=== PATIENT | female | born 1950 | race Caucasian/White ===

== ENCOUNTER 2021-06-29 13:27 | Inpatient (IN) ==
[~2021-06-29 13:27] MED LIST: KETAMINE 50 MG/ML ML IV PRN; MIDAZOLAM 2 MG/2 ML VIAL IV SCH; PROPOFOL 200 MG/20 ML VIAL IV SCH
[2021-06-29] MEDS ORDERED: EPINEPHrine 1 MG/10 ML (1:10,000) SYRINGE IV ONE (13:28)
[2021-06-29] MEDS ORDERED: DEXTROSE 5% IN WATER 50 ML BAG IV ONE (13:28)
[2021-06-29] MEDS ORDERED: NALOXONE HCL 0.4 MG/ML VIAL IV ONE (13:28)
[2021-06-29] MEDS ORDERED: metroNIDAZOLE 500 MG in PREMIX 1 BAG IV SCH (15:00)
[2021-06-29] MEDS ORDERED: ONDANSETRON 4 MG/2 ML VIAL IV ONE ×2 (15:03→15:49)
[2021-06-29] MEDS ORDERED: HYDROmorphone 2 MG TABLET PO PRN (15:04)
[2021-06-29] MEDS: LACTATED RINGERS 1,000 ML IV SCH ×2 (15:07→21:35)
[2021-06-29] MEDS ORDERED: HYDROmorphone 1 MG/ML SYRINGE IV PRN (15:14)
[2021-06-29] MEDS ORDERED: MEROPENEM 2 GM in 0.9 % SODIUM CHLORIDE 100 ML IV ONE (15:45)
[2021-06-29] MEDS ORDERED: 0.9 % SODIUM CHLORIDE 250 ML IV SCH ×2 (15:45→19:00)
[2021-06-29] MEDS ORDERED: MEROPENEM 1 GM in 0.9 % SODIUM CHLORIDE 100 ML IV ONE (15:45)
[2021-06-29] MEDS ORDERED: MEROPENEM 2 GM in 0.9 % SODIUM CHLORIDE 50 ML IV ONE (15:46)
[2021-06-29] MEDS ORDERED: ONDANSETRON 4 MG/2 ML VIAL ONE ×2 (15:56→16:33)
[2021-06-29] MEDS ORDERED: EPINEPHrine 4 MG in 0.9 % SODIUM CHLORIDE 246 ML IV SCH (16:00)
--- NOTE | 2021-06-29 16:26 | Colonoscopy Procedure Note ---
Colonoscopy Procedure Notes Procedure Information Patient information: Note initiated : 06/29/21 at 4:21 pm Service Date: 06.29.21 Patient: Jewell Campoverde 70 y/o F admitted on for Esophogogastroduodenoscopy and Colonoscopy. Pre-op diagnosis general: Constipation. LLQ abdominal pain. Abnormal CT. Post-op diagnosis general: Ischemic colitis. Descending colon stricture. Perforation. Procedure: Colonoscopy Procedure narrative: The procedure, alternatives and risks were discussed with the patient and the patient's questions were answered. With endoscopist-administered intravenous sedation, the Olympus colonoscope was introduced into the rectum and advanced to the mid descending colon, where a tight ulcerated stricture was encountered. The scope was withdrawn and intubation with a pediatric colonoscope was attempted. I attempted to gently advance the pediatric colonoscope and was able to advance it 3-4cm before the bowel perforated suddenly. This complication was recognized immediately and surgeon, Dr. Bill, was called. She was given hydromorphone in the post procedure observation unit and developed respiratory depression, which resolved with Code Blue team intervention. She is taken to surgery emergently. Assessment: Ischemic colitis. Descending colon stricture. Perforation.
--- NOTE | 2021-06-29 16:30 | Event Note ---
Event Note Event Note: CODE BLUE event Responded to overhead CODE BLUE Patient was found unresponsive, pulseless and blue. CPR initiated, IV access secured, 1 amp of epi, 2 bags crystalloids pressure bag push, epi drip, magnesium, meropenem 2 g IV Reviewed chart, history of hypertension/GERD/ischemic colitis/COPD, no known CAD/CVA or CKD Discussed with GI Dr. Tiffanie Poole. Clinically peritonitis following bowel perforation during procedure. Stat surgical consult. No anesthesia service available for the next couple of hours and hence emergent transfer coordination postcode to tertiary center for exploratory laparotomy in the setting of bowel perforation. Case discussed with [facility] transfer center/colorectal surgeon/document processor Dr. Yang. Patient accepted for further management. Post CODE BLUE patient's hemodynamics stable with systolics around 140, tachycardia at 130, tender abdomen, patient awake and respond to commands. 3 IV access secured, on 7 L oxygen OxiMax. Reviewed EKGs tachycardia with A. fib flutter. Code labs pending, white count 9.7, hemoglobin 16 sodium 133, creatinine 0.6, potassium 4.5, Troponin pending Shortly prior to transfer was informed that emergent surgery is possible at [facility] and hence patient will be transferred to directly to the OR for expiratory laparotomy. Case discussed with Dr. Bill surgery, Dr. 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 However discussed with [facility] to keep ICU bed available case patient continues to be hemodynamically unstable post surgery requiring the need for transfer for expert management Assessment * Acute peritonitis secondary to bowel perforation * Sepsis secondary to above * CODE BLUE cardiorespiratory arrest with ROSC following epinephrine/2 minutes CPR secondary to above Plan * Will review postop * Consider transfer to tertiary center. * Monitor intensive care unit postoperatively until patient can be safely transferred to tertiary center Time spent on CODE BLUE/discussion with physician, transfer coordination in excess of 105 minutes
[2021-06-29] MEDS ORDERED: DEXAMETHASONE 10 MG/ML VIAL ONE (16:33)
[2021-06-29] MEDS ORDERED: HYDROmorphone 1 MG/ML SYRINGE ONE (16:33)
[2021-06-29] MEDS ORDERED: fentaNYL 100 MCG/2 ML VIAL IV ONE (16:33)
[2021-06-29] MEDS ORDERED: PHENYLephrine 1 MG/10 ML SYRINGE (ANEST) ONE (16:33)
[2021-06-29] MEDS ORDERED: MIDAZOLAM 2 MG/2 ML VIAL ONE (16:33)
[2021-06-29] MEDS ORDERED: SUGAMMADEX SODIUM 200 MG/2 ML VIAL IV ONE (16:33)
[2021-06-29] MEDS ORDERED: MAGNESIUM SULFATE 2 GM/50 ML BAG IV ONE (16:33)
[2021-06-29] MEDS ORDERED: KETAMINE 50 MG/ML Syringe (ANEST) IV ONE (16:33)
[2021-06-29] MEDS ORDERED: PROPOFOL 200 MG/20 ML VIAL IV ONE (16:33)
[2021-06-29] MEDS ORDERED: GLYCOPYRROLATE 0.2 MG/ML VIAL IV ONE (16:33)
[2021-06-29] MEDS ORDERED: LIDOCAINE HCL/PF 100 MG/5 ML SYRINGE IV ONE (16:33)
[2021-06-29] MEDS ORDERED: ROCURONIUM 10 MG/ML ML IV ONE (16:33)
[2021-06-29] MEDS ORDERED: SUCCINYLCHOLINE 20 MG/ML ML IV ONE (16:33)
--- NOTE | 2021-06-29 16:38 | General Surgery Consult Note ---
HPI Data of Consult Patient: new to practice Consult date: 06/29/21 Primary Care Provider: DONATO Singh Consult Narrative Chief complaint: Colonic Perforation Secondary to Colonoscopy Reason for consult: Same History of present illness: Asked to see patient following Iatrogenic Perforation secondary to Colonoscopy with Dr Matute for High Grade Obstructing Colonic Stricture secondary to Ischemic Colitis 2 months ago. Initially saw patient in conjunction with a code at roughly 1520 that seemed to present as an episode of Respiratory Failure resulting in need for Chest Compressions and full CPR along with administration of Epinephrine. Patient was initially non conversant but became gradually conversant after recovery and was able to convey significant abdominal pain and discomfort. Has had prior Appendectomy and Cholecystectomy. Denies any other abdominal surgery. cc:: CC: Guzman Matute [facility] All Active Problems (Updated 06/29/21 @ 16:33 by Han Bill MD) Perforation of colon as colonoscopy complication (Acute) Effusion of left knee (Chronic) Peripheral Vascular Disease (Chronic) Chronic obstructive pulmonary disease (Chronic) Hx of appendectomy (Chronic) H/O carpal tunnel repair (Chronic 01/13/14) H/O cervical discectomy (Chronic 03/19/14) Hx of cholecystectomy (Chronic) History of knee replacement procedure of left knee (Chronic) History of knee replacement procedure of right knee (Chronic) H/O tubal ligation (Chronic) S/P transposition of nerve (Chronic) Abdominal pain (Chronic) Anxiety disorder (Chronic) Back pain (Chronic) Paresthesias (Chronic 01/16/13) Carpal tunnel syndrome (Chronic) Chronic pain (Chronic) Degeneration, intervertebral disc, cervical (Chronic) Degenerative joint disease (Chronic) Depressive disorder (Chronic) Fatigue (Chronic) Fungal infection (Chronic) Gastroesophageal reflux (Chronic) Herpes simplex (Chronic 02/15/14) Hyperlipidemia (Chronic) Insomnia (Chronic) Neck pain (Chronic 01/14/13) Onychomycosis (Chronic 12/24/12) Osteoarthrosis (Chronic) Osteoporosis (Chronic 07/17/13) Polycythemia (Chronic 02/15/14) Ulnar tunnel syndrome (Chronic) Vaginitis and vulvovaginitis (Chronic) Pain due to total left knee replacement (Chronic) COPD exacerbation (Chronic ~01/16/13) History of abnormal cervical Pap smear (Chronic) Ganglion cyst of right foot (Chronic) UTI (urinary tract infection) (Chronic) Indigestion (Chronic) Arthritis (Chronic) Hypertension (Chronic) History of ankle surgery (Chronic) S/P wrist surgery (Chronic) Risk for falls (Chronic) Situational depression (Chronic) Encounter for medication monitoring (Chronic) Tobacco smoker within last 12 months (Chronic) OAB (overactive bladder) (Acute) Urinary retention with incomplete bladder emptying (Acute) Stroke-like symptom (Acute) Light-headedness (Acute) Dehydration (Acute) Ankle sprain (Acute) Sciatica associated with disorder of lumbar spine (Acute) Colitis (Acute) Left hip pain (Acute) Urinary tract infection (Acute) Medical History Abdominal pain Anxiety disorder Arthritis Back pain Carpal tunnel syndrome Chronic obstructive pulmonary disease Chronic pain Left knee COPD exacerbation (~01/16/13) Degeneration, intervertebral disc, cervical 12/28/13-Dr. Jacobs-ACDF Degenerative joint disease Depressive disorder Effusion of left knee Encounter for medication monitoring Fatigue Fungal infection Gastroesophageal reflux Herpes simplex (02/15/14) Lip Hyperlipidemia Hypertension Indigestion Insomnia Neck pain (01/14/13) Onychomycosis (12/24/12) Osteoarthrosis Lower leg Osteoporosis (07/17/13) Pain due to total left knee replacement Painful subluxed left total knee replacement. Needs revision Paresthesias (01/16/13) Bilateral pattern paresthesias-ulnar Peripheral Vascular Disease Polycythemia (02/15/14) Secondary Risk for falls Situational depression Tobacco smoker within last 12 months 2017: She did not like Chantix. She thought it gave her hives. She did not tolerate Wellbutrin very well. She did not like the way it made her feel. 2020: Willing to try patches again, she may do well using Mastisol or Skin- Prep to help the patches adhere better to her skin 10/27/2020 cannot afford patches - given [place] quitline info Ulnar tunnel syndrome UTI (urinary tract infection) Vaginitis and vulvovaginitis Surgical History H/O carpal tunnel repair (01/13/14) Dr. Jacobs H/O cervical discectomy (03/19/14) Dr. Jacobs ACD&F of C5-6 H/O tubal ligation 1977 History of ankle surgery Ganglion cyst on ankle- Dr. Martin History of knee replacement procedure of left knee and 2 revisions- 3 years ago History of knee replacement procedure of right knee 10/2007 partial Hx of appendectomy 1970 Hx of cholecystectomy S/P transposition of nerve Ulnar nerve transposition, left S/P wrist surgery 04/2017 Family History Unknown Alcohol abuse Osteoarthritis Osteoporosis Mother Arthritis Hypertension Sister , 2 one 56 and one 55 Hypertension Cancer 2 Sisters of 4 from cancer at ages 56 & 55 Father , at age 59 Aneurysm Social History caregiver/support person: Yes household members: family lives independently: No marital status: occupational status: disabled sexually active: Yes other: Lives with son and daughter in law physical activity: none smoking status: Current every day smoker tobacco type: cigarettes per day: 5 quit status: considering quitting counseling given: provider counseling and other details: Patches - can't afford alcohol intake frequency: 2+ drinks per day substance use type: former substance user seatbelt use: always additional history: Has 2 sisters (living), 2 brothers, 4 children and 9 grandchildren MEDS/ALLERGIES Home Medications and Allergies Home Medications Medication Instructions Recorded Confirmed Type triamcinolone acetonide 0.1 % 1 applic TOPICAL BID 02/02/19 06/29/21 History topical cream Allkare Protect Barrier Wipes #50 ea NS 10/04/20 06/29/21 Rx (ostomy supplies) tamsulosin 0.4 mg capsule 0.4 mg PO QHS #90 cap 01/11/21 06/29/21 Rx fluticasone propionate 50 1 spray INTRANASAL QDAY #54.6 ml 02/22/21 06/29/21 Rx mcg/actuation nasal spray,suspension mesalamine 800 mg tablet,delayed 1,600 mg PO TID tab 04/18/21 06/29/21 History release lisinopril 20 mg tablet 20 mg PO QDAY #90 tab 05/09/21 06/29/21 Rx omeprazole 20 mg capsule,delayed 20 mg PO QAM #90 cap 05/09/21 06/29/21 Rx release tizanidine 4 mg tablet 4 mg PO BID PRN #60 tab 05/09/21 06/29/21 Rx Grab bar for bath tub #1 ea 05/17/21 06/29/21 Rx alprazolam 1 mg tablet See Rx Instructions .ROUTE 06/08/21 06/29/21 Rx .COMPLEX #60 unknown measurement unit code: tablet oxycodone 10 mg tablet See Rx Instructions PO Q6H PRN #60 06/15/21 06/29/21 Rx tab Allergies Allergy/AdvReac Type Severity Reaction Status Date / Time codeine Allergy Intermediate Itching Verified 05/10/21 09:23 hydrocodone Allergy Intermediate itching Verified 05/10/21 09:23 meperidine [From Demerol] Allergy Unknown Itching Verified 05/10/21 09:23 propoxyphene Allergy Unknown Itching Verified 05/10/21 09:23 [From Darvocet-N] Varenicline [From Chantix] Allergy Unknown Hives Verified 05/10/21 09:23 Physical Examination Vital Signs Vital signs: Temp Pulse Resp BP Pulse Ox 98.8 F 89 18 68/41 99 06/29/21 14:22 06/29/21 15:20 06/29/21 15:20 06/29/21 15:20 06/29/21 15:20 General physical appearance General physical exam: other (appears cogent and able to communicate. ) Eyes Eye exam: other (normal appearance ) Head Head exam IM: Present atraumatic, normal inspection and normocephalic Cardiovascular Cardiovascular exam IM: Present normal rate and rhythm (appears to be in sinus tachycardia in the 130s ) Respiratory Respiratory exam: other (able so speak in full sentences at this time ) Abdomen Abdomen: Present soft (firm, distended, tender to palpation with evidence of peritonitis ) Neurologic Neurologic: Present other (seems awake and conversant ) Results Labs Labs: All other labs normal. A/P Assessment and plan (1) Perforation of colon as colonoscopy complication: Assessment and plan: Colonic Perforation secondary to Colonoscopy Acute Abdomen with need for Operative Exploration Proceed to the OR SERGIO for Ex Lap, Colonic Resection, and probable Colostomy IV ABs, Fluids en route to OR and Medical Consultation ongoing Risks, benefits, potential complications and alternative treatment options were discussed as fully as possible with patient and family at her bedside and conveyed understanding of the need for Urgent Operative Intervention as well as the seriousness and life threatening nature of the situation. Status: Acute Time Spent With Patient Time: Total time spent is greater than 50% in coordination of care (as documented) at patient's floor/unit and/or counseling patient:
[2021-06-29] MEDS ORDERED: fentaNYL 100 MCG/2 ML VIAL IV PRN (18:55)
[2021-06-29] MEDS ORDERED: METOPROLOL TARTRATE 5 MG/5 ML VIAL IV PRN (18:55)
[2021-06-29] MEDS ORDERED: LABETALOL 5 MG/ML ML IV PRN (18:55)
[2021-06-29] MEDS ORDERED: BENZOCAINE/MENTHOL 1 LOZENGE PO PRN (18:55)
[2021-06-29] MEDS ORDERED: ONDANSETRON 4 MG/2 ML VIAL IV PRN ×2 (18:55→21:08)
[2021-06-29] MEDS ORDERED: FLUMAZENIL 0.1 MG/ML ML IV PRN (18:55)
[2021-06-29] MEDS ORDERED: ACETAMINOPHEN 1,000 MG/100 ML BAG IV ONE ×2 (18:55→19:59)
[2021-06-29] MEDS ORDERED: LACTATED RINGERS 250 ML IV PRN (18:55)
[2021-06-29] MEDS ORDERED: NALOXONE HCL 0.4 MG/ML VIAL IV PRN (18:55)
[2021-06-29] MEDS ORDERED: IPRATROPIUM/ALBUTEROL 3 ML AMPUL.NEB NEB PRN (18:55)
[2021-06-29] MEDS ORDERED: METHOCARBAMOL 1,000 MG/10 ML VIAL IV PRN (18:55)
[2021-06-29] MEDS ORDERED: LACTATED RINGERS 1,000 ML IV SCH (19:00)
--- NOTE | 2021-06-29 19:43 | Brief Operative Note ---
Brief Operative Note Date of procedure: 06/29/21 Pre-op diagnosis: Colonic Perforation Post-op diagnosis: same Procedure: Ex Lap, Washout with drain placement, Resection of Sigmoid Colonic Stricture and Perforation, End Colostomy Grafts/Implants: Yes (LLQ Drain ) Anesthesia: GETA Findings: There was a roughly 10 cm Left Colon/Proximal Sigmoid Stricture with large per foration located distally just below the stricture and pericolonic contamination, additionally there was massive proximal Colonic and SB distention. Complications: none Surgeon: Han Bill Estimated blood loss (cc): 50 Specimens Removed/Pathology: other (Sigmoid Colon with Stricture and Perforation ) Condition: other (Guarded ) Disposition: PACU
[2021-06-29] MEDS ORDERED: METHOCARBAMOL 1,000 MG/10 ML VIAL ONE (19:55)
[2021-06-29 20:36] LABS: Basophils # (Auto) 0.03 K/mcL (0.00-0.30); Basophils % (Auto) 0.6 % (0.0-2.0); Eosinophils # (Auto) 0.02 K/mcL (0.00-0.70); Eosinophils % (Auto) 0.4 % (0.0-7.0); Hematocrit 42.9 % (34.1-44.9); Hemoglobin 13.7 g/dL (11.2-15.7); Lymphocytes # (Auto) 1.31 K/mcL (1.50-4.80); Lymphocytes % (Auto) 25.4 % (15.5-49.0); Mean Cell Volume 99.5 fL (80.0-100.0); Mean Corpuscular HGB Conc 31.9 g/dL (31.0-36.0); Mean Platelet Volume 9.5 fL (7.4-10.4); Monocytes # (Auto) 0.25 K/mcL (0.10-0.90); Monocytes % (Auto) 4.9 % (1.0-12.0); Neutrophils % (Auto) 68.7 % (38.0-78.0); Platelet Count 286 K/mcL (140-440); RBC 4.31 M/mcL (3.59-5.38); Red Cell Distribution Width 13.4 % (11.5-14.5); WBC 5.2 K/mcL (4.5-11.0)
[2021-06-29 20:56] LABS: Blood Urea Nitrogen 5 mg/dL (8-23); Calcium 7.5 mg/dL (8.6-10.4); Carbon Dioxide 24 mmol/L (22-30); Chloride 98 mmol/L (96-108); Glomerular Filtration Rate 98; Glucose 239 mg/dL (70-105)
--- NOTE | 2021-06-29 20:56 | EKG ---
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
[2021-06-29] MEDS ORDERED: ONDANSETRON 4 MG ODT TABLET SL PRN (21:08)
[2021-06-29] MEDS ORDERED: POTASSIUM CHLORIDE 40 MEQ in DEXTROSE 5% IN WATER 500 ML IV PRN (21:08)
[2021-06-29] MEDS ORDERED: MAGNESIUM SULFATE 2 GM/50 ML BAG IV PRN (21:08)
[2021-06-29] MEDS ORDERED: BISACODYL 10 MG SUPP.RECT PR PRN (21:08)
--- NOTE | 2021-06-29 21:09 | Internal Medicine Consult Note ---
HPI Data of Consult Consult date: 06/29/21 Requesting physician: Guzman Matute Primary Care Provider: DONATO Singh Consult Narrative Chief complaint: Bowel Perforation Reason for consult: Post op antibiotics, Management of medical issues History of present illness: Ms. Campoverde is a 70-year-old who experienced cardiorespiratory arrest following iatrogenic colonic perforation. Patient underwent brief CPR/resuscitative efforts with ROSC. She was subsequently taken to the OR for ex lap/resection of sigmoid colonic stricture/perforation and end colostomy/washout and drain placement. Postoperatively patient was transferred to the ICU. Hospital service was consulted for management of medical issues/antibiotics while patient will continue postop care under care of surgical services Patient arrived to ICU postop in stable state. Systolics around 140. Bernard is draining clear urine. Abdominal drain present. Patient slightly drowsy under effect of sedation but able to answer most of the questions. Moving all 4 extremities. Endorses to pain around surgery incision. No family members present Reviewed chart/past medical records. Known history of COPD/ischemic colitis/hypertension/GERD/chronic pain. Postcode labs unremarkable except for sodium 127. Patient currently on crystalloids,/IV opioids/NG decompression. Review of systems 10 point review system performed and negative except as above cc:: CC: Guzman [facility] All Active Problems (Updated 06/29/21 @ 16:33 by Han Bill MD) Perforation of colon as colonoscopy complication (Acute) Effusion of left knee (Chronic) Peripheral Vascular Disease (Chronic) Chronic obstructive pulmonary disease (Chronic) Hx of appendectomy (Chronic) H/O carpal tunnel repair (Chronic 01/13/14) H/O cervical discectomy (Chronic 03/19/14) Hx of cholecystectomy (Chronic) History of knee replacement procedure of left knee (Chronic) History of knee replacement procedure of right knee (Chronic) H/O tubal ligation (Chronic) S/P transposition of nerve (Chronic) Abdominal pain (Chronic) Anxiety disorder (Chronic) Back pain (Chronic) Paresthesias (Chronic 01/16/13) Carpal tunnel syndrome (Chronic) Chronic pain (Chronic) Degeneration, intervertebral disc, cervical (Chronic) Degenerative joint disease (Chronic) Depressive disorder (Chronic) Fatigue (Chronic) Fungal infection (Chronic) Gastroesophageal reflux (Chronic) Herpes simplex (Chronic 02/15/14) Hyperlipidemia (Chronic) Insomnia (Chronic) Neck pain (Chronic 01/14/13) Onychomycosis (Chronic 12/24/12) Osteoarthrosis (Chronic) Osteoporosis (Chronic 07/17/13) Polycythemia (Chronic 02/15/14) Ulnar tunnel syndrome (Chronic) Vaginitis and vulvovaginitis (Chronic) Pain due to total left knee replacement (Chronic) COPD exacerbation (Chronic ~01/16/13) History of abnormal cervical Pap smear (Chronic) Ganglion cyst of right foot (Chronic) UTI (urinary tract infection) (Chronic) Indigestion (Chronic) Arthritis (Chronic) Hypertension (Chronic) History of ankle surgery (Chronic) S/P wrist surgery (Chronic) Risk for falls (Chronic) Situational depression (Chronic) Encounter for medication monitoring (Chronic) Tobacco smoker within last 12 months (Chronic) OAB (overactive bladder) (Acute) Urinary retention with incomplete bladder emptying (Acute) Stroke-like symptom (Acute) Light-headedness (Acute) Dehydration (Acute) Ankle sprain (Acute) Sciatica associated with disorder of lumbar spine (Acute) Colitis (Acute) Left hip pain (Acute) Urinary tract infection (Acute) Medical History Abdominal pain Anxiety disorder Arthritis Back pain Carpal tunnel syndrome Chronic obstructive pulmonary disease Chronic pain Left knee COPD exacerbation (~01/16/13) Degeneration, intervertebral disc, cervical 12/28/13-Dr. Jacobs-ACDF Degenerative joint disease Depressive disorder Effusion of left knee Encounter for medication monitoring Fatigue Fungal infection Gastroesophageal reflux Herpes simplex (02/15/14) Lip Hyperlipidemia Hypertension Indigestion Insomnia Neck pain (01/14/13) Onychomycosis (12/24/12) Osteoarthrosis Lower leg Osteoporosis (07/17/13) Pain due to total left knee replacement Painful subluxed left total knee replacement. Needs revision Paresthesias (01/16/13) Bilateral pattern paresthesias-ulnar Peripheral Vascular Disease Polycythemia (02/15/14) Secondary Risk for falls Situational depression Tobacco smoker within last 12 months 2017: She did not like Chantix. She thought it gave her hives. She did not tolerate Wellbutrin very well. She did not like the way it made her feel. 2020: Willing to try patches again, she may do well using Mastisol or Skin- Prep to help the patches adhere better to her skin 10/27/2020 cannot afford patches - given [place] quitline info Ulnar tunnel syndrome UTI (urinary tract infection) Vaginitis and vulvovaginitis Surgical History H/O carpal tunnel repair (01/13/14) Dr. Jacobs H/O cervical discectomy (03/19/14) Dr. Jacobs ACD&F of C5-6 H/O tubal ligation 1977 History of ankle surgery Ganglion cyst on ankle- Dr. Martin History of knee replacement procedure of left knee and 2 revisions- 3 years ago History of knee replacement procedure of right knee 10/2007 partial Hx of appendectomy 1970 Hx of cholecystectomy S/P transposition of nerve Ulnar nerve transposition, left S/P wrist surgery 04/2017 Family History Unknown Alcohol abuse Osteoarthritis Osteoporosis Mother Arthritis Hypertension Sister , 2 one 56 and one 55 Hypertension Cancer 2 Sisters of 4 from cancer at ages 56 & 55 Father , at age 59 Aneurysm Social History caregiver/support person: Yes household members: family lives independently: No marital status: occupational status: disabled sexually active: Yes other: Lives with son and daughter in law physical activity: none smoking status: Current every day smoker tobacco type: cigarettes per day: 5 quit status: considering quitting counseling given: provider counseling and other details: Patches - can't afford alcohol intake frequency: 2+ drinks per day substance use type: former substance user seatbelt use: always additional history: Has 2 sisters (living), 2 brothers, 4 children and 9 grandchildren MEDS/ALLERGIES Home Medications and Allergies Home Medications Medication Instructions Recorded Confirmed Type triamcinolone acetonide 0.1 % 1 applic TOPICAL BID 02/02/19 06/29/21 History topical cream Allkare Protect Barrier Wipes #50 ea NS 10/04/20 06/29/21 Rx (ostomy supplies) tamsulosin 0.4 mg capsule 0.4 mg PO QHS #90 cap 01/11/21 06/29/21 Rx fluticasone propionate 50 1 spray INTRANASAL QDAY #54.6 ml 02/22/21 06/29/21 Rx mcg/actuation nasal spray,suspension mesalamine 800 mg tablet,delayed 1,600 mg PO TID tab 04/18/21 06/29/21 History release lisinopril 20 mg tablet 20 mg PO QDAY #90 tab 05/09/21 06/29/21 Rx omeprazole 20 mg capsule,delayed 20 mg PO QAM #90 cap 05/09/21 06/29/21 Rx release tizanidine 4 mg tablet 4 mg PO BID PRN #60 tab 05/09/21 06/29/21 Rx Grab bar for bath tub #1 ea 05/17/21 06/29/21 Rx alprazolam 1 mg tablet See Rx Instructions .ROUTE 06/08/21 06/29/21 Rx .COMPLEX #60 unknown measurement unit code: tablet oxycodone 10 mg tablet See Rx Instructions PO Q6H PRN #60 06/15/21 06/29/21 Rx tab Allergies Allergy/AdvReac Type Severity Reaction Status Date / Time Varenicline [From Chantix] Allergy Intermediate Hives Verified 06/30/21 06:04 codeine AdvReac Mild Itching Verified 06/30/21 06:04 hydrocodone AdvReac Mild itching Verified 06/30/21 06:04 meperidine [From Demerol] AdvReac Mild Itching Verified 06/30/21 06:04 propoxyphene AdvReac Mild Itching Verified 06/30/21 06:04 [From Darvocet-N] EXAM Constitutional Vitals: Temp Pulse Resp BP Pulse Ox 98.8 F 88 19 137/87 93 06/29/21 14:22 06/29/21 20:24 06/29/21 20:24 06/29/21 20:24 06/29/21 20:24 Slightly drowsy but responding to commands Head normocephalic Oral cavity moist, NG tube No ear or nose discharge Eye no subconjunctival pallor, movement symmetrical S1-S2 occasionally irregular, postcode EKG a flutter, now in sinus Barrel chest, nonlabored breathing on 2 L oxygen postop abdominal drain Lower extremity no cyanosis clubbing or joint swelling Skin no suspicious lesion Psych anxious, drowsy Neuro normal higher function on limited neuro exam DATA Data Completed and Pending Labs: Labs from last 24 hours 06/29/21 06/29/21 19:45 19:45 WBC 5.2 RBC 4.31 Hgb 13.7 Hct 42.9 MCV 99.5 MCH 31.8 MCHC 31.9 RDW 13.4 Plt Count 286 MPV 9.5 Neut % (Auto) 68.7 Lymph % (Auto) 25.4 [place] % (Auto) 4.9 Eos % (Auto) 0.4 Baso % (Auto) 0.6 Lymph # (Auto) 1.31 L [place] # (Auto) 0.25 Eos # (Auto) 0.02 Baso # (Auto) 0.03 Absolute Neutrophils 3.54 Sodium 127 L Potassium 3.5 Chloride 98 Carbon Dioxide 24 Anion Gap 5.0 L BUN 5 L Creatinine 0.5 L GFR Calculation 98 Glucose 239 H Calcium 7.5 L A/P Narrative A/P Narrative: * Bowel perforation iatrogenic- status post ex lap/washout managed per surgery. Postop care per surgery Hospitalist consult for management of medical issue/antibiotic selection * Post cardiorespiratory arrest and 2 minutes CPR/1 amp of epinephrine. Continue close monitoring in postoperative period * Acute peritonitis secondary to bowel perforation status post ex lap. Continue polymicrobial coverage including enteric ramy/antifungal on meropenem/fluconazole * Postop pain management on as needed opioids/Tylenol IV * history of COPD continue bronchodilators/supplemental oxygen * History of hypertension hold antihypertensive until systolics stable on greater than 140. * DVT prophylaxis SCDs, pharmacological prophylaxis once approved by surgery Plan * Continue polymicrobial antibiotic coverage and de-escalate in 48 hours * Periodic drain cultures * Pre-existing medical condition management on home medication except for antihypertensives until sepsis resolves * Serial labs * Keep n.p.o. * Nutrition as per surgery recommendations Time Spent With Patient Time: Total time spent is greater than 50% in coordination of care (as documented) at patient's floor/unit and/or counseling patient: Total time spent with greater than 50% in coordination of care (as documented) at patient's floor/unit and/or counseling patient:: 50 - 70 minutes
[2021-06-29] MEDS: 0.9 % SODIUM CHLORIDE 1,000 ML IV SCH (21:10)
[2021-06-29] MEDS: 0.9 % SODIUM CHLORIDE 250 ML IV SCH (21:13)
[2021-06-29] MEDS: 0.9 % SODIUM CHLORIDE 10 ML SYRINGE IV SCH (21:43)
[2021-06-29 21:47] LABS: ALT/SGPT 9 U/L (<40); AST/SGOT 14 U/L (<32); Albumin 2.3 gm/dL (3.2-5.2); Albumin/Globulin Ratio 1.2 (1.0-2.3); Alkaline Phosphatase 62 U/L (39-117); Bilirubin,Direct < 0.2 mg/dL (0-0.3); Bilirubin,Total 0.3 mg/dL (0.1-1.0); Blood Urea Nitrogen 5 mg/dL (8-23); Calcium 7.5 mg/dL (8.6-10.4); Carbon Dioxide 22 mmol/L (22-30); Chloride 97 mmol/L (96-108); Globulin 1.9 gm/dL (2.2-3.7); Glomerular Filtration Rate 106; Glucose 234 mg/dL (70-105); Lactate Dehydrogenase 157 U/L (135-225); Phosphorous 3.3 mg/dL (2.5-4.5); Triglycerides 91 mg/dL (<150); Uric Acid 1.6 mg/dL (2.5-8.0)
[2021-06-29] MEDS: IPRATROPIUM/ALBUTEROL 3 ML AMPUL.NEB NEB SCH (21:53)
[2021-06-29] MEDS: BUDESONIDE 0.5 MG/2 ML AMPUL.NEB NEB SCH (21:53)
[2021-06-29] MEDS ORDERED: BUDESONIDE 0.5 MG/2 ML AMPUL.NEB ONE (21:54)
[2021-06-29] MEDS: MEROPENEM 1 GM in 0.9 % SODIUM CHLORIDE 50 ML IV SCH (22:04)
[2021-06-29 22:29] LABS: POC Calcium, Ionized 1.18 (1.16-1.32); POC Creatinine 0.5 (0.6-1.2); POC Potassium 3.5 (3.3-5.1)
[2021-06-29] MEDS ORDERED: MEROPENEM 2 GM in 0.9 % SODIUM CHLORIDE 100 ML IV SCH (23:00)
[2021-06-29] MEDS ORDERED: POTASSIUM CHLORIDE 20 MEQ/10 ML VIAL IV ONE (23:13)
[2021-06-30] MEDS ORDERED: MEROPENEM 0.5 GM in 0.9 % SODIUM CHLORIDE 50 ML IV SCH
[2021-06-30] MEDS: HYDROmorphone 0.5 MG/0.5 ML SYRINGE IV PRN ×4 (00:49→15:57)
[2021-06-30] MEDS: NOREPINEPHRINE BITARTRATE 8 MG in 0.9 % SODIUM CHLORIDE 242 ML IV SCH ×2 (00:50→11:12)
[2021-06-30] MEDS ORDERED: HYDROmorphone 0.5 MG/0.5 ML SYRINGE ONE (00:54)
[2021-06-30] MEDS: IPRATROPIUM/ALBUTEROL 3 ML AMPUL.NEB NEB SCH ×3 (03:33→12:43)
[2021-06-30] MEDS: ACETAMINOPHEN 650 MG/65 ML BAG IV PRN ×3 (03:53→19:53)
[2021-06-30] MEDS: 0.9 % SODIUM CHLORIDE 10 ML SYRINGE IV SCH ×3 (06:17→21:25)
[2021-06-30 06:50] LABS: Basophils # (Auto) 0.01 K/mcL (0.00-0.30); Basophils % (Auto) 0.2 % (0.0-2.0); Eosinophils # (Auto) 0 K/mcL (0.00-0.70); Eosinophils % (Auto) 0 % (0.0-7.0); Hematocrit 44.3 % (34.1-44.9); Hemoglobin 14.8 g/dL (11.2-15.7); Lymphocytes # (Auto) 0.65 K/mcL (1.50-4.80); Lymphocytes % (Auto) 11.5 % (15.5-49.0); Mean Cell Volume 97.6 fL (80.0-100.0); Mean Corpuscular HGB Conc 33.4 g/dL (31.0-36.0); Mean Platelet Volume 9.5 fL (7.4-10.4); Monocytes # (Auto) 0.35 K/mcL (0.10-0.90); Monocytes % (Auto) 6.2 % (1.0-12.0); Neutrophils % (Auto) 82.1 % (38.0-78.0); Platelet Count 242 K/mcL (140-440); RBC 4.54 M/mcL (3.59-5.38); Red Cell Distribution Width 13.3 % (11.5-14.5); WBC 5.7 K/mcL (4.5-11.0)
[2021-06-30] MEDS: MEROPENEM 1 GM in 0.9 % SODIUM CHLORIDE 50 ML IV SCH ×3 (06:54→21:25)
[2021-06-30 07:34] LABS: ALT/SGPT 10 U/L (<40); AST/SGOT 21 U/L (<32); Albumin 2.8 gm/dL (3.2-5.2); Albumin/Globulin Ratio 1.2 (1.0-2.3); Alkaline Phosphatase 57 U/L (39-117); Bilirubin,Direct < 0.2 mg/dL (0-0.3); Bilirubin,Total 0.5 mg/dL (0.1-1.0); Blood Urea Nitrogen 7 mg/dL (8-23); Calcium 8.1 mg/dL (8.6-10.4); Carbon Dioxide 23 mmol/L (22-30); Chloride 102 mmol/L (96-108); Globulin 2.4 gm/dL (2.2-3.7); Glomerular Filtration Rate 106; Glucose 152 mg/dL (70-105); Lactate Dehydrogenase 240 U/L (135-225); Phosphorous 3.8 mg/dL (2.5-4.5); Triglycerides 69 mg/dL (<150); Uric Acid 1.8 mg/dL (2.5-8.0)
[2021-06-30] MEDS ORDERED: 0.9 % SODIUM CHLORIDE 500 ML IV ONE (07:40)
[2021-06-30] MEDS: BUDESONIDE 0.5 MG/2 ML AMPUL.NEB NEB SCH (07:50)
--- NOTE | 2021-06-30 08:43 | Internal Med Progress Note ---
SUBJECTIVE Subjective Patient information: Note initiated : 06/30/21 at 8:38 am Service Date, if different from initiated Date: [] Patient: Jewell Campoverde 71 y/o F admitted on 06/29/21 for Esophogog astroduodenoscopy and Colonoscopy. Chief Complaint: [] Interval history: Ms. Campoverde is a 70-year-old who experienced cardiorespiratory arrest following iatrogenic colonic perforation during colonoscopy. Patient underwent brief CPR/resuscitative efforts with ROSC. She was subsequently taken to the OR for ex lap/resection of sigmoid colonic stricture/perforation and end colostomy/washout and drain placement. Postoperatively patient was transferred to the ICU. Hospital service was consulted for management of medical issues/antibiotics while patient will continue postop care under care of surgical services Patient arrived to ICU postop in stable state. Systolics around 140. Bernard is draining clear urine. Abdominal drain present. Patient slightly drowsy under effect of sedation but able to answer most of the questions. Moving all 4 extremities. Endorses to pain around surgery incision. No family members present Reviewed chart/past medical records. Known history of COPD/ischemic colitis/hypertension/GERD/chronic pain. Postcode labs unremarkable except for sodium 127. Patient currently on crystalloids,/IV opioids/NG decompression. 06/30-patient seen in room, postop day 1. NG draining, abdomen soft however minimally tender around the surgery incision site. Lactic acid elevated. Ongoing fluids. Endorgan perfusion adequate with good urine output and maintaining systolics. On polymicrobial coverage including meropen em/fluconazole. Patient alert and communicative and appreciative of care. No overnight telemetry events, fever chills or concerns per nursing staff. Pain well controlled. White count 5.7, lactic acid 3.2, potassium 5.5 Constitutional Vitals: Vital Signs Temp Pulse Resp BP Pulse Ox 97.1 F 85 19 121/89 100 06/30/21 08:01 06/30/21 08:01 06/30/21 08:01 06/30/21 08:01 06/30/21 08:01 Period Temp Pulse Resp BP Sys/Stiles Pulse Ox Last 24 Hr 96.0 F-98.8 F 32-95 8-37 65-160/26-110 61-100 Intake and Output 06/29/21 06/30/21 06/30/21 21:59 05:59 13:59 Intake Total 4157 635 0 Output Total 2019 Balance 2137 250 0 Weight 68.311 kg Alert oriented NG tube in place Abdomen distended, sluggish bowel sounds/drain in place No lymphedema Bernard draining clear urine No telemetry events Intake & Output: Intake & Output 06/29/21 06/30/21 06/30/21 21:59 05:59 13:59 Intake Total 4157 635 0 Output Total 2019 Balance 2137 250 0 Weight 68.311 kg Intake: IV 1157 635 Lactated Ringers 1,000 ml @ 200 1007 mls/hr IV .Q5H [facility] Rx#: [id number] Merrem 1 gm In Sodium Chloride 50 50 0.9% 50 ml @ 100 mls/hr IV Q8H [facility] Rx#:[id number] Potassium Chloride 40 Meq In 520 Dextrose 5% in Water 500 ml @ 130 mls/hr IV UD PRN Rx#: [id number] Oral 0 0 Tube Feeding 0 IV - Manual Only 3000 Output: Gastric Drainage 0 Left Nare NG/OG 0 Drainage 70 235 Left Lower CHRISTINE Drain 70 235 Drainage 100 Left Lower CHRISTINE Drain 100 Urine Catheter Amount 1750 150 Stool 0 Estimated Blood Loss 100 Other: Urine Appearance Clear Clear Uretheral (Bernard) Clear Clear Urine Color Pale Bright Yellow Uretheral (Bernard) Pale Bright Yellow Urine Odor Normal OBJ DATA Labs CBC & Chem 7: 06/30/21 05:08 06/30/21 05:08 Labs: Abnormal Lab Results 06/30/21 06/30/21 06/30/21 05:08 05:08 01:58 Neut % (Auto) 82.1 H Lymph % (Auto) 11.5 L Lymph # (Auto) 0.65 L VBG Lactic Acid 3.2 H POC Sodium Sodium Potassium 5.5 H Anion Gap BUN 7 L Creatinine 0.4 L POC Creatinine Glucose 152 H POC Glucose Uric Acid 1.8 L Calcium 8.1 L Magnesium 3.2 H Lactate Dehydrogenase 240 H Total Protein 5.1 L Albumin 2.8 L Globulin 06/29/21 06/29/21 06/29/21 21:08 19:45 19:45 Neut % (Auto) Lymph % (Auto) Lymph # (Auto) 1.31 L VBG Lactic Acid 3.1 H POC Sodium Sodium 128 L 127 L Potassium Anion Gap 5.0 L BUN 5 L 5 L Creatinine 0.4 L 0.5 L POC Creatinine Glucose 234 H 239 H POC Glucose Uric Acid 1.6 L Calcium 7.5 L 7.5 L Magnesium 3.4 H Lactate Dehydrogenase Total Protein 4.2 L Albumin 2.3 L Globulin 1.9 L 06/29/21 15:49 Neut % (Auto) Lymph % (Auto) Lymph # (Auto) VBG Lactic Acid POC Sodium 132 L Sodium Potassium Anion Gap BUN Creatinine POC Creatinine 0.5 L Glucose POC Glucose 204 H Uric Acid Calcium Magnesium Lactate Dehydrogenase Total Protein Albumin Globulin Meds: Medications Albuterol/Ipratropium (Ipratropium/Albuterol 3 Ml Ampul.Neb) 3 ml NEB Q4HRT [facility] Last Admin: 06/30/21 07:50 Dose: 3 ml Documented by: Bisacodyl (Bisacodyl 10 Mg Supp.Rect) 10 mg LA Q2-3DAYS PRN PRN Reason: Constipation Budesonide (Budesonide 0.5 Mg/2 Ml Ampul.Neb) 0.5 mg NEB Q12 [facility] Last Admin: 06/30/21 07:50 Dose: 0.5 mg Documented by: Hydromorphone HCl (Hydromorphone 0.5 Mg/0.5 Ml Syringe) 0.25 - 0.5 mg IV Q4HP PRN; Protocol PRN Reason: Per Pain Protocol Last Admin: 06/30/21 06:56 Dose: 0.5 mg Documented by: Potassium Chloride 40 meq/ (Dextrose) 520 mls @ 130 mls/hr IV UD PRN PRN Reason: K+ = or < 3.5 Last Infusion: 06/30/21 03:34 Dose: Infused Documented by: Acetaminophen (Ofirmev) 650 mg in 65 mls @ 130 mls/hr IV Q6HP PRN; Protocol PRN Reason: Per Pain Protocol/Fever > 101 Last Infusion: 06/30/21 04:32 Dose: Infused Documented by: Magnesium Sulfate (Magnesium Sulfate) 2 gm in 50 mls @ 50 mls/hr IV UD PRN PRN Reason: MG = or < 1.7 Sodium Chloride (Sodium Chloride 0.9%) 1,000 mls @ 50 mls/hr IV .Q20H [facility] Stop: 07/02/21 09:07 Last Admin: 06/29/21 21:10 Dose: 50 mls/hr Documented by: Meropenem 1 gm/ Sodium (Chloride) 50 mls @ 100 mls/hr IV Q8H [facility]; Protocol Last Admin: 06/30/21 06:54 Dose: 100 mls/hr Documented by: Norepinephrine Bitartrate 8 mg (/ Sodium Chloride) 250 mls @ 18.75 mls/hr IV Q 14H [facility]; Protocol Last Admin: 06/30/21 00:50 Dose: Not Given Documented by: Sodium Chloride (Sodium Chloride 0.9%) 250 mls @ 20 mls/hr IV .[id number] [facility] Last Admin: 06/29/21 21:13 Dose: Not Given Documented by: Fluconazole (Diflucan) 200 mg in 100 mls @ 100 mls/hr IV Q24H [facility] Ondansetron HCl (Ondansetron 4 Mg Odt Tablet) 4 mg SL Q4-6HP PRN; Protocol PRN Reason: Nausea And Vomiting Ondansetron HCl (Ondansetron 4 Mg/2 Ml Vial) 4 mg IV Q4-6HP PRN; Protocol PRN Reason: Nausea And Vomiting Sodium Chloride (0.9 % Sodium Chloride 10 Ml Syringe) 10 ml IV Q8 [facility] Last Admin: 06/30/21 06:17 Dose: 10 ml Documented by: A/P Narrative A/P Narrative: * Bowel perforation iatrogenic- status post ex lap/washout managed per surgery. Postop care per surgery Hospitalist consult for management of medical issue/antibiotic selection * Post cardiorespiratory arrest and 2 minutes CPR/1 amp of epinephrine. Doing well, stable hemodynamics * Acute peritonitis secondary to bowel perforation status post ex lap. Continue polymicrobial coverage including enteric ramy/antifungal on meropenem/fluconazole * Postop pain management on as needed opioids/Tylenol IV * history of COPD stable on bronchodilators/supplemental oxygen * History of hypertension hold antihypertensive until systolics stable on greater than 140. He was admitted hydralazine for systolic greater than 160 * DVT prophylaxis SCDs, pharmacological prophylaxis once approved by surgery Plan * Continue polymicrobial antibiotic coverage and de-escalate in 24 to 48 hours * Pre-existing medical condition management on home medication except for antihypertensives until sepsis resolves * Serial lactate * Nutrition as per surgery recommendations Time Spent With Patient Time: Total time spent is greater than 50% in coordination of care (as documented) at patient's floor/unit and/or counseling patient: QUALITY VTE Deep Vein Thrombosis/Pulmonary Embolism Present on Admission: No
[2021-06-30] MEDS: 0.9 % SODIUM CHLORIDE 250 ML IV SCH ×2 (08:49→22:46)
[2021-06-30] MEDS: FLUCONAZOLE 200 MG/100 ML BAG IV SCH (08:51)
--- NOTE | 2021-06-30 09:34 | Operative Note ---
DATE OF OPERATION: 06/29/2021 PREOPERATIVE DIAGNOSIS: Iatrogenic colonic perforation secondary to colonoscopy. POSTOPERATIVE DIAGNOSIS: Iatrogenic colonic perforation secondary to colonoscopy. OPERATIVE PROCEDURE: 1. Exploratory laparotomy with washout and drain placement. 2. Resection en bloc of sigmoid colon with sigmoid colonic stricture and perforation. 3. Diverting end colostomy. SURGEON: Han Bill M.D. ANESTHESIA: General. PREOPERATIVE MEDICATIONS: Meropenem and Flagyl. INDICATIONS FOR PROCEDURE: The patient is a 70-year-old female who developed a stricture in the distal left colon in the area of the sigmoid secondary to a bout of ischemic colitis several months ago. She was undergoing lower endoscopy on 06/29/2021 when a perforation occurred below the level of the stricture in the sigmoid colon. We were asked to see her in consultation for consideration and progression to the operating room. Shortly after the completion of the colonoscopy, she coded in the recovery area, was subsequently revived, and recovered to the point that she was able to be fully conversant along with family members regarding the situation. Her abdomen at that time had become increasingly distended. She was very tender and had an obvious acute abdomen. Given the acuity of the situation, we did not feel that there was any other option other than to proceed directly to the operating room, despite the fact that she just had gone into cardiopulmonary arrest. We discussed at length with her and family risks, benefits, potential complications, alternative treatment options, and potential expected outcomes and the gravity of the situation as well as our anticipated plans. That included, in all likelihood, stomal diversion given her fragility and the acuity of the situation. All of this was discussed at length. They wished to proceed. The hospitalist and the medical teams kindly saw her in consultation as well and assisted in preparing her for transport to the operating room. PROCEDURE IN DETAIL: The patient was taken to the operating room and placed supine on the OR table, placed under general anesthesia and intubated. Bilateral SCDs were applied. All pressure sensitive areas were carefully padded. The abdomen was widely prepped and draped in a sterile fashion. Arms were placed out on arm boards under the direction of the OR team. Once she was prepped and draped, it was evident that her abdomen was extremely distended. A vertical midline incision was made from just below the xiphoid process down to just past the level of the umbilicus. We then dissected down to the level of the abdominal wall midline fascia, which was opened down to the level of the peritoneum along the entire length of the incision, with great care taken to avoid any injury to the underlying bowel. The peritoneum was then opened sharply, which admitted a large gush of air. We were then able to extend this along the entire length of the incision as well and then brought our self-retaining retractor into the field. She had a massively distended small bowel and colon, particularly the right colon and transverse colon, which were just markedly distended. I had to mobilize all of this up out of the wound just to obtain visualization and gave us visualization to the area of the left lower abdomen. It became evident that there was a long stricture in the sigmoid colon with a perforation just distal to that, essentially at or just above the rectosigmoid junction. We then placed Allis clamps across the perforation immediately to interrupt contamination. We then extensively irrigated out and cleaned out all the succuss and contamination in the area. There was some bleeding as well from the site of perforation, but the Allis clamps seemed to temporarily control that as well. I then mobilized the sigmoid colon off the retroperitoneum along the white line of Toldt in standard fashion. Retroperitoneal structures were gently dissected down and away, and we mobilized the entire left colon up to the level of the splenic flexure and mobilized the entire sigmoid colon up into the field. At this point, I went ahead and elevated the Allis clamps and fired a single firing of the NAEL-75 stapler across this to close the perforation definitively and then oversewed it with some silk sutures. This was a temporary closure in lieu of resection. We then made preparations for resection of the sigmoid colon to include the roughly 10 cm in length sigmoid stricture that seemed to extend along the entire length of the sigmoid colon up into the proximal descending left colon and then also to include the perforation. We circumferentially dissected out the bowel at the rectosigmoid junction just below and then transected this with a single firing of the NAEL-75 stapler, and then utilizing the LigaSure Impact device, took down the mesocolon here, staying fairly close to the bowel until we were above the level of the stricture and at the level of the distended left colon. This was then also circumferentially dissected out and transected with an additional single firing of the NAEL-75 stapler, and this liberated the specimen in its entirety. It was sent to Pathology as sigmoid colon with stricture and perforation. I examined the transected proximal colonic limb carefully. It appeared to be well perfused and appeared to have adequate mobilization at this point to reach easily onto the anterior mid left abdominal wall for future ostomy development. We then irrigated out additionally and I brought a 10-Lao flat CHRISTINE drain in through a separate stab incision in the left lower abdomen and positioned it in the area of contamination and dissection on the left lower pericolic gutter. We irrigated out again, made sure that things appeared to be hemostatic, which they did, and then made preparations to bring our ostomy up. A section was chosen at roughly the level of the umbilicus, mid rectus sheath, roughly 3 to 4 cm off the midline incision. We removed a circular area of skin in standard fashion along with the underlying subcutaneous tissue down to the level of the anterior fascia, which was then divided in a cruciate manner to expose the underlying rectus musculature, which was then retracted to one side or the other, and then a small underlying incision was made in the posterior fascia as well, and the proximal colonic limb was delivered easily up onto the abdominal wall through this without difficulty. Great care was taken to make sure that it was not twisted or disoriented in any way, and it rested tension-free for a distance of roughly 5 to 6 cm on the anterior abdominal wall. We then brought an NG tube into the field and proceeded to decompress the stomach and the bowel to some extent. She had massively distended colon and small bowel, likely due to the colonoscopic insufflation as well as her ongoing stricture obstruction. We were able to milk this back to some degree and this decompressed things a little bit. We then brought a fish retractor as well as a large towel into the field to help reduce the bowel down and out of the way to prepare for abdominal wall closure. We irrigated out a final time and made sure that our sponge, needle and instrument counts were correct. These were checked several times, as well as a vigorous investigation of the field to make sure there was no evidence of any retained sponges or other foreign bodies, none were seen and our counts were assured to be correct. We then went ahead and closed the fascia with a running looped 0 PDS from above and below and tied in the midline in the upper aspect of the incision. We then irrigated out the subcutaneous tissues, and I elected to leave the skin open given the degree of contamination intraoperatively. A damp Kerlix gauze was placed in the incision and a dry towel was placed over this. We then made preparations to mature our colostomy. The staple line was taken off and a fair amount of succuss was aspirated out. We then matured the ostomy to the surrounding skin with interrupted 3-0 silk sutures at four quadrants and then utilized interrupted 3-0 Vicryl sutures circumferentially all the way around to mature our mucocutaneous junction. I then digitally intubated the stoma and was able to easily advance my finger past the level of the fascia. There appeared to be proper orientation of the ostomy, and there was already good flow of gas up out of the stoma. Stomal appliance was applied. The drain was secured in place with a 3-0 silk stitch. The patient was awakened, extubated, and transferred to PACU in satisfactory condition. COMPLICATIONS: None apparent. FINDINGS: As discussed above. ESTIMATED BLOOD LOSS: 50 to 100 mL. DRAINS: A single left lower quadrant flat Huseyin-Nguyen drain. No other issues to report. BW:ashlee Job ID: [id number] Doc ID: [id number] Han Bill M.D.
--- NOTE | 2021-06-30 11:52 | General Surgery Progress Note ---
SUBJECTIVE Subjective Patient information: Note initiated : 06/30/21 at 11:47 am Service Date, if different from initiated Date: [] Patient: Jewell Campoverde 71 y/o F admitted on 06/29/21 for Esophogogastroduodenoscopy and Colonoscopy. Chief Complaint: [POD#1] She feels reasonably well this am, pain control seems adequate, no major issues overnight Constitutional Vitals: Vital Signs Temp Pulse Resp BP Pulse Ox 97.1 F 91 H 16 157/81 96 06/30/21 08:01 06/30/21 11:21 06/30/21 11:21 06/30/21 11:21 06/30/21 11:21 Period Temp Pulse Resp BP Sys/Stiles Pulse Ox Last 24 Hr 96.0 F-98.8 F 32-95 8-37 65-160/26-110 61-100 Intake and Output 06/29/21 06/30/21 06/30/21 21:59 05:59 13:59 Intake Total 4157 635 650 Output Total 2019 385 170 Balance 2137 250 480 Weight 150 lb 9.6 oz Intake & Output: Intake & Output 06/29/21 06/30/21 06/30/21 21:59 05:59 13:59 Intake Total 4157 635 650 Output Total 2019 385 170 Balance 2137 250 480 Weight 150 lb 9.6 oz Intake: IV 1157 635 650 Sodium Chloride 0.9% 500 ml @ 500 Wide Open IV BOLUS ONE Rx#: [id number] Lactated Ringers 1,000 ml @ 200 1007 mls/hr IV .Q5H [facility] Rx#: [id number] Merrem 1 gm In Sodium Chloride 50 50 50 0.9% 50 ml @ 100 mls/hr IV Q8H [facility] Rx#:[id number] Potassium Chloride 40 Meq In 520 Dextrose 5% in Water 500 ml @ 130 mls/hr IV UD PRN Rx#: [id number] Oral 0 0 Tube Feeding 0 0 IV - Manual Only 3000 Output: Gastric Drainage 0 0 Left Nare NG/OG 0 0 Drainage 70 235 Left Lower CHRISTINE Drain 70 235 Drainage 100 Left Lower CHRISTINE Drain 100 Urine Catheter Amount 1750 150 170 Stool 0 Estimated Blood Loss 100 Other: Urine Appearance Clear Clear Clear Uretheral (Bernard) Clear Clear Urine Color Pale Bright Yellow Dark Yellow Uretheral (Bernard) Pale Bright Yellow Urine Odor Normal Exam: awake, conversant, non toxic, NAD Respiratory Additional comments: normal respiratory effort without apparent distress Cardiovascular Cardiovascular exam: Present normal rate and rhythm Additional comments: Tele NSR GI/Abdominal Additional comments: ostomy pink and viable, NGT in place, dressings dry drain serosang. A/P Narrative A/P Narrative: POD #1 Ex Lap, Washout and Drain Placement, Resection Sigmoid Colonic Stricture and Perforation, End Colostomy Place Wound VAC to midline wound Clears sips ok but leave NGT for now given degree of bowel distension yesterday until gas is seen in ostomy bag Continue IV ABs Time Spent With Patient Time: Total time spent is greater than 50% in coordination of care (as documented) at patient's floor/unit and/or counseling patient:
--- NOTE | 2021-06-30 12:15 | Internal Med Progress Note ---
SUBJECTIVE Subjective Patient information: Note initiated : 06/30/21 at 12:14 pm Service Date, if different from initiated Date: [] Patient: Jewell Campoverde 71 y/o F admitted on 06/29/21 for Esophogo gastroduodenoscopy and Colonoscopy. Chief Complaint: [] Interval history: Ms. Campoverde is a 70-year-old who experienced cardiorespiratory arrest following iatrogenic colonic perforation during colonoscopy. Patient underwent brief CPR/resuscitative efforts with ROSC. She was subsequently taken to the OR for ex lap/resection of sigmoid colonic stricture/perforation and end colostomy/washout and drain placement. Postoperatively patient was transferred to the ICU. Hospital service was consulted for management of medical issues/antibiotics while patient will continue postop care under care of surgical services Patient arrived to ICU postop in stable state. Systolics around 140. Bernard is draining clear urine. Abdominal drain present. Patient slightly drowsy under effect of sedation but able to answer most of the questions. Moving all 4 extremities. Endorses to pain around surgery incision. No family members present Reviewed chart/past medical records. Known history of COPD/ischemic colitis/hypertension/GERD/chronic pain. Postcode labs unremarkable except for sodium 127. Patient currently on crystalloids,/IV opioids/NG decompression. 06/30-patient seen in room, postop day 1. NG draining, abdomen soft however minimally tender around the surgery incision site. Lactic acid elevated. Ongoing fluids. Endorgan perfusion adequate with good urine output and maintaining systolics. On polymicrobial coverage including merope nem/fluconazole. Patient alert and communicative and appreciative of care. No overnight telemetry events, fever chills or concerns per nursing staff. Pain well controlled. White count 5.7, lactic acid 3.2, potassium 5.5 Constitutional Vitals: Vital Signs Temp Pulse Resp BP Pulse Ox 97.8 F 96 H 20 149/83 96 06/30/21 12:01 06/30/21 12:01 06/30/21 12:01 06/30/21 12:01 06/30/21 12:01 Period Temp Pulse Resp BP Sys/Stiles Pulse Ox Last 24 Hr 96.0 F-98.8 F 32-96 8-37 65-160/26-110 61-100 Intake and Output 04/28/22 04/29/22 04/29/22 21:59 05:59 13:59 Intake Total 4157 635 650 Output Total 2019 385 170 Balance 2137 250 480 Weight 68.311 kg Intake & Output: Intake & Output 06/29/21 06/30/21 06/30/21 21:59 05:59 13:59 Intake Total 4157 635 650 Output Total 2019 385 170 Balance 2137 250 480 Weight 68.311 kg Intake: IV 1157 635 650 Sodium Chloride 0.9% 500 ml @ 500 Wide Open IV [facility] Rx#: [id number] Lactated Ringers 1,000 ml @ 200 1007 mls/hr IV .Q5H [facility] Rx#: [id number] Merrem 1 gm In Sodium Chloride 50 50 50 0.9% 50 ml @ 100 mls/hr IV Q8H [facility] Rx#:[id number] Potassium Chloride 40 Meq In 520 Dextrose 5% in Water 500 ml @ 130 mls/hr IV UD PRN Rx#: [id number] Oral 0 0 Tube Feeding 0 0 IV - Manual Only 3000 Output: Gastric Drainage 0 0 Left Nare NG/OG 0 0 Drainage 70 235 Left Lower CHRISTINE Drain 70 235 Drainage 100 Left Lower CHRISTINE Drain 100 Urine Catheter Amount 1750 150 170 Stool 0 Estimated Blood Loss 100 Other: Urine Appearance Clear Clear Clear Uretheral (Bernard) Clear Clear Clear Urine Color Pale Bright Yellow Dark Yellow Uretheral (Bernard) Pale Bright Yellow Bright Yellow Urine Odor Normal Exam: General: Alert, Awake, No acute Distress Eyes/N/T: EOMI, Head/Neck: neck supple, CV: RRR, No murmurs, Pulm: Clear b/l, no wheezing/rhonchi/rales Abd: soft, distended, decreased BS, drain in place Ext: no clubbing/cyanosis/edema Neuro: Alert, no focal deficits, moves all extremities, Skin: warm/dry OBJ DATA Labs CBC & Chem 7: 06/30/21 05:08 06/30/21 05:08 Labs: Abnormal Lab Results 06/30/21 06/30/21 06/30/21 05:08 05:08 01:58 Neut % (Auto) 82.1 H Lymph % (Auto) 11.5 L Lymph # (Auto) 0.65 L VBG Lactic Acid 3.2 H POC Sodium Sodium Potassium 5.5 H Anion Gap BUN 7 L Creatinine 0.4 L POC Creatinine Glucose 152 H POC Glucose Uric Acid 1.8 L Calcium 8.1 L Magnesium 3.2 H Lactate Dehydrogenase 240 H Total Protein 5.1 L Albumin 2.8 L Globulin 06/29/21 06/29/21 06/29/21 21:08 19:45 19:45 Neut % (Auto) Lymph % (Auto) Lymph # (Auto) 1.31 L VBG Lactic Acid 3.1 H POC Sodium Sodium 128 L 127 L Potassium Anion Gap 5.0 L BUN 5 L 5 L Creatinine 0.4 L 0.5 L POC Creatinine Glucose 234 H 239 H POC Glucose Uric Acid 1.6 L Calcium 7.5 L 7.5 L Magnesium 3.4 H Lactate Dehydrogenase Total Protein 4.2 L Albumin 2.3 L Globulin 1.9 L 06/29/21 15:49 Neut % (Auto) Lymph % (Auto) Lymph # (Auto) VBG Lactic Acid POC Sodium 132 L Sodium Potassium Anion Gap BUN Creatinine POC Creatinine 0.5 L Glucose POC Glucose 204 H Uric Acid Calcium Magnesium Lactate Dehydrogenase Total Protein Albumin Globulin Meds: Medications Albuterol/Ipratropium (Ipratropium/Albuterol 3 Ml Ampul.Neb) 3 ml NEB Q4HRT [facility] Last Admin: 06/30/21 07:50 Dose: 3 ml Documented by: Bisacodyl (Bisacodyl 10 Mg Supp.Rect) 10 mg [place] Q2-3DAYS PRN PRN Reason: Constipation Budesonide (Budesonide 0.5 Mg/2 Ml Ampul.Neb) 0.5 mg NEB Q12 [facility] Last Admin: 06/30/21 07:50 Dose: 0.5 mg Documented by: Hydromorphone HCl (Hydromorphone 0.5 Mg/0.5 Ml Syringe) 0.25 - 0.5 mg IV Q4HP PRN; Protocol PRN Reason: Per Pain Protocol Last Admin: 06/30/21 11:26 Dose: 0.5 mg Documented by: Potassium Chloride 40 meq/ (Dextrose) 520 mls @ 130 mls/hr IV UD PRN PRN Reason: K+ = or < 3.5 Last Infusion: 06/30/21 03:34 Dose: Infused Documented by: Acetaminophen (Ofirmev) 650 mg in 65 mls @ 130 mls/hr IV Q6HP PRN; Protocol PRN Reason: Per Pain Protocol/Fever > 101 Last Infusion: 06/30/21 04:32 Dose: Infused Documented by: Magnesium Sulfate (Magnesium Sulfate) 2 gm in 50 mls @ 50 mls/hr IV UD PRN PRN Reason: MG = or < 1.7 Sodium Chloride (Sodium Chloride 0.9%) 1,000 mls @ 50 mls/hr IV .Q20H [facility] Stop: 07/02/21 09:07 Last Admin: 06/29/21 21:10 Dose: 50 mls/hr Documented by: Meropenem 1 gm/ Sodium (Chloride) 50 mls @ 100 mls/hr IV Q8H [facility]; Protocol Last Infusion: 06/30/21 07:24 Dose: Infused Documented by: Norepinephrine Bitartrate 8 mg (/ Sodium Chloride) 250 mls @ 18.75 mls/hr IV Q14H [facility]; Protocol Last Admin: 06/30/21 11:12 Dose: Not Given Documented by: Sodium Chloride (Sodium Chloride 0.9%) 250 mls @ 20 mls/hr IV .[id number] [facility] Last Admin: 06/30/21 08:49 Dose: Not Given Documented by: Fluconazole (Diflucan) 200 mg in 100 mls @ 100 mls/hr IV Q24H [facility] Last Infusion: 06/30/21 09:51 Dose: Infused Documented by: Lorazepam (Lorazepam 2 Mg/Ml Vial) 0.5 mg IV HSP PRN PRN Reason: INSOMNIA/ANXIETY Ondansetron HCl (Ondansetron 4 Mg Odt Tablet) 4 mg SL Q4-6HP PRN; Protocol PRN Reason: Nausea And Vomiting Ondansetron HCl (Ondansetron 4 Mg/2 Ml Vial) 4 mg IV Q4-6HP PRN; Protocol PRN Reason: Nausea And Vomiting Sodium Chloride (0.9 % Sodium Chloride 10 Ml Syringe) 10 ml IV Q8 [facility] Last Admin: 06/30/21 06:17 Dose: 10 ml Documented by: A/P Narrative A/P Narrative: A: *Bowel perforation iatrogenic: s/p ex lap/washout w/colostomy managed per surgery. Postop care per surgery *Post cardiorespiratory arrest & 2-minutes CPR/1 amp of epinephrine: -Doing well, stable hemodynamics *Acute peritonitis: 2/2 bowel perforation status post ex lap*Postop pain management on as needed opioids/Tylenol IV *COPD ( ): stable on bronchodilators/supplemental oxygen *HTN: on ACEI *hyperkalemia: Plan: -Continue polymicrobial coverage including enteric ramy/antifungal on meropenem/fluconazole, de-escalate in 24 to 48 hours -Serial lactate -hold home antihypertensive until systolics stable greater than 140 -NGT/Diet/Nutrition as per surgery recommendations -prn and lolis nebs for copd -pt/ot -DVT prophylaxis SCDs, pharmacological prophylaxis once approved by surgery Time Spent With Patient Time: Total time spent is greater than 50% in coordination of care (as documented) at patient's floor/unit and/or counseling patient: QUALITY VTE Deep Vein Thrombosis/Pulmonary Embolism Present on Admission: No
[2021-06-30] MEDS ORDERED: IPRATROPIUM/ALBUTEROL 3 ML AMPUL.NEB NEB PRN (14:36)
--- NOTE | 2021-06-30 16:28 | XRay Report ---
HISTORY: NG tube insertion FINDINGS: Nasogastric tube is been inserted. The tip is looped in the fundus of the stomach. There is a surgical drain in the midline of the lower pelvis. Moderate amount of gas is present throughout both large and small intestine. Prominent increased interstitial lung markings are present in both lower lobes. IMPRESSION: NG tube in the fundus of the stomach. ICU was called with the results Interpreted and Authenticated by: El Perea 06/30/21
--- NOTE | 2021-06-30 16:39 | EGD Procedure Note ---
EGD Procedure Notes Procedure Information Patient information: Note initiated : 06/30/21 at 4:38 pm Service Date: 06/29/21 Patient: Jewell Campoverde 71 y/o F admitted on 06/29/21 for Esophogogastroduodenoscopy and Colonoscopy. Pre-op diagnosis general: Weight loss. BRBPR. Abnormal CT. Post-Op Diagnosis general: Schatzki's ring. Query celiac. Procedure: EGD with Guided Dilation Procedure Narrative: The procedure, alternatives and risks were discussed with the patient and the patient's questions were answered. With endoscopist-administered intravenous sedation, the [email or web address] video endoscope was introduced into the esophagus. The esophagus, stomach, and duodenum were examined sequentially. At the esophagogastric junction, there was a Schatzki's ring narrowing the lumen significantly. The gastric mucosa, antrum, pyloric ring, and duodenum appeared normal. Antral biopsy was taken for EMBER test. Small bowel biopsies were taken for malabsorption. A guidewire was inserted into the scope. The scope was then withdrawn, leaving the guidewire in place. The esophagus was dilated with an Estonian bougie 54 Bulgarian. Assessment: Schatzki's ring. Query celiac.
[2021-06-30] MEDS: PANTOPRAZOLE 40 MG VIAL IV SCH (16:59)
[2021-06-30] MEDS: 0.9 % SODIUM CHLORIDE 1,000 ML IV SCH (18:25)
[2021-06-30] MEDS: LORazepam 2 MG/ML VIAL IV PRN (21:25)
[2021-07-01] MEDS: NOREPINEPHRINE BITARTRATE 8 MG in 0.9 % SODIUM CHLORIDE 242 ML IV SCH (04:07)
[2021-07-01] MEDS: HYDROmorphone 0.5 MG/0.5 ML SYRINGE IV PRN ×4 (04:08→19:31)
[2021-07-01] MEDS: MEROPENEM 1 GM in 0.9 % SODIUM CHLORIDE 50 ML IV SCH ×3 (05:33→21:59)
[2021-07-01] MEDS: 0.9 % SODIUM CHLORIDE 10 ML SYRINGE IV SCH ×3 (05:33→22:20)
[2021-07-01 07:10] LABS: ALT/SGPT 10 U/L (<40); AST/SGOT 27 U/L (<32); Albumin 2.6 gm/dL (3.2-5.2); Alkaline Phosphatase 67 U/L (39-117); Bilirubin,Direct < 0.2 mg/dL (0-0.3); Bilirubin,Total 0.4 mg/dL (0.1-1.0); Blood Urea Nitrogen 7 mg/dL (8-23); Calcium 8.3 mg/dL (8.6-10.4); Carbon Dioxide 25 mmol/L (22-30); Chloride 100 mmol/L (96-108); Globulin 2.7 gm/dL (2.2-3.7); Glomerular Filtration Rate 106; Glucose 97 mg/dL (70-105); Lactate Dehydrogenase 204 U/L (135-225); Phosphorous 2.9 mg/dL (2.5-4.5); Triglycerides 76 mg/dL (<150); Uric Acid 1.8 mg/dL (2.5-8.0)
[2021-07-01] MEDS: PANTOPRAZOLE 40 MG VIAL IV SCH ×2 (08:12→18:01)
[2021-07-01] MEDS: FLUCONAZOLE 200 MG/100 ML BAG IV SCH (08:13)
[2021-07-01] MEDS ORDERED: NOREPINEPHRINE BITARTRATE 8 MG in 0.9 % SODIUM CHLORIDE 242 ML IV PRN (08:15)
--- NOTE | 2021-07-01 08:32 | Internal Med Progress Note ---
SUBJECTIVE Subjective Patient information: Note initiated : 07/01/21 at 7:27 am Service Date, if different from initiated Date: [] Patient: Jewell Campoverde 71 y/o F admitted on 06/29/21 for Esophogog astroduodenoscopy and Colonoscopy. Chief Complaint: [] Interval history: Ms. Campoverde is a 70-year-old who experienced cardiorespiratory arrest following iatrogenic colonic perforation during colonoscopy. Patient underwent brief CPR/resuscitative efforts with ROSC. She was subsequently taken to the OR for ex lap/resection of sigmoid colonic stricture/perforation and end colostomy/washout and drain placement. Postoperatively patient was transferred to the ICU. Hospital service was consulted for management of medical issues/antibiotics while patient will continue postop care under care of surgical services Patient arrived to ICU postop in stable state. Systolics around 140. Bernard is draining clear urine. Abdominal drain present. Patient slightly drowsy under effect of sedation but able to answer most of the questions. Moving all 4 extremities. Endorses to pain around surgery incision. No family members present Reviewed chart/past medical records. Known history of COPD/ischemic colitis/hypertension/GERD/chronic pain. Postcode labs unremarkable except for sodium 127. Patient currently on crystalloids,/IV opioids/NG decompression. 06/30-patient seen in room, postop day 1. NG draining, abdomen soft however minimally tender around the surgery incision site. Lactic acid elevated. Ongoing fluids. Endorgan perfusion adequate with good urine output and maintaining systolics. On polymicrobial coverage including meropen em/fluconazole. Patient alert and communicative and appreciative of care. No overnight telemetry events, fever chills or concerns per nursing staff. Pain well controlled. White count 5.7, lactic acid 3.2, potassium 5.5. 07/01 Patient was able to walk today. Patient denies any bowel movement or flatus. Patient's home med list lists mesalamine and on primary care notes in April but patient does not know why she is on it. She denies Crohn's or ulcerative colitis. And she does not think she actually been taking it. She is coughing up some phlegm and burping but no shortness of breath. Review of Systems: denies headache/fever/chills/nausea/vomiting/chest or abdominal pain/cough/dyspnea/diarrhea. Otherwise see above. Constitutional Vitals: Vital Signs Temp Pulse Resp BP Pulse Ox 98.9 F 104 H 19 155/87 96 07/01/21 04:00 07/01/21 06:00 07/01/21 06:00 07/01/21 06:00 07/01/21 06:00 Period Temp Pulse Resp BP Sys/Stiles Pulse Ox Last 24 Hr 97.1 F-99.1 F 80-135 11-39 121-180/66-116 87-100 Intake and Output 06/30/21 07/01/21 07/01/21 21:59 05:59 13:59 Intake Total 1165 20 50 Output Total 820 865 Balance 345 -845 50 Weight 67.812 kg Intake & Output: Intake & Output 06/30/21 07/01/21 07/01/21 21:59 05:59 13:59 Intake Total 1165 20 50 Output Total 820 865 Balance 345 -845 50 Weight 67.812 kg Intake: IV 1165 50 Sodium Chloride 0.9% 1,000 ml @ 1000 50 mls/hr IV .Q20H [facility] Rx#: [id number] Merrem 1 gm In Sodium Chloride 100 50 0.9% 50 ml @ 100 mls/hr IV Q8H [facility] Rx#:[id number] Oral 20 Tube Feeding 0 Output: Gastric Drainage 150 Left Nare NG/OG 150 Drainage 130 40 Left Lower CHRISTINE Drain 130 40 Urine Catheter Amount 690 675 Other: Urine Appearance Clear Clear Uretheral (Bernard) Clear Urine Color Dark Yellow Bright Yellow Uretheral (Bernard) Dark Yellow Urine Odor Normal Exam: General: Alert, Awake, No acute Distress Eyes/N/T: EOMI, Head/Neck: neck supple, CV: RRR, No murmurs, Pulm: Clear b/l, no wheezing/rhonchi/rales Abd: soft, decreased BS, drain in place Ext: no clubbing/cyanosis/edema Neuro: Alert, no focal deficits, moves all extremities, Skin: warm/dry OBJ DATA Labs CBC & Chem 7: 06/30/21 05:08 07/01/21 05:38 Labs: Abnormal Lab Results 07/01/21 06/30/21 06/30/21 05:38 05:08 05:08 Neut % (Auto) 82.1 H Lymph % (Auto) 11.5 L Lymph # (Auto) 0.65 L VBG Lactic Acid POC Sodium Sodium 132 L Potassium 5.5 H Anion Gap 7.0 L BUN 7 L 7 L Creatinine 0.4 L 0.4 L POC Creatinine Glucose 152 H POC Glucose Uric Acid 1.8 L 1.8 L Calcium 8.3 L 8.1 L Magnesium 3.2 H Lactate Dehydrogenase 240 H Total Protein 5.3 L 5.1 L Albumin 2.6 L 2.8 L Globulin 06/30/21 06/29/21 06/29/21 01:58 21:08 19:45 Neut % (Auto) Lymph % (Auto) Lymph # (Auto) VBG Lactic Acid 3.2 H 3.1 H POC Sodium Sodium 128 L 127 L Potassium Anion Gap 5.0 L BUN 5 L 5 L Creatinine 0.4 L 0.5 L POC Creatinine Glucose 234 H 239 H POC Glucose Uric Acid 1.6 L Calcium 7.5 L 7.5 L Magnesium 3.4 H Lactate Dehydrogenase Total Protein 4.2 L Albumin 2.3 L Globulin 1.9 L 06/29/21 06/29/21 19:45 15:49 Neut % (Auto) Lymph % (Auto) Lymph # (Auto) 1.31 L VBG Lactic Acid POC Sodium 132 L Sodium Potassium Anion Gap BUN Creatinine POC Creatinine 0.5 L Glucose POC Glucose 204 H Uric Acid Calcium Magnesium Lactate Dehydrogenase Total Protein Albumin Globulin Meds: Medications Albuterol/Ipratropium (Ipratropium/Albuterol 3 Ml Ampul.Neb) 3 ml NEB Q4HP PRN PRN Reason: Shortness Of Breath Bisacodyl (Bisacodyl 10 Mg Supp.Rect) 10 mg [place] Q2-3DAYS PRN PRN Reason: Constipation Hydromorphone HCl (Hydromorphone 0.5 Mg/0.5 Ml Syringe) 0.25 - 0.5 mg IV Q4HP PRN; Protocol PRN Reason: Per Pain Protocol Last Admin: 07/01/21 04:08 Dose: 0.5 mg Documented by: Potassium Chloride 40 meq/ (Dextrose) 520 mls @ 130 mls/hr IV UD PRN PRN Reason: K+ = or < 3.5 Last Infusion: 06/30/21 03:34 Dose: Infused Documented by: Acetaminophen (Ofirmev) 650 mg in 65 mls @ 130 mls/hr IV Q6HP PRN; Protocol PRN Reason: Per Pain Protocol/Fever > 101 Last Infusion: 06/30/21 20:30 Dose: Infused Documented by: Magnesium Sulfate (Magnesium Sulfate) 2 gm in 50 mls @ 50 mls/hr IV UD PRN PRN Reason: MG = or < 1.7 Sodium Chloride (Sodium Chloride 0.9%) 1,000 mls @ 50 mls/hr IV .Q20H [facility] Stop: 07/01/21 13:07 Last Admin: 06/30/21 18:25 Dose: 50 mls/hr Documented by: Meropenem 1 gm/ Sodium (Chloride) 50 mls @ 100 mls/hr IV Q8H [facility]; Protocol Last Infusion: 07/01/21 06:05 Dose: Infused Documented by: Norepinephrine Bitartrate 8 mg (/ Sodium Chloride) 250 mls @ 18.75 mls/hr IV Q14H [facility]; Protocol Last Admin: 07/01/21 04:07 Dose: Not Given Documented by: Sodium Chloride (Sodium Chloride 0.9%) 250 mls @ 20 mls/hr IV .[id number] [facility] Last Admin: 06/30/21 22:46 Dose: Not Given Documented by: Fluconazole (Diflucan) 200 mg in 100 mls @ 100 mls/hr IV Q24H [facility] Last Infusion: 06/30/21 09:51 Dose: Infused Documented by: Lorazepam (Lorazepam 2 Mg/Ml Vial) 0.5 mg IV HSP PRN PRN Reason: INSOMNIA/ANXIETY Last Admin: 06/30/21 21:25 Dose: 0.5 mg Documented by: Ondansetron HCl (Ondansetron 4 Mg Odt Tablet) 4 mg SL Q4-6HP PRN; Protocol PRN Reason: Nausea And Vomiting Ondansetron HCl (Ondansetron 4 Mg/2 Ml Vial) 4 mg IV Q4-6HP PRN; Protocol PRN Reason: Nausea And Vomiting Last Admin: 06/30/21 16:06 Dose: 4 mg Documented by: Pantoprazole Sodium (Pantoprazole 40 Mg Vial) 40 mg IV BIDAC [facility] Last Admin: 06/30/21 16:59 Dose: 40 mg Documented by: Sodium Chloride (0.9 % Sodium Chloride 10 Ml Syringe) 10 ml IV Q8 [facility] Last Admin: 07/01/21 05:33 Dose: 10 ml Documented by: A/P Narrative A/P Narrative: A: *Bowel perforation iatrogenic: s/p ex lap/washout w/colostomy (06/29) managed per surgery. Postop care per surgery *Post cardiorespiratory arrest & 2-minutes CPR/1 amp of epinephrine: -Doing well, stable hemodynamics *Acute peritonitis: 2/2 bowel perforation status post ex lap*Postop pain management on as needed opioids/Tylenol IV *ischemic colitis: *Sinus Tach: obtain ekg *Acute hypoxic resp failure: -on 2L NC *COPD (no home O2): stable on bronchodilators/supplemental oxygen *HTN: on ACEI *hyperkalemia: improved *Hyponatremia: Seems to have a chronic component *GERD: *Anxiety: Plan: -Continue polymicrobial coverage including enteric ramy/antifungal on meropenem/fluconazole, de-escalate in 24 to 48 hours -lactic acidosis resolved -restart home antihypertensive when PO intake, ACEI. prn IV for now -NGT/Diet/Nutrition as per surgery recommendations -prn nebs for copd -pt/ot -ppi bid per GI -DVT prophylaxis SCDs, pharmacological prophylaxis once approved by surgery / ppi Time Spent With Patient Time: Total time spent is greater than 50% in coordination of care (as documented) at patient's floor/unit and/or counseling patient: QUALITY VTE Deep Vein Thrombosis/Pulmonary Embolism Present on Admission: No
[2021-07-01] MEDS ORDERED: LISINOPRIL 20 MG TABLET PO SCH (09:00)
--- NOTE | 2021-07-01 11:49 | General Surgery Progress Note ---
SUBJECTIVE Subjective Patient information: Note initiated : 07/01/21 at 11:49 am Service Date, if different from initiated Date: [] Patient: Jewell Campoverde 71 y/o F admitted on 06/29/21 for Esophogogastroduodenoscopy and Colonoscopy. Chief Complaint: [POD #2 Ex Lap, Washout and Drain Placement, Resection Sigmoid Colonic Stricture and Perforation, End Colostomy ] Continues to do well overall with manageable pain and no overnight instability. Bernard and NGT remain in place with no real ostomy output yet and bowels fairly hypoactive Constitutional Vitals: Vital Signs Temp Pulse Resp BP Pulse Ox 98.6 F 114 H 30 H 130/83 99 07/01/21 08:07 07/01/21 09:30 07/01/21 08:42 07/01/21 10:00 07/01/21 10:00 Period Temp Pulse Resp BP Sys/Stiles Pulse Ox Last 24 Hr 97.8 F-99.1 F 90-135 11-39 130-180/72-116 87-100 Intake and Output 06/30/21 07/01/21 07/01/21 21:59 05:59 13:59 Intake Total 1165 20 150 Output Total 820 865 352 Balance 345 -845 -202 Weight 149 lb 8 oz Intake & Output: Intake & Output 06/30/21 07/01/21 07/01/21 21:59 05:59 13:59 Intake Total 1165 20 150 Output Total 820 865 352 Balance 345 -845 -202 Weight 149 lb 8 oz Intake: IV 1165 150 Sodium Chloride 0.9% 1,000 ml @ 1000 50 mls/hr IV .Q20H [facility] Rx#: [id number] Merrem 1 gm In Sodium Chloride 100 50 0.9% 50 ml @ 100 mls/hr IV Q8H [facility] Rx#:[id number] Oral 20 Tube Feeding 0 0 Output: Gastric Drainage 150 2 Left Nare NG/OG 150 2 Drainage 130 40 Left Lower CHRISTINE Drain 130 40 Urine Catheter Amount 690 675 350 Other: Urine Appearance Clear Clear Clear Uretheral (Bernard) Clear Urine Color Dark Yellow Bright Yellow Pale Uretheral (Bernard) Dark Yellow Urine Odor Normal Exam: Looks well, NAD, conversant GI/Abdominal Additional comments: soft and non distended, ostomy looks viable, scant output thus far VAC in place at midline wound, JPD non enteric A/P Assessment and plan (1) Colon perforation: Assessment and plan: POD #2 Ex Lap, Washout and Drain Placement, Resection Sigmoid Colonic Stricture and Perforation, End Colostomy Doing well overall No ostomy function yet, probable ileus, continue NGT, may have oral meds with sips and clamp tube Continue wound VAC, may be up to chair, etc, will leave drain for now Continue IV ABs Status: Acute Time Spent With Patient Time: Total time spent is greater than 50% in coordination of care (as documented) at patient's floor/unit and/or counseling patient:
[2021-07-01] MEDS: ACETAMINOPHEN 650 MG/65 ML BAG IV PRN (12:13)
[2021-07-01] MEDS: LABETALOL 5 MG/ML ML IV PRN ×3 (12:13→22:14)
[2021-07-01] MEDS: LORazepam 2 MG/ML VIAL IV PRN ×2 (19:31→22:38)
[2021-07-01] MEDS: TAMSULOSIN 0.4 MG CAPSULE PO SCH (21:29)
--- NOTE | 2021-07-01 21:45 | EKG ---
Formerly [facility] Test Date: 2021-06-29 Pat Name: Jewell Campoverde Department: [facility] Room: Gender: Female Quality Control Head: : 1950 Requested By: Jose Bates Order Number: [id number] Reading MD: Olinda Ojeda D.O. Measurements Intervals [place] Rate: 157 P: NM: QRS: 47 QRSD: 127 T: 239 QT: 298 QTc: 482 Interpretive Statements Atrial fibrillation with rapid ventricular response Probablby rate related abberent conduction Electronically Signed On 07-01-2021 21:45:12 PDT by Olinda Ojeda D.O. /[id number]
--- NOTE | 2021-07-01 21:55 | EKG ---
[facility] Test Date: 2021-07-01 Pat Name: Jewell Campoverde Department: ICU Room: 120A Gender: Female Pipe Coverer: : 1950 Requested By: Romulo Hong Order Number: [id number] Reading MD: Olinda Ojeda D.O. Measurements Intervals [place] Rate: 108 P: 66 MD: 141 QRS: 40 QRSD: 90 T: 52 QT: 341 QTc: 457 Interpretive Statements Sinus tachycardia Multiform ventricular premature complexes Electronically Signed On 07-01-2021 21:54:57 PDT by Olinda Ojeda D.O. /[email or web address]/[id number]
[2021-07-02] MEDS: HYDROmorphone 0.5 MG/0.5 ML SYRINGE IV PRN ×4 (02:00→21:04)
[2021-07-02] MEDS: 0.9 % SODIUM CHLORIDE 10 ML SYRINGE IV SCH ×3 (05:43→20:09)
[2021-07-02] MEDS: MEROPENEM 1 GM in 0.9 % SODIUM CHLORIDE 50 ML IV SCH ×3 (05:43→20:08)
--- NOTE | 2021-07-02 07:33 | Internal Med Progress Note ---
SUBJECTIVE Subjective Patient information: Note initiated : 07/02/21 at 7:30 am Service Date, if different from initiated Date: [] Patient: Jewell Campoverde 71 y/o F admitted on 06/29/21 for Esophogog astroduodenoscopy and Colonoscopy. Chief Complaint: [] Interval history: Ms. Campoverde is a 70-year-old who experienced cardiorespiratory arrest following iatrogenic colonic perforation during colonoscopy. Patient underwent brief CPR/resuscitative efforts with ROSC. She was subsequently taken to the OR for ex lap/resection of sigmoid colonic stricture/perforation and end colostomy/washout and drain placement. Postoperatively patient was transferred to the ICU. Hospital service was consulted for management of medical issues/antibiotics while patient will continue postop care under care of surgical services Patient arrived to ICU postop in stable state. Systolics around 140. Bernard is draining clear urine. Abdominal drain present. Patient slightly drowsy under effect of sedation but able to answer most of the questions. Moving all 4 extremities. Endorses to pain around surgery incision. No family members present Reviewed chart/past medical records. Known history of COPD/ischemic colitis/hypertension/GERD/chronic pain. Postcode labs unremarkable except for sodium 127. Patient currently on crystalloids,/IV opioids/NG decompression. 06/30-patient seen in room, postop day 1. NG draining, abdomen soft however minimally tender around the surgery incision site. Lactic acid elevated. Ongoing fluids. Endorgan perfusion adequate with good urine output and maintaining systolics. On polymicrobial coverage including meropen em/fluconazole. Patient alert and communicative and appreciative of care. No overnight telemetry events, fever chills or concerns per nursing staff. Pain well controlled. White count 5.7, lactic acid 3.2, potassium 5.5. 07/01 Patient was able to walk today. Patient denies any bowel movement or flatus. Patient's home med list lists mesalamine and on primary care notes in April but patient does not know why she is on it. She denies Crohn's or ulcerative colitis. And she does not think she actually been taking it. She is coughing up some phlegm and burping but no shortness of breath. 07/02 Patient denies bowel movement or flatus but feels like her stomach is active now. Sodium decreased and will evaluate and treat. De-escalate meropenem. Replete phosphorus Review of Systems: denies headache/fever/chills/nausea/vomiting/chest or abdominal pain/cough/dyspnea/diarrhea. Otherwise see above. Constitutional Vitals: Vital Signs Temp Pulse Resp BP Pulse Ox 97 F 102 H 20 155/90 96 07/02/21 06:36 07/02/21 06:36 07/02/21 06:36 07/02/21 06:36 07/02/21 06:36 Period Temp Pulse Resp BP Sys/Stiles Pulse Ox Last 24 Hr 97 F-98.6 F 90-114 16-30 130-171/83-104 91-99 Intake and Output 07/01/21 07/02/21 07/02/21 21:59 05:59 13:59 Intake Total 170 170 50 Output Total 2059 Balance 170 -1890 50 Weight 68.629 kg Intake & Output: Intake & Output 07/01/21 07/02/21 07/02/21 21:59 05:59 13:59 Intake Total 170 170 50 Output Total 2059 Balance 170 -1890 50 Weight 68.629 kg Intake: IV 50 50 50 Sodium Chloride 0.9% 1,000 ml @ 0 50 mls/hr IV .Q20H [facility] Rx#: [id number] Merrem 1 gm In Sodium Chloride 50 50 50 0.9% 50 ml @ 100 mls/hr IV Q8H [facility] Rx#:[id number] Oral 120 120 0 Tube Feeding 0 Output: Gastric Drainage 50 Left Nare NG/OG 50 Drainage 10 Left Lower CHRISTINE Drain 10 Medial Abdomen Woundvac 0 Urine Catheter Amount 2000 Other: Urine Appearance Clear Uretheral (Bernard) Clear Urine Color Dark Yellow Uretheral (Bernard) Dark Yellow Urine Odor Strong Exam: General: Alert, Awake, No acute Distress Eyes/N/T: EOMI, Head/Neck: neck supple, CV: RRR, No murmurs, Pulm: Clear b/l, no wheezing/rhonchi/rales Abd: soft, increased BS, drain in place Ext: no clubbing/cyanosis/edema Neuro: Alert, no focal deficits, moves all extremities, Skin: warm/dry OBJ DATA Labs CBC & Chem 7: 06/30/21 05:08 07/02/21 06:12 Labs: Abnormal Lab Results 07/01/21 06/30/21 06/30/21 05:38 05:08 05:08 Neut % (Auto) 82.1 H Lymph % (Auto) 11.5 L Lymph # (Auto) 0.65 L VBG Lactic Acid POC Sodium Sodium 132 L Potassium 5.5 H Anion Gap 7.0 L BUN 7 L 7 L Creatinine 0.4 L 0.4 L POC Creatinine Glucose 152 H POC Glucose Uric Acid 1.8 L 1.8 L Calcium 8.3 L 8.1 L Magnesium 3.2 H Lactate Dehydrogenase 240 H Total Protein 5.3 L 5.1 L Albumin 2.6 L 2.8 L Globulin 06/30/21 06/29/21 06/29/21 01:58 21:08 19:45 Neut % (Auto) Lymph % (Auto) Lymph # (Auto) VBG Lactic Acid 3.2 H 3.1 H POC Sodium Sodium 128 L 127 L Potassium Anion Gap 5.0 L BUN 5 L 5 L Creatinine 0.4 L 0.5 L POC Creatinine Glucose 234 H 239 H POC Glucose Uric Acid 1.6 L Calcium 7.5 L 7.5 L Magnesium 3.4 H Lactate Dehydrogenase Total Protein 4.2 L Albumin 2.3 L Globulin 1.9 L 06/29/21 06/29/21 19:45 15:49 Neut % (Auto) Lymph % (Auto) Lymph # (Auto) 1.31 L VBG Lactic Acid POC Sodium 132 L Sodium Potassium Anion Gap BUN Creatinine POC Creatinine 0.5 L Glucose POC Glucose 204 H Uric Acid Calcium Magnesium Lactate Dehydrogenase Total Protein Albumin Globulin Meds: Medications Albuterol/Ipratropium (Ipratropium/Albuterol 3 Ml Ampul.Neb) 3 ml NEB Q4HP PRN PRN Reason: Shortness Of Breath Bisacodyl (Bisacodyl 10 Mg Supp.Rect) 10 mg [place] Q2-3DAYS PRN PRN Reason: Constipation Hydromorphone HCl (Hydromorphone 0.5 Mg/0.5 Ml Syringe) 0.25 - 0.5 mg IV Q4HP PRN; Protocol PRN Reason: Per Pain Protocol Last Admin: 07/02/21 02:00 Dose: 0.5 mg Documented by: Potassium Chloride 40 meq/ (Dextrose) 520 mls @ 130 mls/hr IV UD PRN PRN Reason: K+ = or < 3.5 Last Infusion: 06/30/21 03:34 Dose: Infused Documented by: Acetaminophen (Ofirmev) 650 mg in 65 mls @ 130 mls/hr IV Q6HP PRN; Protocol PRN Reason: Per Pain Protocol/Fever > 101 Last Infusion: 07/01/21 13:00 Dose: Infused Documented by: Magnesium Sulfate (Magnesium Sulfate) 2 gm in 50 mls @ 50 mls/hr IV UD PRN PRN Reason: MG = or < 1.7 Meropenem 1 gm/ Sodium (Chloride) 50 mls @ 100 mls/hr IV Q8H [facility]; Protocol Last Infusion: 07/02/21 06:29 Dose: Infused Documented by: Fluconazole (Diflucan) 200 mg in 100 mls @ 100 mls/hr IV Q24H [facility] Last Infusion: 07/01/21 09:19 Dose: Infused Documented by: Norepinephrine Bitartrate 8 mg (/ Sodium Chloride) 250 mls @ 18.75 mls/hr IV Q12HP PRN; Protocol PRN Reason: Hypotension Labetalol HCl (Labetalol 5 Mg/Ml Ml) 0 mg IV Q2HP PRN PRN Reason: Hypertension Last Admin: 07/01/21 22:14 Dose: 20 mg Documented by: Lisinopril (Lisinopril 20 Mg Tablet) 20 mg PO QDAY [facility] Lorazepam (Lorazepam 2 Mg/Ml Vial) 0.5 mg IV HSP PRN PRN Reason: INSOMNIA/ANXIETY Last Admin: 07/01/21 22:38 Dose: 0.5 mg Documented by: Ondansetron HCl (Ondansetron 4 Mg Odt Tablet) 4 mg SL Q4-6HP PRN; Protocol PRN Reason: Nausea And Vomiting Ondansetron HCl (Ondansetron 4 Mg/2 Ml Vial) 4 mg IV Q4-6HP PRN; Protocol PRN Reason: Nausea And Vomiting Last Admin: 06/30/21 16:06 Dose: 4 mg Documented by: Pantoprazole Sodium (Pantoprazole 40 Mg Vial) 40 mg IV BIDAC [facility] Last Admin: 07/01/21 18:01 Dose: 40 mg Documented by: Sodium Chloride (0.9 % Sodium Chloride 10 Ml Syringe) 10 ml IV Q8 [facility] Last Admin: 07/02/21 05:43 Dose: 10 ml Documented by: Tamsulosin HCl (Tamsulosin 0.4 Mg Capsule) 0.4 mg PO QHS [facility] Last Admin: 07/01/21 21:29 Dose: 0.4 mg Documented by: Tizanidine HCl (Tizanidine 4 Mg Tablet) 4 mg PO BID PRN PRN Reason: for muscle spasm A/P Narrative A/P Narrative: A: *Bowel perforation iatrogenic: s/p ex lap/washout w/colostomy (06/29) managed per surgery. Postop care per surgery *Post cardiorespiratory arrest & 2-minutes CPR/1 amp of epinephrine: -Doing well, stable hemodynamics *Acute peritonitis: 2/2 bowel perforation status post ex lap *ischemic colitis: *Sinus Tach: obtain ekg *Acute hypoxic resp failure: -on 2L NC *COPD (no home O2): stable on bronchodilators/supplemental oxygen *HTN: on ACEI *hyperkalemia: improved *Hyponatremia: Seems to have a chronic component *GERD: *Anxiety: Plan: -Awaiting bowel function -Continue polymicrobial coverage including enteric ramy/antifungal on meropenem(deescalate to cefepime/flagyl vs keeping merem)/fluconazole -restarted home antihypertensive ACEI -Postop pain management on as needed opioids/Tylenol IV -NGT/Diet/Nutrition as per surgery recommendations -prn nebs for copd -pt/ot -ppi bid per GI -DVT prophylaxis SCDs, pharmacological prophylaxis once approved by surgery / ppi Time Spent With Patient Time: Total time spent is greater than 50% in coordination of care (as documented) at patient's floor/unit and/or counseling patient: Total time spent with greater than 50% in coordination of care (as documented) at patient's floor/unit and/or counseling patient:: 35 - 50 minutes QUALITY VTE Deep Vein Thrombosis/Pulmonary Embolism Present on Admission: No
[2021-07-02] MEDS: PANTOPRAZOLE 40 MG VIAL IV SCH ×2 (07:39→16:26)
[2021-07-02 08:26] LABS: ALT/SGPT 11 U/L (<40); AST/SGOT 24 U/L (<32); Albumin 2.6 gm/dL (3.2-5.2); Albumin/Globulin Ratio 0.9 (1.0-2.3); Alkaline Phosphatase 80 U/L (39-117); Bilirubin,Direct 0.2 mg/dL (<0.3); Bilirubin,Total 0.8 mg/dL (0.1-1.0); Blood Urea Nitrogen 7 mg/dL (8-23); Calcium 8.5 mg/dL (8.6-10.4); Carbon Dioxide 28 mmol/L (22-30); Chloride 93 mmol/L (96-108); Globulin 2.8 gm/dL (2.2-3.7); Glomerular Filtration Rate 106; Glucose 85 mg/dL (70-105); Lactate Dehydrogenase 207 U/L (135-225); Phosphorous 2.1 mg/dL (2.5-4.5); Triglycerides 105 mg/dL (<150); Uric Acid 2.6 mg/dL (2.5-8.0)
[2021-07-02] MEDS: LISINOPRIL 20 MG TABLET PO SCH (08:48)
[2021-07-02] MEDS: FLUCONAZOLE 200 MG/100 ML BAG IV SCH (08:48)
--- NOTE | 2021-07-02 09:01 | XRay Report ---
HISTORY: Hypoxia, postop, COPD FINDINGS: Patient has interstitial fibrosis throughout both lungs with a prominent reticular pattern. This is a chronic finding. There is no acute infiltrate. The heart size is normal. Nasogastric tube is in the body of the stomach. Comparison with the prior exam from 12/09/20 shows the fibrosis is chronic. Lung volumes are smaller today. IMPRESSION: COPD with pulmonary fibrosis Interpreted and Authenticated by: El Perea 07/02/21
[2021-07-02] MEDS ORDERED: POTASSIUM PHOSPHATE 40 MEQ in DEXTROSE 5% IN WATER 500 ML IV ONE (10:04)
[2021-07-02] MEDS: SODIUM CHLORIDE 1 GM TABLET PO SCH ×3 (11:22→20:09)
--- NOTE | 2021-07-02 12:43 | General Surgery Progress Note ---
SUBJECTIVE Subjective Patient information: Note initiated : 07/02/21 at 12:42 pm Service Date, if different from initiated Date: [] Patient: Jewell Campoverde 71 y/o F admitted on 06/29/21 for Esophogogastroduodenoscopy and Colonoscopy. Chief Complaint: [POD #3 Ex Lap, Washout and Drain Placement, Resection Sigmoid Colonic Stricture and Perforation, End Colostomy] Transferred to the floor, doing well, pain control ok, no significant ostomy output yet Constitutional Vitals: Vital Signs Temp Pulse Resp BP Pulse Ox 97.4 F 96 H 18 146/84 95 07/02/21 11:24 07/02/21 11:24 07/02/21 11:24 07/02/21 11:24 07/02/21 11:24 Period Temp Pulse Resp BP Sys/Stiles Pulse Ox Last 24 Hr 97 F-98.1 F 90-102 18-20 137-170/84-104 91-96 Intake and Output 07/01/21 07/02/21 07/02/21 21:59 05:59 13:59 Intake Total 170 170 150 Output Total 2059 200 Balance 170 -1890 -50 Weight 151 lb 4.8 oz Intake & Output: Intake & Output 07/01/21 07/02/21 07/02/21 21:59 05:59 13:59 Intake Total 170 170 150 Output Total 2059 200 Balance 170 -1890 -50 Weight 151 lb 4.8 oz Intake: IV 50 50 150 Sodium Chloride 0.9% 1,000 ml @ 0 50 mls/hr IV .Q20H [facility] Rx#: [id number] Merrem 1 gm In Sodium Chloride 50 50 50 0.9% 50 ml @ 100 mls/hr IV Q8H [facility] Rx#:[id number] Oral 120 120 0 Tube Feeding 0 0 Output: Gastric Drainage 50 Left Nare NG/OG 50 Drainage 10 Left Lower CHRISTINE Drain 10 Medial Abdomen Woundvac 0 Urine Catheter Amount 2000 Void Amount 200 Other: Urine Appearance Clear Clear Uretheral (Bernard) Clear Clear Urine Color Dark Yellow Pale Straw Uretheral (Bernard) Dark Yellow Dark Yellow Urine Odor Strong Normal Exam: she looks well, NAD, non toxic GI/Abdominal Additional comments: belly soft with substantially less distension, drain scant serosang, NGT in place VAC in place at midline wound Extremities Exam Additional comments: well perfused A/P Assessment and plan (1) Colon perforation: Assessment and plan: POD #3 Ex Lap, Washout and Drain Placement, Resection Sigmoid Colonic Stricture and Perforation, End Colostomy Continuing to improve Awaiting ostomy function Change VAC tomorrow OOB as able Status: Acute Time Spent With Patient Time: Total time spent is greater than 50% in coordination of care (as documented) at patient's floor/unit and/or counseling patient:
[2021-07-02] MEDS: LORazepam 2 MG/ML VIAL IV PRN (20:08)
[2021-07-02] MEDS: TAMSULOSIN 0.4 MG CAPSULE PO SCH (20:09)
[2021-07-02] MEDS: LABETALOL 5 MG/ML ML IV PRN (21:05)
[2021-07-03] MEDS: LORazepam 2 MG/ML VIAL IV PRN ×2 (05:01→19:42)
[2021-07-03] MEDS: MEROPENEM 1 GM in 0.9 % SODIUM CHLORIDE 50 ML IV SCH ×3 (05:01→20:51)
[2021-07-03] MEDS: 0.9 % SODIUM CHLORIDE 10 ML SYRINGE IV SCH ×4 (05:02→20:58)
[2021-07-03] MEDS: HYDROmorphone 0.5 MG/0.5 ML SYRINGE IV PRN ×3 (05:02→16:17)
[2021-07-03 07:03] LABS: ALT/SGPT 10 U/L (<40); AST/SGOT 19 U/L (<32); Albumin 2.6 gm/dL (3.2-5.2); Albumin/Globulin Ratio 0.9 (1.0-2.3); Alkaline Phosphatase 69 U/L (39-117); Bilirubin,Direct 0.2 mg/dL (<0.3); Bilirubin,Total 0.7 mg/dL (0.1-1.0); Blood Urea Nitrogen 7 mg/dL (8-23); Calcium 8.4 mg/dL (8.6-10.4); Carbon Dioxide 25 mmol/L (22-30); Chloride 92 mmol/L (96-108); Globulin 2.9 gm/dL (2.2-3.7); Glomerular Filtration Rate 106; Glucose 80 mg/dL (70-105); Lactate Dehydrogenase 188 U/L (135-225); Phosphorous 2.8 mg/dL (2.5-4.5); Triglycerides 125 mg/dL (<150); Uric Acid 3.5 mg/dL (2.5-8.0)
--- NOTE | 2021-07-03 07:24 | Internal Med Progress Note ---
SUBJECTIVE Subjective Patient information: Note initiated : 07/03/21 at 7:19 am Service Date, if different from initiated Date: [] Patient: Jewell Campoverde 71 y/o F admitted on 06/29/21 for Esophogog astroduodenoscopy and Colonoscopy. Chief Complaint: [] Interval history: Ms. Campoverde is a 70-year-old who experienced cardiorespiratory arrest following iatrogenic colonic perforation during colonoscopy. Patient underwent brief CPR/resuscitative efforts with ROSC. She was subsequently taken to the OR for ex lap/resection of sigmoid colonic stricture/perforation and end colostomy/washout and drain placement. Postoperatively patient was transferred to the ICU. Hospital service was consulted for management of medical issues/antibiotics while patient will continue postop care under care of surgical services Patient arrived to ICU postop in stable state. Systolics around 140. Bernard is draining clear urine. Abdominal drain present. Patient slightly drowsy under effect of sedation but able to answer most of the questions. Moving all 4 extremities. Endorses to pain around surgery incision. No family members present Reviewed chart/past medical records. Known history of COPD/ischemic colitis/hypertension/GERD/chronic pain. Postcode labs unremarkable except for sodium 127. Patient currently on crystalloids,/IV opioids/NG decompression. 06/30-patient seen in room, postop day 1. NG draining, abdomen soft however minimally tender around the surgery incision site. Lactic acid elevated. Ongoing fluids. Endorgan perfusion adequate with good urine output and maintaining systolics. On polymicrobial coverage including meropen em/fluconazole. Patient alert and communicative and appreciative of care. No overnight telemetry events, fever chills or concerns per nursing staff. Pain well controlled. White count 5.7, lactic acid 3.2, potassium 5.5. 07/01 Patient was able to walk today. Patient denies any bowel movement or flatus. Patient's home med list lists mesalamine and on primary care notes in April but patient does not know why she is on it. She denies Crohn's or ulcerative colitis. And she does not think she actually been taking it. She is coughing up some phlegm and burping but no shortness of breath. 07/02 Patient denies bowel movement or flatus but feels like her stomach is active now. Sodium decreased and will evaluate and treat. De-escalate meropenem. Replete phosphorus 5/2 Patient no ostomy output yet. Otherwise patient comfortable no acute issues. Will need to start nutrition IV if patient unable to take enterally. Hyponatremia stable. Review of Systems: denies headache/fever/chills/nausea/vomiting/chest or abdominal pain/cough/dyspnea/diarrhea. Otherwise see above. Constitutional Vitals: Vital Signs Temp Pulse Resp BP Pulse Ox 97.3 F 104 H 20 150/98 92 07/03/21 04:00 07/03/21 04:00 07/03/21 04:00 07/03/21 04:00 07/03/21 04:00 Period Temp Pulse Resp BP Sys/Stiles Pulse Ox Last 24 Hr 97.3 F-98.6 F 95-104 18-20 146-163/84-98 90-96 Intake and Output 07/02/21 07/03/21 07/03/21 21:59 05:59 13:59 Intake Total 909.0909 50 Output Total 1565 1060 250 Balance -655.9091 -1010 -250 Weight 69.853 kg Intake & Output: Intake & Output 07/02/21 07/03/21 07/03/21 21:59 05:59 13:59 Intake Total 909.0909 50 Output Total 1565 1060 250 Balance -655.9091 -1010 -250 Weight 69.853 kg Intake: IV 609.0909 50 Merrem 1 gm In Sodium Chloride 100 50 0.9% 50 ml @ 100 mls/hr IV Q8H [facility] Rx#:[id number] Potassium Phosphate 40 Meq In 509.0909 Dextrose 5% in Water 500 ml @ 127.273 mls/hr IV ONCE ONE Rx#: [id number] Oral 300 Tube Feeding 0 Output: Gastric Drainage 200 250 Left Nare NG/OG 200 250 Drainage 15 10 Left Lower CHRISTINE Drain 15 10 Medial Abdomen Woundvac 0 Urine Catheter Amount 1350 800 Void Amount 250 Other: Urine Appearance Clear Clear Clear Uretheral (Bernard) Clear Urine Color Straw Straw Straw Uretheral (Bernard) Dark Yellow Urine Odor Normal Strong Normal Exam: General: Alert, Awake, No acute Distress Eyes/N/T: EOMI, Head/Neck: neck supple, CV: RRR, No murmurs, Pulm: Clear b/l, no wheezing/rhonchi/rales Abd: soft, + BS, drain in place Ext: no clubbing/cyanosis/edema Neuro: Alert, no focal deficits, moves all extremities, Skin: warm/dry OBJ DATA Labs CBC & Chem 7: 06/30/21 05:08 07/03/21 05:23 Labs: Abnormal Lab Results 07/03/21 07/02/21 07/01/21 05:23 06:12 05:38 Sodium 130 L 128 L 132 L Potassium Chloride 92 L 93 L Anion Gap 7.0 L 7.0 L BUN 7 L 7 L 7 L Creatinine 0.4 L 0.4 L 0.4 L Glucose Uric Acid 1.8 L Calcium 8.4 L 8.5 L 8.3 L Phosphorus 2.1 L Magnesium Lactate Dehydrogenase Total Protein 5.5 L 5.4 L 5.3 L Albumin 2.6 L 2.6 L 2.6 L Albumin/Globulin Ratio 0.9 L 0.9 L 06/30/21 05:08 Sodium Potassium 5.5 H Chloride Anion Gap BUN 7 L Creatinine 0.4 L Glucose 152 H Uric Acid 1.8 L Calcium 8.1 L Phosphorus Magnesium 3.2 H Lactate Dehydrogenase 240 H Total Protein 5.1 L Albumin 2.8 L Albumin/Globulin Ratio Meds: Medications Albuterol/Ipratropium (Ipratropium/Albuterol 3 Ml Ampul.Neb) 3 ml NEB Q4HP PRN PRN Reason: Shortness Of Breath Bisacodyl (Bisacodyl 10 Mg Supp.Rect) 10 mg [place] Q2-3DAYS PRN PRN Reason: Constipation Hydromorphone HCl (Hydromorphone 0.5 Mg/0.5 Ml Syringe) 0.25 - 0.5 mg IV Q4HP PRN; Protocol PRN Reason: Per Pain Protocol Last Admin: 07/03/21 05:02 Dose: 0.5 mg Documented by: Potassium Chloride 40 meq/ (Dextrose) 520 mls @ 130 mls/hr IV UD PRN PRN Reason: K+ = or < 3.5 Last Infusion: 06/30/21 03:34 Dose: Infused Documented by: Acetaminophen (Ofirmev) 650 mg in 65 mls @ 130 mls/hr IV Q6HP PRN; Protocol PRN Reason: Per Pain Protocol/Fever > 101 Last Infusion: 07/01/21 13:00 Dose: Infused Documented by: Magnesium Sulfate (Magnesium Sulfate) 2 gm in 50 mls @ 50 mls/hr IV UD PRN PRN Reason: MG = or < 1.7 Meropenem 1 gm/ Sodium (Chloride) 50 mls @ 100 mls/hr IV Q8H [facility]; Protocol Last Infusion: 07/03/21 05:42 Dose: Infused Documented by: Fluconazole (Diflucan) 200 mg in 100 mls @ 100 mls/hr IV Q24H [facility] Last Infusion: 07/02/21 10:09 Dose: Infused Documented by: Norepinephrine Bitartrate 8 mg (/ Sodium Chloride) 250 mls @ 18.75 mls/hr IV Q12HP PRN; Protocol PRN Reason: Hypotension Labetalol HCl (Labetalol 5 Mg/Ml Ml) 0 mg IV Q2HP PRN PRN Reason: Hypertension Last Admin: 07/02/21 21:05 Dose: 10 mg Documented by: Lisinopril (Lisinopril 20 Mg Tablet) 20 mg PO QDAY [facility] Last Admin: 07/02/21 08:48 Dose: 20 mg Documented by: Lorazepam (Lorazepam 2 Mg/Ml Vial) 0.5 mg IV HSP PRN PRN Reason: INSOMNIA/ANXIETY Last Admin: 07/03/21 05:01 Dose: 0.5 mg Documented by: Ondansetron HCl (Ondansetron 4 Mg Odt Tablet) 4 mg SL Q4-6HP PRN; Protocol PRN Reason: Nausea And Vomiting Ondansetron HCl (Ondansetron 4 Mg/2 Ml Vial) 4 mg IV Q4-6HP PRN; Protocol PRN Reason: Nausea And Vomiting Last Admin: 06/30/21 16:06 Dose: 4 mg Documented by: Pantoprazole Sodium (Pantoprazole 40 Mg Vial) 40 mg IV BIDAC [facility] Last Admin: 07/02/21 16:26 Dose: 40 mg Documented by: Sodium Chloride (0.9 % Sodium Chloride 10 Ml Syringe) 10 ml IV Q8 [facility] Last Admin: 07/03/21 05:02 Dose: 10 ml Documented by: Tamsulosin HCl (Tamsulosin 0.4 Mg Capsule) 0.4 mg PO QHS [facility] Last Admin: 07/02/21 20:09 Dose: 0.4 mg Documented by: Tizanidine HCl (Tizanidine 4 Mg Tablet) 4 mg PO BID PRN PRN Reason: for muscle spasm A/P Narrative A/P Narrative: A: *Bowel perforation iatrogenic: s/p ex lap/washout w/colostomy (06/29) managed per surgery. Postop care per surgery *Post cardiorespiratory arrest & 2-minutes CPR/1 amp of epinephrine: -Doing well, stable hemodynamics *Acute peritonitis: 2/2 bowel perforation status post ex lap *ischemic colitis: *Sinus Tach: unknown baseline *Acute hypoxic resp failure: -on 0-1L NC *COPD (no home O2)/pulm fibrosis: stable on bronchodilators/supplemental oxygen *HTN: on ACEI *hyperkalemia: improved *Hyponatremia: Seems to have a chronic component *GERD: *Anxiety: Plan: -Awaiting bowel function -Continue polymicrobial coverage including enteric ramy/antifungal on meropen em/fluconazole -restarted home antihypertensive ACEI, started BB for persistent sinus tach -Postop pain management on as needed opioids/Tylenol IV -NGT/Diet/Nutrition as per surgery recommendations. TPN if no enteral intake -prn nebs for copd, may need to evaluate for home O2 for copd/fibrosis -f/u labs -pt/ot -ppi bid per GI -DVT prophylaxis SCDs, pharmacological prophylaxis once approved by surgery / ppi Time Spent With Patient Time: Total time spent is greater than 50% in coordination of care (as documented) at patient's floor/unit and/or counseling patient: Total time spent with greater than 50% in coordination of care (as documented) at patient's floor/unit and/or counseling patient:: 25 - 35 minutes QUALITY VTE Deep Vein Thrombosis/Pulmonary Embolism Present on Admission: No
[2021-07-03] MEDS: PANTOPRAZOLE 40 MG VIAL IV SCH ×2 (07:50→16:18)
[2021-07-03] MEDS: DEXTROSE 5%-NS 1,000 ML IV SCH ×2 (07:59→20:56)
[2021-07-03] MEDS: SODIUM CHLORIDE 1 GM TABLET PO SCH ×3 (08:33→20:50)
[2021-07-03] MEDS: LISINOPRIL 20 MG TABLET PO SCH (08:34)
[2021-07-03] MEDS: METOPROLOL TARTRATE 25 MG TABLET PO SCH ×2 (08:34→20:50)
--- NOTE | 2021-07-03 08:56 | EKG ---
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 Measurements Intervals Igo Rate: 81 P: -52 VT: 214 QRS: 125 QRSD: 160 T: -26 QT: 409 QTc: 475 Interpretive Statements ECTOPIC ATRIAL RHYTHM vs. atypical atrial flutter Right bundle branch block Compared to most recent ECG, the rhythm and RIGHT BUNDLE BRANCH BLOCK are new Electronically Signed On 07-03-2021 8:56:07 PDT by Steve Perea M.D. [place] [email or web address]/[id number]
[2021-07-03] MEDS: FLUCONAZOLE 200 MG/100 ML BAG IV SCH (09:22)
[2021-07-03] MEDS ORDERED: 0.9 % SODIUM CHLORIDE 10 ML SYRINGE IV PRN (09:50)
--- NOTE | 2021-07-03 14:37 | General Surgery Progress Note ---
SUBJECTIVE Subjective Patient information: Note initiated : 07/03/21 at 2:36 pm Service Date, if different from initiated Date: [] Patient: Jewell Campoverde 71 y/o F admitted on 06/29/21 for Esophogogastroduodenoscopy and Colonoscopy. Chief Complaint: [POD #4 Ex Lap, Washout and Drain Placement, Resection Sigmoid Colonic Stricture and Perforation, End Colostomy] Feels well this am, VAC change today went well. Scant drainage via ostomy but she denies much in the way of abdominal complaint Constitutional Vitals: Vital Signs Temp Pulse Resp BP Pulse Ox 98.7 F 104 H 20 134/78 90 07/03/21 08:15 07/03/21 08:15 07/03/21 08:15 07/03/21 08:15 07/03/21 08:15 Period Temp Pulse Resp BP Sys/Stiles Pulse Ox Last 24 Hr 97.3 F-98.7 F 95-104 20-20 134-163/78-98 90-95 Intake and Output 07/03/21 07/03/21 07/03/21 05:59 13:59 21:59 Intake Total 50 1100 Output Total 1060 250 Balance -1010 850 Intake & Output: Intake & Output 07/03/21 07/03/21 07/03/21 05:59 13:59 21:59 Intake Total 50 1100 Output Total 1060 250 Balance -1010 850 Intake: IV 50 1100 Dextrose 5%-Ns IV Solution 1, 1000 000 ml @ 75 mls/hr IV .[id number] [facility] Rx#:[id number] Merrem 1 gm In Sodium Chloride 50 0.9% 50 ml @ 100 mls/hr IV Q8H [facility] Rx#:[id number] Tube Feeding 0 Output: Gastric Drainage 250 Left Nare NG/OG 250 Drainage 10 Left Lower CHRISTINE Drain 10 Medial Abdomen Woundvac 0 Urine Catheter Amount 800 Void Amount 250 Other: Urine Appearance Clear Clear Uretheral (Bernard) Clear Urine Color Straw Straw Uretheral (Bernard) Dark Yellow Urine Odor Strong Normal Exam: looks well, NAD GI/Abdominal Additional comments: soft and non tender, non distended, no mass. VAC in place, ostomy looks viable but with scant drainage thus far A/P Assessment and plan (1) Colon perforation: Status: Acute Plan POD #4 Ex Lap, Washout and Drain Placement, Resection Sigmoid Colonic Stricture and Perforation, End Colostomy Continues to look clinically well Check KUB today and consider clamping NGT, starting clears if bowel gas pattern looks relatively normal Continue to increase activity as tolerated Time Spent With Patient Time: Total time spent is greater than 50% in coordination of care (as documented) at patient's floor/unit and/or counseling patient:
--- NOTE | 2021-07-03 15:30 | XRay Report ---
CLINICAL INFORMATION: check NGT position and bowel gas pattern COMPARISON: None. FINDINGS: NG tube tip is in the gastric body. Visualized small large bowel are show mild distention compatible with ileus. No free air. IMPRESSION: NG tip in the gastric body. Mild ileus pattern-stable Interpreted and Authenticated by: Steve Reynoso 07/03/21
[2021-07-03] MEDS: TAMSULOSIN 0.4 MG CAPSULE PO SCH (20:50)
[2021-07-04] MEDS: HYDROmorphone 0.5 MG/0.5 ML SYRINGE IV PRN ×3 (00:11→20:02)
[2021-07-04] MEDS: ACETAMINOPHEN 650 MG/65 ML BAG IV PRN ×2 (00:12→12:28)
[2021-07-04] MEDS: DEXTROSE 5%-NS 1,000 ML IV SCH ×4 (00:18→20:01)
[2021-07-04] MEDS: LABETALOL 5 MG/ML ML IV PRN ×3 (01:07→23:50)
[2021-07-04] MEDS: 0.9 % SODIUM CHLORIDE 10 ML SYRINGE IV SCH ×5 (05:12→22:22)
[2021-07-04] MEDS: MEROPENEM 1 GM in 0.9 % SODIUM CHLORIDE 50 ML IV SCH ×3 (05:13→21:56)
[2021-07-04 06:47] LABS: Hematocrit 35.1 % (34.1-44.9); Hemoglobin 11.8 g/dL (11.2-15.7)
[2021-07-04 07:20] LABS: ALT/SGPT 12 U/L (<40); AST/SGOT 17 U/L (<32); Albumin 2.6 gm/dL (3.2-5.2); Albumin/Globulin Ratio 0.9 (1.0-2.3); Alkaline Phosphatase 59 U/L (39-117); Bilirubin,Direct 0.2 mg/dL (<0.3); Bilirubin,Total 0.7 mg/dL (0.1-1.0); Blood Urea Nitrogen 5 mg/dL (8-23); Calcium 8.4 mg/dL (8.6-10.4); Carbon Dioxide 29 mmol/L (22-30); Chloride 93 mmol/L (96-108); Globulin 2.9 gm/dL (2.2-3.7); Glomerular Filtration Rate 106; Glucose 125 mg/dL (70-105); Lactate Dehydrogenase 194 U/L (135-225); Phosphorous 2.8 mg/dL (2.5-4.5); Triglycerides 115 mg/dL (<150)
[2021-07-04] MEDS ORDERED: TPN PER PHARMACY IV SCH (07:30)
--- NOTE | 2021-07-04 07:35 | Internal Med Progress Note ---
SUBJECTIVE Subjective Patient information: Note initiated : 07/04/21 at 7:30 am Service Date, if different from initiated Date: [] Patient: Jewell Campoverde 71 y/o F admitted on 06/29/21 for Esophogog astroduodenoscopy and Colonoscopy. Chief Complaint: [] Interval history: Ms. Campoverde is a 70-year-old who experienced cardiorespiratory arrest following iatrogenic colonic perforation during colonoscopy. Patient underwent brief CPR/resuscitative efforts with ROSC. She was subsequently taken to the OR for ex lap/resection of sigmoid colonic stricture/perforation and end colostomy/washout and drain placement. Postoperatively patient was transferred to the ICU. Hospital service was consulted for management of medical issues/antibiotics while patient will continue postop care under care of surgical services Patient arrived to ICU postop in stable state. Systolics around 140. Bernard is draining clear urine. Abdominal drain present. Patient slightly drowsy under effect of sedation but able to answer most of the questions. Moving all 4 extremities. Endorses to pain around surgery incision. No family members present Reviewed chart/past medical records. Known history of COPD/ischemic colitis/hypertension/GERD/chronic pain. Postcode labs unremarkable except for sodium 127. Patient currently on crystalloids,/IV opioids/NG decompression. 06/30-patient seen in room, postop day 1. NG draining, abdomen soft however minimally tender around the surgery incision site. Lactic acid elevated. Ongoing fluids. Endorgan perfusion adequate with good urine output and maintaining systolics. On polymicrobial coverage including meropen em/fluconazole. Patient alert and communicative and appreciative of care. No overnight telemetry events, fever chills or concerns per nursing staff. Pain well controlled. White count 5.7, lactic acid 3.2, potassium 5.5. 07/01 Patient was able to walk today. Patient denies any bowel movement or flatus. Patient's home med list lists mesalamine and on primary care notes in April but patient does not know why she is on it. She denies Crohn's or ulcerative colitis. And she does not think she actually been taking it. She is coughing up some phlegm and burping but no shortness of breath. 07/02 Patient denies bowel movement or flatus but feels like her stomach is active now. Sodium decreased and will evaluate and treat. De-escalate meropenem. Replete phosphorus 07/03 Patient no ostomy output yet. Otherwise patient comfortable no acute issues. Will need to start nutrition IV if patient unable to take enterally. Hyponatremia stable. 07/04 No ostomy output. Blood pressure suboptimal. Just medications. Hyponatremia worsened. Hypoalbuminemia. Review of Systems: denies headache/fever/chills/nausea/vomiting/chest or abdominal pain/cough/dyspnea/diarrhea. Otherwise see above. Constitutional Vitals: Vital Signs Temp Pulse Resp BP Pulse Ox 98.0 F 102 H 18 170/99 93 07/03/21 20:00 07/03/21 20:00 07/03/21 20:00 07/03/21 20:00 07/03/21 20:00 Period Temp Pulse Resp BP Sys/Stiles Pulse Ox Last 24 Hr 97.9 F-98.7 F 84-104 18-20 134-170/78-99 88-93 Intake and Output 07/03/21 07/04/21 07/04/21 21:59 05:59 13:59 Intake Total 100 65 50 Output Total 865 Balance -765 65 50 Weight 68.946 kg Intake & Output: Intake & Output 07/03/21 07/04/21 07/04/21 21:59 05:59 13:59 Intake Total 100 65 50 Output Total 865 Balance -765 65 50 Weight 68.946 kg Intake: IV 100 65 50 Merrem 1 gm In Sodium Chloride 100 50 0.9% 50 ml @ 100 mls/hr IV Q8H [facility] Rx#:[id number] Tube Feeding 0 Output: Gastric Drainage 100 Left Nare NG/OG 100 Drainage 15 Left Lower CHRISTINE Drain 15 Medial Abdomen Woundvac 0 Urine Catheter Amount 750 Other: Urine Appearance Cloudy Uretheral (Bernard) Clear Urine Color Light Maxine Richardson Uretheral (Bernard) Bright Yellow Urine Odor Normal Exam: General: Alert, Awake, No acute Distress Eyes/N/T: EOMI, Head/Neck: neck supple, CV: RRR, No murmurs, Pulm: Clear b/l, no wheezing/rhonchi/rales Abd: soft, + BS, drain in place Ext: no clubbing/cyanosis/edema Neuro: Alert, no focal deficits, moves all extremities, Skin: warm/dry OBJ DATA Labs CBC & Chem 7: 07/04/21 05:32 07/04/21 08:05 Labs: Abnormal Lab Results 07/04/21 07/03/21 07/02/21 05:32 05:23 06:12 Sodium 130 L 130 L 128 L Chloride 93 L 92 L 93 L Anion Gap 7.0 L BUN 5 L 7 L 7 L Creatinine 0.4 L 0.4 L 0.4 L Glucose 125 H Calcium 8.4 L 8.4 L 8.5 L Phosphorus 2.1 L Total Protein 5.5 L 5.5 L 5.4 L Albumin 2.6 L 2.6 L 2.6 L Albumin/Globulin Ratio 0.9 L 0.9 L 0.9 L Meds: Medications Albuterol/Ipratropium (Ipratropium/Albuterol 3 Ml Ampul.Neb) 3 ml NEB Q4HP PRN PRN Reason: Shortness Of Breath Bisacodyl (Bisacodyl 10 Mg Supp.Rect) 10 mg SC Q2-3DAYS PRN PRN Reason: Constipation Heparin Sodium (Porcine) (Heparin Flush 10 Units/Ml 5 Ml Syringe) 2 ml IV Q12 [facility] Last Admin: 07/03/21 20:58 Dose: Not Given Documented by: Hydromorphone HCl (Hydromorphone 0.5 Mg/0.5 Ml Syringe) 0.25 - 0.5 mg IV Q4HP PRN; Protocol PRN Reason: Per Pain Protocol Last Admin: 07/04/21 00:11 Dose: 0.5 mg Documented by: Potassium Chloride 40 meq/ (Dextrose) 520 mls @ 130 mls/hr IV UD PRN PRN Reason: K+ = or < 3.5 Last Infusion: 06/30/21 03:34 Dose: Infused Documented by: Acetaminophen (Ofirmev) 650 mg in 65 mls @ 130 mls/hr IV Q6HP PRN; Protocol PRN Reason: Per Pain Protocol/Fever > 101 Last Infusion: 07/04/21 00:54 Dose: Infused Documented by: Magnesium Sulfate (Magnesium Sulfate) 2 gm in 50 mls @ 50 mls/hr IV UD PRN PRN Reason: MG = or < 1.7 Meropenem 1 gm/ Sodium (Chloride) 50 mls @ 100 mls/hr IV Q8H [facility]; Protocol Last Infusion: 07/04/21 07:07 Dose: Infused Documented by: Fluconazole (Diflucan) 200 mg in 100 mls @ 100 mls/hr IV Q24H [facility] Last Infusion: 07/03/21 12:49 Dose: Infused Documented by: Norepinephrine Bitartrate 8 mg (/ Sodium Chloride) 250 mls @ 18.75 mls/hr IV Q12HP PRN; Protocol PRN Reason: Hypotension Dextrose/Sodium Chloride (Dextrose 5%-Ns Iv Solution) 1,000 mls @ 75 mls/hr IV .[id number] [facility] Last Admin: 07/04/21 00:18 Dose: 75 mls/hr Documented by: Labetalol HCl (Labetalol 5 Mg/Ml Ml) 0 mg IV Q2HP PRN PRN Reason: Hypertension Last Admin: 07/04/21 01:07 Dose: 10 mg Documented by: Lisinopril (Lisinopril 20 Mg Tablet) 20 mg PO QDAY [facility] Last Admin: 07/03/21 08:34 Dose: 20 mg Documented by: Lorazepam (Lorazepam 2 Mg/Ml Vial) 0.5 mg IV HSP PRN PRN Reason: INSOMNIA/ANXIETY Last Admin: 07/03/21 19:42 Dose: 0.5 mg Documented by: Metoprolol Tartrate (Metoprolol Tartrate 25 Mg Tablet) 12.5 mg PO BID [facility] Last Admin: 07/03/21 20:50 Dose: 12.5 mg Documented by: Ondansetron HCl (Ondansetron 4 Mg Odt Tablet) 4 mg SL Q4-6HP PRN; Protocol PRN Reason: Nausea And Vomiting Ondansetron HCl (Ondansetron 4 Mg/2 Ml Vial) 4 mg IV Q4-6HP PRN; Protocol PRN Reason: Nausea And Vomiting Last Admin: 06/30/21 16:06 Dose: 4 mg Documented by: Pantoprazole Sodium (Pantoprazole 40 Mg Vial) 40 mg IV BIDAC [facility] Last Admin: 07/03/21 16:18 Dose: 40 mg Documented by: Sodium Chloride (0.9 % Sodium Chloride 10 Ml Syringe) 10 ml IV Q8 [facility] Last Admin: 07/04/21 05:12 Dose: Not Given Documented by: Sodium Chloride (Sodium Chloride 1 Gm Tablet) 1 gm PO TID [facility] Last Admin: 07/03/21 20:50 Dose: 1 gm Documented by: Sodium Chloride (0.9 % Sodium Chloride 10 Ml Syringe) 10 ml IV UD PRN PRN Reason: FLUSH Sodium Chloride (0.9 % Sodium Chloride 10 Ml Syringe) 10 ml IV Q12 [facility] Last Admin: 07/03/21 20:58 Dose: Not Given Documented by: Tamsulosin HCl (Tamsulosin 0.4 Mg Capsule) 0.4 mg PO QHS [facility] Last Admin: 07/03/21 20:50 Dose: 0.4 mg Documented by: Tizanidine HCl (Tizanidine 4 Mg Tablet) 4 mg PO BID PRN PRN Reason: for muscle spasm A/P Narrative A/P Narrative: A: *Bowel perforation iatrogenic: s/p ex lap/washout w/colostomy (06/29) managed per surgery. Postop care per surgery *Post cardiorespiratory arrest & 2-minutes CPR/1 amp of epinephrine: -stable hemodynamics *Acute peritonitis: 2/2 bowel perforation status post ex lap *ischemic colitis: *Sinus Tach: unknown baseline, *Acute hypoxic resp failure: -on 0-1L NC *COPD (no home O2)/pulm fibrosis: stable on bronchodilators/supplemental oxygen *HTN: on ACEI *hyperkalemia: improved *Hyponatremia: Seems to have a chronic component *GERD: *Anxiety: Plan: -Awaiting bowel function -Continue polymicrobial coverage including enteric ramy/antifungal on meropenem/fluconazole -restarted home antihypertensive ACEI, started BB for persistent sinus tach -f/u sodium -Postop pain management on as needed opioids/Tylenol IV -IVF/TPN -NGT/Diet/Nutrition as per surgery recommendations. -prn nebs for copd, may need to evaluate for home O2 for copd/fibrosis -pt/ot -ppi bid per GI -ppx: heparin / ppi Time Spent With Patient Time: Total time spent is greater than 50% in coordination of care (as documented) at patient's floor/unit and/or counseling patient: Total time spent with greater than 50% in coordination of care (as documented) at patient's floor/unit and/or counseling patient:: 35 - 50 minutes QUALITY VTE Deep Vein Thrombosis/Pulmonary Embolism Present on Admission: No
[2021-07-04] MEDS: FLUCONAZOLE 200 MG/100 ML BAG IV SCH (08:26)
[2021-07-04] MEDS: SODIUM CHLORIDE 1 GM TABLET PO SCH ×3 (08:27→21:51)
[2021-07-04] MEDS: METOPROLOL TARTRATE 25 MG TABLET PO SCH ×2 (08:27→20:03)
[2021-07-04] MEDS: LISINOPRIL 20 MG TABLET PO SCH (08:28)
[2021-07-04] MEDS: HEPARIN 5,000 UNIT/ML VIAL SQ SCH ×2 (08:28→20:12)
[2021-07-04] MEDS: PANTOPRAZOLE 40 MG VIAL IV SCH ×2 (08:28→16:35)
--- NOTE | 2021-07-04 08:38 | General Surgery Progress Note ---
SUBJECTIVE Subjective Patient information: Note initiated : 07/04/21 at 8:30 am Service Date, if different from initiated Date: [] Patient: Jewell Campoverde 71 y/o F admitted on 06/29/21 for Esophogogastroduodenoscopy and Colonoscopy. Chief Complaint: [POD #5 Ex Lap, Washout and Drain Placement, Resection Sigmoid Colonic Stricture and Perforation, End Colostomy] She continues to feel better overall. Abdominal x rays yesterday suggested a mild ileus and still minimal stomal output. Constitutional Vitals: Vital Signs Temp Pulse Resp BP Pulse Ox 97.4 F 89 18 154/99 95 07/04/21 07:49 07/04/21 07:49 07/04/21 07:49 07/04/21 07:49 07/04/21 07:49 Period Temp Pulse Resp BP Sys/Stiles Pulse Ox Last 24 Hr 97.4 F-98.9 F 84-102 18-18 140-170/80-99 88-95 Intake and Output 07/03/21 07/04/21 07/04/21 21:59 05:59 13:59 Intake Total 100 115 50 Output Total 865 1807 Balance -765 -1692 50 Weight 152 lb Intake & Output: Intake & Output 07/03/21 07/04/21 07/04/21 21:59 05:59 13:59 Intake Total 100 115 50 Output Total 865 1807 Balance -765 -1692 50 Weight 152 lb Intake: IV 100 65 50 Merrem 1 gm In Sodium Chloride 100 50 0.9% 50 ml @ 100 mls/hr IV Q8H [facility] Rx#:[id number] Oral 50 Tube Feeding 0 0 Output: Gastric Drainage 100 700 Left Nare NG/OG 100 700 Drainage 25 Left Lower CHRISTINE Drain 25 Drainage 15 Left Lower CHRISTINE Drain 15 Medial Abdomen Woundvac 0 Urine Catheter Amount 750 1075 Stool 7 Other: Urine Appearance Cloudy Clear Uretheral (Bernard) Clear Urine Color Light Maxine Bright Yellow [place] Uretheral (Bernard) Bright Yellow Urine Odor Normal Exam: she looks well, non toxic GI/Abdominal Additional comments: soft, flat, non tender, VAC in place. The stoma looks much more ischemic today than it was previously but with no surrounding cellulitis or edema and an intact mucocutaenous junction with centrally viable mucosa. the drain is scant and benign A/P Assessment and plan (1) Colon perforation: Assessment and plan: POD #4 Ex Lap, Washout and Drain Placement, Resection Sigmoid Colonic Stricture and Perforation, End Colostomy Overall looks well Would go ahead with TPN given ileus Continue IV ABs for now Activtiy as tolerated VAC change tomorrow Status: Acute Time Spent With Patient Time: Total time spent is greater than 50% in coordination of care (as documented) at patient's floor/unit and/or counseling patient:
[2021-07-04 09:25] LABS: ALT/SGPT 13 U/L (<40); AST/SGOT 19 U/L (<32); Albumin 2.6 gm/dL (3.2-5.2); Albumin/Globulin Ratio 0.9 (1.0-2.3); Alkaline Phosphatase 61 U/L (39-117); Bilirubin,Direct 0.3 mg/dL (<0.3); Bilirubin,Total 0.7 mg/dL (0.1-1.0); Blood Urea Nitrogen 5 mg/dL (8-23); Calcium 8.1 mg/dL (8.6-10.4); Carbon Dioxide 26 mmol/L (22-30); Chloride 91 mmol/L (96-108); Globulin 2.9 gm/dL (2.2-3.7); Glomerular Filtration Rate 116; Glucose 123 mg/dL (70-105); Lactate Dehydrogenase 234 U/L (135-225); Phosphorous 2.3 mg/dL (2.5-4.5); Triglycerides 124 mg/dL (<150); Uric Acid 2.7 mg/dL (2.5-8.0)
[2021-07-04 09:28] LABS: Prealbumin 8.8 mg/dL (20.0-40.0)
[2021-07-04] MEDS ORDERED: MAG HYDROX/AL HYDROX/SIMETH 30 ML ORAL.SUSP PO PRN (12:02)
--- NOTE | 2021-07-04 12:08 | XRay Report ---
CLINICAL INFORMATION: PICC line placement COMPARISON: None. TECHNIQUE: PA and Lateral views FINDINGS: Left PICC line tip overlies the SVC near the right atrial junction. NG tube in satisfactory position the tip overlying the gastric body. Heart size, mediastinum and pulmonary vessels are normal. Chronic bronchitis with mild interstitial disease in both lungs likely representing interstitial fibrosis again noted. No effusions. IMPRESSION: Chronic bronchitis and mild interstitial fibrosis in both lungs. PICC line in satisfactory position Interpreted and Authenticated by: Steve Reynoso 07/04/21
[2021-07-04] MEDS: INSULIN LISPRO 1 UNIT/0.01 ML UNIT SQ SCH ×2 (13:03→17:13)
[2021-07-04] MEDS: 0.9 % SODIUM CHLORIDE 1,000 ML IV SCH ×2 (14:19→14:21)
[2021-07-04] MEDS ORDERED: [UNRECOGNIZED DRUG - OTHER] IV SCH (15:00)
[2021-07-04] MEDS ORDERED: CALCIUM GLUCONATE IV SCH (15:00)
[2021-07-04] MEDS ORDERED: SODIUM CHLORIDE IV SCH (15:00)
[2021-07-04] MEDS ORDERED: MAGNESIUM SULFATE IV SCH (15:00)
[2021-07-04] MEDS: FAT EMULSION 20% 250 ML IV SCH (16:34)
[2021-07-04] MEDS: LORazepam 2 MG/ML VIAL IV PRN ×2 (20:02→23:50)
[2021-07-04] MEDS: MELATONIN 3 MG TABLET PO SCH (20:03)
[2021-07-04] MEDS: TAMSULOSIN 0.4 MG CAPSULE PO SCH (20:03)
[2021-07-04] MEDS: diphenhydrAMINE 50 MG/ML VIAL IV PRN (23:50)
[2021-07-05] MEDS: INSULIN LISPRO 1 UNIT/0.01 ML UNIT SQ SCH ×5 (00:14→22:03)
[2021-07-05] MEDS: MEROPENEM 1 GM in 0.9 % SODIUM CHLORIDE 50 ML IV SCH ×3 (05:13→21:43)
[2021-07-05] MEDS: LABETALOL 5 MG/ML ML IV PRN (05:25)
[2021-07-05] MEDS: HYDROmorphone 0.5 MG/0.5 ML SYRINGE IV PRN ×3 (05:26→21:43)
[2021-07-05] MEDS: 0.9 % SODIUM CHLORIDE 10 ML SYRINGE IV SCH ×5 (05:42→22:02)
[2021-07-05 07:01] LABS: ALT/SGPT 11 U/L (<40); AST/SGOT 13 U/L (<32); Albumin 2.4 gm/dL (3.2-5.2); Albumin/Globulin Ratio 0.9 (1.0-2.3); Alkaline Phosphatase 63 U/L (39-117); Bilirubin,Direct < 0.2 mg/dL (0-0.3); Bilirubin,Total 0.4 mg/dL (0.1-1.0); Blood Urea Nitrogen 6 mg/dL (8-23); Calcium 8.1 mg/dL (8.6-10.4); Carbon Dioxide 27 mmol/L (22-30); Chloride 97 mmol/L (96-108); Globulin 2.8 gm/dL (2.2-3.7); Glomerular Filtration Rate 106; Glucose 112 mg/dL (70-105); Lactate Dehydrogenase 152 U/L (135-225); Phosphorous 2.5 mg/dL (2.5-4.5); Triglycerides 107 mg/dL (<150); Uric Acid 1.7 mg/dL (2.5-8.0)
--- NOTE | 2021-07-05 07:59 | Internal Med Progress Note ---
SUBJECTIVE Subjective Patient information: Note initiated : 07/05/21 at 7:53 am Service Date, if different from initiated Date: [] Patient: Jewell Campoverde 71 y/o F admitted on 06/29/21 for Esophogog astroduodenoscopy and Colonoscopy. Chief Complaint: [] Interval history: Ms. Campoverde is a 70-year-old who experienced cardiorespiratory arrest following iatrogenic colonic perforation during colonoscopy. Patient underwent brief CPR/resuscitative efforts with ROSC. She was subsequently taken to the OR for ex lap/resection of sigmoid colonic stricture/perforation and end colostomy/washout and drain placement. Postoperatively patient was transferred to the ICU. Hospital service was consulted for management of medical issues/antibiotics while patient will continue postop care under care of surgical services Patient arrived to ICU postop in stable state. Systolics around 140. Bernard is draining clear urine. Abdominal drain present. Patient slightly drowsy under effect of sedation but able to answer most of the questions. Moving all 4 extremities. Endorses to pain around surgery incision. No family members present Reviewed chart/past medical records. Known history of COPD/ischemic colitis/hypertension/GERD/chronic pain. Postcode labs unremarkable except for sodium 127. Patient currently on crystalloids,/IV opioids/NG decompression. 06/30-patient seen in room, postop day 1. NG draining, abdomen soft however minimally tender around the surgery incision site. Lactic acid elevated. Ongoing fluids. Endorgan perfusion adequate with good urine output and maintaining systolics. On polymicrobial coverage including meropen em/fluconazole. Patient alert and communicative and appreciative of care. No overnight telemetry events, fever chills or concerns per nursing staff. Pain well controlled. White count 5.7, lactic acid 3.2, potassium 5.5. 07/01 Patient was able to walk today. Patient denies any bowel movement or flatus. Patient's home med list lists mesalamine and on primary care notes in April but patient does not know why she is on it. She denies Crohn's or ulcerative colitis. And she does not think she actually been taking it. She is coughing up some phlegm and burping but no shortness of breath. 07/02 Patient denies bowel movement or flatus but feels like her stomach is active now. Sodium decreased and will evaluate and treat. De-escalate meropenem. Replete phosphorus 07/03 Patient no ostomy output yet. Otherwise patient comfortable no acute issues. Will need to start nutrition IV if patient unable to take enterally. Hyponatremia stable. 07/04 No ostomy output. Blood pressure suboptimal. Just medications. Hyponatremia worsened. Hypoalbuminemia. 07/05 Patient walking to bathroom by herself. Awaiting ostomy output TPN started. Sodium little better today. Patient complains of sore throat from the NG tube. Monitor oxygen and wean off. Increase TPN rate per dietary. Review of Systems: denies headache/fever/chills/nausea/vomiting/chest or abdominal pain/cough/dyspnea/diarrhea. Otherwise see above. Constitutional Vitals: Vital Signs Temp Pulse Resp BP Pulse Ox 96.8 F L 71 16 151/92 97 07/05/21 07:26 07/05/21 07:26 07/05/21 07:26 07/05/21 07:26 07/05/21 07:26 Period Temp Pulse Resp BP Sys/Stiles Pulse Ox Last 24 Hr 96.8 F-97.6 F 71-81 16-18 140-165/74-100 94-99 Intake and Output 07/04/21 07/05/21 07/05/21 21:59 05:59 13:59 Intake Total 1295 350 Output Total 810 820 Balance 485 -470 Weight 69.672 kg Intake & Output: Intake & Output 07/04/21 07/05/21 07/05/21 21:59 05:59 13:59 Intake Total 1295 350 Output Total 810 820 Balance 485 -470 Weight 69.672 kg Intake: IV 1295 350 Dextrose 5%-Ns IV Solution 1, 1245 000 ml @ 45 mls/hr IV .[id number] [facility] Rx#:[id number] Intralipid 20% 250 ml @ 25 mls/ 250 hr IV TuThSa@1600 [facility] Rx#: [id number] Merrem 1 gm In Sodium Chloride 50 100 0.9% 50 ml @ 100 mls/hr IV Q8H [facility] Rx#:[id number] Tube Feeding 0 Output: Gastric Drainage 200 Left Nare NG/OG 200 Drainage 10 20 Left Lower CHRISTINE Drain 10 20 Urine Catheter Amount 800 Void Amount 600 Other: Urine Appearance Clear Urine Color Bright Yellow Exam: General: Alert, Awake, No acute Distress Eyes/N/T: EOMI, Head/Neck: neck supple, CV: RRR, No murmurs, Pulm: Clear b/l, no wheezing/rhonchi/rales Abd: soft, hypoactive BS, drain in place Ext: no clubbing/cyanosis/edema Neuro: Alert, no focal deficits, moves all extremities, Skin: warm/dry OBJ DATA Labs CBC & Chem 7: 07/04/21 05:32 07/05/21 05:28 Labs: Abnormal Lab Results 07/05/21 07/04/21 07/04/21 05:28 08:05 05:32 Sodium 127 L 130 L Potassium 3.1 L Chloride 91 L 93 L Anion Gap BUN 6 L 5 L 5 L Creatinine 0.4 L 0.3 L 0.4 L Glucose 112 H 123 H 125 H Uric Acid 1.7 L Calcium 8.1 L 8.1 L 8.4 L Phosphorus 2.3 L Direct Bilirubin 0.3 H Lactate Dehydrogenase 234 H Total Protein 5.2 L 5.5 L 5.5 L Albumin 2.4 L 2.6 L 2.6 L Albumin/Globulin Ratio 0.9 L 0.9 L 0.9 L Prealbumin 8.8 L 07/03/21 07/02/21 05:23 06:12 Sodium 130 L 128 L Potassium Chloride 92 L 93 L Anion Gap 7.0 L BUN 7 L 7 L Creatinine 0.4 L 0.4 L Glucose Uric Acid Calcium 8.4 L 8.5 L Phosphorus 2.1 L Direct Bilirubin Lactate Dehydrogenase Total Protein 5.5 L 5.4 L Albumin 2.6 L 2.6 L Albumin/Globulin Ratio 0.9 L 0.9 L Prealbumin Meds: Medications Al Hydrox/Mg Hydrox/Simethicone (Mag Hydrox/Al Hydrox/Simeth 30 Ml Oral.Susp) 30 ml PO Q4-6HP PRN PRN Reason: Dyspepsia Last Admin: 07/04/21 12:27 Dose: 30 ml Documented by: Albuterol/Ipratropium (Ipratropium/Albuterol 3 Ml Ampul.Neb) 3 ml NEB Q4HP PRN PRN Reason: Shortness Of Breath Bisacodyl (Bisacodyl 10 Mg Supp.Rect) 10 mg HI Q2-3DAYS PRN PRN Reason: Constipation Diagnostic Test (Pha) (Accu-Chek 1 Each Strip) 1 each FS Q6 [facility] Last Admin: 07/05/21 05:41 Dose: 1 each Documented by: Diphenhydramine HCl (Diphenhydramine 50 Mg/Ml Vial) 25 mg IV HSP PRN PRN Reason: insomnia Last Admin: 07/04/21 23:50 Dose: 25 mg Documented by: Heparin Sodium (Porcine) (Heparin Flush 10 Units/Ml 5 Ml Syringe) 2 ml IV Q12 [facility] Last Admin: 07/04/21 21:52 Dose: Not Given Documented by: Heparin Sodium (Porcine) (Heparin 5,000 Unit/Ml Vial) 5,000 unit SQ Q12 [facility] Last Admin: 07/04/21 20:12 Dose: 5,000 unit Documented by: Hydromorphone HCl (Hydromorphone 0.5 Mg/0.5 Ml Syringe) 0.25 - 0.5 mg IV Q4HP PRN; Protocol PRN Reason: Per Pain Protocol Last Admin: 07/05/21 05:26 Dose: 0.5 mg Documented by: Potassium Chloride 40 meq/ (Dextrose) 520 mls @ 130 mls/hr IV UD PRN PRN Reason: K+ = or < 3.5 Last Infusion: 06/30/21 03:34 Dose: Infused Documented by: Acetaminophen (Ofirmev) 650 mg in 65 mls @ 130 mls/hr IV Q6HP PRN; Protocol PRN Reason: Per Pain Protocol/Fever > 101 Last Infusion: 07/04/21 13:04 Dose: Infused Documented by: Magnesium Sulfate (Magnesium Sulfate) 2 gm in 50 mls @ 50 mls/hr IV UD PRN PRN Reason: MG = or < 1.7 Meropenem 1 gm/ Sodium (Chloride) 50 mls @ 100 mls/hr IV Q8H [facility]; Protocol Last Infusion: 07/05/21 05:52 Dose: Infused Documented by: Fluconazole (Diflucan) 200 mg in 100 mls @ 100 mls/hr IV Q24H [facility] Last Infusion: 07/04/21 10:12 Dose: Infused Documented by: Norepinephrine Bitartrate 8 mg (/ Sodium Chloride) 250 mls @ 18.75 mls/hr IV Q12HP PRN; Protocol PRN Reason: Hypotension Fat Emulsion Intravenous (Intralipid 20%) 250 mls @ 25 mls/hr IV TuThSa@1600 [facility] Last Infusion: 07/05/21 02:40 Dose: Infused Documented by: Calcium Gluconate 4.65 meq/Magnesium Sulfate 8.12 meq/Sodium Chloride 40 meq/Potassium Chloride 20 meq/Potassium Phosphate 20 meq/Multivitamins/Minerals 10 ml/Amino Acids 1,046.5455 mls @ 30 mls/hr IV DAILY@1500 [facility] Last Admin: 07/04/21 14:33 Dose: 30 mls/hr Documented by: Dextrose/Sodium Chloride (Dextrose 5%-Ns Iv Solution) 1,000 mls @ 45 mls/hr IV .[id number] [facility] Last Admin: 07/04/21 20:01 Dose: 45 mls/hr Documented by: Insulin Human Lispro (Insulin Lispro 1 Unit/0.01 Ml Unit) 0 unit SQ Q6 [facility]; Protocol Last Admin: 07/05/21 05:41 Dose: Not Given Documented by: Labetalol HCl (Labetalol 5 Mg/Ml Ml) 0 mg IV Q2HP PRN PRN Reason: Hypertension Last Admin: 07/05/21 05:25 Dose: 5 mg Documented by: Lisinopril (Lisinopril 20 Mg Tablet) 20 mg PO QDAY [facility] Last Admin: 07/04/21 08:28 Dose: 20 mg Documented by: Lorazepam (Lorazepam 2 Mg/Ml Vial) 0.5 mg IV HSP PRN PRN Reason: INSOMNIA/ANXIETY Last Admin: 07/04/21 23:50 Dose: 0.5 mg Documented by: Melatonin (Melatonin 3 Mg Tablet) 3 mg PO QHS [facility] Last Admin: 07/04/21 20:03 Dose: 3 mg Documented by: Metoprolol Tartrate (Metoprolol Tartrate 25 Mg Tablet) 12.5 mg PO BID [facility] Last Admin: 07/04/21 20:03 Dose: 12.5 mg Documented by: Ondansetron HCl (Ondansetron 4 Mg Odt Tablet) 4 mg SL Q4-6HP PRN; Protocol PRN Reason: Nausea And Vomiting Ondansetron HCl (Ondansetron 4 Mg/2 Ml Vial) 4 mg IV Q4-6HP PRN; Protocol PRN Reason: Nausea And Vomiting Last Admin: 06/30/21 16:06 Dose: 4 mg Documented by: Pantoprazole Sodium (Pantoprazole 40 Mg Vial) 40 mg IV BIDAC [facility] Last Admin: 07/04/21 16:35 Dose: 40 mg Documented by: Sodium Chloride (0.9 % Sodium Chloride 10 Ml Syringe) 10 ml IV Q8 [facility] Last Admin: 07/05/21 05:42 Dose: Not Given Documented by: Sodium Chloride (Sodium Chloride 1 Gm Tablet) 1 gm PO TID [facility] Last Admin: 07/04/21 21:51 Dose: 1 gm Documented by: Sodium Chloride (0.9 % Sodium Chloride 10 Ml Syringe) 10 ml IV UD PRN PRN Reason: FLUSH Sodium Chloride (0.9 % Sodium Chloride 10 Ml Syringe) 10 ml IV Q12 [facility] Last Admin: 07/04/21 21:54 Dose: Not Given Documented by: Tamsulosin HCl (Tamsulosin 0.4 Mg Capsule) 0.4 mg PO QHS [facility] Last Admin: 07/04/21 20:03 Dose: 0.4 mg Documented by: Tizanidine HCl (Tizanidine 4 Mg Tablet) 4 mg PO BID PRN PRN Reason: for muscle spasm A/P Narrative A/P Narrative: A: *Bowel perforation iatrogenic: s/p ex lap/washout w/colostomy (06/29) managed per surgery. Postop care per surgery *Post cardiorespiratory arrest & 2-minutes CPR/1 amp of epinephrine: -stable hemodynamics *Acute peritonitis: 2/2 bowel perforation status post ex lap *ischemic colitis: *Sinus Tach: unknown baseline, better on BB *Acute hypoxic resp failure: -on 0-1L NC *Protein calorie malnutrition: *COPD (no home O2)/pulm fibrosis: stable on bronchodilators/supplemental oxygen *HTN: on ACEI *hyperkalemia: now hypokalemia, replete *Hyponatremia: Seems to have a chronic component, improved *GERD: *Anxiety: Plan: -Awaiting bowel function -Continue polymicrobial coverage including enteric ramy/antifungal on meropenem/fluconazole -restarted home antihypertensive ACEI (increase), started BB for persistent sinus tach -wean O2 supp -Postop pain management on as needed opioids/Tylenol IV -TPN -NGT/Diet/Nutrition as per surgery recommendations. -prn nebs for copd, may need to evaluate for home O2 for copd/fibrosis -pt/ot -ppi bid per GI -ppx: heparin / ppi Time Spent With Patient Time: Total time spent is greater than 50% in coordination of care (as documented) at patient's floor/unit and/or counseling patient: Total time spent with greater than 50% in coordination of care (as documented) at patient's floor/unit and/or counseling patient:: 25 - 35 minutes QUALITY VTE Deep Vein Thrombosis/Pulmonary Embolism Present on Admission: No
[2021-07-05] MEDS: PANTOPRAZOLE 40 MG VIAL IV SCH ×2 (08:32→16:51)
[2021-07-05] MEDS ORDERED: POTASSIUM CHLORIDE 20 MEQ in DEXTROSE 5% IN WATER 250 ML IV ONE (09:00)
[2021-07-05] MEDS ORDERED: PHENOL/SODIUM PHENOLATE 5 SPRAY BOTTLE 180ML SSP PRN (09:53)
[2021-07-05] MEDS: HEPARIN 5,000 UNIT/ML VIAL SQ SCH ×2 (11:10→20:17)
[2021-07-05] MEDS: LISINOPRIL 20 MG TABLET PO SCH (11:11)
[2021-07-05] MEDS: SODIUM CHLORIDE 1 GM TABLET PO SCH ×3 (11:11→20:16)
[2021-07-05] MEDS: METOPROLOL TARTRATE 25 MG TABLET PO SCH ×2 (11:11→20:16)
[2021-07-05] MEDS: FLUCONAZOLE 200 MG/100 ML BAG IV SCH (11:12)
--- NOTE | 2021-07-05 12:04 | Internal Med Progress Note ---
SUBJECTIVE Subjective Patient information: Note initiated : 07/05/21 at 12:02 pm Service Date, if different from initiated Date: [] Patient: Jewell Campoverde 71 y/o F admitted on 06/29/21 for Esophogo gastroduodenoscopy and Colonoscopy. Chief Complaint: [] Interval history: Ms. Campoverde is a 70-year-old who experienced cardiorespiratory arrest following iatrogenic colonic perforation during colonoscopy. Patient underwent brief CPR/resuscitative efforts with ROSC. She was subsequently taken to the OR for ex lap/resection of sigmoid colonic stricture/perforation and end colostomy/washout and drain placement. Postoperatively patient was transferred to the ICU. Hospital service was consulted for management of medical issues/antibiotics while patient will continue postop care under care of surgical services Patient arrived to ICU postop in stable state. Systolics around 140. Bernard is draining clear urine. Abdominal drain present. Patient slightly drowsy under effect of sedation but able to answer most of the questions. Moving all 4 extremities. Endorses to pain around surgery incision. No family members present Reviewed chart/past medical records. Known history of COPD/ischemic colitis/hypertension/GERD/chronic pain. Postcode labs unremarkable except for sodium 127. Patient currently on crystalloids,/IV opioids/NG decompression. 06/30-patient seen in room, postop day 1. NG draining, abdomen soft however minimally tender around the surgery incision site. Lactic acid elevated. Ongoing fluids. Endorgan perfusion adequate with good urine output and maintaining systolics. On polymicrobial coverage including merope nem/fluconazole. Patient alert and communicative and appreciative of care. No overnight telemetry events, fever chills or concerns per nursing staff. Pain well controlled. White count 5.7, lactic acid 3.2, potassium 5.5. 07/01 Patient was able to walk today. Patient denies any bowel movement or flatus. Patient's home med list lists mesalamine and on primary care notes in April but patient does not know why she is on it. She denies Crohn's or ulcerative colitis. And she does not think she actually been taking it. She is coughing up some phlegm and burping but no shortness of breath. 07/02 Patient denies bowel movement or flatus but feels like her stomach is active now. Sodium decreased and will evaluate and treat. De-escalate meropenem. Replete phosphorus 07/03 Patient no ostomy output yet. Otherwise patient comfortable no acute issues. Will need to start nutrition IV if patient unable to take enterally. Hyponatremia stable. 07/04 No ostomy output. Blood pressure suboptimal. Just medications. Hyponatremia worsened. Hypoalbuminemia. 07/05 Patient walking to bathroom by herself. Awaiting ostomy output TPN started. Sodium little better today. Patient complains of sore throat from the NG tube. Monitor oxygen and wean off. Increase TPN rate per dietary. 07/06 Stable overnight, electrolytes improved today, some gas but no bowel movement yet. Physical exam Head: Atraumatic, normal inspection. Eyes: normal appearance, no scleral icterus. Neck: full ROM Respiratory: no respiratory distress. Cardiovascular: normal rate and rhythm, S1, S2. GI/Abdominal: laparotomy incision covered with wound VAC, colostomy, soft, nontender, no guarding. Extremities: full range of motion, nontender. Neurological: CN II-XII intact, intact motor, intact sensation. Psychiatric: normal mood. Skin: warm, normal color Constitutional Vitals: Vital Signs Temp Pulse Resp BP Pulse Ox 96.8 F L 71 16 151/92 97 07/05/21 07:26 07/05/21 07:26 07/05/21 07:26 07/05/21 07:26 07/05/21 07:26 Period Temp Pulse Resp BP Sys/Stiles Pulse Ox Last 24 Hr 96.8 F-97.3 F 71-81 16-18 151-165/90-100 94-99 Intake and Output 07/04/21 07/05/21 07/05/21 21:59 05:59 13:59 Intake Total 1295 350 989 Output Total 810 820 300 Balance 485 -470 689 Weight 69.672 kg Intake & Output: Intake & Output 07/04/21 07/05/21 07/05/21 21:59 05:59 13:59 Intake Total 1295 350 989 Output Total 810 820 300 Balance 485 -470 689 Weight 69.672 kg Intake: IV 1295 350 889 Dextrose 5%-Ns IV Solution 1, 1245 629 000 ml @ 45 mls/hr IV .[id number] ON LICENSE OF [facility] Rx#:[id number] Intralipid 20% 250 ml @ 25 mls/ 250 hr IV TuThSa@1600 ON LICENSE OF [facility] Rx#: [id number] Merrem 1 gm In Sodium Chloride 50 100 0.9% 50 ml @ 100 mls/hr IV Q8H ON LICENSE OF [facility] Rx#:[id number] Potassium Chloride 20 Meq In 260 Dextrose 5% in Water 250 ml @ 130 mls/hr IV 0900 ONE Rx#: [id number] Tube Feeding 0 0 NG Tube Flush 100 Left Nare NG/OG 100 Output: Gastric Drainage 200 Left Nare NG/OG 200 Drainage 10 20 Left Lower CHRISTINE Drain 10 20 Urine Catheter Amount 800 Void Amount 600 300 Other: Urine Appearance Clear Clear Urine Color Bright Yellow Dark Yellow OBJ DATA Labs CBC & Chem 7: 07/06/21 05:45 07/06/21 05:45 Labs: Abnormal Lab Results 07/05/21 07/04/21 07/04/21 05:28 08:05 05:32 Sodium 127 L 130 L Potassium 3.1 L Chloride 91 L 93 L BUN 6 L 5 L 5 L Creatinine 0.4 L 0.3 L 0.4 L Glucose 112 H 123 H 125 H Uric Acid 1.7 L Calcium 8.1 L 8.1 L 8.4 L Phosphorus 2.3 L Direct Bilirubin 0.3 H Lactate Dehydrogenase 234 H Total Protein 5.2 L 5.5 L 5.5 L Albumin 2.4 L 2.6 L 2.6 L Albumin/Globulin Ratio 0.9 L 0.9 L 0.9 L Prealbumin 8.8 L 07/03/21 05:23 Sodium 130 L Potassium Chloride 92 L BUN 7 L Creatinine 0.4 L Glucose Uric Acid Calcium 8.4 L Phosphorus Direct Bilirubin Lactate Dehydrogenase Total Protein 5.5 L Albumin 2.6 L Albumin/Globulin Ratio 0.9 L Prealbumin Meds: Medications Al Hydrox/Mg Hydrox/Simethicone (Mag Hydrox/Al Hydrox/Simeth 30 Ml Oral.Susp) 30 ml PO Q4-6HP PRN PRN Reason: Dyspepsia Last Admin: 07/04/21 12:27 Dose: 30 ml Documented by: Albuterol/Ipratropium (Ipratropium/Albuterol 3 Ml Ampul.Neb) 3 ml NEB Q4HP PRN PRN Reason: Shortness Of Breath Bisacodyl (Bisacodyl 10 Mg Supp.Rect) 10 mg NC Q2-3DAYS PRN PRN Reason: Constipation Diagnostic Test (Pha) (Accu-Chek 1 Each Strip) 1 each FS Q6 [facility] Last Admin: 07/05/21 05:41 Dose: 1 each Documented by: Diphenhydramine HCl (Diphenhydramine 50 Mg/Ml Vial) 25 mg IV HSP PRN PRN Reason: insomnia Last Admin: 07/04/21 23:50 Dose: 25 mg Documented by: Heparin Sodium (Porcine) (Heparin Flush 10 Units/Ml 5 Ml Syringe) 2 ml IV Q12 [facility] Last Admin: 07/05/21 10:59 Dose: Not Given Documented by: Heparin Sodium (Porcine) (Heparin 5,000 Unit/Ml Vial) 5,000 unit SQ Q12 [facility] Last Admin: 07/05/21 11:10 Dose: 5,000 unit Documented by: Hydromorphone HCl (Hydromorphone 0.5 Mg/0.5 Ml Syringe) 0.25 - 0.5 mg IV Q4HP PRN; Protocol PRN Reason: Per Pain Protocol Last Admin: 07/05/21 05:26 Dose: 0.5 mg Documented by: Potassium Chloride 40 meq/ (Dextrose) 520 mls @ 130 mls/hr IV UD PRN PRN Reason: K+ = or < 3.5 Last Infusion: 06/30/21 03:34 Dose: Infused Documented by: Acetaminophen (Ofirmev) 650 mg in 65 mls @ 130 mls/hr IV Q6HP PRN; Protocol PRN Reason: Per Pain Protocol/Fever > 101 Last Infusion: 07/04/21 13:04 Dose: Infused Documented by: Magnesium Sulfate (Magnesium Sulfate) 2 gm in 50 mls @ 50 mls/hr IV UD PRN PRN Reason: MG = or < 1.7 Meropenem 1 gm/ Sodium (Chloride) 50 mls @ 100 mls/hr IV Q8H [facility]; Protocol Last Infusion: 07/05/21 05:52 Dose: Infused Documented by: Fluconazole (Diflucan) 200 mg in 100 mls @ 100 mls/hr IV Q24H [facility] Last Admin: 07/05/21 11:12 Dose: 100 mls/hr Documented by: Norepinephrine Bitartrate 8 mg (/ Sodium Chloride) 250 mls @ 18.75 mls/hr IV Q12HP PRN; Protocol PRN Reason: Hypotension Fat Emulsion Intravenous (Intralipid 20%) 250 mls @ 25 mls/hr IV TuThSa@1600 ON LICENSE OF [facility] Last Infusion: 07/05/21 02:40 Dose: Infused Documented by: Calcium Gluconate 4.65 meq/Magnesium Sulfate 8.12 meq/Sodium Chloride 40 meq/Potassium Chloride 20 meq/Potassium Phosphate 20 meq/Multivitamins/Minerals 10 ml/Amino Acids 1,046.5455 mls @ 30 mls/hr IV DAILY@1500 ON LICENSE OF [facility] Stop: 07/05/21 14:59 Last Admin: 07/04/21 14:33 Dose: 30 mls/hr Documented by: Calcium Gluconate 9.3 meq/Magnesium Sulfate 16.24 meq/Sodium Chloride 80 meq/Potassium Chloride 80 meq/Potassium Phosphate 60 meq/Multivitamins/Minerals 10 ml/Amino Acids 2,107.6364 mls @ 65 mls/hr IV DAILY@1500 ON LICENSE OF [facility] Insulin Human Lispro (Insulin Lispro 1 Unit/0.01 Ml Unit) 0 unit SQ Q6 ON LICENSE OF [facility]; Protocol Last Admin: 07/05/21 05:41 Dose: Not Given Documented by: Labetalol HCl (Labetalol 5 Mg/Ml Ml) 0 mg IV Q2HP PRN PRN Reason: Hypertension Last Admin: 07/05/21 05:25 Dose: 5 mg Documented by: Lisinopril (Lisinopril 20 Mg Tablet) 30 mg PO QDAY ON LICENSE OF [facility] Last Admin: 07/05/21 11:11 Dose: 30 mg Documented by: Lorazepam (Lorazepam 2 Mg/Ml Vial) 0.5 mg IV HSP PRN PRN Reason: INSOMNIA/ANXIETY Last Admin: 07/04/21 23:50 Dose: 0.5 mg Documented by: Melatonin (Melatonin 3 Mg Tablet) 3 mg PO QHS ON LICENSE OF [facility] Last Admin: 07/04/21 20:03 Dose: 3 mg Documented by: Metoprolol Tartrate (Metoprolol Tartrate 25 Mg Tablet) 25 mg PO BID ON LICENSE OF [facility] Last Admin: 07/05/21 11:11 Dose: 25 mg Documented by: Ondansetron HCl (Ondansetron 4 Mg Odt Tablet) 4 mg SL Q4-6HP PRN; Protocol PRN Reason: Nausea And Vomiting Ondansetron HCl (Ondansetron 4 Mg/2 Ml Vial) 4 mg IV Q4-6HP PRN; Protocol PRN Reason: Nausea And Vomiting Last Admin: 06/30/21 16:06 Dose: 4 mg Documented by: Pantoprazole Sodium (Pantoprazole 40 Mg Vial) 40 mg IV BIDAC ON LICENSE OF [facility] Last Admin: 07/05/21 08:32 Dose: 40 mg Documented by: Phenol (Phenol/Sodium Phenolate 5 [place] Bottle 180ml) 5 spray SSP Q2HP PRN PRN Reason: Sore Throat Last Admin: 07/05/21 11:13 Dose: 5 spray Documented by: Sodium Chloride (0.9 % Sodium Chloride 10 Ml Syringe) 10 ml IV Q8 ON LICENSE OF [facility] Last Admin: 07/05/21 05:42 Dose: Not Given Documented by: Sodium Chloride (Sodium Chloride 1 Gm Tablet) 1 gm PO TID ON LICENSE OF [facility] Last Admin: 07/05/21 11:11 Dose: 1 gm Documented by: Sodium Chloride (0.9 % Sodium Chloride 10 Ml Syringe) 10 ml IV UD PRN PRN Reason: FLUSH Sodium Chloride (0.9 % Sodium Chloride 10 Ml Syringe) 10 ml IV Q12 ON LICENSE OF [facility] Last Admin: 07/05/21 11:00 Dose: Not Given Documented by: Tamsulosin HCl (Tamsulosin 0.4 Mg Capsule) 0.4 mg PO QHS ON LICENSE OF [facility] Last Admin: 07/04/21 20:03 Dose: 0.4 mg Documented by: Tizanidine HCl (Tizanidine 4 Mg Tablet) 4 mg PO BID PRN PRN Reason: for muscle spasm A/P Narrative A/P Narrative: A: *Bowel perforation iatrogenic: s/p ex lap/washout w/colostomy (06/29) managed per surgery. *Post cardiorespiratory arrest & 2-minutes CPR/1 amp of epinephrine: -stable hemodynamics *Acute peritonitis, improved: 2/2 bowel perforation status post ex lap *ischemic colitis: *Sinus Tach: unknown baseline, better on BB *Resolved acute hypoxic resp failure *Protein calorie malnutrition: *COPD (no home O2)/pulm fibrosis: stable on bronchodilators/supplemental oxygen *HTN: on ACEI *GERD: *Anxiety: Plan: -Awaiting recovery of bowel function -Continue polymicrobial coverage including enteric ramy/antifungal on meropenem/fluconazole -Continue Lisinopril and Lopressor, started BB for persistent sinus tach -Postop pain management on as needed opioids/Tylenol IV -TPN -NGT/Diet/Nutrition as per surgery recommendations. -prn nebs for copd, may need to evaluate for home O2 for copd/fibrosis -pt/ot -ppi bid per GI -ppx: heparin / ppi Time Spent With Patient Time: Total time spent is greater than 50% in coordination of care (as documented) at patient's floor/unit and/or counseling patient: QUALITY VTE Deep Vein Thrombosis/Pulmonary Embolism Present on Admission: No
--- NOTE | 2021-07-05 13:47 | General Surgery Progress Note ---
SUBJECTIVE Subjective Patient information: Note initiated : 07/05/21 at 1:46 pm Service Date, if different from initiated Date: [] Patient: Jewell Campoverde 71 y/o F admitted on 06/29/21 for Esophogogastroduodenoscopy and Colonoscopy. Chief Complaint: [POD #6 Ex Lap, Washout and Drain Placement, Resection Sigmoid Colonic Stricture and Perforation, End Colostomy] Doing well today, has had some gas from ostomy now, minimal pain, bothered by NGT and drain Constitutional Vitals: Vital Signs Temp Pulse Resp BP Pulse Ox 96.8 F L 71 16 151/92 97 07/05/21 07:26 07/05/21 07:26 07/05/21 07:26 07/05/21 07:26 07/05/21 07:26 Period Temp Pulse Resp BP Sys/Stiles Pulse Ox Last 24 Hr 96.8 F-97.3 F 71-81 16-18 151-165/90-100 94-99 Intake and Output 07/04/21 07/05/21 07/05/21 21:59 05:59 13:59 Intake Total 3958 518 7128 Output Total 810 820 300 Balance 485 -470 789 Weight 153 lb 9.6 oz Intake & Output: Intake & Output 07/04/21 07/05/21 07/05/21 21:59 05:59 13:59 Intake Total 9327 183 3430 Output Total 810 820 300 Balance 485 -470 789 Weight 153 lb 9.6 oz Intake: IV 1295 350 989 Dextrose 5%-Ns IV Solution 1, 1245 629 000 ml @ 45 mls/hr IV .[id number] [facility] Rx#:[id number] Intralipid 20% 250 ml @ 25 mls/ 250 hr IV TuThSa@1600 [facility] Rx#: [id number] Merrem 1 gm In Sodium Chloride 50 100 0.9% 50 ml @ 100 mls/hr IV Q8H [facility] Rx#:[id number] Potassium Chloride 20 Meq In 260 Dextrose 5% in Water 250 ml @ 130 mls/hr IV 0900 ONE Rx#: [id number] Tube Feeding 0 0 NG Tube Flush 100 Left Nare NG/OG 100 Output: Gastric Drainage 200 Left Nare NG/OG 200 Drainage 10 20 Left Lower CHRISTINE Drain 10 20 Urine Catheter Amount 800 Void Amount 600 300 Other: Urine Appearance Clear Clear Urine Color Bright Yellow Dark Yellow Exam: Awake and fully conversant GI/Abdominal Additional comments: VAC is off to demonstrate a nicely healing midline incision with good early granulation. Ostomy appliance is removed to permit close examination. Mucosal ischemia actually looks improved and is only present at the very end. Stoma is widely patent to digital probing deep to the fascia without issue NGT and drain are removed belly seems soft and non tender, non distended Extremities Exam Additional comments: well perfused A/P Assessment and plan (1) Colon perforation: Status: Acute Plan POD #6 Ex Lap, Washout and Drain Placement, Resection Sigmoid Colonic Stricture and Perforation, End Colostomy Doing Well Ostomy starting to function but likely has mild residual ileus Clear sips Continue Wound VAC Time Spent With Patient Time: Total time spent is greater than 50% in coordination of care (as documented) at patient's floor/unit and/or counseling patient:
[2021-07-05] MEDS ORDERED: [UNRECOGNIZED DRUG - OTHER] IV SCH (15:00)
[2021-07-05] MEDS ORDERED: SODIUM CHLORIDE IV SCH (15:00)
[2021-07-05] MEDS ORDERED: MAGNESIUM SULFATE IV SCH (15:00)
[2021-07-05] MEDS ORDERED: CALCIUM GLUCONATE IV SCH (15:00)
[2021-07-05] MEDS: TAMSULOSIN 0.4 MG CAPSULE PO SCH (20:15)
[2021-07-05] MEDS: MELATONIN 3 MG TABLET PO SCH (20:16)
[2021-07-05] MEDS: diphenhydrAMINE 50 MG/ML VIAL IV PRN (20:17)
[2021-07-05] MEDS: LORazepam 2 MG/ML VIAL IV PRN (20:23)
[2021-07-06] MEDS: HYDROmorphone 0.5 MG/0.5 ML SYRINGE IV PRN ×4 (05:12→23:42)
[2021-07-06] MEDS: MEROPENEM 1 GM in 0.9 % SODIUM CHLORIDE 50 ML IV SCH ×3 (05:12→21:53)
[2021-07-06] MEDS: INSULIN LISPRO 1 UNIT/0.01 ML UNIT SQ SCH ×4 (05:56→23:39)
[2021-07-06] MEDS: 0.9 % SODIUM CHLORIDE 10 ML SYRINGE IV SCH ×5 (06:01→21:53)
[2021-07-06 06:44] LABS: Hematocrit 36.4 % (34.1-44.9)
[2021-07-06 06:48] LABS: Basophils # (Auto) 0.03 K/mcL (0.00-0.30); Basophils % (Auto) 0.5 % (0.0-2.0); Eosinophils # (Auto) 0.31 K/mcL (0.00-0.70); Eosinophils % (Auto) 5.4 % (0.0-7.0); Lymphocytes # (Auto) 2.27 K/mcL (1.50-4.80); Lymphocytes % (Auto) 39.3 % (15.5-49.0); Mean Platelet Volume 9.2 fL (7.4-10.4); Monocytes # (Auto) 0.78 K/mcL (0.10-0.90); Monocytes % (Auto) 13.5 % (1.0-12.0); Neutrophils % (Auto) 41.3 % (38.0-78.0); Platelet Count 251 K/mcL (140-440); RBC 3.83 M/mcL (3.59-5.38); Red Cell Distribution Width 13.2 % (11.5-14.5); WBC 5.8 K/mcL (4.5-11.0)
[2021-07-06] MEDS: PANTOPRAZOLE 40 MG VIAL IV SCH ×2 (06:55→17:25)
[2021-07-06 07:20] LABS: ALT/SGPT 11 U/L (<40); AST/SGOT 15 U/L (<32); Albumin 2.6 gm/dL (3.2-5.2); Albumin/Globulin Ratio 0.9 (1.0-2.3); Alkaline Phosphatase 70 U/L (39-117); Bilirubin,Direct < 0.2 mg/dL (0-0.3); Bilirubin,Total 0.4 mg/dL (0.1-1.0); Blood Urea Nitrogen 12 mg/dL (8-23); Calcium 8.4 mg/dL (8.6-10.4); Carbon Dioxide 25 mmol/L (22-30); Chloride 99 mmol/L (96-108); Globulin 2.9 gm/dL (2.2-3.7); Glomerular Filtration Rate 98; Glucose 89 mg/dL (70-105); Lactate Dehydrogenase 199 U/L (135-225); Phosphorous 3.3 mg/dL (2.5-4.5); Triglycerides 140 mg/dL (<150); Uric Acid 0.9 mg/dL (2.5-8.0)
[2021-07-06] MEDS: METOPROLOL TARTRATE 25 MG TABLET PO SCH ×2 (09:59→20:15)
[2021-07-06] MEDS: HEPARIN 5,000 UNIT/ML VIAL SQ SCH ×2 (09:59→20:16)
[2021-07-06] MEDS: SODIUM CHLORIDE 1 GM TABLET PO SCH ×3 (09:59→20:15)
[2021-07-06] MEDS: LISINOPRIL 20 MG TABLET PO SCH (09:59)
[2021-07-06] MEDS: FLUCONAZOLE 200 MG/100 ML BAG IV SCH (10:23)
[2021-07-06] MEDS ORDERED: ACETAMINOPHEN 650 MG/65 ML BAG IV PRN (13:34)
[2021-07-06] MEDS ORDERED: [UNRECOGNIZED DRUG - OTHER] IV SCH (15:00)
[2021-07-06] MEDS ORDERED: MAGNESIUM SULFATE IV SCH (15:00)
[2021-07-06] MEDS ORDERED: SODIUM CHLORIDE IV SCH (15:00)
[2021-07-06] MEDS ORDERED: CALCIUM GLUCONATE IV SCH (15:00)
[2021-07-06] MEDS: FAT EMULSION 20% 250 ML IV SCH (15:14)
--- NOTE | 2021-07-06 18:56 | General Surgery Progress Note ---
SUBJECTIVE Subjective Patient information: Note initiated : 07/06/21 at 1230 Service Date, if different from initiated Date: [] Chief Complaint: [POD #6 Ex Lap, Washout and Drain Placement, Resection Sigmoid Colonic Stricture and Perforation, End Colostomy] Feels well today, no nausea or emesis with NGT out. Some gas has been in the stoma Constitutional Vitals: Vital Signs Temp Pulse Resp BP Pulse Ox 98.8 F 76 18 152/92 95 07/06/21 16:00 07/06/21 16:00 07/06/21 16:00 07/06/21 16:00 07/06/21 16:00 Period Temp Pulse Resp BP Sys/Stiles Pulse Ox Last 24 Hr 96.4 F-98.8 F 76-92 16-20 117-161/62-92 93-98 Intake and Output 07/06/21 07/06/21 07/06/21 05:59 13:59 21:59 Intake Total 50 390 140 Output Total 300 Balance 50 390 -160 Intake & Output: Intake & Output 07/06/21 07/06/21 07/06/21 05:59 13:59 21:59 Intake Total 50 390 140 Output Total 300 Balance 50 390 -160 Intake: IV 50 150 50 Merrem 1 gm In Sodium Chloride 50 50 50 0.9% 50 ml @ 100 mls/hr IV Q8H [facility] Rx#:[id number] Oral 240 90 Output: Void Amount 300 Exam: looks well, non toxic, NAD GI/Abdominal Additional comments: soft and non distended, non tender, stoma looks ok A/P Assessment and plan (1) Colon perforation: Assessment and plan: POD #6 Ex Lap, Washout and Drain Placement, Resection Sigmoid Colonic Stricture and Perforation, End Colostomy Doing Well Will start clears only Add Lactulose at low dose Continue VAC for now Status: Acute Time Spent With Patient Time: Total time spent is greater than 50% in coordination of care (as documented) at patient's floor/unit and/or counseling patient:
--- NOTE | 2021-07-06 19:09 | General Surgery Progress Note ---
SUBJECTIVE Subjective Patient information: Note initiated : 07/05/21 at 1330 Service Date, if different from initiated Date: [] Patient: Jewell Campoverde 71 y/o F admitted on 06/29/21 for Esophogogastroduodenoscopy and Colonoscopy. Chief Complaint: [POD #6 Ex Lap, Washout and Drain Placement, Resection Sigmoid Colonic Stricture and Perforation, End Colostomy] Seen and examined at bedside with VAC and Stomal appliance off - there has been some gas in the ostomy Constitutional Vitals: Vital Signs Temp Pulse Resp BP Pulse Ox 97.6 F 74 17 152/83 96 07/06/21 18:57 07/06/21 18:57 07/06/21 18:57 07/06/21 18:57 07/06/21 18:57 Period Temp Pulse Resp BP Sys/Stiles Pulse Ox Last 24 Hr 96.4 F-98.8 F 74-92 16-20 117-161/62-92 93-98 Intake and Output 07/06/21 07/06/21 07/06/21 05:59 13:59 21:59 Intake Total 50 390 140 Output Total 300 Balance 50 390 -160 Intake & Output: Intake & Output 07/06/21 07/06/21 07/06/21 05:59 13:59 21:59 Intake Total 50 390 140 Output Total 300 Balance 50 390 -160 Intake: IV 50 150 50 Merrem 1 gm In Sodium Chloride 50 50 50 0.9% 50 ml @ 100 mls/hr IV Q8H [facility] Rx#:[id number] Oral 240 90 Output: Void Amount 300 Exam: looks well and non toxic GI/Abdominal Additional comments: soft and non distended, non tender, ostomy is examined and digitally probed and is widely open without issue across fascia and into the peritioneum NGT is removed JPD is removed A/P Assessment and plan (1) Colon perforation: Assessment and plan: POD #6 Ex Lap, Washout and Drain Placement, Resection Sigmoid Colonic Stricture and Perforation, End Colostomy Continue VAC and start clear sips The stomal mucosal is dusky at its most external end but looks fully viable internally with an intact mucocutaneous junction - will continue to watch the area closely but no operative indications at this time Status: Acute Time Spent With Patient Time: Total time spent is greater than 50% in coordination of care (as documented) at patient's floor/unit and/or counseling patient:
[2021-07-06] MEDS: LACTULOSE 20 GM/30 ML ORAL.SOL PO SCH (19:20)
[2021-07-06] MEDS: MELATONIN 3 MG TABLET PO SCH (20:15)
[2021-07-06] MEDS: TAMSULOSIN 0.4 MG CAPSULE PO SCH (20:15)
[2021-07-06] MEDS: diphenhydrAMINE 50 MG/ML VIAL IV PRN (20:15)
[2021-07-06] MEDS: LORazepam 2 MG/ML VIAL IV PRN (20:16)
[2021-07-07] MEDS: 0.9 % SODIUM CHLORIDE 10 ML SYRINGE IV SCH ×6 (05:14→22:56)
[2021-07-07] MEDS: INSULIN LISPRO 1 UNIT/0.01 ML UNIT SQ SCH ×4 (05:14→22:57)
[2021-07-07] MEDS: MEROPENEM 1 GM in 0.9 % SODIUM CHLORIDE 50 ML IV SCH ×3 (05:15→21:59)
[2021-07-07] MEDS: HYDROmorphone 0.5 MG/0.5 ML SYRINGE IV PRN ×4 (06:54→22:55)
[2021-07-07 07:14] LABS: ALT/SGPT 22 U/L (<40); AST/SGOT 27 U/L (<32); Albumin 2.7 gm/dL (3.2-5.2); Albumin/Globulin Ratio 0.9 (1.0-2.3); Alkaline Phosphatase 94 U/L (39-117); Bilirubin,Direct < 0.2 mg/dL (0-0.3); Bilirubin,Total 0.4 mg/dL (0.1-1.0); Blood Urea Nitrogen 14 mg/dL (8-23); Calcium 8.6 mg/dL (8.6-10.4); Carbon Dioxide 25 mmol/L (22-30); Chloride 96 mmol/L (96-108); Glomerular Filtration Rate 106; Glucose 101 mg/dL (70-105); Lactate Dehydrogenase 210 U/L (135-225); Triglycerides 96 mg/dL (<150); Uric Acid 0.8 mg/dL (2.5-8.0)
[2021-07-07 07:56] LABS: Prealbumin 13.8 mg/dL (20.0-40.0)
[2021-07-07] MEDS: PANTOPRAZOLE 40 MG VIAL IV SCH ×2 (08:07→17:03)
[2021-07-07] MEDS: METOPROLOL TARTRATE 25 MG TABLET PO SCH ×2 (08:29→20:07)
[2021-07-07] MEDS: LISINOPRIL 20 MG TABLET PO SCH (08:30)
--- NOTE | 2021-07-07 08:54 | General Surgery Progress Note ---
SUBJECTIVE Subjective Patient information: Note initiated : 07/07/21 at 8:53 am Service Date, if different from initiated Date: [] Patient: Jewell Campoverde 71 y/o F admitted on 06/29/21 for Esophogogastroduodenoscopy and Colonoscopy. Chief Complaint: [POD #8 Ex Lap, Washout and Drain Placement, Resection Sigmoid Colonic Stricture and Perforation, End Colostomy] Doing well with clears thus far, starting to have gas and stool in substantial amounts via ostomy. No pain, feels well otherwise Constitutional Vitals: Vital Signs Temp Pulse Resp BP Pulse Ox 98.3 F 81 16 136/80 92 07/07/21 07:42 07/07/21 07:42 07/07/21 07:42 07/07/21 07:42 07/07/21 07:42 Period Temp Pulse Resp BP Sys/Stiles Pulse Ox Last 24 Hr 96.9 F-98.8 F 69-81 16-18 117-152/62-92 92-98 Intake and Output 07/06/21 07/07/21 07/07/21 21:59 05:59 13:59 Intake Total 140 500 Output Total 900 925 100 Balance -760 -425 -100 Weight 156 lb 6.4 oz Intake & Output: Intake & Output 07/06/21 07/07/21 07/07/21 21:59 05:59 13:59 Intake Total 140 500 Output Total 900 925 100 Balance -760 -425 -100 Weight 156 lb 6.4 oz Intake: IV 50 350 Intralipid 20% 250 ml @ 25 mls/ 250 hr IV TuThSa@1600 [facility] Rx#: [id number] Merrem 1 gm In Sodium Chloride 50 100 0.9% 50 ml @ 100 mls/hr IV Q8H [facility] Rx#:[id number] Oral 90 150 Output: Void Amount 900 750 Stool 175 100 Other: Urine Appearance Clear Urine Color Dark Yellow Urine Odor Normal Exam: Looks well, NAD GI/Abdominal Additional comments: soft and non tender, non distended, no mass, no hernia or other issue A/P Assessment and plan (1) Colon perforation: Assessment and plan: POD #8 Ex Lap, Washout and Drain Placement, Resection Sigmoid Colonic Stricture and Perforation, End Colostomy Doing Well Continue clears for now and advance diet later if tolerating well Change VAC today Status: Acute Time Spent With Patient Time: Total time spent is greater than 50% in coordination of care (as documented) at patient's floor/unit and/or counseling patient:
[2021-07-07] MEDS: FLUCONAZOLE 200 MG/100 ML BAG IV SCH (09:17)
[2021-07-07] MEDS: HEPARIN 5,000 UNIT/ML VIAL SQ SCH ×2 (11:11→20:07)
[2021-07-07] MEDS: SODIUM CHLORIDE 1 GM TABLET PO SCH ×3 (11:16→20:06)
[2021-07-07] MEDS: tiZANidine 4 MG TABLET PO PRN ×2 (12:01→20:06)
--- NOTE | 2021-07-07 12:25 | Internal Med Progress Note ---
SUBJECTIVE Subjective Patient information: Note initiated : 07/07/21 at 12:25 pm Service Date, if different from initiated Date: [] Patient: Jewell Campoverde 71 y/o F admitted on 06/29/21 for Esophogo gastroduodenoscopy and Colonoscopy. Chief Complaint: [] Interval history: Ms. Campoverde is a 70-year-old who experienced cardiorespiratory arrest following iatrogenic colonic perforation during colonoscopy. Patient underwent brief CPR/resuscitative efforts with ROSC. She was subsequently taken to the OR for ex lap/resection of sigmoid colonic stricture/perforation and end colostomy/washout and drain placement. Postoperatively patient was transferred to the ICU. Hospital service was consulted for management of medical issues/antibiotics while patient will continue postop care under care of surgical services Patient arrived to ICU postop in stable state. Systolics around 140. Bernard is draining clear urine. Abdominal drain present. Patient slightly drowsy under effect of sedation but able to answer most of the questions. Moving all 4 extremities. Endorses to pain around surgery incision. No family members present Reviewed chart/past medical records. Known history of COPD/ischemic colitis/hypertension/GERD/chronic pain. Postcode labs unremarkable except for sodium 127. Patient currently on crystalloids,/IV opioids/NG decompression. 06/30-patient seen in room, postop day 1. NG draining, abdomen soft however minimally tender around the surgery incision site. Lactic acid elevated. Ongoing fluids. Endorgan perfusion adequate with good urine output and maintaining systolics. On polymicrobial coverage including merope nem/fluconazole. Patient alert and communicative and appreciative of care. No overnight telemetry events, fever chills or concerns per nursing staff. Pain well controlled. White count 5.7, lactic acid 3.2, potassium 5.5. 07/01 Patient was able to walk today. Patient denies any bowel movement or flatus. Patient's home med list lists mesalamine and on primary care notes in April but patient does not know why she is on it. She denies Crohn's or ulcerative colitis. And she does not think she actually been taking it. She is coughing up some phlegm and burping but no shortness of breath. 07/02 Patient denies bowel movement or flatus but feels like her stomach is active now. Sodium decreased and will evaluate and treat. De-escalate meropenem. Replete phosphorus 07/03 Patient no ostomy output yet. Otherwise patient comfortable no acute issues. Will need to start nutrition IV if patient unable to take enterally. Hyponatremia stable. 07/04 No ostomy output. Blood pressure suboptimal. Just medications. Hyponatremia worsened. Hypoalbuminemia. 07/05 Patient walking to bathroom by herself. Awaiting ostomy output TPN started. Sodium little better today. Patient complains of sore throat from the NG tube. Monitor oxygen and wean off. Increase TPN rate per dietary. 07/06 Stable overnight, electrolytes improved today, some gas but no bowel movement yet. 07/07 Had a bowel movement, advanced to clear liquid diet. Continues on TPN as well as antimicrobials. Physical exam Head: Atraumatic, normal inspection. Eyes: normal appearance, no scleral icterus. Neck: full ROM Respiratory: no respiratory distress. Cardiovascular: normal rate and rhythm, S1, S2. GI/Abdominal: laparotomy incision covered with wound VAC, colostomy, soft, nontender, no guarding. Extremities: full range of motion, nontender. Neurological: CN II-XII intact, intact motor, intact sensation. Psychiatric: normal mood. Skin: warm, normal color Constitutional Vitals: Vital Signs Temp Pulse Resp BP Pulse Ox 97.8 F 66 18 118/75 97 07/07/21 11:00 07/07/21 11:00 07/07/21 11:00 07/07/21 11:00 07/07/21 11:00 Period Temp Pulse Resp BP Sys/Stiles Pulse Ox Last 24 Hr 97.1 F-98.8 F 66-81 16-18 118-152/75-92 92-98 Intake and Output 07/06/21 07/07/21 07/07/21 21:59 05:59 13:59 Intake Total 140 500 Output Total 900 925 700 Balance -760 -425 -700 Weight 70.942 kg Intake & Output: Intake & Output 07/06/21 07/07/21 07/07/21 21:59 05:59 13:59 Intake Total 140 500 Output Total 900 925 700 Balance -760 -425 -700 Weight 70.942 kg Intake: IV 50 350 Intralipid 20% 250 ml @ 25 mls/ 250 hr IV TuThSa@1600 [facility] Rx#: [id number] Merrem 1 gm In Sodium Chloride 50 100 0.9% 50 ml @ 100 mls/hr IV Q8H [facility] Rx#:[id number] Oral 90 150 Output: Void Amount 900 750 600 Stool 175 100 Other: Urine Appearance Clear Urine Color Dark Yellow Urine Odor Normal OBJ DATA Labs CBC & Chem 7: 07/06/21 05:45 07/07/21 05:47 Labs: Abnormal Lab Results 07/07/21 07/07/21 07/06/21 06:52 05:47 05:45 [place] % (Auto) 13.5 H Sodium 130 L Potassium BUN Creatinine 0.4 L Glucose Uric Acid 0.8 L Calcium GGT 40 H Total Protein 5.7 L Albumin 2.7 L Albumin/Globulin Ratio 0.9 L Prealbumin 13.8 L 07/06/21 07/05/21 05:45 05:28 [place] % (Auto) Sodium Potassium 3.1 L BUN 6 L Creatinine 0.5 L 0.4 L Glucose 112 H Uric Acid 0.9 L 1.7 L Calcium 8.4 L 8.1 L GGT Total Protein 5.5 L 5.2 L Albumin 2.6 L 2.4 L Albumin/Globulin Ratio 0.9 L 0.9 L Prealbumin Meds: Medications Al Hydrox/Mg Hydrox/Simethicone (Mag Hydrox/Al Hydrox/Simeth 30 Ml Oral.Susp) 30 ml PO Q4-6HP PRN PRN Reason: Dyspepsia Last Admin: 07/04/21 12:27 Dose: 30 ml Documented by: Albuterol/Ipratropium (Ipratropium/Albuterol 3 Ml Ampul.Neb) 3 ml NEB Q4HP PRN PRN Reason: Shortness Of Breath Diagnostic Test (Pha) (Accu-Chek 1 Each Strip) 1 each FS Q6 [facility] Last Admin: 07/07/21 05:14 Dose: 1 each Documented by: Diphenhydramine HCl (Diphenhydramine 50 Mg/Ml Vial) 25 mg IV HSP PRN PRN Reason: insomnia Last Admin: 07/06/21 20:15 Dose: 25 mg Documented by: Heparin Sodium (Porcine) (Heparin Flush 10 Units/Ml 5 Ml Syringe) 2 ml IV Q12 [facility] Last Admin: 07/07/21 10:57 Dose: 2 ml Documented by: Heparin Sodium (Porcine) (Heparin 5,000 Unit/Ml Vial) 5,000 unit SQ Q12 [facility] Last Admin: 07/07/21 11:11 Dose: 5,000 unit Documented by: Hydromorphone HCl (Hydromorphone 0.5 Mg/0.5 Ml Syringe) 0.25 - 0.5 mg IV Q4HP PRN; Protocol PRN Reason: Per Pain Protocol Last Admin: 07/07/21 10:53 Dose: 0.5 mg Documented by: Potassium Chloride 40 meq/ (Dextrose) 520 mls @ 130 mls/hr IV UD PRN PRN Reason: K+ = or < 3.5 Last Infusion: 06/30/21 03:34 Dose: Infused Documented by: Acetaminophen (Ofirmev) 650 mg in 65 mls @ 130 mls/hr IV Q6HP PRN; Protocol PRN Reason: Per Pain Protocol/Fever > 101 Last Infusion: 07/04/21 13:04 Dose: Infused Documented by: Magnesium Sulfate (Magnesium Sulfate) 2 gm in 50 mls @ 50 mls/hr IV UD PRN PRN Reason: MG = or < 1.7 Meropenem 1 gm/ Sodium (Chloride) 50 mls @ 100 mls/hr IV Q8H [facility]; Protocol Last Infusion: 07/07/21 05:48 Dose: Infused Documented by: Fluconazole (Diflucan) 200 mg in 100 mls @ 100 mls/hr IV Q24H [facility] Last Admin: 07/07/21 09:17 Dose: 100 mls/hr Documented by: Norepinephrine Bitartrate 8 mg (/ Sodium Chloride) 250 mls @ 18.75 mls/hr IV Q12HP PRN; Protocol PRN Reason: Hypotension Fat Emulsion Intravenous (Intralipid 20%) 250 mls @ 25 mls/hr IV TuThSa@1600 S Last Infusion: 07/07/21 01:52 Dose: Infused Documented by: Calcium Gluconate 9.3 meq/Magnesium Sulfate 16.24 meq/Sodium Chloride 80 meq/Potassium Chloride 60 meq/Potassium Phosphate 60 meq/Multivitamins/Minerals 10 ml/Amino Acids 2,097.6364 mls @ 65 mls/hr IV DAILY@1500 [facility] Stop: 07/07/21 14:59 Last Admin: 07/06/21 15:14 Dose: 65 mls/hr Documented by: Calcium Gluconate 9.3 meq/Magnesium Sulfate 16.24 meq/Sodium Chloride 100 meq/Potassium Chloride 60 meq/Potassium Phosphate 40 meq/Multivitamins/Minerals 10 ml/Amino Acids 2,098.0909 mls @ 65 mls/hr IV DAILY@1500 [facility] Insulin Human Lispro (Insulin Lispro 1 Unit/0.01 Ml Unit) 0 unit SQ Q6 [facility]; Protocol Last Admin: 07/07/21 05:14 Dose: Not Given Documented by: Labetalol HCl (Labetalol 5 Mg/Ml Ml) 0 mg IV Q2HP PRN PRN Reason: Hypertension Last Admin: 07/05/21 05:25 Dose: 5 mg Documented by: Lactulose (Lactulose 20 Gm/30 Ml Oral.Lesley) 20 gm PO 1800 [facility] Last Admin: 07/06/21 19:20 Dose: 20 gm Documented by: Lisinopril (Lisinopril 20 Mg Tablet) 30 mg PO QDAY [facility] Last Admin: 07/07/21 08:30 Dose: Not Given Documented by: Lorazepam (Lorazepam 2 Mg/Ml Vial) 0.5 mg IV HSP PRN PRN Reason: INSOMNIA/ANXIETY Last Admin: 07/06/21 20:16 Dose: 0.5 mg Documented by: Melatonin (Melatonin 3 Mg Tablet) 3 mg PO QHS [facility] Last Admin: 07/06/21 20:15 Dose: 3 mg Documented by: Metoprolol Tartrate (Metoprolol Tartrate 25 Mg Tablet) 25 mg PO BID [facility] Last Admin: 07/07/21 08:29 Dose: 25 mg Documented by: Ondansetron HCl (Ondansetron 4 Mg Odt Tablet) 4 mg SL Q4-6HP PRN; Protocol PRN Reason: Nausea And Vomiting Ondansetron HCl (Ondansetron 4 Mg/2 Ml Vial) 4 mg IV Q4-6HP PRN; Protocol PRN Reason: Nausea And Vomiting Last Admin: 06/30/21 16:06 Dose: 4 mg Documented by: Pantoprazole Sodium (Pantoprazole 40 Mg Vial) 40 mg IV BIDAC [facility] Last Admin: 07/07/21 08:07 Dose: 40 mg Documented by: Phenol (Phenol/Sodium Phenolate 5 [place] Bottle 180ml) 5 spray SSP Q2HP PRN PRN Reason: Sore Throat Last Admin: 07/05/21 11:13 Dose: 5 spray Documented by: Sodium Chloride (0.9 % Sodium Chloride 10 Ml Syringe) 10 ml IV Q8 [facility] Last Admin: 07/07/21 05:14 Dose: 10 ml Documented by: Sodium Chloride (Sodium Chloride 1 Gm Tablet) 1 gm PO TID [facility] Last Admin: 07/07/21 11:16 Dose: 1 gm Documented by: Sodium Chloride (0.9 % Sodium Chloride 10 Ml Syringe) 10 ml IV UD PRN PRN Reason: FLUSH Sodium Chloride (0.9 % Sodium Chloride 10 Ml Syringe) 10 ml IV Q12 [facility] Last Admin: 07/07/21 11:12 Dose: 10 ml Documented by: Tamsulosin HCl (Tamsulosin 0.4 Mg Capsule) 0.4 mg PO QHS [facility] Last Admin: 07/06/21 20:15 Dose: 0.4 mg Documented by: Tizanidine HCl (Tizanidine 4 Mg Tablet) 4 mg PO BID PRN PRN Reason: for muscle spasm Last Admin: 07/07/21 12:01 Dose: 4 mg Documented by: A/P Narrative A/P Narrative: A: *Bowel perforation iatrogenic: s/p ex lap/washout w/colostomy (06/29) managed per surgery. *Post cardiorespiratory arrest & 2-minutes CPR/1 amp of epinephrine: *Acute peritonitis, improved: 2/2 bowel perforation status post ex lap *ischemic colitis: *Sinus Tach: Resolved on beta-blanka *Resolved acute hypoxic resp failure *Protein calorie malnutrition: *COPD (no home O2)/pulm fibrosis: stable on bronchodilators/supplemental oxygen *HTN: on ACEI *GERD: *Anxiety: Plan: -Continue polymicrobial coverage including enteric ramy/antifungal on meropenem/fluconazole -Continue Lisinopril and Lopressor (started BB for persistent sinus tach) -Postop pain management on as needed opioids/Tylenol IV -TPN until maintaining adequate nutrition with oral intake. -NGT/Diet/Nutrition as per surgery recommendations. -prn nebs for copd, may need to evaluate for home O2 for copd/fibrosis -General surgery following. -pt/ot -ppi bid per GI -Diet per general surgery -ppx: heparin / ppi Time Spent With Patient Time: Total time spent is greater than 50% in coordination of care (as documented) at patient's floor/unit and/or counseling patient: QUALITY VTE Deep Vein Thrombosis/Pulmonary Embolism Present on Admission: No
[2021-07-07] MEDS ORDERED: CALCIUM GLUCONATE IV SCH (15:00)
[2021-07-07] MEDS ORDERED: [UNRECOGNIZED DRUG - OTHER] IV SCH (15:00)
[2021-07-07] MEDS ORDERED: MAGNESIUM SULFATE IV SCH (15:00)
[2021-07-07] MEDS ORDERED: SODIUM CHLORIDE IV SCH (15:00)
[2021-07-07] MEDS: LACTULOSE 20 GM/30 ML ORAL.SOL PO SCH (18:34)
[2021-07-07] MEDS: MELATONIN 3 MG TABLET PO SCH (20:06)
[2021-07-07] MEDS: LORazepam 2 MG/ML VIAL IV PRN (20:07)
[2021-07-07] MEDS: TAMSULOSIN 0.4 MG CAPSULE PO SCH (20:07)
[2021-07-07] MEDS: diphenhydrAMINE 50 MG/ML VIAL IV PRN (20:07)
[2021-07-08] MEDS: HYDROmorphone 0.5 MG/0.5 ML SYRINGE IV PRN ×4 (03:29→19:38)
[2021-07-08] MEDS: 0.9 % SODIUM CHLORIDE 10 ML SYRINGE IV SCH ×7 (03:29→22:04)
[2021-07-08] MEDS: MEROPENEM 1 GM in 0.9 % SODIUM CHLORIDE 50 ML IV SCH ×3 (05:00→22:04)
[2021-07-08] MEDS: INSULIN LISPRO 1 UNIT/0.01 ML UNIT SQ SCH ×4 (05:06→23:19)
[2021-07-08 07:05] LABS: ALT/SGPT 25 U/L (<40); AST/SGOT 23 U/L (<32); Albumin/Globulin Ratio 1.1 (1.0-2.3); Alkaline Phosphatase 108 U/L (39-117); Bilirubin,Direct < 0.2 mg/dL (0-0.3); Bilirubin,Total 0.5 mg/dL (0.1-1.0); Blood Urea Nitrogen 16 mg/dL (8-23); Calcium 8.5 mg/dL (8.6-10.4); Carbon Dioxide 24 mmol/L (22-30); Chloride 93 mmol/L (96-108); Globulin 2.8 gm/dL (2.2-3.7); Glomerular Filtration Rate 106; Glucose 88 mg/dL (70-105); Lactate Dehydrogenase 205 U/L (135-225); Phosphorous 3.7 mg/dL (2.5-4.5); Prealbumin 14.8 mg/dL (20.0-40.0); Triglycerides 139 mg/dL (<150); Uric Acid 0.8 mg/dL (2.5-8.0)
[2021-07-08] MEDS: PANTOPRAZOLE 40 MG VIAL IV SCH ×2 (07:33→16:49)
[2021-07-08] MEDS: tiZANidine 4 MG TABLET PO PRN ×2 (07:47→20:11)
[2021-07-08] MEDS: METOPROLOL TARTRATE 25 MG TABLET PO SCH ×2 (08:44→20:11)
[2021-07-08] MEDS: SODIUM CHLORIDE 1 GM TABLET PO SCH ×3 (08:44→20:11)
[2021-07-08] MEDS: LISINOPRIL 20 MG TABLET PO SCH (08:45)
[2021-07-08] MEDS: HEPARIN 5,000 UNIT/ML VIAL SQ SCH ×2 (08:46→20:12)
[2021-07-08] MEDS: FLUCONAZOLE 200 MG/100 ML BAG IV SCH (08:49)
--- NOTE | 2021-07-08 09:35 | General Surgery Progress Note ---
SUBJECTIVE Subjective Patient information: Note initiated : 07/08/21 at 9:32 am Service Date, if different from initiated Date: [] Patient: Jewell Campoverde 71 y/o F admitted on 06/29/21 for Esophogogastroduodenoscopy and Colonoscopy. Chief Complaint: [] Principal diagnosis: Postoperative day 9 Status post exploratory laparotomy Interval history: Chief Complaint: [POD #9 Ex Lap, Washout and Drain Placement, Resection Sigmoid Colonic Stricture and Perforation, End Colostomy] Doing well with clears thus far, starting to have gas and stool in substantial amounts via ostomy. No pain, feels well otherwise. ambulating without difficulty. Constitutional Vitals: Vital Signs Temp Pulse Resp BP Pulse Ox 97 F 79 16 110/64 95 07/08/21 06:37 07/08/21 06:37 07/08/21 06:37 07/08/21 06:37 07/08/21 06:37 Period Temp Pulse Resp BP Sys/Stiles Pulse Ox Last 24 Hr 97 F-98.4 F 61-79 16-18 82-141/57-76 95-97 Intake and Output 07/07/21 07/08/21 07/08/21 21:59 05:59 13:59 Intake Total 50 350 Output Total 500 1775 Balance -450 -1425 Weight 151 lb 3 oz Intake & Output: Intake & Output 07/07/21 07/08/21 07/08/21 21:59 05:59 13:59 Intake Total 50 350 Output Total 500 1775 Balance -450 -1425 Weight 151 lb 3 oz Intake: IV 50 50 Merrem 1 gm In Sodium Chloride 50 50 0.9% 50 ml @ 100 mls/hr IV Q8H [facility] Rx#:[id number] Oral 300 Output: Void Amount 500 1300 Stool 475 Other: Stool Color Brown Stool Consistency Liquid General appearance: cooperative and no acute distress GI/Abdominal GI/Abdominal exam: Present normal bowel sounds and soft; Absent distended or tenderness Additional comments: ostomy functioning well, less dusky A/P Assessment and plan (1) Colon perforation: Plan: POD 9 doing well advance diet as tolerated wean TPN to off Likely home Saturday, will need home health for wound vac. Status: Acute Time Spent With Patient Time: Total time spent is greater than 50% in coordination of care (as documented) at patient's floor/unit and/or counseling patient:
--- NOTE | 2021-07-08 13:20 | Internal Med Progress Note ---
SUBJECTIVE Subjective Patient information: Note initiated : 07/08/21 at 1:18 pm Service Date, if different from initiated Date: [] Patient: Jewell Campoverde 71 y/o F admitted on 06/29/21 for Esophogog astroduodenoscopy and Colonoscopy. Chief Complaint: [] Principal diagnosis: Postoperative day 9 Status post exploratory laparotomy Interval history: Ms. Campoverde is a 70-year-old who experienced cardiorespiratory arrest following iatrogenic colonic perforation during colonoscopy. Patient underwent brief CPR/resuscitative efforts with ROSC. She was subsequently taken to the OR for ex lap/resection of sigmoid colonic stricture/perforation and end colostomy/washout and drain placement. Postoperatively patient was transferred to the ICU. Hospital service was consulted for management of medical issues/antibiotics while patient will continue postop care under care of surgical services Patient arrived to ICU postop in stable state. Systolics around 140. Bernard is draining clear urine. Abdominal drain present. Patient slightly drowsy under effect of sedation but able to answer most of the questions. Moving all 4 extremities. Endorses to pain around surgery incision. No family members present Reviewed chart/past medical records. Known history of COPD/ischemic colitis/hypertension/GERD/chronic pain. Postcode labs unremarkable except for sodium 127. Patient currently on crystalloids,/IV opioids/NG decompression. 06/30-patient seen in room, postop day 1. NG draining, abdomen soft however minimally tender around the surgery incision site. Lactic acid elevated. Ongoing fluids. Endorgan perfusion adequate with good urine output and maintaining systolics. On polymicrobial coverage including meropen em/fluconazole. Patient alert and communicative and appreciative of care. No overnight telemetry events, fever chills or concerns per nursing staff. Pain well controlled. White count 5.7, lactic acid 3.2, potassium 5.5. 07/01 Patient was able to walk today. Patient denies any bowel movement or flatus. Patient's home med list lists mesalamine and on primary care notes in April but patient does not know why she is on it. She denies Crohn's or ulcerative colitis. And she does not think she actually been taking it. She is coughing up some phlegm and burping but no shortness of breath. 07/02 Patient denies bowel movement or flatus but feels like her stomach is active now. Sodium decreased and will evaluate and treat. De-escalate meropenem. Replete phosphorus 07/03 Patient no ostomy output yet. Otherwise patient comfortable no acute issues. Will need to start nutrition IV if patient unable to take enterally. Hyponatremia stable. 07/04 No ostomy output. Blood pressure suboptimal. Just medications. Hyponatremia worsened. Hypoalbuminemia. 07/05 Patient walking to bathroom by herself. Awaiting ostomy output TPN started. Sodium little better today. Patient complains of sore throat from the NG tube. Monitor oxygen and wean off. Increase TPN rate per dietary. 07/06 Stable overnight, electrolytes improved today, some gas but no bowel movement yet. 07/07 Had a bowel movement, advanced to clear liquid diet. Continues on TPN as well as antimicrobials. 07/08 Patient's feels well, passing gas and having small bowel movements. Serum sodium has trended down to 125. TPN discontinued, the patient's diet was advanced to regular. Physical exam Head: Atraumatic, normal inspection. Eyes: normal appearance, no scleral icterus. Neck: full ROM Respiratory: no respiratory distress. Cardiovascular: normal rate and rhythm, S1, S2. GI/Abdominal: laparotomy incision covered with wound VAC, colostomy, soft, nontender, no guarding. Extremities: full range of motion, nontender. Neurological: CN II-XII intact, intact motor, intact sensation. Psychiatric: normal mood. Skin: warm, normal color Constitutional Vitals: Vital Signs Temp Pulse Resp BP Pulse Ox 97.3 F 76 18 109/73 94 07/08/21 11:00 07/08/21 11:00 07/08/21 11:00 07/08/21 11:00 07/08/21 11:00 Period Temp Pulse Resp BP Sys/Stiles Pulse Ox Last 24 Hr 97 F-98.4 F 61-79 16-18 82-141/57-76 94-96 Intake and Output 07/07/21 07/08/21 07/08/21 21:59 05:59 13:59 Intake Total 50 400 Output Total 500 1775 Balance -450 -1375 Weight 68.577 kg Intake & Output: Intake & Output 07/07/21 07/08/21 07/08/21 21:59 05:59 13:59 Intake Total 50 400 Output Total 500 1775 Balance -450 -1375 Weight 68.577 kg Intake: IV 50 100 Merrem 1 gm In Sodium Chloride 50 100 0.9% 50 ml @ 100 mls/hr IV Q8H [facility] Rx#:[id number] Oral 300 Output: Void Amount 500 1300 Stool 475 Other: Stool Color Brown Stool Consistency Liquid OBJ DATA Labs CBC & Chem 7: 07/06/21 05:45 07/08/21 05:17 Labs: Abnormal Lab Results 07/08/21 07/07/21 07/07/21 05:17 06:52 05:47 [place] % (Auto) Sodium 125 L 130 L Chloride 93 L Creatinine 0.4 L 0.4 L Uric Acid 0.8 L 0.8 L Calcium 8.5 L GGT 40 H Total Protein 5.8 L 5.7 L Albumin 3.0 L 2.7 L Albumin/Globulin Ratio 0.9 L Prealbumin 14.8 L 13.8 L 07/06/21 07/06/21 05:45 05:45 [place] % (Auto) 13.5 H Sodium Chloride Creatinine 0.5 L Uric Acid 0.9 L Calcium 8.4 L GGT Total Protein 5.5 L Albumin 2.6 L Albumin/Globulin Ratio 0.9 L Prealbumin Meds: Medications Al Hydrox/Mg Hydrox/Simethicone (Mag Hydrox/Al Hydrox/Simeth 30 Ml Oral.Susp) 30 ml PO Q4-6HP PRN PRN Reason: Dyspepsia Last Admin: 07/04/21 12:27 Dose: 30 ml Documented by: Albuterol/Ipratropium (Ipratropium/Albuterol 3 Ml Ampul.Neb) 3 ml NEB Q4HP PRN PRN Reason: Shortness Of Breath Diagnostic Test (Pha) (Accu-Chek 1 Each Strip) 1 each FS Q6 [facility] Last Admin: 07/08/21 11:16 Dose: 1 each Documented by: Diphenhydramine HCl (Diphenhydramine 50 Mg/Ml Vial) 25 mg IV HSP PRN PRN Reason: insomnia Last Admin: 07/07/21 20:07 Dose: 25 mg Documented by: Heparin Sodium (Porcine) (Heparin Flush 10 Units/Ml 5 Ml Syringe) 2 ml IV Q12 [facility] Last Admin: 07/08/21 08:47 Dose: 2 ml Documented by: Heparin Sodium (Porcine) (Heparin 5,000 Unit/Ml Vial) 5,000 unit SQ Q12 [facility] Last Admin: 07/08/21 08:46 Dose: 5,000 unit Documented by: Hydromorphone HCl (Hydromorphone 0.5 Mg/0.5 Ml Syringe) 0.25 - 0.5 mg IV Q4HP PRN; Protocol PRN Reason: Per Pain Protocol Last Admin: 07/08/21 08:48 Dose: 0.25 mg Documented by: Potassium Chloride 40 meq/ (Dextrose) 520 mls @ 130 mls/hr IV UD PRN PRN Reason: K+ = or < 3.5 Last Infusion: 06/30/21 03:34 Dose: Infused Documented by: Acetaminophen (Ofirmev) 650 mg in 65 mls @ 130 mls/hr IV Q6HP PRN; Protocol PRN Reason: Per Pain Protocol/Fever > 101 Last Infusion: 07/04/21 13:04 Dose: Infused Documented by: Magnesium Sulfate (Magnesium Sulfate) 2 gm in 50 mls @ 50 mls/hr IV UD PRN PRN Reason: MG = or < 1.7 Meropenem 1 gm/ Sodium (Chloride) 50 mls @ 100 mls/hr IV Q8H [facility]; Protocol Last Admin: 07/08/21 13:05 Dose: 100 mls/hr Documented by: Fluconazole (Diflucan) 200 mg in 100 mls @ 100 mls/hr IV Q24H [facility] Last Admin: 07/08/21 08:49 Dose: 100 mls/hr Documented by: Norepinephrine Bitartrate 8 mg (/ Sodium Chloride) 250 mls @ 18.75 mls/hr IV Q12HP PRN; Protocol PRN Reason: Hypotension Insulin Human Lispro (Insulin Lispro 1 Unit/0.01 Ml Unit) 0 unit SQ Q6 [facility]; Protocol Last Admin: 07/08/21 11:16 Dose: Not Given Documented by: Labetalol HCl (Labetalol 5 Mg/Ml Ml) 0 mg IV Q2HP PRN PRN Reason: Hypertension Last Admin: 07/05/21 05:25 Dose: 5 mg Documented by: Lactulose (Lactulose 20 Gm/30 Ml Oral.Lesley) 20 gm PO 1800 [facility] Last Admin: 07/07/21 18:34 Dose: 20 gm Documented by: Lisinopril (Lisinopril 20 Mg Tablet) 30 mg PO QDAY [facility] Last Admin: 07/08/21 08:45 Dose: 30 mg Documented by: Lorazepam (Lorazepam 2 Mg/Ml Vial) 0.5 mg IV HSP PRN PRN Reason: INSOMNIA/ANXIETY Last Admin: 07/07/21 20:07 Dose: 0.5 mg Documented by: Melatonin (Melatonin 3 Mg Tablet) 3 mg PO QHS [facility] Last Admin: 07/07/21 20:06 Dose: 3 mg Documented by: Metoprolol Tartrate (Metoprolol Tartrate 25 Mg Tablet) 25 mg PO BID [facility] Last Admin: 07/08/21 08:44 Dose: 25 mg Documented by: Ondansetron HCl (Ondansetron 4 Mg Odt Tablet) 4 mg SL Q4-6HP PRN; Protocol PRN Reason: Nausea And Vomiting Ondansetron HCl (Ondansetron 4 Mg/2 Ml Vial) 4 mg IV Q4-6HP PRN; Protocol PRN Reason: Nausea And Vomiting Last Admin: 06/30/21 16:06 Dose: 4 mg Documented by: Pantoprazole Sodium (Pantoprazole 40 Mg Vial) 40 mg IV BIDAC [facility] Last Admin: 07/08/21 07:33 Dose: 40 mg Documented by: Phenol (Phenol/Sodium Phenolate 5 [place] Bottle 180ml) 5 spray SSP Q2HP PRN PRN Reason: Sore Throat Last Admin: 07/05/21 11:13 Dose: 5 spray Documented by: Sodium Chloride (0.9 % Sodium Chloride 10 Ml Syringe) 10 ml IV Q8 [facility] Last Admin: 07/08/21 13:06 Dose: 10 ml Documented by: Sodium Chloride (Sodium Chloride 1 Gm Tablet) 1 gm PO TID [facility] Last Admin: 07/08/21 08:44 Dose: 1 gm Documented by: Sodium Chloride (0.9 % Sodium Chloride 10 Ml Syringe) 10 ml IV UD PRN PRN Reason: FLUSH Sodium Chloride (0.9 % Sodium Chloride 10 Ml Syringe) 10 ml IV Q12 [facility] Last Admin: 07/08/21 08:50 Dose: 10 ml Documented by: Tamsulosin HCl (Tamsulosin 0.4 Mg Capsule) 0.4 mg PO QHS [facility] Last Admin: 07/07/21 20:07 Dose: 0.4 mg Documented by: Tizanidine HCl (Tizanidine 4 Mg Tablet) 4 mg PO BID PRN PRN Reason: for muscle spasm Last Admin: 07/08/21 07:47 Dose: 4 mg Documented by: A/P Narrative A/P Narrative: A: *Bowel perforation iatrogenic: s/p ex lap/washout w/colostomy (06/29) managed per surgery. *Post cardiorespiratory arrest & 2-minutes CPR/1 amp of epinephrine: *Resolved acute peritonitis, improved: 2/2 bowel perforation status post ex lap *Ischemic colitis: Stable *Resolved acute hypoxic respiratory failure *Hyponatremia likely secondary to TPN *Protein calorie malnutrition: *COPD (no home O2)/pulm fibrosis: stable on bronchodilators/supplemental oxygen *HTN: on ACEI *GERD: *Anxiety: Plan: -Continue polymicrobial coverage including enteric ramy/antifungal on meropenem/fluconazole -Continue Lisinopril and Lopressor (started BB for persistent sinus tach) -Postop pain management on as needed opioids/Tylenol IV -Follow sodium. -TPN discontinued per surgery. -Regular diet per surgery. -prn nebs for copd, may need to evaluate for home O2 for copd/fibrosis -General surgery following. -pt/ot -ppi bid per GI -Diet per general surgery -ppx: heparin / ppi Time Spent With Patient Time: Total time spent is greater than 50% in coordination of care (as documented) at patient's floor/unit and/or counseling patient: QUALITY VTE Deep Vein Thrombosis/Pulmonary Embolism Present on Admission: No
[2021-07-08] MEDS ORDERED: [UNRECOGNIZED DRUG - OTHER] IV SCH (15:00)
[2021-07-08] MEDS ORDERED: CALCIUM GLUCONATE IV SCH (15:00)
[2021-07-08] MEDS ORDERED: SODIUM CHLORIDE IV SCH (15:00)
[2021-07-08] MEDS ORDERED: MAGNESIUM SULFATE IV SCH (15:00)
[2021-07-08] MEDS: LACTULOSE 20 GM/30 ML ORAL.SOL PO SCH (16:50)
[2021-07-08] MEDS: MELATONIN 3 MG TABLET PO SCH (20:11)
[2021-07-08] MEDS: TAMSULOSIN 0.4 MG CAPSULE PO SCH (20:11)
[2021-07-08] MEDS: LORazepam 2 MG/ML VIAL IV PRN (20:12)
[2021-07-08] MEDS: diphenhydrAMINE 50 MG/ML VIAL IV PRN (20:12)
[2021-07-09] MEDS: 0.9 % SODIUM CHLORIDE 10 ML SYRINGE IV SCH ×6 (02:49→23:13)
[2021-07-09] MEDS: HYDROmorphone 0.5 MG/0.5 ML SYRINGE IV PRN ×3 (02:49→22:31)
[2021-07-09] MEDS: MEROPENEM 1 GM in 0.9 % SODIUM CHLORIDE 50 ML IV SCH ×3 (04:59→20:59)
[2021-07-09] MEDS: PANTOPRAZOLE 40 MG VIAL IV SCH (07:36)
[2021-07-09] MEDS: METOPROLOL TARTRATE 25 MG TABLET PO SCH ×2 (08:42→21:54)
[2021-07-09] MEDS: LISINOPRIL 20 MG TABLET PO SCH (08:42)
[2021-07-09] MEDS: SODIUM CHLORIDE 1 GM TABLET PO SCH ×3 (08:42→20:55)
[2021-07-09] MEDS: HEPARIN 5,000 UNIT/ML VIAL SQ SCH ×2 (08:43→20:58)
[2021-07-09] MEDS: FLUCONAZOLE 200 MG/100 ML BAG IV SCH (08:44)
--- NOTE | 2021-07-09 09:12 | General Surgery Progress Note ---
SUBJECTIVE Subjective Patient information: Note initiated : 07/09/21 at 9:09 am Service Date, if different from initiated Date: [] Patient: Jewell Campoverde 71 y/o F admitted on 06/29/21 for Esophogogastroduodenoscopy and Colonoscopy. Chief Complaint: [] Principal diagnosis: Postoperative day 10 Status post exploratory laparotomy Interval history: Patient doing well overnight, no further complaints. TPN weaned off, diet advanced to regular, ostomy continues to function well. No fevers chills nausea or vomiting. Constitutional Vitals: Vital Signs Temp Pulse Resp BP Pulse Ox 97.2 F 73 16 101/67 94 07/09/21 02:18 07/09/21 02:18 07/09/21 02:18 07/09/21 02:18 07/09/21 02:18 Period Temp Pulse Resp BP Sys/Stiles Pulse Ox Last 24 Hr 97.1 F-98.7 F 72-85 16-18 101-152/67-80 94-97 Intake and Output 07/08/21 07/09/21 07/09/21 21:59 05:59 13:59 Intake Total 500 Output Total 500 350 Balance 0 -350 Weight 126 lb 5 oz Intake & Output: Intake & Output 07/08/21 07/09/21 07/09/21 21:59 05:59 13:59 Intake Total 500 Output Total 500 350 Balance 0 -350 Weight 126 lb 5 oz Intake: IV 100 Merrem 1 gm In Sodium Chloride 100 0.9% 50 ml @ 100 mls/hr IV Q8H [facility] Rx#:[id number] Oral 400 Output: Void Amount 200 350 Stool 300 Other: Meal Breakfast Percent of Meal Consumed 75% Feeding Ability Independent Urine Appearance Clear Urine Color Dark Yellow Urine Odor Normal Stool Color Brown Stool Consistency Liquid General appearance: cooperative and no acute distress GI/Abdominal GI/Abdominal exam: Present normal bowel sounds and soft; Absent distended or tenderness Additional comments: Incision and the wound VAC. Ostomy slightly dusky however functioning without difficulty. A/P Assessment and plan (1) Colon perforation: Plan: Postop day 10 status post exploratory laparotomy sigmoid colectomy with end ostomy for colonic perforation on colonoscope. Patient is doing very well, anticipate home tomorrow with home health. Status: Acute Time Spent With Patient Time: Total time spent is greater than 50% in coordination of care (as documented) at patient's floor/unit and/or counseling patient:
[2021-07-09] MEDS ORDERED: LACTATED RINGERS 1,000 ML IV ONE (11:36)
[2021-07-09] MEDS ORDERED: LISINOPRIL 20 MG TABLET PO SCH (12:35)
--- NOTE | 2021-07-09 15:03 | Internal Med Progress Note ---
SUBJECTIVE Subjective Patient information: Note initiated : 07/09/21 at 3:03 pm Service Date, if different from initiated Date: [] Patient: Jewell Campoverde 71 y/o F admitted on 06/29/21 for Esophogog astroduodenoscopy and Colonoscopy. Chief Complaint: [] Principal diagnosis: Postoperative day 10 Status post exploratory laparotomy Interval history: Ms. Campoverde is a 70-year-old who experienced cardiorespiratory arrest following iatrogenic colonic perforation during colonoscopy. Patient underwent brief CPR/resuscitative efforts with ROSC. She was subsequently taken to the OR for ex lap/resection of sigmoid colonic stricture/perforation and end colostomy/washout and drain placement. Postoperatively patient was transferred to the ICU. Hospital service was consulted for management of medical issues/antibiotics while patient will continue postop care under care of surgical services Patient arrived to ICU postop in stable state. Systolics around 140. Bernard is draining clear urine. Abdominal drain present. Patient slightly drowsy under effect of sedation but able to answer most of the questions. Moving all 4 extremities. Endorses to pain around surgery incision. No family members present Reviewed chart/past medical records. Known history of COPD/ischemic colitis/hypertension/GERD/chronic pain. Postcode labs unremarkable except for sodium 127. Patient currently on crystalloids,/IV opioids/NG decompression. 06/30-patient seen in room, postop day 1. NG draining, abdomen soft however minimally tender around the surgery incision site. Lactic acid elevated. Ongoing fluids. Endorgan perfusion adequate with good urine output and maintaining systolics. On polymicrobial coverage including merope nem/fluconazole. Patient alert and communicative and appreciative of care. No overnight telemetry events, fever chills or concerns per nursing staff. Pain well controlled. White count 5.7, lactic acid 3.2, potassium 5.5. 07/01 Patient was able to walk today. Patient denies any bowel movement or flatus. Patient's home med list lists mesalamine and on primary care notes in April but patient does not know why she is on it. She denies Crohn's or ulcerative colitis. And she does not think she actually been taking it. She is coughing up some phlegm and burping but no shortness of breath. 07/02 Patient denies bowel movement or flatus but feels like her stomach is active now. Sodium decreased and will evaluate and treat. De-escalate meropenem. Replete phosphorus 07/03 Patient no ostomy output yet. Otherwise patient comfortable no acute issues. Will need to start nutrition IV if patient unable to take enterally. Hyponatremia stable. 07/04 No ostomy output. Blood pressure suboptimal. Just medications. Hyponatremia worsened. Hypoalbuminemia. 07/05 Patient walking to bathroom by herself. Awaiting ostomy output TPN started. Sodium little better today. Patient complains of sore throat from the NG tube. Monitor oxygen and wean off. Increase TPN rate per dietary. 07/06 Stable overnight, electrolytes improved today, some gas but no bowel movement yet. 07/07 Had a bowel movement, advanced to clear liquid diet. Continues on TPN as well as antimicrobials. 07/08 Patient's feels well, passing gas and having small bowel movements. Serum sodium has trended down to 125. TPN discontinued, the patient's diet was advanced to regular. 07/09 Tolerating regular diet well, IV fluids today for hypotension. Asymptomatic. Decreased lisinopril to 5 mg daily with holding parameters, awaiting repeat BMP. Physical exam Head: Atraumatic, normal inspection. Eyes: normal appearance, no scleral icterus. Neck: full ROM Respiratory: no respiratory distress. Cardiovascular: normal rate and rhythm, S1, S2. GI/Abdominal: laparotomy incision covered with wound VAC, colostomy, soft, non tender, no guarding. Extremities: full range of motion, nontender. Neurological: CN II-XII intact, intact motor, intact sensation. Psychiatric: normal mood. Skin: warm, normal color Constitutional Vitals: Vital Signs Temp Pulse Resp BP Pulse Ox 97.2 F 59 L 16 103/59 98 07/09/21 11:00 07/09/21 11:00 07/09/21 11:00 07/09/21 13:11 07/09/21 11:00 Period Temp Pulse Resp BP Sys/Stiles Pulse Ox Last 24 Hr 97.2 F-98.7 F 59-85 16-16 75-152/48-80 94-98 Intake and Output 07/09/21 07/09/21 07/09/21 05:59 13:59 21:59 Intake Total 500 100 Output Total 500 350 Balance 0 -250 Intake & Output: Intake & Output 07/09/21 07/09/21 07/09/21 05:59 13:59 21:59 Intake Total 500 100 Output Total 500 350 Balance 0 -250 Intake: IV 100 100 Merrem 1 gm In Sodium Chloride 100 0.9% 50 ml @ 100 mls/hr IV Q8H [facility]PLAC[facility] Rx#:[id number] Oral 400 Output: Void Amount 200 350 Stool 300 Other: Meal Lunch Percent of Meal Consumed 25% Feeding Ability Independent Urine Appearance Clear Urine Color Dark Yellow Urine Odor Normal Stool Color Brown Stool Consistency Liquid OBJ DATA Labs CBC & Chem 7: 07/06/21 05:45 07/08/21 05:17 Labs: Abnormal Lab Results 07/09/21 07/08/21 07/07/21 05:39 05:17 06:52 Sodium 125 L Chloride 93 L Creatinine 0.4 L Uric Acid 0.8 L Calcium 8.5 L GGT Total Protein 5.8 L Albumin 3.0 L Albumin/Globulin Ratio Prealbumin 14.1 L 14.8 L 13.8 L 07/07/21 05:47 Sodium 130 L Chloride Creatinine 0.4 L Uric Acid 0.8 L Calcium GGT 40 H Total Protein 5.7 L Albumin 2.7 L Albumin/Globulin Ratio 0.9 L Prealbumin Meds: Medications Albuterol/Ipratropium (Ipratropium/Albuterol 3 Ml Ampul.Neb) 3 ml NEB Q4HP PRN PRN Reason: Shortness Of Breath Diphenhydramine HCl (Diphenhydramine 50 Mg/Ml Vial) 25 mg IV HSP PRN PRN Reason: insomnia Last Admin: 07/08/21 20:12 Dose: 25 mg Documented by: Heparin Sodium (Porcine) (Heparin Flush 10 Units/Ml 5 Ml Syringe) 2 ml IV Q12 [facility] Last Admin: 07/09/21 08:44 Dose: 2 ml Documented by: Heparin Sodium (Porcine) (Heparin 5,000 Unit/Ml Vial) 5,000 unit SQ Q12 [facility] Last Admin: 07/09/21 08:43 Dose: 5,000 unit Documented by: Potassium Chloride 40 meq/ (Dextrose) 520 mls @ 130 mls/hr IV UD PRN PRN Reason: K+ = or < 3.5 Last Infusion: 06/30/21 03:34 Dose: Infused Documented by: Acetaminophen (Ofirmev) 650 mg in 65 mls @ 130 mls/hr IV Q6HP PRN; Protocol PRN Reason: Per Pain Protocol/Fever > 101 Last Infusion: 07/04/21 13:04 Dose: Infused Documented by: Magnesium Sulfate (Magnesium Sulfate) 2 gm in 50 mls @ 50 mls/hr IV UD PRN PRN Reason: MG = or < 1.7 Meropenem 1 gm/ Sodium (Chloride) 50 mls @ 100 mls/hr IV Q8H [facility]PL[facility]ED [facility]; Protocol Last Admin: 07/09/21 14:27 Dose: 100 mls/hr Documented by: Fluconazole (Diflucan) 200 mg in 100 mls @ 100 mls/hr IV Q24H REPLACED BY [facility] Last Infusion: 07/09/21 09:55 Dose: Infused Documented by: Labetalol HCl (Labetalol 5 Mg/Ml Ml) 0 mg IV Q2HP PRN PRN Reason: Hypertension Last Admin: 07/05/21 05:25 Dose: 5 mg Documented by: Lactulose (Lactulose 20 Gm/30 Ml Oral.Lesley) 20 gm PO 1800 [facility]PL[facility]ED [facility] Last Admin: 07/08/21 16:50 Dose: 20 gm Documented by: Lisinopril (Lisinopril 20 Mg Tablet) 30 mg PO QDAY REPLACED BY [facility] Stop: 07/09/21 17:00 Lisinopril (Lisinopril 20 Mg Tablet) 30 mg PO QDAY REPLACED BY [facility] Melatonin (Melatonin 3 Mg Tablet) 3 mg PO QHS REPLACED BY [facility] Last Admin: 07/08/21 20:11 Dose: 3 mg Documented by: Metoprolol Tartrate (Metoprolol Tartrate 25 Mg Tablet) 25 mg PO BID [facility]PL[facility]ED BY [facility] Last Admin: 07/09/21 08:42 Dose: 25 mg Documented by: Ondansetron HCl (Ondansetron 4 Mg Odt Tablet) 4 mg SL Q4-6HP PRN; Protocol PRN Reason: Nausea And Vomiting Ondansetron HCl (Ondansetron 4 Mg/2 Ml Vial) 4 mg IV Q4-6HP PRN; Protocol PRN Reason: Nausea And Vomiting Last Admin: 06/30/21 16:06 Dose: 4 mg Documented by: Pantoprazole Sodium (Pantoprazole 40 Mg Tablet) 40 mg PO BIDAC REPLACED BY [facility] Phenol (Phenol/Sodium Phenolate 5 [place] Bottle 180ml) 5 spray SSP Q2HP PRN PRN Reason: Sore Throat Last Admin: 07/05/21 11:13 Dose: 5 spray Documented by: Sodium Chloride (0.9 % Sodium Chloride 10 Ml Syringe) 10 ml IV Q8 REPLACED BY [facility] Last Admin: 07/09/21 14:29 Dose: 10 ml Documented by: Sodium Chloride (Sodium Chloride 1 Gm Tablet) 1 gm PO TID REPLACED BY [facility] Last Admin: 07/09/21 14:29 Dose: 1 gm Documented by: Sodium Chloride (0.9 % Sodium Chloride 10 Ml Syringe) 10 ml IV UD PRN PRN Reason: FLUSH Sodium Chloride (0.9 % Sodium Chloride 10 Ml Syringe) 10 ml IV Q12 REPLACED [facility] Last Admin: 07/09/21 08:43 Dose: 10 ml Documented by: Tamsulosin HCl (Tamsulosin 0.4 Mg Capsule) 0.4 mg PO QHS REPLACED BY [facility] Last Admin: 07/08/21 20:11 Dose: 0.4 mg Documented by: Tizanidine HCl (Tizanidine 4 Mg Tablet) 4 mg PO BID PRN PRN Reason: for muscle spasm Last Admin: 07/08/21 20:11 Dose: 4 mg Documented by: A/P Narrative A/P Narrative: A: *Bowel perforation iatrogenic: s/p ex lap/washout w/colostomy (06/29) managed per surgery. *Post cardiorespiratory arrest & 2-minutes CPR/1 amp of epinephrine: *Resolved acute peritonitis, improved: 2/2 bowel perforation status post ex lap *Ischemic colitis: stable *Resolved acute hypoxic respiratory failure *Hyponatremia likely secondary to TPN *Protein calorie malnutrition: *COPD (no home O2)/pulm fibrosis: stable on bronchodilators/supplemental oxygen *HTN: on ACEI *GERD: *Anxiety: Plan: -Continue polymicrobial coverage including enteric ramy/antifungal on meropenem/fluconazole -Continue Lisinopril and Lopressor (started BB for persistent sinus tach) -Postop pain management on as needed opioids/Tylenol IV -IV fluid today. -CBC and a BMP. -Follow sodium until normalized. -Regular diet per surgery. -prn nebs for copd, may need to evaluate for home O2 for copd/fibrosis -General surgery following. -pt/ot -ppi bid per GI -Diet per general surgery -ppx: heparin / ppi Time Spent With Patient Time: Total time spent is greater than 50% in coordination of care (as documented) at patient's floor/unit and/or counseling patient: QUALITY VTE Deep Vein Thrombosis/Pulmonary Embolism Present on Admission: No
[2021-07-09 15:50] LABS: Basophils # (Auto) 0.06 K/mcL (0.00-0.30); Basophils % (Auto) 0.9 % (0.0-2.0); Eosinophils # (Auto) 0.46 K/mcL (0.00-0.70); Eosinophils % (Auto) 6.6 % (0.0-7.0); Hematocrit 32.1 % (34.1-44.9); Hemoglobin 10.8 g/dL (11.2-15.7); Lymphocytes # (Auto) 1.84 K/mcL (1.50-4.80); Lymphocytes % (Auto) 26.5 % (15.5-49.0); Mean Corpuscular HGB Conc 33.6 g/dL (31.0-36.0); Mean Platelet Volume 8.9 fL (7.4-10.4); Monocytes # (Auto) 0.49 K/mcL (0.10-0.90); Monocytes % (Auto) 7.1 % (1.0-12.0); Neutrophils % (Auto) 58.9 % (38.0-78.0); Platelet Count 247 K/mcL (140-440); RBC 3.38 M/mcL (3.59-5.38); Red Cell Distribution Width 13.3 % (11.5-14.5)
[2021-07-09 16:28] LABS: Blood Urea Nitrogen 15 mg/dL (8-23); Calcium 8.4 mg/dL (8.6-10.4); Carbon Dioxide 22 mmol/L (22-30); Chloride 97 mmol/L (96-108); Glomerular Filtration Rate 106; Glucose 94 mg/dL (70-105)
[2021-07-09] MEDS: LACTULOSE 20 GM/30 ML ORAL.SOL PO SCH (16:51)
[2021-07-09] MEDS: PANTOPRAZOLE 40 MG TABLET PO SCH (16:51)
[2021-07-09] MEDS: MELATONIN 3 MG TABLET PO SCH (20:55)
[2021-07-09] MEDS: TAMSULOSIN 0.4 MG CAPSULE PO SCH (20:55)
[2021-07-09] MEDS: diphenhydrAMINE 50 MG/ML VIAL IV PRN (20:59)
[2021-07-09] MEDS ORDERED: ACETAMINOPHEN 325 MG TABLET PO PRN (21:26)
[2021-07-09] MEDS: tiZANidine 4 MG TABLET PO PRN (21:54)
[2021-07-09] MEDS: HYDROcodone/APAP 5/325MG TABLET PO PRN (21:54)
[2021-07-10] MEDS: MEROPENEM 1 GM in 0.9 % SODIUM CHLORIDE 50 ML IV SCH ×2 (05:49→14:57)
[2021-07-10] MEDS: HYDROcodone/APAP 5/325MG TABLET PO PRN ×2 (05:57→20:46)
[2021-07-10 07:00] LABS: Hematocrit 33.9 % (34.1-44.9); Hemoglobin 11.3 g/dL (11.2-15.7)
[2021-07-10 07:27] LABS: ALT/SGPT 25 U/L (<40); AST/SGOT 22 U/L (<32); Albumin/Globulin Ratio 1.2 (1.0-2.3); Alkaline Phosphatase 131 U/L (39-117); Bilirubin,Direct < 0.2 mg/dL (0-0.3); Bilirubin,Total 0.4 mg/dL (0.1-1.0); Blood Urea Nitrogen 14 mg/dL (8-23); Calcium 8.7 mg/dL (8.6-10.4); Carbon Dioxide 26 mmol/L (22-30); Chloride 96 mmol/L (96-108); Globulin 2.6 gm/dL (2.2-3.7); Glomerular Filtration Rate 106; Glucose 90 mg/dL (70-105); Lactate Dehydrogenase 201 U/L (135-225); Phosphorous 3.3 mg/dL (2.5-4.5); Triglycerides 168 mg/dL (<150); Uric Acid 2.2 mg/dL (2.5-8.0)
[2021-07-10] MEDS: PANTOPRAZOLE 40 MG TABLET PO SCH ×2 (08:25→17:36)
[2021-07-10] MEDS: METOPROLOL TARTRATE 25 MG TABLET PO SCH (08:25)
[2021-07-10] MEDS: SODIUM CHLORIDE 1 GM TABLET PO SCH ×3 (08:25→20:48)
[2021-07-10] MEDS: 0.9 % SODIUM CHLORIDE 10 ML SYRINGE IV SCH ×5 (08:25→23:30)
[2021-07-10] MEDS: FLUCONAZOLE 200 MG/100 ML BAG IV SCH (08:25)
[2021-07-10] MEDS: HEPARIN 5,000 UNIT/ML VIAL SQ SCH ×2 (08:26→20:50)
--- NOTE | 2021-07-10 08:58 | Internal Med Progress Note ---
SUBJECTIVE Subjective Patient information: Note initiated : 07/10/21 at 8:56 am Service Date, if different from initiated Date: [] Patient: Jewell Campoverde 71 y/o F admitted on 06/29/21 for Esophogog astroduodenoscopy and Colonoscopy. Chief Complaint: [] Principal diagnosis: Postoperative day 10 Status post exploratory laparotomy Interval history: Ms. Campoverde is a 70-year-old who experienced cardiorespiratory arrest following iatrogenic colonic perforation during colonoscopy. Patient underwent brief CPR/resuscitative efforts with ROSC. She was subsequently taken to the OR for ex lap/resection of sigmoid colonic stricture/perforation and end colostomy/washout and drain placement. Postoperatively patient was transferred to the ICU. Hospital service was consulted for management of medical issues/antibiotics while patient will continue postop care under care of surgical services Patient arrived to ICU postop in stable state. Systolics around 140. Bernard is draining clear urine. Abdominal drain present. Patient slightly drowsy under effect of sedation but able to answer most of the questions. Moving all 4 extremities. Endorses to pain around surgery incision. No family members present Reviewed chart/past medical records. Known history of COPD/ischemic colitis/hypertension/GERD/chronic pain. Postcode labs unremarkable except for sodium 127. Patient currently on crystalloids,/IV opioids/NG decompression. 06/30-patient seen in room, postop day 1. NG draining, abdomen soft however minimally tender around the surgery incision site. Lactic acid elevated. Ongoing fluids. Endorgan perfusion adequate with good urine output and maintaining systolics. On polymicrobial coverage including merope nem/fluconazole. Patient alert and communicative and appreciative of care. No overnight telemetry events, fever chills or concerns per nursing staff. Pain well controlled. White count 5.7, lactic acid 3.2, potassium 5.5. 07/01 Patient was able to walk today. Patient denies any bowel movement or flatus. Patient's home med list lists mesalamine and on primary care notes in April but patient does not know why she is on it. She denies Crohn's or ulcerative colitis. And she does not think she actually been taking it. She is coughing up some phlegm and burping but no shortness of breath. 07/02 Patient denies bowel movement or flatus but feels like her stomach is active now. Sodium decreased and will evaluate and treat. De-escalate meropenem. Replete phosphorus 07/03 Patient no ostomy output yet. Otherwise patient comfortable no acute issues. Will need to start nutrition IV if patient unable to take enterally. Hyponatremia stable. 07/04 No ostomy output. Blood pressure suboptimal. Just medications. Hyponatremia worsened. Hypoalbuminemia. 07/05 Patient walking to bathroom by herself. Awaiting ostomy output TPN started. Sodium little better today. Patient complains of sore throat from the NG tube. Monitor oxygen and wean off. Increase TPN rate per dietary. 07/06 Stable overnight, electrolytes improved today, some gas but no bowel movement yet. 07/07 Had a bowel movement, advanced to clear liquid diet. Continues on TPN as well as antimicrobials. 07/08 Patient's feels well, passing gas and having small bowel movements. Serum sodium has trended down to 125. TPN discontinued, the patient's diet was advanced to regular. 07/09 Tolerating regular diet well, IV fluids today for hypotension. Asymptomatic. Decreased lisinopril to 5 mg daily with holding parameters, awaiting repeat BMP. 07/10 Wound VAC malfunctioned multiple times overnight. Otherwise the patient is doing well. Sodium trending back up. Tolerating diet well. Physical exam Head: Atraumatic, normal inspection. Eyes: normal appearance, no scleral icterus. Neck: full ROM Respiratory: no respiratory distress. Cardiovascular: normal rate and rhythm, S1, S2. GI/Abdominal: laparotomy incision covered with wound VAC, colostomy, soft, nontender, no guarding. Extremities: full range of motion, nontender. Neurological: CN II-XII intact, intact motor, intact sensation. Psychiatric: normal mood. Skin: warm, normal color Constitutional Vitals: Vital Signs Temp Pulse Resp BP Pulse Ox 98.4 F 79 20 125/73 100 07/10/21 07:58 07/10/21 07:58 07/10/21 07:58 07/10/21 07:58 07/10/21 07:58 Period Temp Pulse Resp BP Sys/Stiles Pulse Ox Last 24 Hr 97 F-98.9 F 58-86 16-20 75-132/48-81 97-100 Intake and Output 07/09/21 07/10/21 07/10/21 21:59 05:59 13:59 Intake Total 168 50 50 Output Total 1300 Balance 168 -1250 50 Weight 56.835 kg Intake & Output: Intake & Output 07/09/21 07/10/21 07/10/21 21:59 05:59 13:59 Intake Total 168 50 50 Output Total 1300 Balance 168 -1250 50 Weight 56.835 kg Intake: IV 50 50 50 Merrem 1 gm In Sodium Chloride 50 50 50 0.9% 50 ml @ 100 mls/hr IV Q8H [facility] Rx#:[id number] Oral 118 Output: Void Amount 800 Stool 500 Other: Meal Dinner Percent of Meal Consumed 50% Feeding Ability Independent Urine Appearance Clear Urine Color Dark Yellow OBJ DATA Labs CBC & Chem 7: 07/10/21 05:44 07/10/21 05:44 Labs: Abnormal Lab Results 07/10/21 07/10/21 07/09/21 05:44 05:44 15:25 RBC Hgb Hct 33.9 L Sodium 130 L 126 L Chloride Anion Gap 7.0 L Creatinine 0.4 L 0.4 L Uric Acid 2.2 L Calcium 8.4 L GGT 39 H Alkaline Phosphatase 131 H Total Protein 5.6 L Albumin 3.0 L Prealbumin Triglycerides 168 H 07/09/21 07/09/21 07/08/21 15:24 05:39 05:17 RBC 3.38 L Hgb 10.8 L Hct 32.1 L Sodium 125 L Chloride 93 L Anion Gap Creatinine 0.4 L Uric Acid 0.8 L Calcium 8.5 L GGT Alkaline Phosphatase Total Protein 5.8 L Albumin 3.0 L Prealbumin 14.1 L 14.8 L Triglycerides Meds: Medications Acetaminophen (Acetaminophen 325 Mg Tablet) 650 mg PO Q4HP PRN; Protocol PRN Reason: Per Pain Protocol Hydrocodone Bitart/Acetaminophen (Hydrocodone/Apap 5/325mg Tablet) 1 tab PO Q4HP PRN; Protocol PRN Reason: Per Pain Protocol Last Admin: 07/10/21 05:57 Dose: 1 tab Documented by: Albuterol/Ipratropium (Ipratropium/Albuterol 3 Ml Ampul.Neb) 3 ml NEB Q4HP PRN PRN Reason: Shortness Of Breath Diphenhydramine HCl (Diphenhydramine 50 Mg/Ml Vial) 25 mg IV HSP PRN PRN Reason: insomnia Last Admin: 07/09/21 20:59 Dose: 25 mg Documented by: Heparin Sodium (Porcine) (Heparin Flush 10 Units/Ml 5 Ml Syringe) 2 ml IV Q12 [facility] Last Admin: 07/10/21 08:26 Dose: 2 ml Documented by: Heparin Sodium (Porcine) (Heparin 5,000 Unit/Ml Vial) 5,000 unit SQ Q12 [facility] Last Admin: 07/10/21 08:26 Dose: 5,000 unit Documented by: Hydromorphone HCl (Hydromorphone 0.5 Mg/0.5 Ml Syringe) 0.5 mg IV Q4HP PRN; Protocol PRN Reason: Per Pain Protocol Last Admin: 07/09/21 22:31 Dose: 0.5 mg Documented by: Potassium Chloride 40 meq/ (Dextrose) 520 mls @ 130 mls/hr IV UD PRN PRN Reason: K+ = or < 3.5 Last Infusion: 06/30/21 03:34 Dose: Infused Documented by: Magnesium Sulfate (Magnesium Sulfate) 2 gm in 50 mls @ 50 mls/hr IV UD PRN PRN Reason: MG = or < 1.7 Meropenem 1 gm/ Sodium (Chloride) 50 mls @ 100 mls/hr IV Q8H [facility]; Protocol Last Infusion: 07/10/21 06:54 Dose: Infused Documented by: Fluconazole (Diflucan) 200 mg in 100 mls @ 100 mls/hr IV Q24H [facility] Last Admin: 07/10/21 08:25 Dose: 100 mls/hr Documented by: Labetalol HCl (Labetalol 5 Mg/Ml Ml) 0 mg IV Q2HP PRN PRN Reason: Hypertension Last Admin: 07/05/21 05:25 Dose: 5 mg Documented by: Lactulose (Lactulose 20 Gm/30 Ml Oral.Lesley) 20 gm PO 1800 [facility] Last Admin: 07/09/21 16:51 Dose: 20 gm Documented by: Melatonin (Melatonin 3 Mg Tablet) 3 mg PO QHS [facility] Last Admin: 07/09/21 20:55 Dose: 3 mg Documented by: Metoprolol Tartrate (Metoprolol Tartrate 25 Mg Tablet) 25 mg PO BID [facility] Last Admin: 07/10/21 08:25 Dose: 25 mg Documented by: Ondansetron HCl (Ondansetron 4 Mg Odt Tablet) 4 mg SL Q4-6HP PRN; Protocol PRN Reason: Nausea And Vomiting Ondansetron HCl (Ondansetron 4 Mg/2 Ml Vial) 4 mg IV Q4-6HP PRN; Protocol PRN Reason: Nausea And Vomiting Last Admin: 06/30/21 16:06 Dose: 4 mg Documented by: Pantoprazole Sodium (Pantoprazole 40 Mg Tablet) 40 mg PO BIDAC [facility] Last Admin: 07/10/21 08:25 Dose: 40 mg Documented by: Phenol (Phenol/Sodium Phenolate 5 Windfall Bottle 180ml) 5 spray SSP Q2HP PRN PRN Reason: Sore Throat Last Admin: 07/05/21 11:13 Dose: 5 spray Documented by: Sodium Chloride (0.9 % Sodium Chloride 10 Ml Syringe) 10 ml IV Q8 [facility] Last Admin: 07/10/21 08:25 Dose: 10 ml Documented by: Sodium Chloride (Sodium Chloride 1 Gm Tablet) 1 gm PO TID [facility] Last Admin: 07/10/21 08:25 Dose: 1 gm Documented by: Sodium Chloride (0.9 % Sodium Chloride 10 Ml Syringe) 10 ml IV UD PRN PRN Reason: FLUSH Sodium Chloride (0.9 % Sodium Chloride 10 Ml Syringe) 10 ml IV Q12 [facility] Last Admin: 07/10/21 08:27 Dose: 10 ml Documented by: Tamsulosin HCl (Tamsulosin 0.4 Mg Capsule) 0.4 mg PO QHS [facility] Last Admin: 07/09/21 20:55 Dose: 0.4 mg Documented by: Tizanidine HCl (Tizanidine 4 Mg Tablet) 4 mg PO BID PRN PRN Reason: for muscle spasm Last Admin: 07/09/21 21:54 Dose: 4 mg Documented by: A/P Narrative A/P Narrative: A: *Bowel perforation iatrogenic: s/p ex lap/washout w/colostomy (06/29) managed per surgery. *Post cardiorespiratory arrest & 2-minutes CPR/1 amp of epinephrine: *Resolved acute peritonitis, improved: 2/2 bowel perforation status post ex lap *Resolved ischemic colitis *Resolved acute hypoxic respiratory failure *Protein calorie malnutrition: *COPD (no home O2)/pulm fibrosis: stable on bronchodilators/supplemental oxygen *HTN: on ACEI at home *GERD: *Anxiety: Plan: -Continue polymicrobial coverage including enteric ramy/antifungal on meropenem/fluconazole, per surgery. -Continue low-dose lisinopril with holding parameters. (Dose decreased for hy potension) -Discontinue Lopressor due to hypotension. -Postop pain management on as needed opioids/Tylenol IV -Replace electrolytes as needed. -Follow sodium until normal. -Regular diet with fluid restriction. -prn nebs for copd, may need to evaluate for home O2 for copd/fibrosis -General surgery following. -pt/ot -ppi bid per GI -ppx: heparin / ppi -Disposition: TBD Time Spent With Patient Time: Total time spent is greater than 50% in coordination of care (as documented) at patient's floor/unit and/or counseling patient: QUALITY VTE Deep Vein Thrombosis/Pulmonary Embolism Present on Admission: No
[2021-07-10] MEDS ORDERED: LISINOPRIL 2.5 MG TABLET PO SCH ×2 (09:00→21:00)
[2021-07-10] MEDS ORDERED: LISINOPRIL 20 MG TABLET PO SCH (09:00)
--- NOTE | 2021-07-10 12:57 | General Surgery Progress Note ---
SUBJECTIVE Subjective Patient information: Note initiated : 07/10/21 at 12:56 pm Service Date, if different from initiated Date: [] Patient: Jewell Campoverde 71 y/o F admitted on 06/29/21 for Esophogogastroduodenoscopy and Colonoscopy. Chief Complaint: [] Looks and feels well today. Doing well with diet, good stomal function, Constitutional Vitals: Vital Signs Temp Pulse Resp BP Pulse Ox 97.9 F 66 20 131/70 98 07/10/21 12:00 07/10/21 12:00 07/10/21 12:00 07/10/21 12:00 07/10/21 12:00 Period Temp Pulse Resp BP Sys/Stiles Pulse Ox Last 24 Hr 97 F-98.9 F 58-86 16-20 96-132/59-81 97-100 Intake and Output 07/09/21 07/10/21 07/10/21 21:59 05:59 13:59 Intake Total 168 50 50 Output Total 1300 Balance 168 -1250 50 Weight 125 lb 4.8 oz Intake & Output: Intake & Output 07/09/21 07/10/21 07/10/21 21:59 05:59 13:59 Intake Total 168 50 50 Output Total 1300 Balance 168 -1250 50 Weight 125 lb 4.8 oz Intake: IV 50 50 50 Merrem 1 gm In Sodium Chloride 50 50 50 0.9% 50 ml @ 100 mls/hr IV Q8H [facility] Rx#:[id number] Oral 118 Output: Void Amount 800 Stool 500 Other: Meal Dinner Percent of Meal Consumed 50% Feeding Ability Independent Urine Appearance Clear Urine Color Dark Yellow Exam: fully alert and looks well, non toxic, NAD GI/Abdominal Additional comments: soft and non tender, non distended, no mass, VAC in place, ostomy functioning well Extremities Exam Additional comments: well perfused A/P Assessment and plan (1) Colon perforation: Assessment and plan: Post Procedure related Colonic Perforation followed by Resection, Washout and End Colostomy Doing Well Can be discharged from a Surgical Standpoint at any time Clinic follow up in 2 weeks Will need Home VAC and Ostomy Care Status: Acute Time Spent With Patient Time: Total time spent is greater than 50% in coordination of care (as documented) at patient's floor/unit and/or counseling patient:
[2021-07-10] MEDS: HYDROmorphone 0.5 MG/0.5 ML SYRINGE IV PRN ×2 (14:57→21:55)
[2021-07-10] MEDS: LACTULOSE 20 GM/30 ML ORAL.SOL PO SCH (17:36)
[2021-07-10] MEDS: diphenhydrAMINE 50 MG/ML VIAL IV PRN (20:48)
[2021-07-10] MEDS: TAMSULOSIN 0.4 MG CAPSULE PO SCH (20:48)
[2021-07-10] MEDS: MELATONIN 3 MG TABLET PO SCH (23:29)
[2021-07-11] MEDS: HYDROmorphone 0.5 MG/0.5 ML SYRINGE IV PRN (04:38)
[2021-07-11 06:43] LABS: ALT/SGPT 24 U/L (<40); AST/SGOT 21 U/L (<32); Albumin 2.8 gm/dL (3.2-5.2); Albumin/Globulin Ratio 0.8 (1.0-2.3); Alkaline Phosphatase 138 U/L (39-117); Bilirubin,Direct < 0.2 mg/dL (0-0.3); Bilirubin,Total 0.4 mg/dL (0.1-1.0); Blood Urea Nitrogen 14 mg/dL (8-23); Calcium 8.8 mg/dL (8.6-10.4); Carbon Dioxide 26 mmol/L (22-30); Chloride 97 mmol/L (96-108); Globulin 3.4 gm/dL (2.2-3.7); Glomerular Filtration Rate 106; Glucose 96 mg/dL (70-105); Lactate Dehydrogenase 164 U/L (135-225); Triglycerides 147 mg/dL (<150)
[2021-07-11] MEDS ORDERED: oxyCODONE HCL 5 MG TABLET PO PRN (07:22)
[2021-07-11] MEDS ORDERED: diphenhydrAMINE 50 MG/ML VIAL IV PRN (07:23)
[2021-07-11] MEDS: PANTOPRAZOLE 40 MG TABLET PO SCH (07:27)
[2021-07-11] MEDS: HEPARIN 5,000 UNIT/ML VIAL SQ SCH (09:09)
[2021-07-11] MEDS: SODIUM CHLORIDE 1 GM TABLET PO SCH (09:10)
[2021-07-11] MEDS: 0.9 % SODIUM CHLORIDE 10 ML SYRINGE IV SCH (09:11)
--- NOTE | 2021-07-11 14:08 | Discharge Summary ---
Discharge Provider Provider Patient information: Note initiated : 07/11/21 at 2:07 pm Service Date, if different from initiated Date: [] Patient: Jewell Campoverde 71 y/o F admitted on 06/29/21 for Esophogogastroduodenoscopy and Colonoscopy. Chief Complaint: [Abdominal pain] Date of admission: 06/29/21 20:35 Discharge date: 07/11/21 Primary care physician: DONATO Singh Consults: 06/29/21 20:20 Consult to Physician [CONS] Routine Comment: Consulting Provider: Jose Bates Reason For Exam: Physician to Consult Attending physician on discharge: Ilya Weber Discharge Meds Discharge Medications Home Medications triamcinolone acetonide 0.1 % topical cream 1 applic TOPICAL BID 02/02/19 [History Confirmed 06/29/21 Last Taken 06/28/21] [place] Protect Barrier Wipes (ostomy supplies) #50 ea NS 10/04/20 [Rx Confirmed 06/29/21 Last Taken 06/28/21] tamsulosin 0.4 mg capsule 0.4 mg PO QHS #90 cap 01/11/21 [Rx Confirmed 06/29/21 Last Taken 06/28/21] fluticasone propionate 50 mcg/actuation nasal spray,suspension 1 spray INTRANASAL QDAY #54.6 ml 02/22/21 [Rx Confirmed 06/29/21 Last Taken 06/28/21] omeprazole 20 mg capsule,delayed release 20 mg PO QAM #90 cap 05/09/21 [Rx Confirmed 06/29/21 Last Taken 06/28/21] tizanidine 4 mg tablet 4 mg PO BID PRN #60 tab 05/09/21 [Rx Confirmed 06/29/21 Last Taken 06/28/21] Grab bar for bath tub #1 ea 05/17/21 [Rx Confirmed 06/29/21 Last Taken 06/28/21] alprazolam 1 mg tablet See Rx Instructions .ROUTE .COMPLEX #60 unknown measurement unit code: tablet 06/08/21 [Rx Confirmed 06/29/21 Last Taken 06/28/21] oxycodone 10 mg tablet See Rx Instructions PO Q6H PRN #60 tab 06/15/21 [Rx Confirmed 06/29/21 Last Taken 06/28/21] lisinopril 2.5 mg tablet 2.5 mg PO HS #30 tab 07/11/21 [Rx Last Taken Unknown] COURSE Hospital Course Hospital course: Interval history: Ms. Campoverde is a 70-year-old who experienced cardiorespiratory arrest following iatrogenic colonic perforation during colonoscopy. Patient underwent brief CPR/resuscitative efforts with ROSC. She was subsequently taken to the OR for ex lap/resection of sigmoid colonic stricture/perforation and end colostomy/washout and drain placement. Postoperatively patient was transferred to the ICU. Hospital service was consulted for management of medical issues/antibiotics while patient will continue postop care under care of surgical services Patient arrived to ICU postop in stable state. Systolics around 140. Bernard is draining clear urine. Abdominal drain present. Patient slightly drowsy under effect of sedation but able to answer most of the questions. Moving all 4 extremities. Endorses to pain around surgery incision. No family members present Reviewed chart/past medical records. Known history of COPD/ischemic colitis/hypertension/GERD/chronic pain. Postcode labs unremarkable except for sodium 127. Patient currently on crystalloids,/IV opioids/NG decompression. 06/30-patient seen in room, postop day 1. NG draining, abdomen soft however minimally tender around the surgery incision site. Lactic acid elevated. Ongoing fluids. Endorgan perfusion adequate with good urine output and maintaining systolics. On polymicrobial coverage including meropenem/fluconazole. Patient alert and communicative and appreciative of care. No overnight telemetry events, fever chills or concerns per nursing staff. Pain well controlled. White count 5.7, lactic acid 3.2, potassium 5.5. 07/01 Patient was able to walk today. Patient denies any bowel movement or flatus. Patient's home med list lists mesalamine and on primary care notes in April but patient does not know why she is on it. She denies Crohn's or ulcerative colitis. And she does not think she actually been taking it. She is coughing up some phlegm and burping but no shortness of breath. 07/02 Patient denies bowel movement or flatus but feels like her stomach is active now. Sodium decreased and will evaluate and treat. De-escalate meropenem. Replete phosphorus 07/03 Patient no ostomy output yet. Otherwise patient comfortable no acute issues. Will need to start nutrition IV if patient unable to take enterally. Hyponatremia stable. 07/04 No ostomy output. Blood pressure suboptimal. Just medications. Hyponatremia worsened. Hypoalbuminemia. 07/05 Patient walking to bathroom by herself. Awaiting ostomy output TPN started. Sodium little better today. Patient complains of sore throat from the NG tube. Monitor oxygen and wean off. Increase TPN rate per dietary. 07/06 Stable overnight, electrolytes improved today, some gas but no bowel movement yet. 07/07 Had a bowel movement, advanced to clear liquid diet. Continues on TPN as well as antimicrobials. 07/08 Patient's feels well, passing gas and having small bowel movements. Serum sodium has trended down to 125. TPN discontinued, the patient's diet was advanced to regular. 07/09 Tolerating regular diet well, IV fluids today for hypotension. Asymptomatic. Decreased lisinopril to 5 mg daily with holding parameters, awaiting repeat BMP. 07/10 Wound VAC malfunctioned multiple times overnight. Otherwise the patient is doing well. Sodium trending back up. Tolerating diet well. 07/11: I took over the care of this patient at which point she was doing quite well. The patient's parenteral antibiotics including meropenem and fluconazole were discontinued per general surgery. Per my discussion with case management, the patient did not have prior authorization approval for her wound VAC prior general surgery switched her to simple dressing as the patient was adamant about returning home today. She will follow-up in outpatient clinic visit with Dr. Bill. Discharge diagnosis: *Bowel perforation iatrogenic: s/p ex lap/washout w/colostomy (06/29) manage Time Spent with Patient Time attestation: Total time spent providing and/or coordinating discharge services: Time spent: Greater than 30 minutes EXAM Constitutional Vitals: Temp Pulse Resp BP Pulse Ox 96.6 F L 79 22 150/91 98 07/11/21 07:09 07/11/21 07:09 07/11/21 07:09 07/11/21 07:09 07/11/21 07:09 General appearance: average body habitus Head Head exam: Present atraumatic, normal inspection and normocephalic Eye Eye exam: Present EOMI, normal appearance and PERRL; Absent conjunctival injection ENT ENT exam: Present normal exam; Absent mucous membranes dry Neck Neck exam: Present full ROM; Absent lymphadenopathy Respiratory Respiratory exam: Present normal respiratory exam and CTAB; Absent decreased breath sounds, respiratory distress or wheezes Cardiovascular Cardiovascular exam: Present normal rate and rhythm and RRR; Absent JVD GI/Abdominal GI/Abdominal exam: Present normal bowel sounds and soft; Absent diminished bowel sounds, distended, guarding, mass, rebound or tenderness Neurological Exam Neurological exam: Present alert, CN II-XII intact and oriented X3 Psychiatric Psychiatric exam: Present normal affect and normal mood Skin Skin exam: Present intact and warm; Absent erythema, pallor, petechiae or rash Discharge Data Data Completed and Pending Labs on day of discharge: Labs from last 24 hours 07/11/21 05:15 Sodium 130 L Potassium 3.9 Chloride 97 Carbon Dioxide 26 Anion Gap 7.0 L BUN 14 Creatinine 0.4 L GFR Calculation 106 Glucose 96 Uric Acid 2.0 L Calcium 8.8 Phosphorus 3.0 Magnesium 2.0 Total Bilirubin 0.4 Direct Bilirubin < 0.2 GGT 34 AST 21 ALT 24 Alkaline Phosphatase 138 H Lactate Dehydrogenase 164 Total Protein 6.2 Albumin 2.8 L Globulin 3.4 Albumin/Globulin Ratio 0.8 L Triglycerides 147 Discharge Plan Patient/Caregiver Discharge Instructions Activity: as per physical therapy Diet: Regular Diet Prescriptions: New lisinopril 2.5 mg Tablet 2.5 mg PO HS Qty: 30 0RF Continued fluticasone propionate 50 mcg/actuation spray,suspension 1 spray INTRANASAL QDAY Qty: 54.6 6RF Rx Instructions: administer into each nostril omeprazole 20 mg capsule,delayed release(DR/EC) 20 mg PO QAM Qty: 90 1RF tizanidine 4 mg tablet 4 mg PO BID PRN (Reason: for muscle spasm) Qty: 60 1RF (DME) Grab bar for bath tub See Rx Instructions .Route .MEDSUPPLY Qty: 1 0RF Rx Instructions: As directed alprazolam 1 mg tablet See Rx Instructions .ROUTE .COMPLEX Qty: 60 0RF Dose Instruction: TAKE 1 TO 2 TABLETS BY MOUTH AT BEDTIME Rx Instructions: TAKE 1 TO 2 TABLETS BY MOUTH AT BEDTIME oxycodone 10 mg tablet See Rx Instructions PO Q6H PRN (Reason: pain) Qty: 60 0RF Rx Instructions: 1/2 PO every 6 hours PRN; triamcinolone acetonide 0.1 % cream 1 applic TOPICAL BID 0RF Rx Instructions: x 2 weeks (DME) [place] Protect Barrier Wipes Misc See Rx Instructions .Route Qty: 50 1RF Rx Instructions: Use daily prior to applying nicotine patch tamsulosin 0.4 mg capsule 0.4 mg PO QHS Qty: 90 11RF Discontinued lisinopril 10 mg Tablet 10 mg PO QDAY 0RF Follow Up Plan Follow up with: Han iBll MD [Physician] - Guzman Matute MD [Physician] - Marly Larry ARNP [Primary Care Provider] - Patient Disposition: Home Health Service Prognosis: Good Rehab Potential: Good I certify that the patient requires SNF services: No Overall status at discharge: patient is progressing back to baseline QUALITY VTE Deep Vein Thrombosis/Pulmonary Embolism Present on Admission: No
== END 2021-07-11 17:20 | disposition home health service (06) | DRG 907 ==
LOC: SSSU 13:27 → ICU 20:35 → MEDSUR 07-01 17:05
PROVIDERS: ADMIT Internal Medicine; ATTEND Specialist

== ENCOUNTER 2022-04-23 07:30 | Inpatient (IN) ==
--- NOTE | 2022-04-18 14:57 | XRay Report ---
CLINICAL INFORMATION: Dyspnea. History of smoking COMPARISON: None. TECHNIQUE: PA and lateral views were obtained. FINDINGS: The heart size, mediastinum and pulmonary vessels are unremarkable. COPD changes noted with scattered fibrosis the mid and lower lungs. No definite new pulmonary abnormalities. There are no effusions. Syndesmophytes bridging the thoracic vertebral bodies suggesting chronic ankylosing spondylitis. Moderate degenerative disc disease also seen throughout the thoracic line. IMPRESSION: COPD changes with scattered fibrosis the mid and lower lungs. No acute disease evident Possible ankylosing spondylitis Interpreted and Authenticated by: Steve Reynoso 04/18/22
[2022-04-18 19:14] LABS: Basophils # (Auto) 0.07 K/mcL (0.00-0.30); Basophils % (Auto) 0.9 % (0.0-2.0); Eosinophils # (Auto) 0.26 K/mcL (0.00-0.70); Eosinophils % (Auto) 3.5 % (0.0-7.0); Hematocrit 47.7 % (34.1-44.9); Hemoglobin 15.5 g/dL (11.2-15.7); Lymphocytes # (Auto) 3.36 K/mcL (1.50-4.80); Mean Cell Volume 96.2 fL (80.0-100.0); Mean Corpuscular HGB Conc 32.5 g/dL (31.0-36.0); Mean Platelet Volume 9.9 fL (8.8-12.5); Monocytes # (Auto) 0.66 K/mcL (0.10-0.90); Monocytes % (Auto) 8.8 % (1.0-12.0); Neutrophils % (Auto) 41.5 % (38.0-78.0); Platelet Count 264 K/mcL (140-440); RBC 4.96 M/mcL (3.59-5.38); Red Cell Distribution Width 12.9 % (11.5-14.5); WBC 7.5 K/mcL (4.5-11.0)
[2022-04-18 19:26] LABS: Blood Urea Nitrogen 27 mg/dL (8-23); Calcium 9.3 mg/dL (8.6-10.4); Carbon Dioxide 27 mmol/L (22-30); Chloride 98 mmol/L (96-108); Glomerular Filtration Rate 87; Glucose 93 mg/dL (70-105)
--- NOTE | 2022-04-20 07:31 | EKG ---
[facility] Test Date: 2022-04-18 Pat Name: Jewell Campoverde Department: RT Room: Gender: Female [employer]: : 1950 Requested By: Han Bill Order Number: [id number] Reading MD: Se Gates Measurements Intervals [place] Rate: 88 P: 7 MS: 126 QRS: 55 QRSD: 93 T: 72 QT: 352 QTc: 427 Interpretive Statements Sinus rhythm Electronically Signed On 04-20-2022 7:31:22 PST by Se Gates /[email or web address]/[id number]
[2022-05-07] MEDS ORDERED: PIPERACILLIN SODIUM/TAZOBACTAM 3.375 GM in DEXTROSE 5% IN WATER 50 ML IV SCH (07:45)
[2022-05-07] MEDS ORDERED: 0.9 % SODIUM CHLORIDE 250 ML IV SCH (09:15)
[2022-05-07] MEDS ORDERED: HYDROmorphone 1 MG/ML SYRINGE ONE (10:05)
[2022-05-07] MEDS ORDERED: KETAMINE 50 MG/ML Syringe (ANEST) IV ONE (10:05)
[2022-05-07] MEDS ORDERED: PROPOFOL 200 MG/20 ML VIAL IV ONE (10:05)
[2022-05-07] MEDS ORDERED: DEXAMETHASONE 10 MG/ML VIAL ONE (10:05)
[2022-05-07] MEDS ORDERED: MAGNESIUM SULFATE 2 GM/50 ML BAG IV ONE (10:05)
[2022-05-07] MEDS ORDERED: ROPIVACAINE HCL/PF 30 ML VIAL IJ ONE (10:05)
[2022-05-07] MEDS ORDERED: fentaNYL 100 MCG/2 ML VIAL IV ONE (10:05)
[2022-05-07] MEDS ORDERED: MIDAZOLAM 2 MG/2 ML VIAL ONE (10:05)
[2022-05-07] MEDS ORDERED: LIDOCAINE HCL/PF 100 MG/5 ML SYRINGE IV ONE (10:05)
[2022-05-07] MEDS ORDERED: SUGAMMADEX SODIUM 200 MG/2 ML VIAL IV ONE (10:05)
[2022-05-07] MEDS ORDERED: ROCURONIUM 10 MG/ML ML IV ONE (10:05)
[2022-05-07] MEDS ORDERED: ePHEDrine 50 MG/5 ML SYRINGE (ANEST) IV ONE (10:05)
[2022-05-07] MEDS ORDERED: GLYCOPYRROLATE 0.2 MG/ML VIAL IV ONE (10:05)
[2022-05-07] MEDS ORDERED: ONDANSETRON 4 MG/2 ML VIAL ONE (10:05)
[2022-05-07] MEDS ORDERED: BACITRACIN TOPICAL OINT 15 GM TUBE TOPICAL ONE (14:48)
[2022-05-07] MEDS ORDERED: ONDANSETRON 4 MG/2 ML VIAL IV PRN (16:07)
[2022-05-07] MEDS ORDERED: IPRATROPIUM/ALBUTEROL 3 ML AMPUL.NEB NEB PRN (16:07)
[2022-05-07] MEDS ORDERED: PROMETHAZINE 25 MG/ML VIAL IV PRN (16:07)
[2022-05-07] MEDS ORDERED: METHOCARBAMOL 1,000 MG/10 ML VIAL IV ONE (16:12)
[2022-05-07] MEDS: fentaNYL 100 MCG/2 ML VIAL IV PRN ×4 (16:15→16:21)
[2022-05-07] MEDS: DEXTROSE 5%-LR 1,000 ML IV SCH (17:07)
[2022-05-07] MEDS: metroNIDAZOLE 500 MG/100 ML BAG IV SCH ×2 (17:14→22:00)
[2022-05-07] MEDS: CIPROFLOXACIN 400 MG/200 ML BAG IV SCH (18:29)
[2022-05-07] MEDS: HYDROmorphone 0.5 MG/0.5 ML SYRINGE IV PRN ×2 (19:20→21:56)
--- NOTE | 2022-05-07 19:34 | Brief Operative Note ---
Brief Operative Note Date of procedure: 05/07/22 Pre-op diagnosis: Need for Colostomy Reversal Post-op diagnosis: other (Need for Colostomy Reversal; Severe RectoSigmoid Stricture ) Procedure: Exploratory Laparotomy, Lysis of Adhesions, Sigmoid Colon Resection, End Colostomy Grafts/Implants: No (15 Bulgarian JPD x 3 ) Anesthesia: GETA Findings: Moderate Adhesions, Severe Stricturing of the Remnant Sigmoid Colon and Rectum Complications: other (Traumatic Perforation of Rectal Stricture with passage of EEA Sizer in preparation for EEA Stapled Colorectal Anastomosis ) Complications Description: There appeared to be severe stricturing of the Sigmoid Colon and Rectum with resultant perforation of the Rectum upon attempted passage of the #25 EEA Sizer in preparation for the stapled EEA Anastomosis Surgeon: Han Bill Estimated blood loss (cc): 100 Specimens Removed/Pathology: other (Sigmoid Colon, Prior End Colostomy ) Condition: stable Disposition: PACU
[2022-05-08] MEDS: HYDROmorphone 0.5 MG/0.5 ML SYRINGE IV PRN ×8 (00:12→21:50)
[2022-05-08] MEDS: DEXTROSE 5%-LR 1,000 ML IV SCH ×3 (00:13→16:52)
[2022-05-08] MEDS: metroNIDAZOLE 500 MG/100 ML BAG IV SCH ×3 (05:57→22:23)
[2022-05-08 06:43] LABS: Hemoglobin 13.8 g/dL (11.2-15.7); Mean Cell Volume 96.8 fL (80.0-100.0); Mean Corpuscular HGB Conc 32.1 g/dL (31.0-36.0); Mean Platelet Volume 9.9 fL (8.8-12.5); Platelet Count 229 K/mcL (140-440); RBC 4.44 M/mcL (3.59-5.38); Red Cell Distribution Width 12.6 % (11.5-14.5); WBC 7.2 K/mcL (4.5-11.0)
[2022-05-08] MEDS: CIPROFLOXACIN 400 MG/200 ML BAG IV SCH ×2 (06:56→21:05)
[2022-05-08 07:31] LABS: Blood Urea Nitrogen 11 mg/dL (8-23); Calcium 8.6 mg/dL (8.6-10.4); Carbon Dioxide 29 mmol/L (22-30); Chloride 102 mmol/L (96-108); Glomerular Filtration Rate 92; Glucose 176 mg/dL (70-105)
[2022-05-08] MEDS ORDERED: PHENOL/SODIUM PHENOLATE 5 SPRAY BOTTLE 180ML SSP PRN (09:13)
--- NOTE | 2022-05-08 09:30 | General Surgery Progress Note ---
SUBJECTIVE Subjective Patient information: Note initiated : 05/08/22 at 9:25 am Service Date, if different from initiated Date: [] Patient: Jewell Campoverde 71 y/o F admitted on 05/07/22 for Exploratory Laparotomy, Lysis of Adhesions, . Chief Complaint: [] Feels ok this am, some pain, NGT discomfort. No SOB or Chest Pain Constitutional Vitals: Vital Signs Temp Pulse Resp BP Pulse Ox O2 Del Method O2 Flow Rate 98.8 F 91 H 18 130/59 95 Room Air 3.5 05/08/22 08:00 05/08/22 08:00 05/08/22 08:00 05/08/22 08:00 05/08/22 08:00 05/08/22 08:00 05/08/22 04:10 Period Temp Pulse Resp BP Sys/Stiles Pulse Ox O2 Del Method O2 Flow Rate Last 24 Hr 97.5 F-98.8 F 84-96 9-26 86-137/53-85 84-100 Nasal Cannula- Room Air 2-6 Intake and Output 05/07/22 05/08/22 05/08/22 19:59 03:59 11:59 Intake Total 4100 1150 300 Output Total 200 685 Balance 3900 465 300 Weight 165 lb Intake & Output: Intake & Output 05/07/22 05/08/22 05/08/22 19:59 03:59 11:59 Intake Total 4100 1150 300 Output Total 200 685 Balance 3900 465 300 Weight 165 lb Intake: IV 300 1100 300 Dextrose 5%-Lactated Ringers 1, 1000 000 ml @ 125 mls/hr IV .Q8H [facility] Rx#:[id number] Oral 0 50 IV - Manual Only 3800 Output: Gastric Drainage 60 Left Nare NG/OG 60 Drainage 100 50 Abdomen 100 LLQ CHRISTINE C 10 RLQ CHRISTINE B 25 RUQ CHRISTINE A 15 Urine Catheter Amount 575 Estimated Blood Loss 100 Other: Urine Appearance Clear Clear Uretheral (Phan) Clear Clear Urine Color Yellow Dark Yellow Uretheral (Phan) Bright Yellow Yellow Urine Odor Strong Uretheral (Phan) Normal Exam: Conversant, non toxic, NAD Respiratory Respiratory exam: Present normal respiratory exam Additional comments: normal effort without distress Cardiovascular Cardiovascular exam: Present RRR GI/Abdominal Additional comments: soft and non distended, midline dressing and stomal appliance intact, drains appear benign Additional comments: phan in place Extremities Exam Additional comments: well perfused A/P Assessment and plan (1) Colostomy in place: Assessment and plan: Post Ex lap, lysis of adhesions and attempted Colostomy takedown and reversal Continue NPO and NGT for now Resume home meds OOB today PT Consult Status: Acute Time Spent With Patient Time: Total time spent is greater than 50% in coordination of care (as documented) at patient's floor/unit and/or counseling patient:
[2022-05-08] MEDS: ACETAMINOPHEN 650 MG/65 ML BAG IV SCH ×2 (10:23→17:11)
[2022-05-08] MEDS: diphenhydrAMINE 50 MG/ML VIAL IV PRN ×2 (12:55→21:05)
[2022-05-08] MEDS: SUCRETS LOZENGE PO PRN ×2 (16:55→21:50)
[2022-05-08] MEDS ORDERED: MEROPENEM 0.5 GM in 0.9 % SODIUM CHLORIDE 50 ML IV SCH (17:00)
[2022-05-08] MEDS ORDERED: KETOROLAC 30 MG/ML VIAL IV SCH (17:00)
[2022-05-08] MEDS: MEROPENEM 1 GM in 0.9 % SODIUM CHLORIDE 50 ML IV SCH (17:43)
--- NOTE | 2022-05-08 18:32 | Operative Note ---
DATE OF OPERATION: 05/07/2022 DATE OF PROCEDURE: 05/07/2022 PREOPERATIVE DIAGNOSIS: End colostomy with request for reversal. POSTOPERATIVE DIAGNOSIS: End colostomy with request for reversal. OPERATIVE PROCEDURE: 1. Exploratory laparotomy with lysis of adhesions. 2. Resection of distal sigmoid colon. 3. Colostomy takedown and resection with attempted reversal. 4. Reestablishment of end colostomy. SURGEON: Han Bill M.D. ANESTHESIA: General. PREOPERATIVE MEDICATIONS: Zosyn 3.375 g IV. INDICATIONS: The patient is a 71-year-old female who we originally became involved with roughly 10 months ago when she underwent a colonoscopy following a bout of ischemic colitis and developed a perforation at a mid left colon stricture. We took her to the operating room emergently at that time and resected that stricture, which ended up involving a good portion of her left colon and colostomy was brought up. She did very well following that and recovered quite nicely and over the past 10 months or so has improved dramatically to the point that she very much wants and has wanted to undergo reversal of her colostomy. We met with her over the course of a number of clinic visits to discuss risks, benefits, potential complications, and potential issues as well as the wisdom of potentially proceeding with a colostomy reversal versus the option of just continuing with the stoma given how well she has otherwise been doing. Issues discussed at length, including but not limited to, the option to not undergo the procedure, risk of infection, bleeding, anastomotic leakage, the possibility of circumstances would be encountered that were preventing us from reestablish intestinal continuity, cardiopulmonary complications, particularly given her past medical history, and other issues as well. All of this was discussed at length with her and she was well aware of those issues and very much wished to undergo the procedure and gave full informed consent. DESCRIPTION OF PROCEDURE: The patient was taken to the OR and placed supine on the OR table, placed under general anesthesia and intubated. Bilateral SCDs were applied. A Bernard catheter was placed and a nasogastric tube was placed as well. Arms were placed out on arm boards under the direction of the OR team and all pressure sensitive areas were carefully padded. The abdomen was widely prepped and draped in a sterile fashion. Procedure began with a vertical midline incision in the upper aspect of the prior incision from the xiphoid process down to the umbilicus. We dissected down through the anterior abdominal wall fascia to the peritoneum, which was opened sharply and entered the peritoneal cavity. There were significant adhesions to the overlying abdominal wall and these were taken down sharply. No cautery was used at any time, to take down adhesions. Once we cleared this area off we were then able to continue to extend the incision caudally down past the umbilicus and ultimately to the level of the pubic symphysis to obtain full exposure. We then took down the remaining abdominal wall adhesions again under direct visualization at all times utilizing sharp dissection and gradually mobilized the entire colon from the ligament of Treitz all the way down to the ileocecal valve without issue. We then mobilized the colon up out of the pelvis and left lower abdomen off the left pericolic gutter and away from the end colostomy. At this point, the transverse colon and proximal left colon were identified, coursing up to the stoma itself. This was circumferentially dissected out and freed up entirely all the way up to the level of the exit point of the fascia and was transected here with a single firing of the NAEL-75 stapler. Next, we directed our attention to removal of the colostomy itself, which had been previously covered and it was uncovered and then we utilized sharp dissection to dissect out the mucocutaneous junction and then mobilized the stomal remnant all the way down to the fascial level externally and then working internally and externally we were able to fully free up the ostomy from the surrounding fascia, removed in its entirety and sent to pathology as resected colostomy. Next, we directed our attention towards the pelvis itself. The sigmoid stump remnant could be seen down in the pelvis below the level of the pelvic brim where it appeared to have contracted down. This was dissected free and mobilized up above the pelvic brim to identify a fairly strictured and inflamed segment of sigmoid colon with multiple diverticulum and what appeared to be fairly chronic ischemic changes. We dissected this down to the level of the proximal rectum and then transected it with a single firing of the NAEL-75 stapler and marked the distal end. It was sent to pathology as remnant sigmoid colon. Prior to this, the left ureter was clearly identified and exposed along its entire course to make sure there was no evidence of injury to it. None was seen. Next, we proceeded inferiorly and attempted to make preparations for a planned EEA anastomosis utilizing a stapler. We utilized sizers to initially size the rectum and a 25 sizer was passed transanally into the lower rectum and then we attempted to pass it up to the level of the upper rectum to assure patency up to this level for passage of the stapler and as we continued to pass this along we noted that, unfortunately with the passage of the stapler, and likely due to a stricture and chronic ischemic and/or inflammatory changes along the rectum, a splitting of the lateral rectum and subsequent perforation from the sizer occurred at what appeared to be the low to mid right lateral rectal sidewall on the right side. The sizer was removed and the area was inspected and at this point, in the course of examination of this, I felt that the rectum was likely no longer suitable at this point for reestablishment of intestinal continuity and ultimately elected to abandon any attempt at cholecystectomy at a colorectal anastomosis at this point, given the extent of the stricture into the area and the damage that had occurred to the right lateral sidewall of the rectum here. We reapproximated and closed the area of perforation with interrupted 3-0 silk sutures along the entire length and laid in some additional adipose tissue here as a reinforcement. We then irrigated the area out extensively and made sure there was no active bleeding or hemorrhage, none was seen. We brought our #15 round Petar drains in through separate stab incisions in both the right and left lower abdominal lower quadrants and positioned them in and around the area of the closure, both anteriorly and posteriorly and secured these in place with a 3-0 silk suture. We then irrigated the area out extensively and I elected to bring an additional 15-German CHRISTINE drain through the right upper abdomen and positioned it along the mid abdomen in the left pericolic gutter and it was secured in place with a 3-0 silk suture, again for maximal drainage of any potential infected fluid. At this point, we then examined our colonic limb, which had been mobilized entirely off the splenic flexure. At the time of the prior operation it was very easily delivered down all the way to the pelvis. We made sure that the transected edge appeared to be well perfused, which it did and we brought it up through the prior stomal opening without difficulty and it rested very comfortably with 5 cm of redundancy on the anterior abdominal wall. Next, we made sure our sponge, needle and instrument counts were correct. We irrigated out a final time. We positioned the omentum back over the bowel. We ran the small bowel a final time from the ligament of Treitz all the way down to the ileocecal valve and then made preparations for closure. At this point, we closed the fascia from above and below with a running looped 0 PDS tied in the midline and then extensively irrigated out the subcutaneous tissues and then closed the skin with camden. Bacitracin ointment and a silver-impregnated dressing was applied. Next, we matured our stoma in standard fashion. We took the staple line off with cautery and then we matured the mucocutaneous junction with a 4-quadrant interrupted 3-0 silk sutures and then interrupted 3-0 Vicryl sutures as well. The stomal appliance was applied. A nasogastric tube had been placed. The patient was awakened, extubated, and transferred to PACU in satisfactory condition. COMPLICATIONS: As discussed above-- traumatic disruption of the right lateral sidewall of the lower to mid rectum, likely secondary to an ischemic stricture in the area with an attempt to pass the EEA sizer transanally to assess suitability for an EEA anastomosis. BW:светлана Job ID: [id number] Doc ID: [id number] Dave Kwon
[2022-05-08] MEDS ORDERED: ALPRAZolam 0.5 MG TABLET PO SCH (21:00)
[2022-05-08] MEDS: FLUTICASONE PROPIONATE SPRAY.NAS NS SCH (21:49)
[2022-05-09] MEDS: MEROPENEM 1 GM in 0.9 % SODIUM CHLORIDE 50 ML IV SCH ×4 (00:51→22:10)
[2022-05-09] MEDS: DEXTROSE 5%-LR 1,000 ML IV SCH ×5 (00:51→23:13)
[2022-05-09] MEDS: ACETAMINOPHEN 650 MG/65 ML BAG IV SCH ×3 (02:18→17:27)
[2022-05-09] MEDS: metroNIDAZOLE 500 MG/100 ML BAG IV SCH ×3 (06:16→23:11)
[2022-05-09 08:02] LABS: Hematocrit 43.2 % (34.1-44.9); Mean Cell Volume 104.3 fL (80.0-100.0); Mean Corpuscular HGB Conc 30.1 g/dL (31.0-36.0); Mean Platelet Volume 10.1 fL (8.8-12.5); Platelet Count 174 K/mcL (140-440); RBC 4.14 M/mcL (3.59-5.38); Red Cell Distribution Width 13.2 % (11.5-14.5); WBC 7.6 K/mcL (4.5-11.0)
[2022-05-09] MEDS: CIPROFLOXACIN 400 MG/200 ML BAG IV SCH ×2 (08:59→21:33)
[2022-05-09] MEDS ORDERED: PANTOPRAZOLE 40 MG TABLET PO SCH (09:00)
[2022-05-09] MEDS: FLUTICASONE PROPIONATE SPRAY.NAS NS SCH ×2 (09:07→21:32)
[2022-05-09] MEDS ORDERED: HYDROmorphone PCA 30 MG/30 ML PCA.VIAL IV PRN (09:50)
[2022-05-09 09:58] LABS: Blood Urea Nitrogen 6 mg/dL (8-23); Calcium 8.2 mg/dL (8.6-10.4); Carbon Dioxide 29 mmol/L (22-30); Chloride 102 mmol/L (96-108); Glomerular Filtration Rate 92; Glucose 115 mg/dL (70-105)
[2022-05-09] MEDS: HYDROmorphone 0.5 MG/0.5 ML SYRINGE IV PRN (10:14)
[2022-05-09] MEDS: diphenhydrAMINE 50 MG/ML VIAL IV PRN ×2 (10:26→18:43)
--- NOTE | 2022-05-09 10:34 | General Surgery Progress Note ---
SUBJECTIVE Subjective Patient information: Note initiated : 05/09/22 at 10:28 am Service Date, if different from initiated Date: [] Patient: Jewell Campoverde 71 y/o F admitted on 05/07/22 for Exploratory Laparotomy, Lysis of Adhesions, . Chief Complaint: [] She continues to have issues with pain despite addition of some low dose toradol yesterday. No SOB or chest pain Constitutional Vitals: Vital Signs Temp Pulse Resp BP Pulse Ox O2 Del Method O2 Flow Rate 98.6 F 112 H 18 118/60 92 Nasal Cannula 2 05/09/22 03:20 05/09/22 08:00 05/09/22 04:00 05/09/22 03:20 05/09/22 04:00 05/09/22 04:00 05/09/22 04:00 Period Temp Pulse Resp BP Sys/Stiles Pulse Ox O2 Del Method O2 Flow Rate Last 24 Hr 97.9 F-99.1 F 90-112 18-18 96-136/60-71 84-94 Nasal Cannula- Room Air 0-2 Intake and Output 05/08/22 05/09/22 05/09/22 19:59 03:59 11:59 Intake Total 265 1413 752 Output Total 1120 653 Balance -855 760 752 Weight 166 lb 1.6 oz Intake & Output: Intake & Output 05/08/22 05/09/22 05/09/22 19:59 03:59 11:59 Intake Total 265 1413 752 Output Total 1120 653 Balance -855 760 752 Weight 166 lb 1.6 oz Intake: IV 215 1413 752 Dextrose 5%-Lactated Ringers 1, 998 602 000 ml @ 125 mls/hr IV .Q8H [facility] Rx#:[id number] Merrem 1 gm In Sodium Chloride 50 50 50 0.9% 50 ml @ 100 mls/hr IV Q8H [facility] Rx#:[id number] Oral 50 0 Output: Gastric Drainage 540 75 Left Nare NG/OG 540 75 Drainage 30 28 LLQ CHRISTINE C 10 8 RLQ CHRISTINE B 10 10 RUQ CHRISTINE A 10 10 Urine Catheter Amount 550 550 Other: Urine Appearance Clear Uretheral (Bernard) Clear Clear Urine Color Yellow Uretheral (Bernard) Bright Yellow Dark Yellow Urine Odor Normal Uretheral (Bernard) Normal Exam: NAD, appears non toxic but in some discomfort Respiratory Respiratory exam: Present normal respiratory exam Cardiovascular Cardiovascular exam: Present normal rate and rhythm GI/Abdominal Additional comments: belly seems soft and non distended, NGT in place, Drains appear benign, ostomy looks viable but with minimal to no output Extremities Exam Additional comments: well perfused A/P Assessment and plan (1) Colostomy in place: Assessment and plan: POD #2 Ex lap, lysis of adhesions, resection remnant Sigmoid Colon and revision of End Colostomy Pain control seems to be her dominant issue and I think a POULTRY CLEANER will serve her better than current dosing Medicine Hospitalist Consult given medical Co Morbidities Start SQ Heparin Continue NGT and NPO until evidence of stomal function Bedside Chair once pain control is improved Status: Acute Time Spent With Patient Time: Total time spent is greater than 50% in coordination of care (as documented) at patient's floor/unit and/or counseling patient:
[2022-05-09] MEDS ORDERED: KETOROLAC 15 MG/ML VIAL IV PRN (12:15)
--- NOTE | 2022-05-09 13:20 | Internal Medicine Consult Note ---
HPI Date of Consult Consult Date: 05/09/22 Requesting physician: Han Bill Primary Care Provider: DONATO Singh Consult Narrative Chief complaint: Abdominal pain Reason for consult: Review medications and manage chronic medical conditions. History of present illness: Jewell Campoverde is a 71-year-old female with a history of hypertension, anxiety, GERD, tobacco use disorder, chronic pain on oxycodone, peripheral vascular disease, iatrogenic colonic perforation during colonoscopy in August 2021 requiring a emergent laparotomy for resection of the sigmoid colon, washout and end colostomy. The patient has been following with a general surgery since the colostomy placement and it was decided to perform a colostomy reversal. On 05/07 the patient underwent surgery for colostomy reversal however intraoperatively the patient was found to have moderate adhesions, severe stricture of the remaining sigmoid colon and rectum in the surgery was complicated by a traumatic perforation of the rectal stricture. The patient had resection of the distal sigmoid colon, reestablishment of the end colostomy. Postoperatively, the patient was kept NPO. She did experience significant mount of abdominal pain that did not respond well to intermittent IV opioids therefore a Dilaudid PERMIT SPECIALIST was started and the patient experienced better pain control. The patient had a nasogastric tube to suction and was kept n.p.o. pending recovery of bowel function. Hospital medicine was consulted to evaluate management the patient's chronic medical comorbidities. Review of systems Constitutional: no fever, fatigue, or weight loss Eyes: no vision changes or pain Cardiovascular: no chest pain, no palpitations Respiratory: no cough or dyspnea Gastrointestinal: Positive for abdominal pain, no fat signs or a bowel movement Genitourinary: no dysuria or difficulty voiding Musculoskeletal: no arthralgia or myalgia Integumentary: Positive for multiple abdominal surgical drains Neurological: no focal weakness or numbness Psychiatric: no anxiety or depression Physical exam Head: Atraumatic, normal inspection. Eyes: normal appearance, no scleral icterus. Neck: full ROM Respiratory: no respiratory distress. Cardiovascular: normal rate and rhythm, S1, S2. GI/Abdominal: Surgical incision covered with clean bandages, multiple abdominal drains, colostomy present. : Indwelling Bernard catheter Extremities: full range of motion, nontender. Neurological: CN II-XII intact, intact motor, intact sensation. Psychiatric: normal mood. Skin: warm, normal color cc:: CC: Han Bill MD [facility] All Active Problems Effusion of left knee (Chronic) Peripheral Vascular Disease (Chronic) Chronic obstructive pulmonary disease (Chronic) Hx of appendectomy (Chronic) H/O carpal tunnel repair (Chronic 01/13/14) H/O cervical discectomy (Chronic 03/19/14) Hx of cholecystectomy (Chronic) History of knee replacement procedure of left knee (Chronic) History of knee replacement procedure of right knee (Chronic) H/O tubal ligation (Chronic) S/P transposition of nerve (Chronic) Abdominal pain (Chronic) Anxiety disorder (Chronic) Back pain (Chronic) Paresthesias (Chronic 01/16/13) Carpal tunnel syndrome (Chronic) Chronic pain (Chronic) Degeneration, intervertebral disc, cervical (Chronic) Degenerative joint disease (Chronic) Depressive disorder (Chronic) Fatigue (Chronic) Fungal infection (Chronic) Gastroesophageal reflux (Chronic) Herpes simplex (Chronic 02/15/14) Hyperlipidemia (Chronic) Insomnia (Chronic) Neck pain (Chronic 01/14/13) Onychomycosis (Chronic 12/24/12) Osteoarthrosis (Chronic) Osteoporosis (Chronic 07/17/13) Polycythemia (Chronic 02/15/14) Ulnar tunnel syndrome (Chronic) Vaginitis and vulvovaginitis (Chronic) Pain due to total left knee replacement (Chronic) COPD exacerbation (Chronic ~01/16/13) History of abnormal cervical Pap smear (Chronic) Ganglion cyst of right foot (Chronic) UTI (urinary tract infection) (Chronic) Indigestion (Chronic) Arthritis (Chronic) Hypertension (Chronic) History of ankle surgery (Chronic) S/P wrist surgery (Chronic) Risk for falls (Chronic) Situational depression (Chronic) Encounter for medication monitoring (Chronic) Tobacco smoker within last 12 months (Chronic) OAB (overactive bladder) (Chronic) Urinary retention with incomplete bladder emptying (Chronic) Stroke-like symptom (Acute) Light-headedness (Acute) Dehydration (Acute) Ankle sprain (Acute) Sciatica associated with disorder of lumbar spine (Acute) Colitis (Acute) Left hip pain (Acute) Urinary tract infection (Acute) Perforation of colon as colonoscopy complication (Acute) Colon perforation (Acute) Change of dressing (Acute) Colostomy in place (Acute) Left otitis media (Acute) Parotid gland fullness (Acute) Nicotine dependence with current use (Acute) Colostomy present (Acute) Medical History Abdominal pain Anxiety disorder Arthritis Back pain Carpal tunnel syndrome Chronic obstructive pulmonary disease Chronic pain Left knee COPD exacerbation (~01/16/13) Degeneration, intervertebral disc, cervical 12/28/13-Dr. Jacobs-[facility] Degenerative joint disease Depressive disorder Effusion of left knee Encounter for medication monitoring Fatigue Fungal infection Gastroesophageal reflux Herpes simplex (02/15/14) Lip Hyperlipidemia Hypertension Indigestion Insomnia Neck pain (01/14/13) Onychomycosis (12/24/12) Osteoarthrosis Lower leg Osteoporosis (07/17/13) Pain due to total left knee replacement Painful subluxed left total knee replacement. Needs revision Paresthesias (01/16/13) Bilateral pattern paresthesias-ulnar Peripheral Vascular Disease Polycythemia (02/15/14) Secondary Risk for falls Situational depression Tobacco smoker within last 12 months 2017: She did not like Chantix. She thought it gave her hives. 2020: Willing to try patches again, she may do well using Mastisol or Skin- Prep to help the patches adhere better to her skin 10/27/2020 cannot afford patches - given [place] quitline info Ulnar tunnel syndrome UTI (urinary tract infection) Vaginitis and vulvovaginitis Surgical History H/O carpal tunnel repair (01/13/14) Dr. Jacobs H/O cervical discectomy (03/19/14) Dr. Jacobs ACD&F of C5-6 H/O tubal ligation 1977 History of ankle surgery Ganglion cyst on ankle- Dr. Martin History of exploratory laparotomy 06/29/2021 1. Exploratory laparotomy with washout and drain placement. 2. Resection en bloc of sigmoid colon with sigmoid colonic stricture and perforation. 3. Diverting end colostomy History of knee replacement procedure of left knee and 2 revisions- 3 years ago History of knee replacement procedure of right knee 10/2007 partial Hx of appendectomy 1971 Hx of cholecystectomy S/P transposition of nerve Ulnar nerve transposition, left S/P wrist surgery 04/2017 Family History Unknown Alcohol abuse Osteoarthritis Osteoporosis Mother Arthritis Hypertension Sister , 2 one 56 and one 55 Hypertension Cancer 2 Sisters of 4 from cancer at ages 56 & 55 Father , at age 59 Aneurysm Social History caregiver/support person: Yes household members: family lives independently: No marital status: occupational status: disabled sexually active: Yes other: Lives with son and daughter in law physical activity: none smoking status: Current every day smoker tobacco type: cigarettes per day: 5 quit status: considering quitting counseling given: provider counseling and other details: Patches - can't afford alcohol intake frequency: 2+ drinks per day substance use type: former substance user seatbelt use: always additional history: Has 2 sisters (living), 2 brothers, 4 children and 9 grandchildren MEDS/ALLERGIES Home Medications and Allergies Home Medications Medication Instructions Recorded Confirmed Type Allkare Protect Barrier Wipes #50 ea 10/04/20 05/07/22 Rx (ostomy supplies) Grab bar for bath tub #1 ea 05/17/21 05/07/22 Rx fluticasone propionate 50 1 spray intranasal BID #16 grams 11/21/21 05/07/22 Rx mcg/actuation nasal spray,suspension (Flonase Allergy Relief) lisinopril 2.5 mg tablet 2.5 mg PO HS #30 tabs 01/09/22 05/07/22 Rx pantoprazole 40 mg tablet,delayed 40 mg PO QDAY 02/05/22 05/07/22 History release triamcinolone acetonide 0.1 % 1 applic topical BID #30 grams 04/19/22 05/07/22 Rx topical cream acetaminophen 325 mg tablet 325 mg PO HS 05/07/22 05/07/22 History alprazolam 1 mg tablet 2 mg PO HS 05/07/22 05/07/22 History lactulose 10 gram/15 mL oral 30 g PO DAILY 05/07/22 05/07/22 History solution oxycodone 10 mg tablet 10 mg PO Q6H PRN pain 05/07/22 05/07/22 History tizanidine 4 mg tablet 4 mg PO HS PRN Muscle Spasm 05/07/22 05/07/22 History Allergies Allergy/AdvReac Type Severity Reaction Status Date / Time Varenicline [From Kendrickx] Allergy Intermediate Hives Verified 04/19/22 11:01 codeine AdvReac Mild Itching Verified 04/19/22 11:01 hydrocodone AdvReac Mild itching Verified 04/19/22 11:01 meperidine [From Demerol] AdvReac Mild Itching Verified 04/19/22 11:01 propoxyphene AdvReac Mild Itching Verified 04/19/22 11:01 [From Darvocet-N] EXAM Constitutional Vitals: Temp Pulse Resp BP Pulse Ox O2 Del Method O2 Flow Rate 99 F 114 H 20 145/84 94 Room Air 2 05/09/22 12:45 05/09/22 12:45 05/09/22 12:45 05/09/22 12:45 05/09/22 12:45 05/09/22 12:45 05/09/22 04:00 DATA Data Completed and Pending Labs: Labs from last 24 hours 05/09/22 05/09/22 05/09/22 08:24 05:37 05:37 WBC 7.6 RBC 4.14 Hgb 13.0 Hct 43.2 MCV 104.3 H MCH 31.4 MCHC 30.1 L RDW 13.2 Plt Count 174 MPV 10.1 Sodium 137 TNP Potassium 3.4 TNP Chloride 102 TNP Carbon Dioxide 29 TNP Anion Gap 6.0 L TNP BUN 6 L TNP Creatinine 0.6 TNP GFR Calculation 92 TNP Glucose 115 H TNP Calcium 8.2 L TNP A/P Narrative A/P Narrative: Assessment:71-year-old female with a history of hypertension, anxiety, GERD, tobacco use disorder, chronic pain on oxycodone, peripheral vascular disease, iatrogenic colonic perforation during colonoscopy in August 2021 requiring a emergent laparotomy for resection of the sigmoid colon, washout and end colostomy now admitted after attempted colostomy reversal on 05/07/2022. The patient was found to have a stricture in the remnant sigmoid colon and rectum. The surgery was complicated by traumatic perforation of the rectal stricture requiring a reestablishment of and end colostomy instead of reversal. #Status post exploratory laparotomy and reestablishment of end colostomy 05/07/2022 #Traumatic perforation of rectal stricture 05/07/2022 #Hypertension #Anxiety disorder #GERD #Chronic pain on oxycodone #Peripheral vascular disease #Tobacco use disorder Plan -Postoperative management, antibiotics, analgesics per general surgery. -Currently n.p.o. with NG tube to suction. -IV fluids, monitor volume status. -Add Ativan IV as needed for anxiety. -Add labetalol IV as needed for elevated blood pressure. -Add albuterol nebs as needed for SOB or wheezing. -Protonix IV for GERD. -Holding home lisinopril for now. -Monitor and replace labs as needed. -Nutrition consult. -If patient's bowel function does not recover consider TPN. -PT and OT. -Nicotine replacement as needed. -DVT prophylaxis: Heparin SQ -CODE STATUS: Special Officer Spent With Patient Time: Total time spent is greater than 50% in coordination of care (as documented) at patient's floor/unit and/or counseling patient:
[2022-05-09] MEDS ORDERED: KETOROLAC 30 MG/ML VIAL IV SCH (14:00)
[2022-05-09] MEDS: PANTOPRAZOLE 40 MG VIAL IV SCH (17:28)
[2022-05-09] MEDS: KETOROLAC 30 MG/ML VIAL IV SCH (17:28)
[2022-05-09] MEDS ORDERED: ALBUTEROL SULFATE 2.5 MG/3 ML NEBULIZER NEB PRN (17:32)
[2022-05-09] MEDS ORDERED: LABETALOL 5 MG/ML ML IV PRN (17:32)
[2022-05-09] MEDS ORDERED: NICOTINE POLACRILEX 2 MG GUM CHEW/PARK PRN (17:35)
[2022-05-09] MEDS: LORazepam 2 MG/ML VIAL IV PRN (20:13)
[2022-05-10] MEDS: ACETAMINOPHEN 650 MG/65 ML BAG IV SCH ×3 (01:35→17:42)
[2022-05-10] MEDS: KETOROLAC 30 MG/ML VIAL IV SCH ×3 (01:36→17:48)
[2022-05-10] MEDS: DEXTROSE 5%-LR 1,000 ML IV SCH ×4 (05:13→20:09)
[2022-05-10 06:15] LABS: Hematocrit 35.9 % (34.1-44.9); Mean Cell Volume 94.5 fL (80.0-100.0); Mean Corpuscular HGB Conc 33.4 g/dL (31.0-36.0); Mean Platelet Volume 9.7 fL (8.8-12.5); Platelet Count 192 K/mcL (140-440); Red Cell Distribution Width 12.7 % (11.5-14.5); WBC 7.2 K/mcL (4.5-11.0)
[2022-05-10] MEDS: MEROPENEM 1 GM in 0.9 % SODIUM CHLORIDE 50 ML IV SCH ×3 (06:29→21:38)
[2022-05-10 07:00] LABS: ALT/SGPT 14 U/L (<40); AST/SGOT 24 U/L (<32); Albumin 2.8 gm/dL (3.2-5.2); Alkaline Phosphatase 79 U/L (39-117); Bilirubin,Direct < 0.2 mg/dL (0-0.3); Bilirubin,Total 0.4 mg/dL (0.1-1.0); Blood Urea Nitrogen 4 mg/dL (8-23); Calcium 8.3 mg/dL (8.6-10.4); Carbon Dioxide 29 mmol/L (22-30); Chloride 103 mmol/L (96-108); Globulin 2.7 gm/dL (2.2-3.7); Glomerular Filtration Rate 92; Glucose 124 mg/dL (70-105); Lactate Dehydrogenase 202 U/L (135-225); Phosphorous 1.5 mg/dL (2.5-4.5); Triglycerides 70 mg/dL (<150); Uric Acid 2.8 mg/dL (2.5-8.0)
[2022-05-10] MEDS ORDERED: PANTOPRAZOLE 40 MG VIAL IV SCH (07:30)
[2022-05-10] MEDS: PANTOPRAZOLE 40 MG VIAL IV SCH ×2 (07:44→16:38)
[2022-05-10] MEDS: metroNIDAZOLE 500 MG/100 ML BAG IV SCH (07:47)
[2022-05-10] MEDS: CIPROFLOXACIN 400 MG/200 ML BAG IV SCH ×2 (08:55→20:08)
[2022-05-10] MEDS: FLUTICASONE PROPIONATE SPRAY.NAS NS SCH ×2 (09:06→20:59)
--- NOTE | 2022-05-10 10:49 | General Surgery Progress Note ---
SUBJECTIVE Subjective Patient information: Note initiated : 05/10/22 at 10:43 am Service Date, if different from initiated Date: [] Patient: Jewell Campoverde 71 y/o F admitted on 05/07/22 for Exploratory Laparotomy, Lysis of Adhesions, . Chief Complaint: [] Pain is improved this am and she feels better overall. No stomal function yet. Constitutional Vitals: Vital Signs Temp Pulse Resp BP Pulse Ox O2 Del Method O2 Flow Rate 98.6 F 104 H 22 169/94 98 Room Air 0 05/10/22 07:56 05/10/22 07:56 05/10/22 07:56 05/10/22 07:56 05/10/22 07:56 05/10/22 07:56 05/09/22 18:30 Period Temp Pulse Resp BP Sys/Stiles Pulse Ox O2 Del Method O2 Flow Rate Last 24 Hr 97.7 F-99 F 97-114 18-22 136-169/77-97 90-98 Room Air-Room Air 0 Intake and Output 05/09/22 05/10/22 05/10/22 19:59 03:59 11:59 Intake Total 215 1465 350 Output Total 1075 1494 Balance -860 -29 350 Weight 166 lb 11.2 oz Intake & Output: Intake & Output 05/09/22 05/10/22 05/10/22 19:59 03:59 11:59 Intake Total 215 1465 350 Output Total 1075 1494 Balance -860 -29 350 Weight 166 lb 11.2 oz Intake: IV 215 1415 350 Dextrose 5%-Lactated Ringers 1, 1000 000 ml @ 125 mls/hr IV .Q8H [facility] Rx#:[id number] Merrem 1 gm In Sodium Chloride 50 50 50 0.9% 50 ml @ 100 mls/hr IV Q8H [facility] Rx#:[id number] Oral 50 Output: Gastric Drainage 225 50 Left Nare NG/OG 225 50 Drainage 50 69 LLQ CHRISTINE C 20 28 RLQ CHRISTINE B 15 30 RUQ CHRISTINE A 15 11 Urine Catheter Amount 800 1375 Stool 0 Other: Urine Appearance Clear Clear Clear Uretheral (Bernard) Clear Clear Urine Color Dark Yellow Yellow Dark Yellow Uretheral (Bernard) Dark Yellow Dark Yellow Urine Odor Normal Normal Uretheral (Bernard) Normal Normal Exam: looks non toxic, conversant, NAD Respiratory Additional comments: normal effort without distress Cardiovascular Cardiovascular exam: Present normal rate and rhythm GI/Abdominal Additional comments: soft, non distended, minimally tender, drains benign, dressing in place, ostomy viable without stool or gas Extremities Exam Additional comments: well perfused A/P Assessment and plan (1) Colostomy in place: Assessment and plan: POD #3 Ex lap, lysis of adhesions and inability reverse ostomy Pain control much improved Await stomal function and increase activity as able Appreciate Hospitalist Input Status: Acute Time Spent With Patient Time: Total time spent is greater than 50% in coordination of care (as documented) at patient's floor/unit and/or counseling patient:
[2022-05-10] MEDS: HEPARIN 5,000 UNIT/ML VIAL SQ SCH ×2 (10:51→20:08)
[2022-05-10] MEDS ORDERED: POTASSIUM PHOSPHATE 40 MEQ in DEXTROSE 5% IN WATER 500 ML IV ONE (12:00)
[2022-05-10] MEDS: METOPROLOL TARTRATE 5 MG/5 ML VIAL IV SCH ×3 (12:03→23:38)
[2022-05-10] MEDS: diphenhydrAMINE 50 MG/ML VIAL IV PRN (12:35)
--- NOTE | 2022-05-10 13:24 | Internal Med Progress Note ---
SUBJECTIVE Subjective Patient information: Note initiated : 05/10/22 at 1:20 pm Service Date, if different from initiated Date: [] Patient: Jewell Campoverde 71 y/o F admitted on 05/07/22 for Exploratory Laparotomy, Lysis of Adhesions, . Chief Complaint: [] Interval history: Jewell Campoverde is a 71-year-old female with a history of hypertension, anxiety, GERD, tobacco use disorder, chronic pain on oxycodone, peripheral vascular disease, iatrogenic colonic perforation during colonoscopy in August 2021 requiring a emergent laparotomy for resection of the sigmoid colon, washout and end colostomy. The patient has been following with a general surgery since the colostomy placement and it was decided to perform a colostomy reversal. On 05/07/2022 the patient underwent surgery for colostomy reversal however intraoperatively the patient was found to have moderate adhesions, severe stricture of the remaining sigmoid colon and rectum in the surgery was complicated by a traumatic perforation of the rectal stricture. The patient had resection of the distal sigmoid colon, reestablishment of the end colostomy. Postoperatively, the patient was kept NPO. She did experience significant mount of abdominal pain that did not respond well to intermittent IV opioids therefore a Dilaudid ANIMAL SCIENTIST was started and the patient experienced better pain control. The patient had a nasogastric tube to suction and was kept n.p.o. pending recovery of bowel function. Hospital medicine was consulted to evaluate management the patient's chronic medical comorbidities. 05/10 Overnight the patient's blood pressure was moderately elevated, heart rate elevated as well. Started scheduled metoprolol IV every 6 hours as the patient remains n.p.o. Replaced low phosphorus with an IV rider. Patient is having some gas in her ostomy. She says her pain is adequately controlled. Physical exam Head: Atraumatic, normal inspection. Eyes: normal appearance, no scleral icterus. Neck: full ROM Respiratory: no respiratory distress. Cardiovascular: normal rate and rhythm, S1, S2. GI/Abdominal: Surgical incision covered with clean bandages, multiple abdominal drains, colostomy present. : Indwelling Bernard catheter Extremities: full range of motion, nontender. Neurological: CN II-XII intact, intact motor, intact sensation. Psychiatric: normal mood. Skin: warm, normal color Constitutional Vitals: Vital Signs Temp Pulse Resp BP Pulse Ox O2 Del Method O2 Flow Rate 98.6 F 104 H 22 169/94 98 Room Air 0 05/10/22 07:56 05/10/22 07:56 05/10/22 07:56 05/10/22 07:56 05/10/22 07:56 05/10/22 07:56 05/09/22 18:30 Period Temp Pulse Resp BP Sys/Stiles Pulse Ox O2 Del Method O2 Flow Rate Last 24 Hr 97.7 F-98.6 F 97-109 18-22 136-169/77-97 90-98 Room Air-Room Air 0 Intake and Output 05/10/22 05/10/22 05/10/22 03:59 11:59 19:59 Intake Total 1465 640 Output Total 1494 Balance -29 640 Weight 75.614 kg Patient Weight 05/11/22 03:59 Weight 75.614 kg Intake & Output: Intake & Output 05/10/22 05/10/22 05/10/22 03:59 11:59 19:59 Intake Total 1465 640 Output Total 1494 Balance -29 640 Weight 75.614 kg Intake: IV 1415 640 Dextrose 5%-Lactated Ringers 1, 1000 225 000 ml @ 125 mls/hr IV .Q8H [facility] Rx#:[id number] Merrem 1 gm In Sodium Chloride 50 50 0.9% 50 ml @ 100 mls/hr IV Q8H [facility] Rx#:[id number] Oral 50 Output: Gastric Drainage 50 Left Nare NG/OG 50 Drainage 69 LLQ CHRISTINE C 28 RLQ CHRISTINE B 30 RUQ CHRISTINE A 11 Urine Catheter Amount 1375 Stool 0 Other: Urine Appearance Clear Clear Uretheral (Bernard) Clear Urine Color Yellow Dark Yellow Uretheral (Bernard) Dark Yellow Urine Odor Normal Uretheral (Bernard) Normal OBJ DATA Labs 05/10/22 05:21 05/10/22 05:21 Labs: Abnormal Lab Results 05/10/22 05/09/22 05/09/22 05:21 08:24 05:37 MCV 104.3 H MCHC 30.1 L Anion Gap 5.0 L 6.0 L BUN 4 L 6 L Glucose 124 H 115 H Calcium 8.3 L 8.2 L Phosphorus 1.5 L Total Protein 5.5 L Albumin 2.8 L 05/08/22 05:32 MCV MCHC Anion Gap 7.0 L BUN Glucose 176 H Calcium Phosphorus Total Protein Albumin Meds: Medications Albuterol Sulfate (Albuterol Sulfate 2.5 Mg/3 Ml Nebulizer) 2.5 mg NEB Q2HP PRN PRN Reason: Shortness Of Breath Diphenhydramine HCl (Diphenhydramine 50 Mg/Ml Vial) 25 mg IV Q8HP PRN PRN Reason: Allergic Symptoms Last Admin: 05/10/22 12:35 Dose: 25 mg Fluticasone Propionate (Fluticasone Propionate [place].Alfred) 1 spray NS BID [facility] Last Admin: 05/10/22 09:06 Dose: Not Given Heparin Sodium (Porcine) (Heparin 5,000 Unit/Ml Vial) 5,000 unit SQ Q12 [facility] Last Admin: 05/10/22 10:51 Dose: 5,000 unit Hydromorphone HCl (Hydromorphone 0.5 Mg/0.5 Ml Syringe) 0.5 - 1 mg IV Q1HP PRN; Protocol PRN Reason: Per Pain Protocol Last Admin: 05/09/22 10:14 Dose: 0.5 mg Hydromorphone HCl (Hydromorphone Mattress Filling Machine Tender 30 Mg/30 Ml Mattress Filling Machine Tender.Vial) 30 mg IV UD PRN; Protocol PRN Reason: Pain Last Admin: 05/09/22 11:16 Dose: 30 mg Ciprofloxacin (Cipro) 400 mg in 200 mls @ 200 mls/hr IV Q12H [facility]; Protocol Last Infusion: 05/10/22 09:55 Dose: Infused Acetaminophen (Ofirmev) 650 mg in 65 mls @ 130 mls/hr IV Q8H [facility]; Protocol Last Infusion: 05/10/22 10:50 Dose: Infused Meropenem 1 gm/ Sodium (Chloride) 50 mls @ 100 mls/hr IV Q8H [facility] Last Infusion: 05/10/22 07:00 Dose: Infused Dextrose/Lactated Ringer's (Dextrose 5%-Lactated Ringers) 1,000 mls @ 100 m ls/hr IV .Q10H [facility] Last Admin: 05/10/22 11:02 Dose: 100 mls/hr Potassium Phosphate 40 meq/ (Dextrose) 509.0909 mls @ 127.273 mls/hr IV ONCE ONE Stop: 05/10/22 15:59 Last Admin: 05/10/22 12:37 Dose: 127.273 mls/hr Ketorolac Tromethamine (Ketorolac 30 Mg/Ml Vial) 10 mg IV Q8H [facility] Stop: 05/10/22 18:01 Last Admin: 05/10/22 10:11 Dose: 10 mg Labetalol HCl (Labetalol 5 Mg/Ml Ml) 10 mg IV Q10M PRN PRN Reason: hypertension Lorazepam (Lorazepam 2 Mg/Ml Vial) 0.5 mg IV Q6HP PRN PRN Reason: ANXIETY/SEDATION Last Admin: 05/09/22 20:13 Dose: 0.5 mg Metoclopramide HCl (Metoclopramide 10 Mg/2 Ml Vial) 10 mg IV Q8HP PRN PRN Reason: Nausea And Vomiting Metoprolol Tartrate (Metoprolol Tartrate 5 Mg/5 Ml Vial) 5 mg IV Q6H [facility] Stop: 05/10/22 23:46 Last Admin: 05/10/22 12:03 Dose: 5 mg Nicotine Polacrilex (Nicotine Polacrilex 2 Mg Gum) 2 mg CHEW/PARK Q4HP PRN PRN Reason: nicotine withdrawal Last Admin: 05/09/22 20:13 Dose: 2 mg Pantoprazole Sodium (Pantoprazole 40 Mg Vial) 40 mg IV BIDAC [facility] Last Admin: 05/10/22 07:44 Dose: 40 mg Phenol (Phenol/Sodium Phenolate 5 [place] Bottle 180ml) 5 spray SSP Q2HP PRN PRN Reason: Sore Throat Last Admin: 05/09/22 20:14 Dose: 5 spray A/P Narrative A/P Narrative: Assessment:71-year-old female with a history of hypertension, anxiety, GERD, tobacco use disorder, chronic pain on oxycodone, peripheral vascular disease, i atrogenic colonic perforation during colonoscopy in August 2021 requiring a emergent laparotomy for resection of the sigmoid colon, washout and end colostomy now admitted after attempted colostomy reversal on 05/07/2022. The patient was found to have a stricture in the remnant sigmoid colon and rectum. The surgery was complicated by traumatic perforation of the rectal stricture requiring a reestablishment of and end colostomy instead of reversal. #Status post exploratory laparotomy and reestablishment of end colostomy 05/07/2022 #Traumatic perforation of rectal stricture 05/07/2022 #Hypertension #Anxiety disorder #GERD #Chronic pain on oxycodone #Peripheral vascular disease #Tobacco use disorder Plan -Postoperative management, antibiotics, analgesics per general surgery. -Currently n.p.o. with NG tube to suction. -Ativan IV as needed for anxiety. -Schedule metoprolol IV every 6 hours, labetalol IV as needed for elevated blood pressure. -Albuterol nebs as needed for SOB or wheezing. -Protonix IV for GERD. -Holding home lisinopril for now due to n.p.o. status. -Monitor and replace electrolytes as needed. -Nutrition consult. -If patient's bowel function does not recover consider TPN. -PT and OT. -Nicotine replacement as needed. -DVT prophylaxis: Heparin SQ -CODE STATUS: Executive Assistant To General Counsel Spent With Patient Time: Total time spent is greater than 50% in coordination of care (as documented) at patient's floor/unit and/or counseling patient: QUALITY VTE Deep Vein Thrombosis/Pulmonary Embolism Present on Admission: No
[2022-05-10] MEDS: LORazepam 2 MG/ML VIAL IV PRN (20:08)
[2022-05-10] MEDS ORDERED: HEPARIN 5,000 UNIT/ML VIAL SQ SCH (21:00)
[2022-05-11] MEDS: ACETAMINOPHEN 650 MG/65 ML BAG IV SCH ×3 (00:53→17:20)
[2022-05-11] MEDS: DEXTROSE 5%-LR 1,000 ML IV SCH ×3 (00:53→21:39)
[2022-05-11] MEDS: MEROPENEM 1 GM in 0.9 % SODIUM CHLORIDE 50 ML IV SCH ×3 (05:31→21:35)
[2022-05-11 06:32] LABS: Hematocrit 41.5 % (34.1-44.9); Hemoglobin 13.5 g/dL (11.2-15.7); Mean Cell Volume 93.5 fL (80.0-100.0); Mean Corpuscular HGB Conc 32.5 g/dL (31.0-36.0); Mean Platelet Volume 9.6 fL (8.8-12.5); Platelet Count 224 K/mcL (140-440); RBC 4.44 M/mcL (3.59-5.38); Red Cell Distribution Width 12.7 % (11.5-14.5); WBC 6.5 K/mcL (4.5-11.0)
[2022-05-11] MEDS: PANTOPRAZOLE 40 MG VIAL IV SCH ×2 (06:50→17:19)
[2022-05-11 07:09] LABS: ALT/SGPT 13 U/L (<40); AST/SGOT 16 U/L (<32); Albumin 2.9 gm/dL (3.2-5.2); Alkaline Phosphatase 87 U/L (39-117); Bilirubin,Direct < 0.2 mg/dL (0-0.3); Bilirubin,Total 0.4 mg/dL (0.1-1.0); Blood Urea Nitrogen 3 mg/dL (8-23); Calcium 8.9 mg/dL (8.6-10.4); Carbon Dioxide 28 mmol/L (22-30); Chloride 101 mmol/L (96-108); Globulin 2.9 gm/dL (2.2-3.7); Glomerular Filtration Rate 97; Glucose 134 mg/dL (70-105); Lactate Dehydrogenase 206 U/L (135-225); Phosphorous 2.6 mg/dL (2.5-4.5); Triglycerides 109 mg/dL (<150); Uric Acid 2.5 mg/dL (2.5-8.0)
[2022-05-11] MEDS: FLUTICASONE PROPIONATE SPRAY.NAS NS SCH ×2 (08:59→20:20)
[2022-05-11] MEDS: HEPARIN 5,000 UNIT/ML VIAL SQ SCH ×2 (09:17→20:18)
[2022-05-11] MEDS: CIPROFLOXACIN 400 MG/200 ML BAG IV SCH (09:26)
[2022-05-11] MEDS: METOCLOPRAMIDE 10 MG/2 ML VIAL IV PRN (12:12)
--- NOTE | 2022-05-11 12:25 | Internal Med Progress Note ---
SUBJECTIVE Subjective Patient information: Note initiated : 05/11/22 at 12:25 pm Service Date, if different from initiated Date: [] Patient: Jewell Campoverde 71 y/o F admitted on 05/07/22 for Exploratory Laparotomy, Lysis of Adhesions, . Chief Complaint: [] Interval history: Jewell Campoverde is a 71-year-old female with a history of hypertension, anxiety, GERD, tobacco use disorder, chronic pain on oxycodone, peripheral vascular disease, iatrogenic colonic perforation during colonoscopy in August 2021 requiring a emergent laparotomy for resection of the sigmoid colon, washout and end colostomy. The patient has been following with a general surgery since the colostomy placement and it was decided to perform a colostomy reversal. On 05/07/2022 the patient underwent surgery for colostomy reversal however intraoperatively the patient was found to have moderate adhesions, severe stricture of the remaining sigmoid colon and rectum in the surgery was complicated by a traumatic perforation of the rectal stricture. The patient had resection of the distal sigmoid colon, reestablishment of the end colostomy. Postoperatively, the patient was kept NPO. She did experience significant mount of abdominal pain that did not respond well to intermittent IV opioids therefore a Dilaudid ELECTROLYSIS INVESTIGATOR was started and the patient experienced better pain control. The patient had a nasogastric tube to suction and was kept n.p.o. pending recovery of bowel function. Hospital medicine was consulted to evaluate management the patient's chronic medical comorbidities. 05/10 Overnight the patient's blood pressure was moderately elevated, heart rate elevated as well. Started scheduled metoprolol IV every 6 hours as the patient remains n.p.o. Replaced low phosphorus with an IV rider. Patient is having some gas in her ostomy. She says her pain is adequately controlled. 05/11 Blood pressure elevated overnight, otherwise vitals are stable. Patient says her pain is well controlled. Electrolytes okay today. Physical exam Head: Atraumatic, normal inspection. Eyes: normal appearance, no scleral icterus. Neck: full ROM Respiratory: no respiratory distress. Cardiovascular: normal rate and rhythm, S1, S2. GI/Abdominal: Surgical incision covered with clean bandages, multiple abdominal drains, colostomy present, nasogastric tube present. : Indwelling Bernard catheter Extremities: full range of motion, nontender. Neurological: CN II-XII intact, intact motor, intact sensation. Psychiatric: normal mood. Skin: warm, normal color Constitutional Vitals: Vital Signs Temp Pulse Resp BP Pulse Ox O2 Del Method O2 Flow Rate 98.1 F 98 H 18 159/96 93 Room Air 0 05/11/22 12:14 05/11/22 12:14 05/11/22 12:14 05/11/22 12:14 05/11/22 12:14 05/11/22 12:14 05/09/22 18:30 Period Temp Pulse Resp BP Sys/Stiles Pulse Ox O2 Del Method O2 Flow Rate Last 24 Hr 98.1 F-99.5 F 88-98 16-20 153-172/96-114 91-97 Room Air-Room Air Intake and Output 05/11/22 05/11/22 05/11/22 03:59 11:59 19:59 Intake Total 365 1315 Output Total 2347.0 1110 Balance -1982.0 205 Weight 75.92 kg Intake & Output: Intake & Output 05/11/22 05/11/22 05/11/22 03:59 11:59 19:59 Intake Total 365 1315 Output Total 2347.0 1110 Balance -1982.0 205 Weight 75.92 kg Intake: IV 315 1315 Dextrose 5%-Lactated Ringers 1, 1000 000 ml @ 100 mls/hr IV .Q10H [facility] Rx#:[id number] Merrem 1 gm In Sodium Chloride 50 50 0.9% 50 ml @ 100 mls/hr IV Q8H [facility] Rx#:[id number] Oral 50 Output: Gastric Drainage 75 Left Nare NG/OG 75 Drainage 22.0 LLQ CHRISTINE C 7 RLQ CHRISTINE B 12.5 RUQ CHRISTINE A 2.5 Urine Catheter Amount 2250 1110 Other: Urine Appearance Clear Clear Uretheral (Bernard) Clear Urine Color Yellow Yellow Pale Uretheral (Bernard) Yellow Urine Odor Normal Uretheral (Bernard) Normal OBJ DATA Labs 05/11/22 05:23 05/11/22 05:23 Labs: Abnormal Lab Results 05/11/22 05/10/22 05/09/22 05:23 05:21 08:24 MCV MCHC Anion Gap 7.0 L 5.0 L 6.0 L BUN 3 L 4 L 6 L Creatinine 0.5 L Glucose 134 H 124 H 115 H Calcium 8.3 L 8.2 L Phosphorus 1.5 L Total Protein 5.8 L 5.5 L Albumin 2.9 L 2.8 L 05/09/22 05:37 MCV 104.3 H MCHC 30.1 L Anion Gap BUN Creatinine Glucose Calcium Phosphorus Total Protein Albumin Meds: Medications Albuterol Sulfate (Albuterol Sulfate 2.5 Mg/3 Ml Nebulizer) 2.5 mg NEB Q2HP PRN PRN Reason: Shortness Of Breath Diphenhydramine HCl (Diphenhydramine 50 Mg/Ml Vial) 25 mg IV Q8HP PRN PRN Reason: Allergic Symptoms Last Admin: 05/10/22 12:35 Dose: 25 mg Fluticasone Propionate (Fluticasone Propionate [place].Alfred) 1 spray NS BID [facility] Last Admin: 05/11/22 08:59 Dose: Not Given Heparin Sodium (Porcine) (Heparin 5,000 Unit/Ml Vial) 5,000 unit SQ Q12 [facility] Last Admin: 05/11/22 09:17 Dose: 5,000 unit Hydromorphone HCl (Hydromorphone 0.5 Mg/0.5 Ml Syringe) 0.5 - 1 mg IV Q1HP PRN; Protocol PRN Reason: Per Pain Protocol Last Admin: 05/09/22 10:14 Dose: 0.5 mg Hydromorphone HCl (Hydromorphone Thermodynamics Engineer 30 Mg/30 Ml Thermodynamics Engineer.Vial) 30 mg IV UD PRN; Protocol PRN Reason: Pain Last Admin: 05/09/22 11:16 Dose: 30 mg Ciprofloxacin (Cipro) 400 mg in 200 mls @ 200 mls/hr IV Q12H [facility]; Protocol Last Infusion: 05/11/22 10:30 Dose: Infused Acetaminophen (Ofirmev) 650 mg in 65 mls @ 130 mls/hr IV Q8H [facility]; Protocol Last Infusion: 05/11/22 09:50 Dose: Infused Meropenem 1 gm/ Sodium (Chloride) 50 mls @ 100 mls/hr IV Q8H [facility] Last Infusion: 05/11/22 06:08 Dose: Infused Dextrose/Lactated Ringer's (Dextrose 5%-Lactated Ringers) 1,000 mls @ 100 mls/hr IV .Q10H [facility] Last Admin: 05/11/22 12:04 Dose: 100 mls/hr Labetalol HCl (Labetalol 5 Mg/Ml Ml) 10 mg IV Q10M PRN PRN Reason: hypertension Lorazepam (Lorazepam 2 Mg/Ml Vial) 0.5 mg IV Q6HP PRN PRN Reason: ANXIETY/SEDATION Last Admin: 05/10/22 20:08 Dose: 0.5 mg Metoclopramide HCl (Metoclopramide 10 Mg/2 Ml Vial) 10 mg IV Q8HP PRN PRN Reason: Nausea And Vomiting Last Admin: 05/11/22 12:12 Dose: 10 mg Nicotine Polacrilex (Nicotine Polacrilex 2 Mg Gum) 2 mg CHEW/PARK Q4HP PRN PRN Reason: nicotine withdrawal Last Admin: 05/09/22 20:13 Dose: 2 mg Pantoprazole Sodium (Pantoprazole 40 Mg Vial) 40 mg IV BIDAC [facility] Last Admin: 05/11/22 06:50 Dose: 40 mg Phenol (Phenol/Sodium Phenolate 5 [place] Bottle 180ml) 5 spray SSP Q2HP PRN PRN Reason: Sore Throat Last Admin: 05/09/22 20:14 Dose: 5 spray A/P Narrative A/P Narrative: Assessment:71-year-old female with a history of hypertension, anxiety, GERD, tobacco use disorder, chronic pain on oxycodone, peripheral vascular disease, iatrogenic colonic perforation during colonoscopy in August 2021 requiring a emergent laparotomy for resection of the sigmoid colon, washout and end colostomy now admitted after attempted colostomy reversal on 05/07/2022. The patient was found to have a stricture in the remnant sigmoid colon and rectum. The surgery was complicated by traumatic perforation of the rectal stricture requiring a reestablishment of and end colostomy instead of reversal. #Status post exploratory laparotomy and reestablishment of end colostomy 05/07/2022 #Traumatic perforation of rectal stricture 05/07/2022 #Hypertension #Anxiety disorder #GERD #Chronic pain on oxycodone #Peripheral vascular disease #Tobacco use disorder Plan -Postoperative management, antibiotics, analgesics per general surgery. -Currently n.p.o. with NG tube. -Ativan IV as needed for anxiety. -Albuterol nebs as needed for SOB or wheezing. -Protonix IV for GERD. -Holding home lisinopril for now due to n.p.o. status. -Monitor and replace electrolytes as needed. -Nutrition consult. -If patient remains n.p.o. for a prolonged period consider TPN. -PT and OT. -Nicotine replacement as needed. -DVT prophylaxis: Heparin SQ -CODE STATUS: Damage Adjuster Spent With Patient Time: Total time spent is greater than 50% in coordination of care (as documented) at patient's floor/unit and/or counseling patient: QUALITY VTE Deep Vein Thrombosis/Pulmonary Embolism Present on Admission: No
--- NOTE | 2022-05-11 15:48 | General Surgery Progress Note ---
SUBJECTIVE Subjective Patient information: Note initiated : 05/11/22 at 915am Service Date, if different from initiated Date: [] Patient: Jewell Campoverde 71 y/o F admitted on 05/07/22 for Exploratory Laparotomy, Lysis of Adhesions, . Chief Complaint: [] Feels better this am, far less pain, getting more active Constitutional Vitals: Vital Signs Temp Pulse Resp BP Pulse Ox O2 Del Method O2 Flow Rate 98.1 F 98 H 18 159/96 93 Room Air 0 05/11/22 12:14 05/11/22 12:14 05/11/22 12:14 05/11/22 12:14 05/11/22 12:14 05/11/22 12:14 05/09/22 18:30 Period Temp Pulse Resp BP Sys/Stiles Pulse Ox O2 Del Method O2 Flow Rate Last 24 Hr 98.1 F-99.5 F 88-98 16-20 153-172/96-114 91-97 Room Air-Room Air Intake and Output 05/11/22 05/11/22 05/11/22 03:59 11:59 19:59 Intake Total 365 1315 Output Total 2347.0 1110 Balance -1982.0 205 Weight 167 lb 6 oz Intake & Output: Intake & Output 05/11/22 05/11/22 05/11/22 03:59 11:59 19:59 Intake Total 365 1315 Output Total 2347.0 1110 Balance -1982.0 205 Weight 167 lb 6 oz Intake: IV 315 1315 Dextrose 5%-Lactated Ringers 1, 1000 000 ml @ 100 mls/hr IV .Q10H [facility] Rx#:[id number] Merrem 1 gm In Sodium Chloride 50 50 0.9% 50 ml @ 100 mls/hr IV Q8H [facility] Rx#:[id number] Oral 50 Output: Gastric Drainage 75 Left Nare NG/OG 75 Drainage 22.0 LLQ CHRISTINE C 7 RLQ CHRISTINE B 12.5 RUQ CHRISTINE A 2.5 Urine Catheter Amount 2250 1110 Other: Urine Appearance Clear Clear Uretheral (Bernard) Clear Urine Color Yellow Yellow Pale Uretheral (Bernard) Yellow Urine Odor Normal Uretheral (Bernard) Normal Exam: looks well, NAD, non toxic Respiratory Additional comments: normal effort without distress Cardiovascular Cardiovascular exam: Present normal rate and rhythm GI/Abdominal Additional comments: belly is soft and non tender, dressings in place, JPDs in place and benign NGT is in place and functional Extremities Exam Additional comments: well perfused A/P Assessment and plan (1) Colostomy in place: Assessment and plan: POD #4 Post Sigmoid Resection with attempted Stomal Revision Pain control much improved D/C NGT Change abdominal dressings Increase activity and await ostomy function Status: Acute Time Spent With Patient Time: Total time spent is greater than 50% in coordination of care (as documented) at patient's floor/unit and/or counseling patient:
[2022-05-11] MEDS: LISINOPRIL 2.5 MG TABLET PO SCH (20:18)
[2022-05-11] MEDS: LORazepam 2 MG/ML VIAL IV PRN (20:18)
[2022-05-12] MEDS: ACETAMINOPHEN 650 MG/65 ML BAG IV SCH ×3 (01:11→17:31)
[2022-05-12] MEDS: DEXTROSE 5%-LR 1,000 ML IV SCH ×5 (02:08→23:23)
[2022-05-12] MEDS: MEROPENEM 1 GM in 0.9 % SODIUM CHLORIDE 50 ML IV SCH ×3 (05:10→21:21)
[2022-05-12 06:29] LABS: Hematocrit 40.3 % (34.1-44.9); Mean Cell Volume 95.7 fL (80.0-100.0); Mean Corpuscular HGB Conc 32.3 g/dL (31.0-36.0); Mean Platelet Volume 9.4 fL (8.8-12.5); Platelet Count 256 K/mcL (140-440); RBC 4.21 M/mcL (3.59-5.38); Red Cell Distribution Width 12.9 % (11.5-14.5); WBC 4.9 K/mcL (4.5-11.0)
[2022-05-12 07:45] LABS: ALT/SGPT 12 U/L (<40); AST/SGOT 15 U/L (<32); Albumin 2.4 gm/dL (3.2-5.2); Albumin/Globulin Ratio 0.7 (1.0-2.3); Alkaline Phosphatase 84 U/L (39-117); Bilirubin,Direct < 0.2 mg/dL (0-0.3); Bilirubin,Total 0.4 mg/dL (0.1-1.0); Blood Urea Nitrogen 5 mg/dL (8-23); Calcium 8.6 mg/dL (8.6-10.4); Carbon Dioxide 26 mmol/L (22-30); Chloride 102 mmol/L (96-108); Globulin 3.3 gm/dL (2.2-3.7); Glomerular Filtration Rate 97; Glucose 138 mg/dL (70-105); Lactate Dehydrogenase 208 U/L (135-225); Phosphorous 3.1 mg/dL (2.5-4.5); Triglycerides 142 mg/dL (<150); Uric Acid 2.4 mg/dL (2.5-8.0)
[2022-05-12] MEDS: PANTOPRAZOLE 40 MG VIAL IV SCH ×2 (07:56→16:14)
[2022-05-12] MEDS: FLUTICASONE PROPIONATE SPRAY.NAS NS SCH ×2 (08:05→19:46)
[2022-05-12] MEDS: HEPARIN 5,000 UNIT/ML VIAL SQ SCH ×2 (09:22→20:48)
--- NOTE | 2022-05-12 10:19 | Internal Med Progress Note ---
SUBJECTIVE Subjective Patient information: Note initiated : 05/12/22 at 10:17 am Service Date, if different from initiated Date: [] Patient: Jewell Campoverde 71 y/o F admitted on 05/07/22 for Exploratory Laparotomy, Lysis of Adhesions, . Chief Complaint: [] Interval history: Jewell Campoverde is a 71-year-old female with a history of hypertension, anxiety, GERD, tobacco use disorder, chronic pain on oxycodone, peripheral vascular disease, iatrogenic colonic perforation during colonoscopy in August 2021 requiring a emergent laparotomy for resection of the sigmoid colon, washout and end colostomy. The patient has been following with a general surgery since the colostomy placement and it was decided to perform a colostomy reversal. On 05/07/2022 the patient underwent surgery for colostomy reversal however intraoperatively the patient was found to have moderate adhesions, severe stricture of the remaining sigmoid colon and rectum in the surgery was complicated by a traumatic perforation of the rectal stricture. The patient had resection of the distal sigmoid colon, reestablishment of the end colostomy. Postoperatively, the patient was kept NPO. 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 The patient had a nasogastric tube to suction and was kept n.p.o. pending recovery of bowel function. Hospital medicine was consulted to evaluate management the patient's chronic medical comorbidities. 05/10 Overnight the patient's blood pressure was moderately elevated, heart rate elevated as well. Started scheduled metoprolol IV every 6 hours as the patient remains n.p.o. Replaced low phosphorus with an IV rider. Patient is having some gas in her ostomy. She says her pain is adequately controlled. 05/11 Blood pressure elevated overnight, otherwise vitals are stable. Patient says her pain is well controlled. Electrolytes okay today. Surgery ordered NT tube removal. 05/12 No changes overnight. Pain well controlled. Gas in Colostomy bag, no BM yet. Physical exam Head: Atraumatic, normal inspection. Eyes: normal appearance, no scleral icterus. Neck: full ROM Respiratory: no respiratory distress. Cardiovascular: normal rate and rhythm, S1, S2. GI/Abdominal: Surgical incision covered with clean bandages, multiple abdominal drains, colostomy present, nasogastric tube present. : Indwelling Bernard catheter Extremities: full range of motion, nontender. Neurological: CN II-XII intact, intact motor, intact sensation. Psychiatric: normal mood. Skin: warm, normal color Constitutional Vitals: Vital Signs Temp Pulse Resp BP Pulse Ox O2 Del Method O2 Flow Rate 99.0 F 90 18 155/95 94 Room Air 0 05/12/22 07:59 05/12/22 07:59 05/12/22 07:59 05/12/22 07:59 05/12/22 07:59 05/12/22 07:59 05/09/22 18:30 Period Temp Pulse Resp BP Sys/Stiles Pulse Ox O2 Del Method O2 Flow Rate Last 24 Hr 98.1 F-99.5 F 90-106 16-20 139-161/70-96 93-95 Room Air-Room Air Intake and Output 05/11/22 05/12/22 05/12/22 19:59 03:59 11:59 Intake Total 165 1115 1115 Output Total 1192 610 Balance -2060 183 9546 Weight 75.614 kg Intake & Output: Intake & Output 05/11/22 05/12/22 05/12/22 19:59 03:59 11:59 Intake Total 165 1115 1115 Output Total 1192 610 Balance -4330 350 5217 Weight 75.614 kg Intake: IV 115 1115 1115 Dextrose 5%-Lactated Ringers 1, 1000 1000 000 ml @ 100 mls/hr IV .Q10H [facility] Rx#:[id number] Merrem 1 gm In Sodium Chloride 50 50 50 0.9% 50 ml @ 100 mls/hr IV Q8H [facility] Rx#:[id number] Oral 50 Output: Gastric Drainage 100 Left Nare NG/OG 100 Drainage 10 LLQ CHRISTINE C 5 RLQ CHRISTINE B 2 RUQ CHRISTINE A 3 Drainage 17 LLQ CHRISTINE C 6 RLQ CHRISTINE B 9 RUQ CHRISTINE A 2 Urine Catheter Amount 1075 600 Other: Urine Appearance Clear Clear Clear Uretheral (Bernard) Clear Clear Urine Color Yellow Yellow Yellow Pale Pale Uretheral (Bernard) Yellow Yellow Urine Odor Normal Normal Normal Uretheral (Bernard) Normal OBJ DATA Labs 05/12/22 05:16 05/12/22 05:16 Labs: Abnormal Lab Results 05/12/22 05/11/22 05/10/22 05:16 05:23 05:21 Anion Gap 7.0 L 5.0 L BUN 5 L 3 L 4 L Creatinine 0.5 L 0.5 L Glucose 138 H 134 H 124 H Uric Acid 2.4 L Calcium 8.3 L Phosphorus 1.5 L Total Protein 5.7 L 5.8 L 5.5 L Albumin 2.4 L 2.9 L 2.8 L Albumin/Globulin Ratio 0.7 L Meds: Medications Albuterol Sulfate (Albuterol Sulfate 2.5 Mg/3 Ml Nebulizer) 2.5 mg NEB Q2HP PRN PRN Reason: Shortness Of Breath Diphenhydramine HCl (Diphenhydramine 50 Mg/Ml Vial) 25 mg IV Q8HP PRN PRN Reason: Allergic Symptoms Last Admin: 05/10/22 12:35 Dose: 25 mg Fluticasone Propionate (Fluticasone Propionate [place].Alfred) 1 spray NS BID [facility] Last Admin: 05/12/22 08:05 Dose: Not Given Heparin Sodium (Porcine) (Heparin 5,000 Unit/Ml Vial) 5,000 unit SQ Q12 [facility] Last Admin: 05/12/22 09:22 Dose: 5,000 unit Hydromorphone HCl (Hydromorphone 0.5 Mg/0.5 Ml Syringe) 0.5 - 1 mg IV Q1HP PRN; Protocol PRN Reason: Per Pain Protocol Last Admin: 05/09/22 10:14 Dose: 0.5 mg Hydromorphone HCl (Hydromorphone Milliner Helper 30 Mg/30 Ml Milliner Helper.Vial) 30 mg IV UD PRN; Protocol PRN Reason: Pain Last Admin: 05/09/22 11:16 Dose: 30 mg Acetaminophen (Ofirmev) 650 mg in 65 mls @ 130 mls/hr IV Q8H [facility]; Protocol Last Infusion: 05/12/22 10:05 Dose: Infused Meropenem 1 gm/ Sodium (Chloride) 50 mls @ 100 mls/hr IV Q8H [facility] Last Infusion: 05/12/22 05:40 Dose: Infused Dextrose/Lactated Ringer's (Dextrose 5%-Lactated Ringers) 1,000 mls @ 100 mls/hr IV .Q10H [facility] Last Admin: 05/12/22 09:35 Dose: 100 mls/hr Labetalol HCl (Labetalol 5 Mg/Ml Ml) 10 mg IV Q10M PRN PRN Reason: hypertension Lisinopril (Lisinopril 2.5 Mg Tablet) 2.5 mg PO HS [facility] Last Admin: 05/11/22 20:18 Dose: 2.5 mg Lorazepam (Lorazepam 2 Mg/Ml Vial) 0.5 mg IV Q6HP PRN PRN Reason: ANXIETY/SEDATION Last Admin: 05/11/22 20:18 Dose: 0.5 mg Metoclopramide HCl (Metoclopramide 10 Mg/2 Ml Vial) 10 mg IV Q8HP PRN PRN Reason: Nausea And Vomiting Last Admin: 05/11/22 12:12 Dose: 10 mg Nicotine Polacrilex (Nicotine Polacrilex 2 Mg Gum) 2 mg CHEW/PARK Q4HP PRN PRN Reason: nicotine withdrawal Last Admin: 05/09/22 20:13 Dose: 2 mg Pantoprazole Sodium (Pantoprazole 40 Mg Vial) 40 mg IV BIDAC [facility] Last Admin: 05/12/22 07:56 Dose: 40 mg Phenol (Phenol/Sodium Phenolate 5 [place] Bottle 180ml) 5 spray SSP Q2HP PRN PRN Reason: Sore Throat Last Admin: 05/09/22 20:14 Dose: 5 spray A/P Narrative A/P Narrative: Assessment:71-year-old female with a history of hypertension, anxiety, GERD, tobacco use disorder, chronic pain on oxycodone, peripheral vascular disease, iatrogenic colonic perforation during colonoscopy in August 2021 requiring a tiburcio gent laparotomy for resection of the sigmoid colon, washout and end colostomy now admitted after attempted colostomy reversal on 05/07/2022. The patient was found to have a stricture in the remnant sigmoid colon and rectum. The surgery was complicated by traumatic perforation of the rectal stricture requiring a reestablishment of and end colostomy instead of reversal. #Status post exploratory laparotomy and reestablishment of end colostomy 05/07/2022 #Traumatic perforation of rectal stricture 05/07/2022 #Hypertension #Anxiety disorder #GERD #Chronic pain on oxycodone #Peripheral vascular disease #Tobacco use disorder Plan -Postoperative management, antibiotics, analgesics per general surgery. -Currently n.p.o. per general surgery. -Ativan IV as needed for anxiety. -Albuterol nebs as needed for SOB or wheezing. -Protonix IV for GERD while NPO. -Holding home lisinopril for now due to n.p.o. status. -Monitor and replace electrolytes as needed. -Nutrition consult. -If patient remains n.p.o. for a prolonged period consider TPN. -PT and OT. -Nicotine replacement as needed. -DVT prophylaxis: Heparin SQ -CODE STATUS: Plan Rep Spent With Patient Time: Total time spent is greater than 50% in coordination of care (as documented) at patient's floor/unit and/or counseling patient: QUALITY VTE Deep Vein Thrombosis/Pulmonary Embolism Present on Admission: No
--- NOTE | 2022-05-12 11:32 | General Surgery Progress Note ---
SUBJECTIVE Subjective Patient information: Note initiated : 05/12/22 at 9:28 am Service Date, if different from initiated Date: [] Patient: Jewell Campoverde 71 y/o F admitted on 05/07/22 for Exploratory Laparotomy, Lysis of Adhesions, . Chief Complaint: [] Has felt much better, passing some gas via ostomy yesterday, midline incision looks good per nursing with dressing change yesterday Constitutional Vitals: Vital Signs Temp Pulse Resp BP Pulse Ox O2 Del Method O2 Flow Rate 99.0 F 90 18 155/95 94 Room Air 0 05/12/22 07:59 05/12/22 07:59 05/12/22 07:59 05/12/22 07:59 05/12/22 07:59 05/12/22 07:59 05/09/22 18:30 Period Temp Pulse Resp BP Sys/Stiles Pulse Ox O2 Del Method O2 Flow Rate Last 24 Hr 98.1 F-99.5 F 90-106 16-20 139-161/70-96 93-95 Room Air-Room Air Intake and Output 05/11/22 05/12/22 05/12/22 19:59 03:59 11:59 Intake Total 165 1115 1115 Output Total 1192 610 Balance -9253 715 0564 Weight 166 lb 11.2 oz Intake & Output: Intake & Output 05/11/22 05/12/22 05/12/22 19:59 03:59 11:59 Intake Total 165 1115 1115 Output Total 1192 610 Balance -8930 021 9423 Weight 166 lb 11.2 oz Intake: IV 115 1115 1115 Dextrose 5%-Lactated Ringers 1, 1000 1000 000 ml @ 100 mls/hr IV .Q10H [facility] Rx#:[id number] Merrem 1 gm In Sodium Chloride 50 50 50 0.9% 50 ml @ 100 mls/hr IV Q8H [facility] Rx#:[id number] Oral 50 Output: Gastric Drainage 100 Left Nare NG/OG 100 Drainage 10 LLQ CHRISTINE C 5 RLQ CHRISTINE B 2 RUQ CHRISTINE A 3 Drainage 17 LLQ CHRISTINE C 6 RLQ CHRISTINE B 9 RUQ CHRISTINE A 2 Urine Catheter Amount 1075 600 Other: Urine Appearance Clear Clear Clear Uretheral (Phan) Clear Clear Urine Color Yellow Yellow Yellow Pale Pale Uretheral (Phan) Yellow Yellow Urine Odor Normal Normal Normal Uretheral (Phan) Normal Exam: Looks well, non toxic, NAD, fully conversant Respiratory Additional comments: Normal effort without distress Cardiovascular Cardiovascular exam: Present normal rate and rhythm and RRR GI/Abdominal Additional comments: soft and non distended, non tender, drains benign, midline incision with dressing in place Extremities Exam Additional comments: well perfused A/P Assessment and plan (1) Colostomy in place: Assessment and plan: POD #5 Continuing to improve D/C phan today Start clears once ostomy functioning better Increase activity Status: Acute Time Spent With Patient Time: Total time spent is greater than 50% in coordination of care (as documented) at patient's floor/unit and/or counseling patient:
[2022-05-12] MEDS: LORazepam 2 MG/ML VIAL IV PRN (19:48)
[2022-05-12] MEDS: LISINOPRIL 2.5 MG TABLET PO SCH (20:48)
[2022-05-12] MEDS: HYDROmorphone 0.5 MG/0.5 ML SYRINGE IV PRN (21:21)
[2022-05-13] MEDS: ACETAMINOPHEN 650 MG/65 ML BAG IV SCH ×3 (00:44→17:38)
[2022-05-13] MEDS: LORazepam 2 MG/ML VIAL IV PRN ×2 (00:45→20:17)
[2022-05-13] MEDS: MEROPENEM 1 GM in 0.9 % SODIUM CHLORIDE 50 ML IV SCH ×3 (05:51→21:48)
[2022-05-13 06:24] LABS: Hematocrit 38.9 % (34.1-44.9); Hemoglobin 12.6 g/dL (11.2-15.7); Mean Cell Volume 95.3 fL (80.0-100.0); Mean Corpuscular HGB Conc 32.4 g/dL (31.0-36.0); Mean Platelet Volume 9.4 fL (8.8-12.5); Platelet Count 240 K/mcL (140-440); RBC 4.08 M/mcL (3.59-5.38); WBC 4.8 K/mcL (4.5-11.0)
[2022-05-13 06:45] LABS: Blood Urea Nitrogen 5 mg/dL (8-23); Calcium 8.4 mg/dL (8.6-10.4); Carbon Dioxide 26 mmol/L (22-30); Chloride 100 mmol/L (96-108); Glomerular Filtration Rate 97; Glucose 107 mg/dL (70-105)
[2022-05-13] MEDS: HYDROmorphone 0.5 MG/0.5 ML SYRINGE IV PRN ×3 (07:50→20:18)
[2022-05-13] MEDS: HEPARIN 5,000 UNIT/ML VIAL SQ SCH ×2 (08:55→20:17)
[2022-05-13] MEDS: PANTOPRAZOLE 40 MG VIAL IV SCH ×2 (08:55→17:38)
[2022-05-13] MEDS: diphenhydrAMINE 50 MG/ML VIAL IV PRN ×3 (09:00→20:17)
[2022-05-13] MEDS: FLUTICASONE PROPIONATE SPRAY.NAS NS SCH ×2 (09:01→20:22)
--- NOTE | 2022-05-13 09:27 | Internal Med Progress Note ---
SUBJECTIVE Subjective Patient information: Note initiated : 05/13/22 at 9:23 am Service Date, if different from initiated Date: [] Patient: Jewell Campoverde 71 y/o F admitted on 05/07/22 for Exploratory Laparotomy, Lysis of Adhesions, . Chief Complaint: [] Interval history: Jewell Campoverde is a 71-year-old female with a history of hypertension, anxiety, GERD, tobacco use disorder, chronic pain on oxycodone, peripheral vascular disease, iatrogenic colonic perforation during colonoscopy in August 2021 requiring a emergent laparotomy for resection of the sigmoid colon, washout and end colostomy. The patient has been following with a general surgery since the colostomy placement and it was decided to perform a colostomy reversal. On 05/07/2022 the patient underwent surgery for colostomy reversal however intraoperatively the patient was found to have moderate adhesions, severe stricture of the remaining sigmoid colon and rectum in the surgery was complicated by a traumatic perforation of the rectal stricture. The patient had resection of the distal sigmoid colon, reestablishment of the end colostomy. Postoperatively, the patient was kept NPO. 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 The patient had a nasogastric tube to suction and was kept n.p.o. pending recovery of bowel function. Hospital medicine was consulted to evaluate management the patient's chronic medical comorbidities. 05/10 Overnight the patient's blood pressure was moderately elevated, heart rate elevated as well. Started scheduled metoprolol IV every 6 hours as the patient remains n.p.o. Replaced low phosphorus with an IV rider. Patient is having some gas in her ostomy. She says her pain is adequately controlled. 05/11 Blood pressure elevated overnight, otherwise vitals are stable. Patient says her pain is well controlled. Electrolytes okay today. Surgery ordered NT tube removal. 05/12 No changes overnight. Pain well controlled. Gas in Colostomy bag, no BM yet. 05/13 No significant events overnight, high-grade temperatures but no fevers overnight. Blood pressure satisfactory. Labs stable this morning. Physical exam Head: Atraumatic, normal inspection. Eyes: normal appearance, no scleral icterus. Neck: full ROM Respiratory: no respiratory distress. Cardiovascular: normal rate : Indwelling Bernard catheter Extremities: full range of motion, nontender. Neurological: CN II-XII intact, intact motor, intact sensation. Psychiatric: normal mood. Skin: warm, normal color Constitutional Vitals: Vital Signs Temp Pulse Resp BP Pulse Ox O2 Del Method O2 Flow Rate 99.5 F H 92 H 16 148/85 98 Room Air 0 05/13/22 04:24 05/13/22 04:24 05/13/22 04:24 05/13/22 04:24 05/13/22 04:24 05/13/22 04:24 05/09/22 18:30 Period Temp Pulse Resp BP Sys/Stiles Pulse Ox O2 Del Method O2 Flow Rate Last 24 Hr 98.6 F-99.5 F 87-96 16-20 132-159/83-92 95-99 Room Air-Room Air Intake and Output 05/12/22 05/13/22 05/13/22 18:59 03:59 11:59 Intake Total 170 Output Total 7 Balance 163 Weight Intake & Output: Intake & Output 05/12/22 05/13/22 05/13/22 18:59 03:59 11:59 Intake Total 170 Output Total 7 Balance 163 Weight Intake: IV 50 Dextrose 5%-Lactated Ringers 1, 000 ml @ 100 mls/hr IV .Q10H [facility] Rx#:[id number] Merrem 1 gm In Sodium Chloride 50 0.9% 50 ml @ 100 mls/hr IV Q8H [facility] Rx#:[id number] Oral 120 Output: Drainage 7 LLQ CHRISTINE C 3 RLQ CHRISTINE B 2 RUQ CHRISTINE A 2 Drainage LLQ CHRISTINE C RLQ CHRISTINE B RUQ CHRISTINE A Urine Catheter Amount Other: Urine Appearance Urine Color Urine Odor OBJ DATA Labs 05/13/22 05:38 05/13/22 05:38 Labs: Abnormal Lab Results 05/13/22 05/12/22 05/11/22 05:38 05:16 05:23 Anion Gap 7.0 L BUN 5 L 5 L 3 L Creatinine 0.5 L 0.5 L 0.5 L Glucose 107 H 138 H 134 H Uric Acid 2.4 L Calcium 8.4 L Total Protein 5.7 L 5.8 L Albumin 2.4 L 2.9 L Albumin/Globulin Ratio 0.7 L Meds: Medications Albuterol Sulfate (Albuterol Sulfate 2.5 Mg/3 Ml Nebulizer) 2.5 mg NEB Q2HP PRN PRN Reason: Shortness Of Breath Diphenhydramine HCl (Diphenhydramine 50 Mg/Ml Vial) 25 mg IV Q8HP PRN PRN Reason: Allergic Symptoms Last Admin: 05/13/22 09:00 Dose: 25 mg Fluticasone Propionate (Fluticasone Propionate [place].Alfred) 1 spray NS BID [facility] Last Admin: 05/13/22 09:01 Dose: Not Given Heparin Sodium (Porcine) (Heparin 5,000 Unit/Ml Vial) 5,000 unit SQ Q12 [facility] Last Admin: 05/13/22 08:55 Dose: 5,000 unit Hydromorphone HCl (Hydromorphone 0.5 Mg/0.5 Ml Syringe) 0.5 - 1 mg IV Q1HP PRN; Protocol PRN Reason: Per Pain Protocol Last Admin: 05/13/22 07:50 Dose: 0.5 mg Acetaminophen (Ofirmev) 650 mg in 65 mls @ 130 mls/hr IV Q8H [facility]; Protocol Last Admin: 05/13/22 08:56 Dose: 130 mls/hr Meropenem 1 gm/ Sodium (Chloride) 50 mls @ 100 mls/hr IV Q8H [facility] Last Infusion: 05/13/22 07:00 Dose: Infused Dextrose/Lactated Ringer's (Dextrose 5%-Lactated Ringers) 1,000 mls @ 100 mls/hr IV .Q10H [facility] Last Admin: 05/12/22 23:23 Dose: Not Given Labetalol HCl (Labetalol 5 Mg/Ml Ml) 10 mg IV Q10M PRN PRN Reason: hypertension Lisinopril (Lisinopril 2.5 Mg Tablet) 2.5 mg PO HS [facility] Last Admin: 05/12/22 20:48 Dose: 2.5 mg Lorazepam (Lorazepam 2 Mg/Ml Vial) 0.5 mg IV Q6HP PRN PRN Reason: ANXIETY/SEDATION Last Admin: 05/13/22 00:45 Dose: 0.5 mg Metoclopramide HCl (Metoclopramide 10 Mg/2 Ml Vial) 10 mg IV Q8HP PRN PRN Reason: Nausea And Vomiting Last Admin: 05/11/22 12:12 Dose: 10 mg Nicotine Polacrilex (Nicotine Polacrilex 2 Mg Gum) 2 mg CHEW/PARK Q4HP PRN PRN Reason: nicotine withdrawal Last Admin: 05/09/22 20:13 Dose: 2 mg Pantoprazole Sodium (Pantoprazole 40 Mg Vial) 40 mg IV BIDAC [facility] Last Admin: 05/13/22 08:55 Dose: 40 mg Phenol (Phenol/Sodium Phenolate 5 [place] Bottle 180ml) 5 spray SSP Q2HP PRN PRN Reason: Sore Throat Last Admin: 05/09/22 20:14 Dose: 5 spray A/P Narrative A/P Narrative: Assessment:71-year-old female with a history of hypertension, anxiety, GERD, tobacco use disorder, chronic pain on oxycodone, peripheral vascular disease, iatrogenic colonic perforation during colonoscopy in August 2021 requiring a emergent laparotomy for resection of the sigmoid colon, washout and end colostomy now admitted after attempted colostomy reversal on 05/07/2022. The patient was found to have a stricture in the remnant sigmoid colon and rectum. The surgery was complicated by traumatic perforation of the rectal stricture requiring a reestablishment of and end colostomy instead of reversal. #Status post exploratory laparotomy and reestablishment of end colostomy 05/07/2022 #Iatrogenic traumatic perforation of rectal stricture during attempted colostomy reversal 05/07/2022 #Hypertension #Anxiety disorder #GERD #Chronic pain #Peripheral vascular disease #Tobacco use disorder Plan -Postoperative management, antibiotics, analgesics, diet per general surgery. -Ativan IV as needed for anxiety. -Albuterol nebs as needed for SOB or wheezing. -Protonix IV for GERD while NPO. -On home lisinopril. -Monitor and replace electrolytes as needed. -Monitor nutritional status, if the patient remains n.p.o. for a prolonged period consider TPN. -PT and OT. -Nicotine replacement as needed. 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
[2022-05-13] MEDS: DEXTROSE 5%-LR 1,000 ML IV SCH ×3 (09:56→23:55)
--- NOTE | 2022-05-13 17:48 | General Surgery Progress Note ---
SUBJECTIVE Subjective Patient information: Note initiated : 05/13/22 at 1100am Service Date, if different from initiated Date: [] Patient: Jewell Campoverde 71 y/o F admitted on 05/07/22 for Exploratory Laparotomy, Lysis of Adhesions, . Chief Complaint: [] Feels well, has had increasing stomal function, minimal pain Constitutional Vitals: Vital Signs Temp Pulse Resp BP Pulse Ox O2 Del Method O2 Flow Rate 98.5 F 85 18 141/89 96 Room Air 0 05/13/22 17:00 05/13/22 17:00 05/13/22 17:00 05/13/22 17:00 05/13/22 17:00 05/13/22 17:00 05/09/22 18:30 Period Temp Pulse Resp BP Sys/Stiles Pulse Ox O2 Del Method O2 Flow Rate Last 24 Hr 98.2 F-99.5 F 85-96 16-20 141-163/81-92 93-98 Room Air-Room Air Intake and Output 05/13/22 05/13/22 05/13/22 03:59 11:59 19:59 Intake Total 1235 Output Total 7 100 Balance 1228 -100 Weight Intake & Output: Intake & Output 05/13/22 05/13/22 05/13/22 03:59 11:59 19:59 Intake Total 1235 Output Total 7 100 Balance 1228 -100 Weight Intake: IV 1115 Dextrose 5%-Lactated Ringers 1, 1000 000 ml @ 100 mls/hr IV .Q10H [facility] Rx#:[id number] Merrem 1 gm In Sodium Chloride 50 0.9% 50 ml @ 100 mls/hr IV Q8H [facility] Rx#:[id number] Oral 120 Output: Drainage 7 LLQ CHRISTINE C 3 RLQ CHRISTINE B 2 RUQ CHRISTINE A 2 Void Amount 50 Stool 50 Other: Urine Appearance Clear Clear Urine Color Yellow Pale Urine Odor Normal Stool Color Brown Stool Consistency Liquid # Voids 4 Exam: looks well, no distress, conversant Respiratory Additional comments: normal effort without distress Cardiovascular Cardiovascular exam: Present normal rate and rhythm and RRR GI/Abdominal Additional comments: soft and non distended, drains in place and scant, ostomy looks good with some gas and stool Extremities Exam Additional comments: well perfused A/P Assessment and plan (1) Colostomy in place: Assessment and plan: POD #6 Continuing to improve Resume clears Increase activity Re check labs in AM Status: Acute Time Spent With Patient Time: Total time spent is greater than 50% in coordination of care (as documented) at patient's floor/unit and/or counseling patient:
[2022-05-13] MEDS: LISINOPRIL 2.5 MG TABLET PO SCH (20:17)
[2022-05-14] MEDS: ACETAMINOPHEN 650 MG/65 ML BAG IV SCH ×3 (02:03→17:33)
[2022-05-14] MEDS: MEROPENEM 1 GM in 0.9 % SODIUM CHLORIDE 50 ML IV SCH ×3 (05:19→23:19)
[2022-05-14] MEDS: DEXTROSE 5%-LR 1,000 ML IV SCH ×3 (05:38→11:17)
[2022-05-14 06:56] LABS: Hematocrit 39.1 % (34.1-44.9); Mean Cell Volume 92.4 fL (80.0-100.0); Mean Corpuscular HGB Conc 33.2 g/dL (31.0-36.0); Mean Platelet Volume 8.8 fL (8.8-12.5); Platelet Count 287 K/mcL (140-440); RBC 4.23 M/mcL (3.59-5.38); Red Cell Distribution Width 12.9 % (11.5-14.5); WBC 5.3 K/mcL (4.5-11.0)
[2022-05-14 07:20] LABS: Blood Urea Nitrogen 4 mg/dL (8-23); Calcium 8.6 mg/dL (8.6-10.4); Carbon Dioxide 28 mmol/L (22-30); Chloride 99 mmol/L (96-108); Glomerular Filtration Rate 105; Glucose 98 mg/dL (70-105)
[2022-05-14] MEDS: PANTOPRAZOLE 40 MG VIAL IV SCH ×2 (07:58→17:33)
[2022-05-14] MEDS: HEPARIN 5,000 UNIT/ML VIAL SQ SCH ×2 (09:15→20:12)
[2022-05-14] MEDS: FLUTICASONE PROPIONATE SPRAY.NAS NS SCH ×2 (09:21→20:59)
--- NOTE | 2022-05-14 11:11 | General Surgery Progress Note ---
SUBJECTIVE Subjective Patient information: Note initiated : 05/14/22 at 11:07 am Service Date, if different from initiated Date: [] Patient: Jewell Campoverde 71 y/o F admitted on 05/07/22 for Exploratory Laparotomy, Lysis of Adhesions, . Chief Complaint: [] Continues to feel much better, tolerating clears well with increasing stomal function. Minimal pain and ambulating well Constitutional Vitals: Vital Signs Temp Pulse Resp BP Pulse Ox O2 Del Method O2 Flow Rate 98.1 F 92 H 16 160/90 96 Room Air 0 05/14/22 07:37 05/14/22 07:37 05/14/22 07:37 05/14/22 07:37 05/14/22 07:37 05/14/22 07:37 05/09/22 18:30 Period Temp Pulse Resp BP Sys/Stiles Pulse Ox O2 Del Method O2 Flow Rate Last 24 Hr 98.1 F-99.0 F 78-96 16-18 141-162/81-92 95-97 Room Air-Room Air Intake and Output 05/13/22 05/14/22 05/14/22 19:59 03:59 11:59 Intake Total 8038 215 6451 Output Total 100 125 375 Balance 1015 -10 840 Weight 157 lb Intake & Output: Intake & Output 05/13/22 05/14/22 05/14/22 19:59 03:59 11:59 Intake Total 8955 489 6765 Output Total 100 125 375 Balance 1015 -10 840 Weight 157 lb Intake: IV 4506 508 2673 Dextrose 5%-Lactated Ringers 1, 1000 1000 000 ml @ 100 mls/hr IV .Q10H [facility] Rx#:[id number] Merrem 1 gm In Sodium Chloride 50 50 50 0.9% 50 ml @ 100 mls/hr IV Q8H [facility] Rx#:[id number] Oral 100 Output: Drainage 65 LLQ CHRISTINE C 15 RLQ CHRISTINE B 40 RUQ CHRISTINE A 10 Void Amount 50 125 100 Stool 50 210 Other: Urine Appearance Clear Clear Clear Urine Color Yellow Yellow Pale Pale Urine Odor Normal Normal Stool Size Small Stool Color Brown Brown Yellow Green Stool Consistency Liquid Soft Loose # Voids 4 1 1 # Bowel Movements 1 Exam: looks well, non toxic, NAD Respiratory Additional comments: normal effort without distress Cardiovascular Cardiovascular exam: Present RRR GI/Abdominal Additional comments: soft and non tender, non distended, drains scant and benign stomal output with gas and stool Extremities Exam Additional comments: well perfused A/P Assessment and plan (1) Colostomy in place: Assessment and plan: POD #7 Doing Well Remove RUQ Drain Advance to full liquids Increase activity Status: Acute Time Spent With Patient Time: Total time spent is greater than 50% in coordination of care (as documented) at patient's floor/unit and/or counseling patient:
[2022-05-14] MEDS: HYDROmorphone 0.5 MG/0.5 ML SYRINGE IV PRN ×2 (11:21→20:21)
[2022-05-14] MEDS: diphenhydrAMINE 50 MG/ML VIAL IV PRN ×2 (11:21→20:21)
--- NOTE | 2022-05-14 13:53 | Internal Med Progress Note ---
SUBJECTIVE Subjective Patient information: Note initiated : 05/14/22 at 1:52 pm Service Date, if different from initiated Date: [] Patient: Jewell Campoverde 71 y/o F admitted on 05/07/22 for Exploratory Laparotomy, Lysis of Adhesions, . Chief Complaint: [Colonic perforation] Principal diagnosis: Colonic perforation Interval history: The patient has output from her colostomy. She still has multiple CHRISTINE drains. Discussed the case with RN. Clinically speaking, the patient is doing well. Constitutional Vitals: Vital Signs Temp Pulse Resp BP Pulse Ox O2 Del Method O2 Flow Rate 99.1 F H 96 H 20 158/88 98 Room Air 0 05/14/22 11:51 05/14/22 11:51 05/14/22 11:51 05/14/22 11:51 05/14/22 11:51 05/14/22 11:51 05/09/22 18:30 Period Temp Pulse Resp BP Sys/Stiles Pulse Ox O2 Del Method O2 Flow Rate Last 24 Hr 98.1 F-99.1 F 78-96 16-20 141-162/82-92 95-98 Room Air-Room Air Intake and Output 05/14/22 05/14/22 05/14/22 03:59 11:59 19:59 Intake Total 115 1215 Output Total 125 375 350 Balance -10 840 -350 Weight 71.214 kg Patient Weight 05/15/22 03:59 Weight 71.214 kg Intake & Output: Intake & Output 05/14/22 05/14/22 05/14/22 03:59 11:59 19:59 Intake Total 115 1215 Output Total 125 375 350 Balance -10 840 -350 Weight 71.214 kg Intake: IV 115 1115 Dextrose 5%-Lactated Ringers 1, 1000 000 ml @ 100 mls/hr IV .Q10H [facility] Rx#:[id number] Merrem 1 gm In Sodium Chloride 50 50 0.9% 50 ml @ 100 mls/hr IV Q8H [facility] Rx#:[id number] Oral 100 Output: Drainage 65 LLQ CHRISTINE C 15 RLQ CHRISTINE B 40 RUQ CHRISTINE A 10 Void Amount 125 100 350 Stool 210 Other: Urine Appearance Clear Clear Clear Urine Color Yellow Pale Yellow Urine Odor Normal Normal Stool Size Small Stool Color Brown Yellow Green Stool Consistency Soft Loose # Voids 1 1 # Bowel Movements 1 Head Head exam: Present atraumatic and normal inspection Eye Eye exam: Present normal appearance ENT ENT exam: Present mucous membranes moist, normal exam and normal external ear exam Neck Neck exam: Present normal inspection Respiratory Respiratory exam: Present normal respiratory exam Cardiovascular Cardiovascular exam: Present normal rate and rhythm GI/Abdominal GI/Abdominal exam: Present normal bowel sounds Back Exam Back exam: Present normal inspection Neurological Exam Neurological exam: Present alert and oriented X3 Skin Skin exam: Present intact and warm OBJ DATA Labs 05/14/22 05:52 05/14/22 05:52 Labs: Abnormal Lab Results 05/14/22 05/13/22 05/12/22 05:52 05:38 05:16 BUN 4 L 5 L 5 L Creatinine 0.4 L 0.5 L 0.5 L Glucose 107 H 138 H Uric Acid 2.4 L Calcium 8.4 L Total Protein 5.7 L Albumin 2.4 L Albumin/Globulin Ratio 0.7 L Meds: Medications Albuterol Sulfate (Albuterol Sulfate 2.5 Mg/3 Ml Nebulizer) 2.5 mg NEB Q2HP PRN PRN Reason: Shortness Of Breath Diphenhydramine HCl (Diphenhydramine 50 Mg/Ml Vial) 25 mg IV Q8HP PRN PRN Reason: Allergic Symptoms Last Admin: 05/14/22 11:21 Dose: 25 mg Fluticasone Propionate (Fluticasone Propionate [place].Alfred) 1 spray NS BID [facility] Last Admin: 05/14/22 09:21 Dose: Not Given Heparin Sodium (Porcine) (Heparin 5,000 Unit/Ml Vial) 5,000 unit SQ Q12 [facility] Last Admin: 05/14/22 09:15 Dose: 5,000 unit Hydromorphone HCl (Hydromorphone 0.5 Mg/0.5 Ml Syringe) 0.5 - 1 mg IV Q1HP PRN; Protocol PRN Reason: Per Pain Protocol Last Admin: 05/14/22 11:21 Dose: 1 mg Acetaminophen (Ofirmev) 650 mg in 65 mls @ 130 mls/hr IV Q8H [facility]; Protocol Last Infusion: 05/14/22 10:38 Dose: Infused Meropenem 1 gm/ Sodium (Chloride) 50 mls @ 100 mls/hr IV Q8H [facility] Last Infusion: 05/14/22 06:00 Dose: Infused Dextrose/Lactated Ringer's (Dextrose 5%-Lactated Ringers) 1,000 mls @ 75 mls/hr IV .[id number] [facility] Last Admin: 05/14/22 11:17 Dose: 75 mls/hr Labetalol HCl (Labetalol 5 Mg/Ml Ml) 10 mg IV Q10M PRN PRN Reason: hypertension Lisinopril (Lisinopril 2.5 Mg Tablet) 2.5 mg PO HS [facility] Last Admin: 05/13/22 20:17 Dose: 2.5 mg Lorazepam (Lorazepam 2 Mg/Ml Vial) 0.5 mg IV Q6HP PRN PRN Reason: ANXIETY/SEDATION Last Admin: 05/13/22 20:17 Dose: 0.5 mg Metoclopramide HCl (Metoclopramide 10 Mg/2 Ml Vial) 10 mg IV Q8HP PRN PRN Reason: Nausea And Vomiting Last Admin: 05/11/22 12:12 Dose: 10 mg Nicotine Polacrilex (Nicotine Polacrilex 2 Mg Gum) 2 mg CHEW/PARK Q4HP PRN PRN Reason: nicotine withdrawal Last Admin: 05/09/22 20:13 Dose: 2 mg Pantoprazole Sodium (Pantoprazole 40 Mg Vial) 40 mg IV BIDAC [facility] Last Admin: 05/14/22 07:58 Dose: 40 mg Phenol (Phenol/Sodium Phenolate 5 [place] Bottle 180ml) 5 spray SSP Q2HP PRN PRN Reason: Sore Throat Last Admin: 05/09/22 20:14 Dose: 5 spray A/P Narrative A/P Narrative: Assessment:71-year-old female with a history of hypertension, anxiety, GERD, tobacco use disorder, chronic pain on oxycodone, peripheral vascular disease, iatrogenic colonic perforation during colonoscopy in August 2021 requiring a emergent laparotomy for resection of the sigmoid colon, washout and end colostomy now admitted after attempted colostomy reversal on 05/07/2022. The patient was found to have a stricture in the remnant sigmoid colon and rectum. The surgery was complicated by traumatic perforation of the rectal stricture requiring a reestablishment of and end colostomy instead of reversal. #Status post exploratory laparotomy and reestablishment of end colostomy 05/07/2022 #Iatrogenic traumatic perforation of rectal stricture during attempted colostomy reversal 05/07/2022 #Hypertension #Anxiety disorder #GERD #Chronic pain #Peripheral vascular disease #Tobacco use disorder Plan -Postoperative management, antibiotics, analgesics, diet per general surgery. -Ativan IV as needed for anxiety. -Albuterol nebs as needed for SOB or wheezing. -Protonix IV for GERD while NPO. -On home lisinopril. -Monitor and replace electrolytes as needed. -Monitor nutritional status -PT and OT. -Nicotine replacement as needed. 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
[2022-05-14] MEDS: LISINOPRIL 2.5 MG TABLET PO SCH (20:12)
[2022-05-14] MEDS: LORazepam 2 MG/ML VIAL IV PRN (20:21)
[2022-05-15] MEDS: ACETAMINOPHEN 650 MG/65 ML BAG IV SCH ×2 (02:28→08:36)
[2022-05-15] MEDS: DEXTROSE 5%-LR 1,000 ML IV SCH (04:41)
[2022-05-15] MEDS: MEROPENEM 1 GM in 0.9 % SODIUM CHLORIDE 50 ML IV SCH (05:21)
[2022-05-15] MEDS: METOCLOPRAMIDE 10 MG/2 ML VIAL IV PRN (06:00)
[2022-05-15 06:32] LABS: Hematocrit 39.1 % (34.1-44.9); Hemoglobin 12.7 g/dL (11.2-15.7); Mean Cell Volume 94.2 fL (80.0-100.0); Mean Corpuscular HGB Conc 32.5 g/dL (31.0-36.0); Mean Platelet Volume 8.8 fL (8.8-12.5); Platelet Count 313 K/mcL (140-440); RBC 4.15 M/mcL (3.59-5.38); Red Cell Distribution Width 13.1 % (11.5-14.5); WBC 5.8 K/mcL (4.5-11.0)
[2022-05-15 07:10] LABS: Blood Urea Nitrogen 3 mg/dL (8-23); Calcium 8.7 mg/dL (8.6-10.4); Carbon Dioxide 27 mmol/L (22-30); Chloride 100 mmol/L (96-108); Glomerular Filtration Rate 105; Glucose 119 mg/dL (70-105)
[2022-05-15] MEDS: PANTOPRAZOLE 40 MG VIAL IV SCH (08:36)
[2022-05-15] MEDS: HEPARIN 5,000 UNIT/ML VIAL SQ SCH ×2 (08:36→20:47)
[2022-05-15] MEDS: FLUTICASONE PROPIONATE SPRAY.NAS NS SCH ×2 (08:36→20:48)
--- NOTE | 2022-05-15 09:29 | Internal Med Progress Note ---
SUBJECTIVE Subjective Patient information: Note initiated : 05/15/22 at 9:28 am Service Date, if different from initiated Date: [] Patient: Jewell Campoverde 71 y/o F admitted on 05/07/22 for Exploratory Laparotomy, Lysis of Adhesions, . Chief Complaint: [] Principal diagnosis: Colonic perforation Interval history: Clinically stable. No active complaints or concerns. Constitutional Vitals: Vital Signs Temp Pulse Resp BP Pulse Ox O2 Del Method O2 Flow Rate 98.2 F 93 H 15 172/96 94 Room Air 0 05/15/22 06:56 05/15/22 06:56 05/15/22 06:56 05/15/22 06:56 05/15/22 06:56 05/15/22 06:56 05/09/22 18:30 Period Temp Pulse Resp BP Sys/Stiles Pulse Ox O2 Del Method O2 Flow Rate Last 24 Hr 98.2 F-99.3 F 88-96 15-20 154-172/83-96 94-99 Room Air-Room Air Intake and Output 05/14/22 05/15/22 05/15/22 19:59 03:59 11:59 Intake Total 115 1115 102 Output Total 388 740 450 Balance -273 375 -348 Weight 68.583 kg Intake & Output: Intake & Output 05/14/22 05/15/22 05/15/22 19:59 03:59 11:59 Intake Total 115 1115 102 Output Total 388 740 450 Balance -273 375 -348 Weight 68.583 kg Intake: IV 115 1115 102 Dextrose 5%-Lactated Ringers 1, 1000 000 ml @ 75 mls/hr IV .[id number] [facility] Rx#:[id number] Merrem 1 gm In Sodium Chloride 50 50 50 0.9% 50 ml @ 100 mls/hr IV Q8H [facility] Rx#:[id number] Output: Drainage 38 15 LLQ CHRISTINE C 10 5 RLQ CHRISTINE B 13 5 RUQ CHRISTINE A 15 5 Void Amount 350 625 450 Stool 100 Other: Urine Appearance Clear Clear Clear Urine Color Yellow Yellow Yellow Urine Odor Normal Stool Color Brown Stool Consistency Liquid Head Head exam: Present atraumatic and normal inspection Eye Eye exam: Present normal appearance ENT ENT exam: Present mucous membranes moist, normal exam and normal external ear exam Neck Neck exam: Present normal inspection Respiratory Respiratory exam: Present normal respiratory exam Cardiovascular Cardiovascular exam: Present normal rate and rhythm GI/Abdominal GI/Abdominal exam: Present normal bowel sounds Back Exam Back exam: Present normal inspection Neurological Exam Neurological exam: Present alert and oriented X3 Skin Skin exam: Present intact and warm OBJ DATA Labs 05/15/22 05:24 05/15/22 05:24 Labs: Abnormal Lab Results 05/15/22 05/14/22 05/13/22 05:24 05:52 05:38 BUN 3 L 4 L 5 L Creatinine 0.4 L 0.4 L 0.5 L Glucose 119 H 107 H Calcium 8.4 L Meds: Medications Albuterol Sulfate (Albuterol Sulfate 2.5 Mg/3 Ml Nebulizer) 2.5 mg NEB Q2HP PRN PRN Reason: Shortness Of Breath Diphenhydramine HCl (Diphenhydramine 50 Mg/Ml Vial) 25 mg IV Q8HP PRN PRN Reason: Allergic Symptoms Last Admin: 05/14/22 20:21 Dose: 25 mg Fluticasone Propionate (Fluticasone Propionate [place].Alfred) 1 spray NS BID [facility] Last Admin: 05/15/22 08:36 Dose: Not Given Heparin Sodium (Porcine) (Heparin 5,000 Unit/Ml Vial) 5,000 unit SQ Q12 [facility] Last Admin: 05/15/22 08:36 Dose: 5,000 unit Hydromorphone HCl (Hydromorphone 0.5 Mg/0.5 Ml Syringe) 0.5 - 1 mg IV Q1HP PRN; Protocol PRN Reason: Per Pain Protocol Last Admin: 05/14/22 20:21 Dose: 0.5 mg Acetaminophen (Ofirmev) 650 mg in 65 mls @ 130 mls/hr IV Q8H [facility]; Protocol Last Infusion: 05/15/22 09:00 Dose: 0 mls/hr Meropenem 1 gm/ Sodium (Chloride) 50 mls @ 100 mls/hr IV Q8H [facility] Last Infusion: 05/15/22 06:00 Dose: Infused Dextrose/Lactated Ringer's (Dextrose 5%-Lactated Ringers) 1,000 mls @ 75 mls/hr IV .[id number] [facility] Last Admin: 05/15/22 04:41 Dose: 75 mls/hr Labetalol HCl (Labetalol 5 Mg/Ml Ml) 10 mg IV Q10M PRN PRN Reason: hypertension Lisinopril (Lisinopril 2.5 Mg Tablet) 2.5 mg PO HS [facility] Last Admin: 05/14/22 20:12 Dose: 2.5 mg Lorazepam (Lorazepam 2 Mg/Ml Vial) 0.5 mg IV Q6HP PRN PRN Reason: ANXIETY/SEDATION Last Admin: 05/14/22 20:21 Dose: 0.5 mg Metoclopramide HCl (Metoclopramide 10 Mg/2 Ml Vial) 10 mg IV Q8HP PRN PRN Reason: Nausea And Vomiting Last Admin: 05/15/22 06:00 Dose: 10 mg Nicotine Polacrilex (Nicotine Polacrilex 2 Mg Gum) 2 mg CHEW/PARK Q4HP PRN PRN Reason: nicotine withdrawal Last Admin: 05/09/22 20:13 Dose: 2 mg Pantoprazole Sodium (Pantoprazole 40 Mg Vial) 40 mg IV BIDAC [facility] Last Admin: 05/15/22 08:36 Dose: 40 mg Phenol (Phenol/Sodium Phenolate 5 [place] Bottle 180ml) 5 spray SSP Q2HP PRN PRN Reason: Sore Throat Last Admin: 05/09/22 20:14 Dose: 5 spray A/P Narrative A/P Narrative: Assessment:71-year-old female with a history of hypertension, anxiety, GERD, tobacco use disorder, chronic pain on oxycodone, peripheral vascular disease, ia trogenic colonic perforation during colonoscopy in August 2021 requiring a emergent laparotomy for resection of the sigmoid colon, washout and end colostomy now admitted after attempted colostomy reversal on 05/07/2022. The patient was found to have a stricture in the remnant sigmoid colon and rectum. The surgery was complicated by traumatic perforation of the rectal stricture requiring a reestablishment of and end colostomy instead of reversal. #Status post exploratory laparotomy and reestablishment of end colostomy 05/07/2022 #Iatrogenic traumatic perforation of rectal stricture during attempted colostomy reversal 05/07/2022 #Hypertension #Anxiety disorder #GERD #Chronic pain #Peripheral vascular disease #Tobacco use disorder Plan -Postoperative management, antibiotics, analgesics, diet per general surgery. -Ativan IV as needed for anxiety. -Albuterol nebs as needed for SOB or wheezing. -Protonix IV for GERD while NPO. -On home lisinopril. -Monitor and replace electrolytes as needed. -Monitor nutritional status -PT and OT. -Nicotine replacement as needed. 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
[2022-05-15] MEDS ORDERED: HYDROmorphone 0.5 MG/0.5 ML SYRINGE IM PRN (10:44)
--- NOTE | 2022-05-15 16:36 | General Surgery Progress Note ---
SUBJECTIVE Subjective Patient information: Note initiated : 05/15/22 at 4:29 pm Service Date, if different from initiated Date: [] Patient: Jewell Campoverde 71 y/o F admitted on 05/07/22 for Exploratory Laparotomy, Lysis of Adhesions, . Chief Complaint: [] Continues to feel much improved, eating now with good stomal function Principal diagnosis: Colonic perforation Constitutional Vitals: Vital Signs Temp Pulse Resp BP Pulse Ox O2 Del Method O2 Flow Rate 98.3 F 89 15 143/95 99 Room Air 0 05/15/22 11:00 05/15/22 11:00 05/15/22 11:00 05/15/22 11:00 05/15/22 11:00 05/15/22 11:00 05/09/22 18:30 Period Temp Pulse Resp BP Sys/Stiles Pulse Ox O2 Del Method O2 Flow Rate Last 24 Hr 98.2 F-99.1 F 88-93 15-20 143-172/83-96 94-99 Room Air-Room Air Intake and Output 05/15/22 05/15/22 05/15/22 03:59 11:59 19:59 Intake Total 8238 011 1453 Output Total 740 450 Balance 375 -348 1000 Intake & Output: Intake & Output 05/15/22 05/15/22 05/15/22 03:59 11:59 19:59 Intake Total 8814 644 2311 Output Total 740 450 Balance 375 -348 1000 Intake: IV 0955 402 5760 Dextrose 5%-Lactated Ringers 1, 1000 1000 000 ml @ 100 mls/hr IV .Q10H [facility] Rx#:[id number] Merrem 1 gm In Sodium Chloride 50 50 0.9% 50 ml @ 100 mls/hr IV Q8H [facility] Rx#:[id number] Output: Drainage 15 LLQ CHRISTINE C 5 RLQ CHRISTINE B 5 RUQ CHRISTINE A 5 Void Amount 625 450 Stool 100 Other: Urine Appearance Clear Clear Urine Color Yellow Yellow Urine Odor Normal Stool Size Moderate Stool Color Brown Brown Stool Consistency Liquid Liquid Exam: Looks well, NAD Respiratory Respiratory exam: Present normal respiratory exam Cardiovascular Cardiovascular exam: Present normal rate and rhythm GI/Abdominal Additional comments: ostomy functioning well, drains benign, dressing in place Extremities Exam Additional comments: well perfused A/P Assessment and plan (1) Colostomy in place: Plan: POD #8 Doing Well Advance Diet Transition to orals with blown IV Nursing unable to remove RUQ JPD and patient had significant pain with attempt - will attempt removal with sedation prior to discharge and if unable to removed will have to consider proceeding to the OR for focal intra abdominal exploration and removal or home with drain and attempted removal at a later date as an outpatient Status: Acute Time Spent With Patient Time: Total time spent is greater than 50% in coordination of care (as documented) at patient's floor/unit and/or counseling patient:
[2022-05-15] MEDS ORDERED: diphenhydrAMINE 25 MG CAPSULE PO SCH (16:45)
[2022-05-15] MEDS: diphenhydrAMINE 25 MG CAPSULE PO PRN (17:24)
[2022-05-15] MEDS: HYDROcodone/APAP 5/325MG TABLET PO PRN (17:24)
[2022-05-15] MEDS: LISINOPRIL 2.5 MG TABLET PO SCH (20:48)
[2022-05-15] MEDS: AMOXICILLIN/POTASSIUM CLAV 875 MG TABLET PO SCH (20:48)
[2022-05-15] MEDS: ALPRAZolam 0.5 MG TABLET PO PRN (20:54)
[2022-05-15] MEDS ORDERED: metroNIDAZOLE 500 MG TABLET PO ONE (22:47)
[2022-05-15] MEDS ORDERED: CIPROFLOXACIN 500 MG TABLET PO ONE (22:47)
[2022-05-15] MEDS: CIPROFLOXACIN 500 MG TABLET PO SCH (22:49)
[2022-05-15] MEDS: metroNIDAZOLE 500 MG TABLET PO SCH (22:49)
[2022-05-16] MEDS: HYDROcodone/APAP 5/325MG TABLET PO PRN ×2 (03:13→20:32)
[2022-05-16] MEDS: diphenhydrAMINE 25 MG CAPSULE PO PRN ×2 (03:14→20:33)
[2022-05-16] MEDS: metroNIDAZOLE 500 MG TABLET PO ONE ×2 (05:45→05:46)
[2022-05-16] MEDS: metroNIDAZOLE 500 MG TABLET PO SCH ×3 (05:46→22:55)
[2022-05-16 06:28] LABS: Hematocrit 37.4 % (34.1-44.9); Hemoglobin 12.3 g/dL (11.2-15.7); Mean Cell Volume 94.2 fL (80.0-100.0); Mean Corpuscular HGB Conc 32.9 g/dL (31.0-36.0); Mean Platelet Volume 8.6 fL (8.8-12.5); Platelet Count 338 K/mcL (140-440); RBC 3.97 M/mcL (3.59-5.38); Red Cell Distribution Width 13.2 % (11.5-14.5)
[2022-05-16 06:55] LABS: Blood Urea Nitrogen 8 mg/dL (8-23); Calcium 8.8 mg/dL (8.6-10.4); Carbon Dioxide 30 mmol/L (22-30); Chloride 101 mmol/L (96-108); Glomerular Filtration Rate 97; Glucose 97 mg/dL (70-105)
[2022-05-16] MEDS: PANTOPRAZOLE 40 MG TABLET PO SCH (07:26)
[2022-05-16] MEDS: CIPROFLOXACIN 500 MG TABLET PO SCH ×2 (09:16→20:32)
[2022-05-16] MEDS: HEPARIN 5,000 UNIT/ML VIAL SQ SCH ×2 (09:17→20:32)
--- NOTE | 2022-05-16 09:18 | Internal Med Progress Note ---
SUBJECTIVE Subjective Patient information: Note initiated : 05/16/22 at 9:17 am Service Date, if different from initiated Date: [] Patient: Jewell Campoverde 71 y/o F admitted on 05/07/22 for Exploratory Laparotomy, Lysis of Adhesions, . Chief Complaint: [] Principal diagnosis: Colonic perforation Interval history: No active complaints or concerns. Clinically stable Constitutional Vitals: Vital Signs Temp Pulse Resp BP Pulse Ox O2 Del Method O2 Flow Rate 97.9 F 83 16 114/83 97 Room Air 0 05/16/22 07:30 05/16/22 07:30 05/16/22 02:54 05/16/22 07:30 05/16/22 07:30 05/16/22 07:30 05/09/22 18:30 Period Temp Pulse Resp BP Sys/Stiles Pulse Ox O2 Del Method O2 Flow Rate Last 24 Hr 97.7 F-100.0 F 83-105 15-18 114-160/79-95 95-100 Room Air-Room Air Intake and Output 05/15/22 05/16/22 05/16/22 19:59 03:59 11:59 Intake Total 2120 200 Output Total 515 273 Balance 1605 -273 200 Weight 68.175 kg Intake & Output: Intake & Output 05/15/22 05/16/22 05/16/22 19:59 03:59 11:59 Intake Total 2120 200 Output Total 515 273 Balance 1605 -273 200 Weight 68.175 kg Intake: IV 2000 Dextrose 5%-Lactated Ringers 1, 2000 000 ml @ 75 mls/hr IV .[id number] [facility] Rx#:[id number] Oral 120 200 Output: Drainage 15 8 LLQ CHRISTINE C 5 3 RLQ CHRISTINE B 5 3 RUQ CHRISTINE A 5 2 Void Amount 500 250 Stool 15 Other: Meal Dinner Breakfast Percent of Meal Consumed 75% 100% Feeding Ability Independent Independent Urine Appearance Clear Clear Urine Color Yellow Yellow Urine Odor Normal Stool Size Smear Stool Color Brown Stool Consistency Liquid Head Head exam: Present atraumatic and normal inspection Eye Eye exam: Present normal appearance ENT ENT exam: Present mucous membranes moist, normal exam and normal external ear exam Neck Neck exam: Present normal inspection Respiratory Respiratory exam: Present normal respiratory exam Cardiovascular Cardiovascular exam: Present normal rate and rhythm GI/Abdominal GI/Abdominal exam: Present normal bowel sounds Back Exam Back exam: Present normal inspection Neurological Exam Neurological exam: Present alert and oriented X3 Skin Skin exam: Present intact and warm OBJ DATA Labs 05/16/22 05:30 05/16/22 05:30 Labs: Abnormal Lab Results 05/16/22 05/16/22 05/15/22 05:30 05:30 05:24 MPV 8.6 L BUN 3 L Creatinine 0.5 L 0.4 L Glucose 119 H 05/14/22 05:52 MPV BUN 4 L Creatinine 0.4 L Glucose Meds: Medications Hydrocodone Bitart/Acetaminophen (Hydrocodone/Apap 5/325mg Tablet) 1 - 2 tab PO Q4-6HP PRN; Protocol PRN Reason: Per Pain Protocol Last Admin: 05/16/22 03:13 Dose: 1 tab Albuterol Sulfate (Albuterol Sulfate 2.5 Mg/3 Ml Nebulizer) 2.5 mg NEB Q2HP PRN PRN Reason: Shortness Of Breath Alprazolam (Alprazolam 0.5 Mg Tablet) 2 mg PO HSP PRN PRN Reason: Insomnia Last Admin: 05/15/22 20:54 Dose: 2 mg Amoxicillin/Clavulanate Potassium (Amoxicillin/Potassium Clav 875 Mg Tablet) 875 mg PO BID [facility]; Protocol Last Admin: 05/15/22 20:48 Dose: 875 mg Ciprofloxacin (Ciprofloxacin 500 Mg Tablet) 500 mg PO BID [facility]; Protocol Last Admin: 05/15/22 22:49 Dose: 500 mg Diphenhydramine HCl (Diphenhydramine 25 Mg Capsule) 25 mg PO Q8HP PRN PRN Reason: Allergic Symptoms Last Admin: 05/16/22 03:14 Dose: 25 mg Fluticasone Propionate (Fluticasone Propionate [place].Alfred) 1 spray NS BID [facility] Last Admin: 05/15/22 20:48 Dose: Not Given Heparin Sodium (Porcine) (Heparin 5,000 Unit/Ml Vial) 5,000 unit SQ Q12 [facility] Last Admin: 05/15/22 20:47 Dose: 5,000 unit Hydromorphone HCl (Hydromorphone 0.5 Mg/0.5 Ml Syringe) 0.5 - 1 mg IM Q1HP PRN; Protocol PRN Reason: Per Pain Protocol Labetalol HCl (Labetalol 5 Mg/Ml Ml) 10 mg IV Q10M PRN PRN Reason: hypertension Lisinopril (Lisinopril 2.5 Mg Tablet) 2.5 mg PO HS [facility] Last Admin: 05/15/22 20:48 Dose: 2.5 mg Metoclopramide HCl (Metoclopramide 10 Mg/2 Ml Vial) 10 mg IV Q8HP PRN PRN Reason: Nausea And Vomiting Last Admin: 05/15/22 06:00 Dose: 10 mg Metronidazole (Metronidazole 500 Mg Tablet) 500 mg PO Q8 [facility]; Protocol Last Admin: 05/16/22 05:46 Dose: 500 mg Nicotine Polacrilex (Nicotine Polacrilex 2 Mg Gum) 2 mg CHEW/PARK Q4HP PRN PRN Reason: nicotine withdrawal Last Admin: 05/09/22 20:13 Dose: 2 mg Pantoprazole Sodium (Pantoprazole 40 Mg Tablet) 40 mg PO QAMAC [facility] Last Admin: 05/16/22 07:26 Dose: 40 mg Phenol (Phenol/Sodium Phenolate 5 [place] Bottle 180ml) 5 spray SSP Q2HP PRN PRN Reason: Sore Throat Last Admin: 05/09/22 20:14 Dose: 5 spray A/P Narrative A/P Narrative: Assessment:71-year-old female with a history of hypertension, anxiety, GERD, tobacco use disorder, chronic pain on oxycodone, peripheral vascular disease, i atrogenic colonic perforation during colonoscopy in August 2021 requiring a emergent laparotomy for resection of the sigmoid colon, washout and end colostomy now admitted after attempted colostomy reversal on 05/07/2022. The patient was found to have a stricture in the remnant sigmoid colon and rectum. The surgery was complicated by traumatic perforation of the rectal stricture requiring a reestablishment of and end colostomy instead of reversal. #Status post exploratory laparotomy and reestablishment of end colostomy 05/07/2022 #Iatrogenic traumatic perforation of rectal stricture during attempted colostomy reversal 05/07/2022 #Hypertension #Anxiety disorder #GERD #Chronic pain #Peripheral vascular disease #Tobacco use disorder Plan -Postoperative management, antibiotics, analgesics, diet per general surgery. -Ativan IV as needed for anxiety. -Albuterol nebs as needed for SOB or wheezing. -Protonix IV for GERD while NPO. -On home lisinopril. -Monitor and replace electrolytes as needed. -Monitor nutritional status -PT and OT. -Nicotine replacement as needed. 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
[2022-05-16] MEDS: AMOXICILLIN/POTASSIUM CLAV 875 MG TABLET PO SCH ×2 (09:25→20:34)
[2022-05-16] MEDS: FLUTICASONE PROPIONATE SPRAY.NAS NS SCH ×2 (11:01→20:35)
--- NOTE | 2022-05-16 15:42 | General Surgery Progress Note ---
SUBJECTIVE Subjective Patient information: Note initiated : 05/16/22 at 3:37 pm Service Date, if different from initiated Date: [] Patient: Jewell Campoverde 71 y/o F admitted on 05/07/22 for Removal of Drain under Conscious Sedation, . Chief Complaint: [] Continues to feel well, passing large amounts of gas via ostomy, minimal pain Principal diagnosis: Colonic perforation Constitutional Vitals: Vital Signs Temp Pulse Resp BP Pulse Ox O2 Del Method O2 Flow Rate 97.9 F 88 16 102/54 97 Room Air 0 05/16/22 11:00 05/16/22 11:00 05/16/22 02:54 05/16/22 11:00 05/16/22 11:00 05/16/22 11:00 05/09/22 18:30 Period Temp Pulse Resp BP Sys/Stiles Pulse Ox O2 Del Method O2 Flow Rate Last 24 Hr 97.7 F-100.0 F 83-102 16-18 102-143/54-83 96-100 Room Air-Room Air Intake and Output 05/16/22 05/16/22 05/16/22 03:59 11:59 19:59 Intake Total 200 240 Output Total 273 15 Balance -273 185 240 Intake & Output: Intake & Output 05/16/22 05/16/22 05/16/22 03:59 11:59 19:59 Intake Total 200 240 Output Total 273 15 Balance -273 185 240 Intake: Oral 200 240 Output: Drainage 8 15 LLQ CHRISTINE C 3 RLQ CHRISTINE B 3 5 RUQ CHRISTINE A 2 10 Void Amount 250 Stool 15 Other: Meal Breakfast Lunch Percent of Meal Consumed 100% 100% Feeding Ability Independent Independent Urine Appearance Clear Urine Color Yellow Urine Odor Normal Stool Size Smear Stool Color Brown Stool Consistency Liquid Exam: Looks well, fully conversant, non toxic Respiratory Additional comments: normal effort without distress Cardiovascular Cardiovascular exam: Present normal rate and rhythm GI/Abdominal Additional comments: belly is soft and non distended, non tender, drains scant and benign Extremities Exam Additional comments: well perfused A/P Assessment and plan (1) Colostomy in place: Assessment and plan: POD #9 Doing Well Current plan is to remove drains under some sedation in the OR tomorrow and if RUQ drain is retained to proceed with intra operative removal and likely removal of remaining drains as well Continue to advance diet and increase activity - will place IV in OR tomorrow Status: Acute Time Spent With Patient Time: Total time spent is greater than 50% in coordination of care (as documented) at patient's floor/unit and/or counseling patient:
--- NOTE | 2022-05-16 19:39 | XRay Report ---
HISTORY: Removal of drain under conscious sedation, evaluate for ileus FINDINGS: The bowel pattern is normal without evidence of ileus or obstruction. There is an ostomy in the left upper quadrant. Patient has two drains. One is looped in the lower pelvis with the tip overlying the left SI joint. There is a second catheter with the tip in the left upper quadrant overlying the spleen. There are multiple surgical skin camden in the midline. IMPRESSION: Normal bowel pattern Interpreted and Authenticated by: El Perea 05/16/22
[2022-05-16] MEDS: ALPRAZolam 0.5 MG TABLET PO PRN (20:31)
[2022-05-16] MEDS: LISINOPRIL 2.5 MG TABLET PO SCH (20:32)
[2022-05-17] MEDS ORDERED: LACTATED RINGERS 1,000 ML IV ONE (03:33)
[2022-05-17] MEDS ORDERED: LACTATED RINGERS 1,000 ML IV SCH ×2 (04:45→08:15)
[2022-05-17] MEDS: metroNIDAZOLE 500 MG TABLET PO SCH ×2 (05:49→06:09)
[2022-05-17 06:26] LABS: Basophils # (Auto) 0.08 K/mcL (0.00-0.30); Basophils % (Auto) 1.2 % (0.0-2.0); Eosinophils # (Auto) 0.49 K/mcL (0.00-0.70); Eosinophils % (Auto) 7.2 % (0.0-7.0); Hematocrit 33.7 % (34.1-44.9); Hemoglobin 10.7 g/dL (11.2-15.7); Lymphocytes # (Auto) 1.92 K/mcL (1.50-4.80); Lymphocytes % (Auto) 28.2 % (15.5-49.0); Mean Cell Volume 98.5 fL (80.0-100.0); Mean Corpuscular HGB Conc 31.8 g/dL (31.0-36.0); Mean Platelet Volume 8.7 fL (8.8-12.5); Monocytes # (Auto) 0.55 K/mcL (0.10-0.90); Monocytes % (Auto) 8.1 % (1.0-12.0); Neutrophils % (Auto) 54.4 % (38.0-78.0); Platelet Count 305 K/mcL (140-440); RBC 3.42 M/mcL (3.59-5.38); Red Cell Distribution Width 13.9 % (11.5-14.5); WBC 6.8 K/mcL (4.5-11.0)
[2022-05-17 06:52] LABS: Blood Urea Nitrogen 15 mg/dL (8-23); Calcium 8.4 mg/dL (8.6-10.4); Carbon Dioxide 26 mmol/L (22-30); Chloride 102 mmol/L (96-108); Glomerular Filtration Rate 57; Glucose 128 mg/dL (70-105)
[2022-05-17] MEDS ORDERED: fentaNYL 100 MCG/2 ML VIAL IV ONE (07:38)
[2022-05-17] MEDS ORDERED: MIDAZOLAM 2 MG/2 ML VIAL ONE (07:38)
[2022-05-17] MEDS ORDERED: PROPOFOL 200 MG/20 ML VIAL IV ONE (07:38)
[2022-05-17] MEDS ORDERED: LIDOCAINE HCL/PF 100 MG/5 ML SYRINGE IV ONE (07:38)
[2022-05-17] MEDS ORDERED: KETAMINE 50 MG/ML Syringe (ANEST) IV ONE (07:38)
[2022-05-17] MEDS ORDERED: ceFAZolin 2 GM in DEXTROSE 5% IN WATER 50 ML IV SCH (07:45)
[2022-05-17] MEDS ORDERED: ONDANSETRON 4 MG/2 ML VIAL IV PRN (08:02)
[2022-05-17] MEDS ORDERED: LABETALOL 5 MG/ML ML IV PRN (08:02)
[2022-05-17] MEDS ORDERED: METOPROLOL TARTRATE 5 MG/5 ML VIAL IV PRN (08:02)
[2022-05-17] MEDS ORDERED: NALOXONE HCL 0.4 MG/ML VIAL IV PRN (08:02)
[2022-05-17] MEDS ORDERED: METHOCARBAMOL 1,000 MG/10 ML VIAL IV PRN (08:02)
[2022-05-17] MEDS ORDERED: LACTATED RINGERS 250 ML IV PRN (08:02)
[2022-05-17] MEDS ORDERED: MEPERIDINE 25 MG/ML VIAL IV PRN (08:02)
[2022-05-17] MEDS ORDERED: IPRATROPIUM/ALBUTEROL 3 ML AMPUL.NEB NEB PRN (08:02)
[2022-05-17] MEDS ORDERED: ACETAMINOPHEN 1,000 MG/100 ML BAG IV ONE (08:02)
[2022-05-17] MEDS ORDERED: FLUMAZENIL 0.1 MG/ML ML IV PRN (08:02)
[2022-05-17] MEDS: FLUTICASONE PROPIONATE SPRAY.NAS NS SCH ×2 (09:58→20:59)
[2022-05-17] MEDS: PANTOPRAZOLE 40 MG TABLET PO SCH (09:58)
--- NOTE | 2022-05-17 09:58 | Brief Operative Note ---
Brief Operative Note Date of procedure: 05/17/22 Pre-op diagnosis: Sedation for Drain Removal Post-op diagnosis: same Procedure: Drain Removal under Conscious Sedation Grafts/Implants: No Anesthesia: conscious sedation Findings: RUQ Drain removed at bedside intact without issue Complications: none Surgeon: Han Bill Estimated blood loss (cc): 0 Specimens Removed/Pathology: none sent Condition: stable Disposition: PACU
--- NOTE | 2022-05-17 09:59 | Internal Med Progress Note ---
SUBJECTIVE Subjective Patient information: Note initiated : 05/17/22 at 9:57 am Service Date, if different from initiated Date: [] Patient: Jewell Campoverde 71 y/o F admitted on 05/07/22 for Removal of Drain under Conscious Sedation, . Chief Complaint: [] Principal diagnosis: Colonic perforation Interval history: Clinically stable, was hypotensive during the night after she was given her lose lisinopril 2.5mg. Afebrile, WBC 6.8. Discussed with Dr. Bill this morning. Constitutional Vitals: Vital Signs Temp Pulse Resp BP Pulse Ox O2 Del Method O2 Flow Rate 97.1 F 74 16 101/66 100 Room Air 0 05/17/22 09:02 05/17/22 09:02 05/17/22 09:02 05/17/22 09:02 05/17/22 09:02 05/17/22 08:10 05/17/22 06:08 Period Temp Pulse Resp BP Sys/Stiles Pulse Ox O2 Del Method O2 Flow Rate Last 24 Hr 97.0 F-98.6 F 64-98 15-20 60-127/40-83 92-100 Room Air-Room Air 0 Intake and Output 05/16/22 05/17/22 05/17/22 19:59 03:59 11:59 Intake Total 811 329 5799 Output Total 13 350 18 Balance 745 151 5161 Weight 68.356 kg Intake & Output: Intake & Output 05/16/22 05/17/22 05/17/22 19:59 03:59 11:59 Intake Total 832 374 1087 Output Total 13 350 18 Balance 759 377 8501 Weight 68.356 kg Intake: IV 1150 Lactated Ringers 1,000 ml @ 1000 Wide Open IV BOLUS ONE Rx#: [id number] Ancef 2 gm In Dextrose 5% in 50 Water 50 ml @ 100 mls/hr IV PREOP [facility] Rx#:[id number] Oral 560 800 IV - Manual Only 1500 Output: Drainage 13 18 LLQ CHRISTINE C 3 5 RLQ CHRISTINE B 5 10 RUQ CHRISTINE A 5 3 Void Amount 350 Other: Meal Lunch Percent of Meal Consumed 100% Feeding Ability Independent Urine Appearance Clear Clear Urine Color Dark Yellow Dark Yellow Head Head exam: Present atraumatic and normal inspection Eye Eye exam: Present normal appearance ENT ENT exam: Present mucous membranes moist, normal exam and normal external ear exam Neck Neck exam: Present normal inspection Respiratory Respiratory exam: Present normal respiratory exam Cardiovascular Cardiovascular exam: Present normal rate and rhythm GI/Abdominal GI/Abdominal exam: Present normal bowel sounds Back Exam Back exam: Present normal inspection Neurological Exam Neurological exam: Present alert and oriented X3 Skin Skin exam: Present intact and warm OBJ DATA Labs 05/17/22 05:37 05/17/22 05:37 Labs: Abnormal Lab Results 05/17/22 05/17/22 05/16/22 05:37 05:37 05:30 RBC 3.42 L Hgb 10.7 L Hct 33.7 L MPV 8.7 L Immature Gran % (Auto) 0.9 H Eos % (Auto) 7.2 H Immature Gran # 0.06 H Anion Gap 7.0 L BUN Creatinine 0.5 L Glucose 128 H Calcium 8.4 L 05/16/22 05/15/22 05:30 05:24 RBC Hgb Hct MPV 8.6 L Immature Gran % (Auto) Eos % (Auto) Immature Gran # Anion Gap BUN 3 L Creatinine 0.4 L Glucose 119 H Calcium Meds: Medications Hydrocodone Bitart/Acetaminophen (Hydrocodone/Apap 5/325mg Tablet) 1 - 2 tab PO Q4-6HP PRN; Protocol PRN Reason: Per Pain Protocol Last Admin: 05/16/22 20:32 Dose: 2 tab Albuterol Sulfate (Albuterol Sulfate 2.5 Mg/3 Ml Nebulizer) 2.5 mg NEB Q2HP PRN PRN Reason: Shortness Of Breath Alprazolam (Alprazolam 0.5 Mg Tablet) 2 mg PO HSP PRN PRN Reason: Insomnia Last Admin: 05/16/22 20:31 Dose: 2 mg Amoxicillin/Clavulanate Potassium (Amoxicillin/Potassium Clav 875 Mg Tablet) 875 mg PO BID [facility]; Protocol Last Admin: 05/16/22 20:34 Dose: 875 mg Ciprofloxacin (Ciprofloxacin 500 Mg Tablet) 500 mg PO BID [facility]; Protocol Last Admin: 05/16/22 20:32 Dose: 500 mg Diphenhydramine HCl (Diphenhydramine 25 Mg Capsule) 25 mg PO Q8HP PRN PRN Reason: Allergic Symptoms Last Admin: 05/16/22 20:33 Dose: 25 mg Fluticasone Propionate (Fluticasone Propionate [place].Alfred) 1 spray NS BID [facility] Last Admin: 05/16/22 20:35 Dose: Not Given Heparin Sodium (Porcine) (Heparin 5,000 Unit/Ml Vial) 5,000 unit SQ Q12 [facility] Last Admin: 05/16/22 20:32 Dose: 5,000 unit Hydromorphone HCl (Hydromorphone 0.5 Mg/0.5 Ml Syringe) 0.5 - 1 mg IM Q1HP PRN; Protocol PRN Reason: Per Pain Protocol Lactated Ringer's (Lactated Ringers) 1,000 mls @ 150 mls/hr IV .Q6H40M [facility] Last Admin: 05/17/22 05:02 Dose: 150 mls/hr Cefazolin Sodium 2 gm/ (Dextrose) 50 mls @ 100 mls/hr IV PREOP [facility]; Protocol Stop: 05/17/22 12:00 Last Infusion: 05/17/22 08:20 Dose: Infused Metoclopramide HCl (Metoclopramide 10 Mg/2 Ml Vial) 10 mg IV Q8HP PRN PRN Reason: Nausea And Vomiting Last Admin: 05/15/22 06:00 Dose: 10 mg Metronidazole (Metronidazole 500 Mg Tablet) 500 mg PO Q8 [facility]; Protocol Last Admin: 05/17/22 06:09 Dose: 500 mg Nicotine Polacrilex (Nicotine Polacrilex 2 Mg Gum) 2 mg CHEW/PARK Q4HP PRN PRN Reason: nicotine withdrawal Last Admin: 05/09/22 20:13 Dose: 2 mg Pantoprazole Sodium (Pantoprazole 40 Mg Tablet) 40 mg PO QAMAC [facility] Last Admin: 05/16/22 07:26 Dose: 40 mg Phenol (Phenol/Sodium Phenolate 5 [place] Bottle 180ml) 5 spray SSP Q2HP PRN PRN Reason: Sore Throat Last Admin: 05/09/22 20:14 Dose: 5 spray A/P Narrative A/P Narrative: Assessment:71-year-old female with a history of hypertension, anxiety, GERD, tobacco use disorder, chronic pain on oxycodone, peripheral vascular disease, iatrogenic colonic perforation during colonoscopy in August 2021 requiring a emergent laparotomy for resection of the sigmoid colon, washout and end colostomy now admitted after attempted colostomy reversal on 05/07/2022. The patient was found to have a stricture in the remnant sigmoid colon and rectum. T he surgery was complicated by traumatic perforation of the rectal stricture requiring a reestablishment of and end colostomy instead of reversal. #Status post exploratory laparotomy and reestablishment of end colostomy 05/07/2022 #Iatrogenic traumatic perforation of rectal stricture during attempted colostomy reversal 05/07/2022 #Hypertension #Anxiety disorder #GERD #Chronic pain #Peripheral vascular disease #Tobacco use disorder Plan -Postoperative management, antibiotics, analgesics, diet per general surger.-> CHRISTINE drain removed in OR today, ADAT, continue PO abx -Ativan IV as needed for anxiety. -Albuterol nebs as needed for SOB or wheezing. -Protonix IV for GERD while NPO. -On home lisinopril. -Monitor and replace electrolytes as needed. -Monitor nutritional status -PT and OT. -Nicotine replacement as needed. -DVT prophylaxis: Heparin SQ -CODE STATUS: Spiral Binder Spent With Patient Time: Total time spent is greater than 50% in coordination of care (as documented) at patient's floor/unit and/or counseling patient: Subsequent: Total time with patient: 25 - 34 minutes QUALITY VTE Deep Vein Thrombosis/Pulmonary Embolism Present on Admission: No
--- NOTE | 2022-05-17 10:15 | General Surgery Progress Note ---
SUBJECTIVE Subjective Patient information: Note initiated : 05/17/22 at 10:10 am Service Date, if different from initiated Date: [] Patient: Jewell Campoverde 71 y/o F admitted on 05/07/22 for Removal of Drain under Conscious Sedation, . Chief Complaint: [] Hypotensive episodes overnight noted, responsive to IV Placement and supplemental fluids. Drain removed at the bedside in the OR today under sedation without issue. Large stomal output this am. Feels well and denies significant abdominal pain. Principal diagnosis: Colonic perforation Constitutional Vitals: Vital Signs Temp Pulse Resp BP Pulse Ox O2 Del Method O2 Flow Rate 97.1 F 74 16 101/66 100 Room Air 0 05/17/22 09:02 05/17/22 09:02 05/17/22 09:02 05/17/22 09:02 05/17/22 09:02 05/17/22 08:10 05/17/22 06:08 Period Temp Pulse Resp BP Sys/Stiles Pulse Ox O2 Del Method O2 Flow Rate Last 24 Hr 97.0 F-98.6 F 64-98 15-20 60-127/40-83 92-100 Room Air-Room Air 0 Intake and Output 05/16/22 05/17/22 05/17/22 19:59 03:59 11:59 Intake Total 594 498 1579 Output Total 13 350 18 Balance 613 026 8729 Weight 150 lb 11.2 oz Intake & Output: Intake & Output 05/16/22 05/17/22 05/17/22 19:59 03:59 11:59 Intake Total 633 065 7134 Output Total 13 350 18 Balance 361 255 6792 Weight 150 lb 11.2 oz Intake: IV 1150 Lactated Ringers 1,000 ml @ 1000 Wide Open IV BOLUS ONE Rx#: [id number] Ancef 2 gm In Dextrose 5% in 50 Water 50 ml @ 100 mls/hr IV PREOP [facility] Rx#:[id number] Oral 560 800 IV - Manual Only 1500 Output: Drainage 13 18 LLQ CHRISTINE C 3 5 RLQ CHRISTINE B 5 10 RUQ CHRISTINE A 5 3 Void Amount 350 Other: Meal Lunch Percent of Meal Consumed 100% Feeding Ability Independent Urine Appearance Clear Clear Urine Color Dark Yellow Dark Yellow Exam: Looks well, non toxic, NAD Respiratory Additional comments: Normal effort without distress Cardiovascular Cardiovascular exam: Present normal rate and rhythm and RRR GI/Abdominal Additional comments: soft and non tender, drains benign, midline dressing in place Extremities Exam Additional comments: well perfused A/P Assessment and plan (1) Colostomy present: Assessment and plan: POD #10 Drain removal today under sedation without issue (pulled out without any difficulty) Resume diet and IVFs for now No discharge today, re check labs in the AM Status: Acute Time Spent With Patient Time: Total time spent is greater than 50% in coordination of care (as documented) at patient's floor/unit and/or counseling patient:
[2022-05-17] MEDS: DEXTROSE 5%-LR 1,000 ML IV SCH ×2 (10:50→20:59)
[2022-05-17] MEDS: AMOXICILLIN/POTASSIUM CLAV 875 MG TABLET PO SCH (11:56)
[2022-05-17] MEDS: HEPARIN 5,000 UNIT/ML VIAL SQ SCH ×2 (11:56→20:52)
[2022-05-17] MEDS: CIPROFLOXACIN 500 MG TABLET PO SCH (11:57)
[2022-05-17] MEDS ORDERED: MEROPENEM 1 GM in 0.9 % SODIUM CHLORIDE 50 ML IV SCH (13:45)
--- NOTE | 2022-05-17 14:19 | Internal Med Progress Note ---
SUBJECTIVE Subjective Patient information: Note initiated : 05/17/22 at 2:16 pm Service Date, if different from initiated Date: [] Patient: Jewell Campoverde 71 y/o F admitted on 05/07/22 for Removal of Drain under Conscious Sedation, . Chief Complaint: [] Principal diagnosis: Colonic perforation Interval history: Interval history: Jewell Campoverde is a 71-year-old female with a history of hypertension, anxiety, GERD, tobacco use disorder, chronic pain on oxycodone, peripheral vascular disease, iatrogenic colonic perforation during colonoscopy in August 2021 requiring a emergent laparotomy for resection of the sigmoid colon, washout and end colostomy. The patient has been following with a general surgery since the colostomy placement and it was decided to perform a colostomy reversal. On 05/07/2022 the patient underwent surgery for colostomy reversal however intraoperatively the patient was found to have moderate adhesions, severe stricture of the remaining sigmoid colon and rectum in the surgery was complicated by a traumatic perforation of the rectal stricture. The patient had resection of the distal sigmoid colon, reestablishment of the end colostomy. Postoperatively, the patient was kept NPO. She did experience significant mount of abdominal pain that did not respond well to intermittent IV opioids there fore a Dilaudid MEAT STUFFER was started and the patient experienced better pain control. The patient had a nasogastric tube to suction and was kept n.p.o. pending recovery of bowel function. Hospital medicine was consulted to evaluate management the patient's chronic medical comorbidities. 05/10 Overnight the patient's blood pressure was moderately elevated, heart rate elevated as well. Started scheduled metoprolol IV every 6 hours as the patient remains n.p.o. Replaced low phosphorus with an IV rider. Patient is having some gas in her ostomy. She says her pain is adequately controlled. 05/11 Blood pressure elevated overnight, otherwise vitals are stable. Patient says her pain is well controlled. Electrolytes okay today. Surgery ordered NT tube removal. 05/12 No changes overnight. Pain well controlled. Gas in Colostomy bag, no BM yet. 05/13 No significant events overnight, high-grade temperatures but no fevers overnight. Blood pressure satisfactory. Labs stable this morning. 05/15 Clinically stable. No active complaints or concerns. 05/17 Clinically stable, was hypotensive during the night after she was given her lose lisinopril 2.5mg. Afebrile, WBC 6.8. Discussed with Dr. Bill this morning. 05/18 Review of Systems: denies headache/fever/chills/nausea/vomiting/chest or abdominal pain/cough/dyspnea/diarrhea. Otherwise see above. PHYSICAL EXAM General: Alert, Awake, No acute Distress Eyes/N/T: EOMI, no scleral icterus, Head/Neck: neck supple, full ROM, CV: RRR, No murmurs, Pulm: Clear b/l, no wheezing/rhonchi/rales, no respiratory distress Abd: soft, nontender, +BS x4 Ext: no clubbing/cyanosis/edema, nontender Neuro: Alert, no focal deficits, moves all extremities, sensations intact b/l upper/lower Psychiatric: Skin: warm/dry, normal color Constitutional Vitals: Vital Signs Temp Pulse Resp BP Pulse Ox O2 Del Method O2 Flow Rate 97.6 F 70 18 93/76 97 Room Air 0 05/17/22 11:00 05/17/22 11:00 05/17/22 11:00 05/17/22 11:00 05/17/22 11:00 05/17/22 11:00 05/17/22 06:08 Period Temp Pulse Resp BP Sys/Stiles Pulse Ox O2 Del Method O2 Flow Rate Last 24 Hr 97.0 F-98.6 F 64-98 15-20 60-127/40-83 92-100 Room Air-Room Air 0 Intake and Output 05/17/22 05/17/22 05/17/22 03:59 11:59 19:59 Intake Total 800 2650 550 Output Total 350 1318 Balance 450 1332 550 Weight 68.356 kg 68.356 kg Patient Weight 05/18/22 03:59 Weight 68.356 kg Intake & Output: Intake & Output 05/17/22 05/17/22 05/17/22 03:59 11:59 19:59 Intake Total 800 2650 550 Output Total 350 1318 Balance 450 1332 550 Weight 68.356 kg 68.356 kg Intake: IV 1150 400 Lactated Ringers 1,000 ml @ 150 1000 400 mls/hr IV .Q6H40M [facility] Rx#: [id number] Ancef 2 gm In Dextrose 5% in 50 Water 50 ml @ 100 mls/hr IV PREOP [facility] Rx#:[id number] Oral 800 150 IV - Manual Only 1500 Output: Drainage 18 LLQ CHRISTINE C 5 RLQ CHRISTINE B 10 RUQ CHRISTINE A 3 Void Amount 350 Stool 1300 Other: Urine Appearance Clear Clear Urine Color Dark Yellow Dark Yellow Stool Color Brown Stool Consistency Liquid Watery Loose OBJ DATA Labs 05/17/22 05:37 05/17/22 05:37 Labs: Abnormal Lab Results 05/17/22 05/17/22 05/16/22 05:37 05:37 05:30 RBC 3.42 L Hgb 10.7 L Hct 33.7 L MPV 8.7 L Immature Gran % (Auto) 0.9 H Eos % (Auto) 7.2 H Immature Gran # 0.06 H Anion Gap 7.0 L BUN Creatinine 0.5 L Glucose 128 H Calcium 8.4 L 05/16/22 05/15/22 05:30 05:24 RBC Hgb Hct MPV 8.6 L Immature Gran % (Auto) Eos % (Auto) Immature Gran # Anion Gap BUN 3 L Creatinine 0.4 L Glucose 119 H Calcium Meds: Medications Hydrocodone Bitart/Acetaminophen (Hydrocodone/Apap 5/325mg Tablet) 1 - 2 tab PO Q4-6HP PRN; Protocol PRN Reason: Per Pain Protocol Last Admin: 05/16/22 20:32 Dose: 2 tab Albuterol Sulfate (Albuterol Sulfate 2.5 Mg/3 Ml Nebulizer) 2.5 mg NEB Q2HP PRN PRN Reason: Shortness Of Breath Alprazolam (Alprazolam 0.5 Mg Tablet) 2 mg PO HSP PRN PRN Reason: Insomnia Last Admin: 05/16/22 20:31 Dose: 2 mg Diphenhydramine HCl (Diphenhydramine 25 Mg Capsule) 25 mg PO Q8HP PRN PRN Reason: Allergic Symptoms Last Admin: 05/16/22 20:33 Dose: 25 mg Fluticasone Propionate (Fluticasone Propionate [place].Alfred) 1 spray NS BID [facility] Last Admin: 05/17/22 09:58 Dose: Not Given Heparin Sodium (Porcine) (Heparin 5,000 Unit/Ml Vial) 5,000 unit SQ Q12 [facility] Last Admin: 05/17/22 11:56 Dose: 5,000 unit Hydromorphone HCl (Hydromorphone 0.5 Mg/0.5 Ml Syringe) 0.5 - 1 mg IM Q1HP PRN; Protocol PRN Reason: Per Pain Protocol Dextrose/Lactated Ringer's (Dextrose 5%-Lactated Ringers) 1,000 mls @ 125 mls/hr IV .Q8H [facility] Last Admin: 05/17/22 10:50 Dose: 125 mls/hr Ciprofloxacin (Cipro) 400 mg in 200 mls @ 200 mls/hr IV Q12H [facility]; Protocol Metronidazole (Flagyl) 500 mg in 100 mls @ 100 mls/hr IV Q8H [facility]; Protocol Metoclopramide HCl (Metoclopramide 10 Mg/2 Ml Vial) 10 mg IV Q8HP PRN PRN Reason: Nausea And Vomiting Last Admin: 05/15/22 06:00 Dose: 10 mg Nicotine Polacrilex (Nicotine Polacrilex 2 Mg Gum) 2 mg CHEW/PARK Q4HP PRN PRN Reason: nicotine withdrawal Last Admin: 05/09/22 20:13 Dose: 2 mg Pantoprazole Sodium (Pantoprazole 40 Mg Tablet) 40 mg PO QAMAC [facility] Last Admin: 05/17/22 09:58 Dose: Not Given Phenol (Phenol/Sodium Phenolate 5 [place] Bottle 180ml) 5 spray SSP Q2HP PRN PRN Reason: Sore Throat Last Admin: 05/09/22 20:14 Dose: 5 spray A/P Narrative A/P Narrative: A: #s/p Ex-Lap & reestablishment of end colostomy 05/07/2022: #Iatrogenic traumatic perforation of rectal stricture during attempted colostomy reversal 05/07/2022: #Hypertension: #Anxiety disorder: #GERD: #Chronic pain: #Peripheral vascular disease: #Tobacco use disorder: Plan -Postoperative management, antibiotics, analgesics, diet per general surgery. -CHRISTINE drained removed (05/17) -Ativan IV as needed for anxiety. -Albuterol nebs as needed for SOB or wheezing. -Diet per surgery -On home lisinopril. -Monitor and replace electrolytes as needed. -Monitor nutritional status, if the patient remains n.p.o. for a prolonged period consider TPN. -PT and OT. -Nicotine replacement as needed. -DVT prophylaxis: Heparin SQ / ppi Time Spent With Patient Time: Total time spent is greater than 50% in coordination of care (as documented) at patient's floor/unit and/or counseling patient: QUALITY VTE Deep Vein Thrombosis/Pulmonary Embolism Present on Admission: No
[2022-05-17] MEDS: metroNIDAZOLE 500 MG/100 ML BAG IV SCH ×2 (15:06→21:46)
[2022-05-17] MEDS: CIPROFLOXACIN 400 MG/200 ML BAG IV SCH (16:13)
[2022-05-17] MEDS: HYDROcodone/APAP 5/325MG TABLET PO PRN (19:00)
[2022-05-17] MEDS: diphenhydrAMINE 25 MG CAPSULE PO PRN (19:00)
[2022-05-17] MEDS: ALPRAZolam 0.5 MG TABLET PO PRN (20:52)
--- NOTE | 2022-05-17 22:38 | General Surgery Progress Note ---
SUBJECTIVE Subjective Patient information: Note initiated : 05/17/22 at 10:31 pm Service Date, if different from initiated Date: [] Patient: Jewell Campoverde 71 y/o F admitted on 05/07/22 for Removal of Drain under Conscious Sedation, . Chief Complaint: [] Patient seen and re check this evening. States she feels very good, denies any significant abdominal pain, just voided. Principal diagnosis: Colonic perforation Constitutional Vitals: Vital Signs Temp Pulse Resp BP Pulse Ox O2 Del Method O2 Flow Rate 99.8 F H 102 H 18 109/58 93 Room Air 0 05/17/22 18:55 05/17/22 18:55 05/17/22 18:55 05/17/22 18:55 05/17/22 18:55 05/17/22 18:55 05/17/22 06:08 Period Temp Pulse Resp BP Sys/Stiles Pulse Ox O2 Del Method O2 Flow Rate Last 24 Hr 97.1 F-99.8 F 64-102 15-20 60-123/40-76 92-100 Room Air-Room Air 0 Intake and Output 05/17/22 05/17/22 05/18/22 11:59 19:59 03:59 Intake Total 2650 1090 1098 Output Total 1318 690 175 Balance 1332 400 923 Weight 150 lb 11.2 oz 157 lb 3.2 oz Patient Weight 05/18/22 03:59 Weight 157 lb 3.2 oz Intake & Output: Intake & Output 05/17/22 05/17/22 05/18/22 11:59 19:59 03:59 Intake Total 2650 1090 1098 Output Total 1318 690 175 Balance 1332 400 923 Weight 150 lb 11.2 oz 157 lb 3.2 oz Intake: IV 1063 452 7335 Dextrose 5%-Lactated Ringers 1, 1098 000 ml @ 125 mls/hr IV .Q8H [facility] Rx#:[id number] Lactated Ringers 1,000 ml @ 150 1000 400 mls/hr IV .Q6H40M [facility] Rx#: [id number] Ancef 2 gm In Dextrose 5% in 50 Water 50 ml @ 100 mls/hr IV PREOP [facility] Rx#:[id number] Oral 390 IV - Manual Only 1500 Output: Drainage 18 40 LLQ CHRISTINE C 5 20 RLQ CHRISTINE B 10 20 RUQ CHRISTINE A 3 Void Amount 650 175 Stool 1300 Other: Urine Appearance Clear Clear Clear Urine Color Dark Yellow Yellow Yellow Urine Odor Strong Stool Color Brown Stool Consistency Liquid Watery Loose Exam: awake, alert and fully conversant in no distress Respiratory Additional comments: normal effort without distress Cardiovascular Cardiovascular exam: Present normal rate and rhythm GI/Abdominal Additional comments: soft and non tender throughout, midline dressing in place and drains scant and benign Extremities Exam Additional comments: well perfused A/P Assessment and plan (1) Colostomy in place: Assessment and plan: POD #10 Continues to look somewhat clinically changed with increased fluid needs and soft pressures Will add Meropenem back now which is what she was on before IV access was initially lost Re check labs in AM and consider Abdominal and Pelvic CT scan to rule out abscess or some other intra abdominal malady Send C Diff SERGIO and will start oral Vanco as a precaution Status: Acute Time Spent With Patient Time: Total time spent is greater than 50% in coordination of care (as documented) at patient's floor/unit and/or counseling patient:
[2022-05-17] MEDS: MEROPENEM 1 GM in 0.9 % SODIUM CHLORIDE 50 ML IV SCH (23:14)
[2022-05-17] MEDS: VANCOMYCIN 125 MG CAPSULE PO SCH (23:15)
[2022-05-18] MEDS: CIPROFLOXACIN 400 MG/200 ML BAG IV SCH ×2 (00:30→08:55)
[2022-05-18] MEDS: metroNIDAZOLE 500 MG/100 ML BAG IV SCH (05:45)
[2022-05-18 06:37] LABS: Hematocrit 33.2 % (34.1-44.9); Hemoglobin 10.8 g/dL (11.2-15.7); Mean Cell Volume 94.9 fL (80.0-100.0); Mean Corpuscular HGB Conc 32.5 g/dL (31.0-36.0); Mean Platelet Volume 8.7 fL (8.8-12.5); Platelet Count 373 K/mcL (140-440); Red Cell Distribution Width 13.6 % (11.5-14.5); WBC 8.3 K/mcL (4.5-11.0)
[2022-05-18 06:57] LABS: Blood Urea Nitrogen 12 mg/dL (8-23); Calcium 8.2 mg/dL (8.6-10.4); Carbon Dioxide 26 mmol/L (22-30); Chloride 101 mmol/L (96-108); Glomerular Filtration Rate 97; Glucose 161 mg/dL (70-105)
[2022-05-18] MEDS: PANTOPRAZOLE 40 MG TABLET PO SCH (07:10)
--- NOTE | 2022-05-18 08:05 | Internal Med Progress Note ---
SUBJECTIVE Subjective Patient information: Note initiated : 05/18/22 at 8:01 am Service Date, if different from initiated Date: [] Patient: Jewell Campoverde 71 y/o F admitted on 05/07/22 for Removal of Drain under Conscious Sedation, . Chief Complaint: [] Principal diagnosis: Colonic perforation Interval history: Interval history: Jewell Campoverde is a 71-year-old female with a history of hypertension, anxiety, GERD, tobacco use disorder, chronic pain on oxycodone, peripheral vascular disease, iatrogenic colonic perforation during colonoscopy in August 2021 requiring a emergent laparotomy for resection of the sigmoid colon, washout and end colostomy. The patient has been following with a general surgery since the colostomy placement and it was decided to perform a colostomy reversal. On 05/07/2022 the patient underwent surgery for colostomy reversal however intraoperatively the patient was found to have moderate adhesions, severe stricture of the remaining sigmoid colon and rectum in the surgery was complicated by a traumatic perforation of the rectal stricture. The patient had resection of the distal sigmoid colon, reestablishment of the end colostomy. Postoperatively, the patient was kept NPO. She did experience significant mount of abdominal pain that did not respond well to intermittent IV opioids there fore a Dilaudid FLOORHAND was started and the patient experienced better pain control. The patient had a nasogastric tube to suction and was kept n.p.o. pending recovery of bowel function. Hospital medicine was consulted to evaluate management the patient's chronic medical comorbidities. 05/10 Overnight the patient's blood pressure was moderately elevated, heart rate elevated as well. Started scheduled metoprolol IV every 6 hours as the patient remains n.p.o. Replaced low phosphorus with an IV rider. Patient is having some gas in her ostomy. She says her pain is adequately controlled. 05/11 Blood pressure elevated overnight, otherwise vitals are stable. Patient says her pain is well controlled. Electrolytes okay today. Surgery ordered NT tube removal. 05/12 No changes overnight. Pain well controlled. Gas in Colostomy bag, no BM yet. 05/13 No significant events overnight, high-grade temperatures but no fevers overnight. Blood pressure satisfactory. Labs stable this morning. 05/15 Clinically stable. No active complaints or concerns. 05/17 Clinically stable, was hypotensive during the night after she was given her lose lisinopril 2.5mg. Afebrile, WBC 6.8. Discussed with Dr. Bill this morning. 05/18 No overnight event or new complaints. Blood pressure better overnight than pre vious night. Liquid stools noted in nursing charts. C. difficile ordered. Review of Systems: denies headache/fever/chills/nausea/vomiting/chest or abdominal pain/cough/dyspnea. Otherwise see above. PHYSICAL EXAM General: Alert, Awake, No acute Distress Eyes/N/T: EOMI, no scleral icterus, Head/Neck: neck supple, full ROM, CV: RRR, No murmurs, Pulm: Clear b/l, no wheezing/rhonchi/rales, no respiratory distress Abd: soft, nontender, +BS x4 Ext: no clubbing/cyanosis/edema, nontender Neuro: Alert, no focal deficits, moves all extremities, sensations intact b/l upper/lower Psychiatric: Skin: warm/dry, normal color Constitutional Vitals: Vital Signs Temp Pulse Resp BP Pulse Ox O2 Del Method O2 Flow Rate 96.9 F L 71 16 107/66 97 Room Air 0 05/18/22 07:00 05/18/22 07:00 05/18/22 07:00 05/18/22 07:00 05/18/22 07:00 05/18/22 07:00 05/17/22 06:08 Period Temp Pulse Resp BP Sys/Stiles Pulse Ox O2 Del Method O2 Flow Rate Last 24 Hr 96.9 F-99.8 F 70-102 15-20 80-123/48-76 93-100 Room Air-Room Air Intake and Output 05/17/22 05/18/22 05/18/22 19:59 03:59 11:59 Intake Total 1090 1588 638 Output Total 690 825 700 Balance 400 763 -62 Weight 68.356 kg 71.305 kg Intake & Output: Intake & Output 05/17/22 05/18/22 05/18/22 19:59 03:59 11:59 Intake Total 1090 1588 638 Output Total 690 825 700 Balance 400 763 -62 Weight 68.356 kg 71.305 kg Intake: IV 700 1588 638 Dextrose 5%-Lactated Ringers 1, 1238 538 000 ml @ 125 mls/hr IV .Q8H [facility] Rx#:[id number] Lactated Ringers 1,000 ml @ 150 400 mls/hr IV .Q6H40M [facility] Rx#: [id number] Merrem 1 gm In Sodium Chloride 50 0.9% 50 ml @ 100 mls/hr IV Q8H [facility] Rx#:[id number] Oral 390 Output: Drainage 40 LLQ CHRISTINE C 20 RLQ CHRISTINE B 20 Void Amount 650 825 700 Other: Urine Appearance Clear Clear Urine Color Yellow Bright Yellow Light [place] Urine Odor Strong Normal OBJ DATA Labs 05/18/22 05:30 05/18/22 05:30 Labs: Abnormal Lab Results 05/18/22 05/18/22 05/17/22 05:30 05:30 05:37 RBC 3.50 L 3.42 L Hgb 10.8 L 10.7 L Hct 33.2 L 33.7 L MPV 8.7 L 8.7 L Immature Gran % (Auto) 0.9 H Eos % (Auto) 7.2 H Immature Gran # 0.06 H Anion Gap 7.0 L Creatinine 0.5 L Glucose 161 H Calcium 8.2 L 05/17/22 05/16/22 05/16/22 05:37 05:30 05:30 RBC Hgb Hct MPV 8.6 L Immature Gran % (Auto) Eos % (Auto) Immature Gran # Anion Gap 7.0 L Creatinine 0.5 L Glucose 128 H Calcium 8.4 L Meds: Medications Hydrocodone Bitart/Acetaminophen (Hydrocodone/Apap 5/325mg Tablet) 1 - 2 tab PO Q4-6HP PRN; Protocol PRN Reason: Per Pain Protocol Last Admin: 05/17/22 19:00 Dose: 1 tab Albuterol Sulfate (Albuterol Sulfate 2.5 Mg/3 Ml Nebulizer) 2.5 mg NEB Q2HP PRN PRN Reason: Shortness Of Breath Alprazolam (Alprazolam 0.5 Mg Tablet) 2 mg PO HSP PRN PRN Reason: Insomnia Last Admin: 05/17/22 20:52 Dose: 2 mg Diphenhydramine HCl (Diphenhydramine 25 Mg Capsule) 25 mg PO Q8HP PRN PRN Reason: Allergic Symptoms Last Admin: 05/17/22 19:00 Dose: 25 mg Fluticasone Propionate (Fluticasone Propionate [place].Alfred) 1 spray NS BID [facility] Last Admin: 05/17/22 20:59 Dose: Not Given Heparin Sodium (Porcine) (Heparin 5,000 Unit/Ml Vial) 5,000 unit SQ Q12 [facility] Last Admin: 05/17/22 20:52 Dose: 5,000 unit Hydromorphone HCl (Hydromorphone 0.5 Mg/0.5 Ml Syringe) 0.5 - 1 mg IM Q1HP PRN; Protocol PRN Reason: Per Pain Protocol Dextrose/Lactated Ringer's (Dextrose 5%-Lactated Ringers) 1,000 mls @ 125 ml s/hr IV .Q8H [facility] Last Infusion: 05/18/22 06:45 Dose: 125 mls/hr Ciprofloxacin (Cipro) 400 mg in 200 mls @ 200 mls/hr IV Q12H [facility]; Protocol Last Infusion: 05/18/22 01:30 Dose: Infused Metronidazole (Flagyl) 500 mg in 100 mls @ 100 mls/hr IV Q8H [facility]; Protocol Last Infusion: 05/18/22 06:45 Dose: Infused Meropenem 1 gm/ Sodium (Chloride) 50 mls @ 100 mls/hr IV Q8H [facility]; Protocol Last Infusion: 05/17/22 23:45 Dose: Infused Metoclopramide HCl (Metoclopramide 10 Mg/2 Ml Vial) 10 mg IV Q8HP PRN PRN Reason: Nausea And Vomiting Last Admin: 05/15/22 06:00 Dose: 10 mg Nicotine Polacrilex (Nicotine Polacrilex 2 Mg Gum) 2 mg CHEW/PARK Q4HP PRN PRN Reason: nicotine withdrawal Last Admin: 05/09/22 20:13 Dose: 2 mg Pantoprazole Sodium (Pantoprazole 40 Mg Tablet) 40 mg PO QAMAC [facility] Last Admin: 05/18/22 07:10 Dose: 40 mg Phenol (Phenol/Sodium Phenolate 5 [place] Bottle 180ml) 5 spray SSP Q2HP PRN PRN Reason: Sore Throat Last Admin: 05/09/22 20:14 Dose: 5 spray Vancomycin HCl (Vancomycin 125 Mg Capsule) 125 mg PO QID [facility]; Protocol Last Admin: 05/17/22 23:15 Dose: 125 mg A/P Narrative A/P Narrative: A: #s/p Ex-Lap & reestablishment of end colostomy (05/07/2022): #Iatrogenic traumatic perforation of rectal stricture during attempted colostomy reversal 05/07/2022: #Hypertension: but soft BP's #Anxiety disorder: #GERD: #Chronic pain: #Peripheral vascular disease: #Tobacco use disorder: #Diarrhea: ?chronic Plan -Postoperative management, antibiotics, analgesics, diet per general surgery. -CHRISTINE drained removed (05/17) -c.diff pending -Ativan IV as needed for anxiety. -Albuterol nebs as needed for SOB or wheezing. -home lisinopril held for soft BP -Monitor and replace electrolytes as needed. -PT and OT. -Nicotine replacement as needed. -DVT prophylaxis: Heparin SQ / ppi Time Spent With Patient Time: Total time spent is greater than 50% in coordination of care (as documented) at patient's floor/unit and/or counseling patient: Subsequent: Total time with patient: 50 - 65 Minutes QUALITY VTE Deep Vein Thrombosis/Pulmonary Embolism Present on Admission: No
[2022-05-18] MEDS: MEROPENEM 1 GM in 0.9 % SODIUM CHLORIDE 50 ML IV SCH ×3 (08:13→22:18)
[2022-05-18] MEDS: HEPARIN 5,000 UNIT/ML VIAL SQ SCH ×2 (08:13→20:45)
[2022-05-18] MEDS: FLUTICASONE PROPIONATE SPRAY.NAS NS SCH ×2 (08:21→20:44)
[2022-05-18] MEDS: VANCOMYCIN 125 MG CAPSULE PO SCH ×4 (08:24→20:44)
[2022-05-18] MEDS: DEXTROSE 5%-LR 1,000 ML IV SCH ×4 (08:55→20:45)
[2022-05-18] MEDS ORDERED: tiZANidine 4 MG TABLET PO PRN (09:02)
[2022-05-18] MEDS ORDERED: BENZOCAINE/MENTHOL 1 LOZENGE PO PRN (10:15)
--- NOTE | 2022-05-18 11:08 | General Surgery Progress Note ---
SUBJECTIVE Subjective Patient information: Note initiated : 05/18/22 at 11:04 am Service Date, if different from initiated Date: [] Patient: Jewell Campoverde 71 y/o F admitted on 05/07/22 for Removal of Drain under Conscious Sedation, . Chief Complaint: [] Feels better this am, very minimal low grade temp last night, gas from stoma but minimal stool, otherwise feels well Principal diagnosis: Colonic perforation Constitutional Vitals: Vital Signs Temp Pulse Resp BP Pulse Ox O2 Del Method O2 Flow Rate 96.9 F L 71 16 107/66 97 Room Air 0 05/18/22 07:00 05/18/22 07:00 05/18/22 07:00 05/18/22 07:00 05/18/22 07:00 05/18/22 07:00 05/17/22 06:08 Period Temp Pulse Resp BP Sys/Stiles Pulse Ox O2 Del Method O2 Flow Rate Last 24 Hr 96.9 F-99.8 F 70-102 16-18 93-109/58-76 93-97 Room Air-Room Air Intake and Output 05/17/22 05/18/22 05/18/22 19:59 03:59 11:59 Intake Total 1090 1588 1118 Output Total 690 825 700 Balance 400 763 418 Weight 150 lb 11.2 oz 157 lb 3.2 oz Intake & Output: Intake & Output 05/17/22 05/18/22 05/18/22 19:59 03:59 11:59 Intake Total 1090 1588 1118 Output Total 690 825 700 Balance 400 763 418 Weight 150 lb 11.2 oz 157 lb 3.2 oz Intake: IV 700 1588 1118 Dextrose 5%-Lactated Ringers 1, 1238 768 000 ml @ 125 mls/hr IV .Q8H [facility] Rx#:[id number] Lactated Ringers 1,000 ml @ 150 400 mls/hr IV .Q6H40M [facility] Rx#: [id number] Merrem 1 gm In Sodium Chloride 50 50 0.9% 50 ml @ 100 mls/hr IV Q8H [facility] Rx#:[id number] Oral 390 Output: Drainage 40 LLQ CHRISTINE C 20 RLQ CHRISTINE B 20 Void Amount 650 825 700 Other: Meal Breakfast Percent of Meal Consumed 100% Urine Appearance Clear Clear Urine Color Yellow Bright Yellow Light [place] Urine Odor Strong Normal Exam: Looks well, nontoxic Respiratory Additional comments: Normal effort without distress Cardiovascular Cardiovascular exam: Present normal rate and rhythm GI/Abdominal Additional comments: soft and non tender, non distended, dressing in place, drains serous, ostomy viable Extremities Exam Additional comments: well perfused A/P Assessment and plan (1) Colostomy in place: Assessment and plan: POD #11 Doing much better this am with markedly improved urine output and pressures Continue Meropenem for now and d/c Cipro and Flagyl Continue oral Vanco until C Diff comes back Decrease IVFs and continue to encourage oral intake with an emphasis on liquids Status: Acute Time Spent With Patient Time: Total time spent is greater than 50% in coordination of care (as documented) at patient's floor/unit and/or counseling patient:
[2022-05-18] MEDS ORDERED: LACTULOSE 20 GM/30 ML ORAL.SOL PO ONE (17:14)
[2022-05-18] MEDS: ALPRAZolam 0.5 MG TABLET PO PRN (20:44)
[2022-05-18] MEDS: HYDROcodone/APAP 5/325MG TABLET PO PRN (20:44)
[2022-05-18] MEDS: diphenhydrAMINE 25 MG CAPSULE PO PRN (20:44)
[2022-05-19] MEDS: MEROPENEM 1 GM in 0.9 % SODIUM CHLORIDE 50 ML IV SCH ×3 (05:24→21:31)
[2022-05-19 06:32] LABS: Hematocrit 33.2 % (34.1-44.9); Hemoglobin 10.4 g/dL (11.2-15.7); Mean Cell Volume 98.8 fL (80.0-100.0); Mean Corpuscular HGB Conc 31.3 g/dL (31.0-36.0); Mean Platelet Volume 9.9 fL (8.8-12.5); Platelet Count 313 K/mcL (140-440); RBC 3.36 M/mcL (3.59-5.38); Red Cell Distribution Width 14.1 % (11.5-14.5); WBC 6.2 K/mcL (4.5-11.0)
[2022-05-19 06:55] LABS: Blood Urea Nitrogen 15 mg/dL (8-23); Calcium 8.5 mg/dL (8.6-10.4); Carbon Dioxide 30 mmol/L (22-30); Chloride 104 mmol/L (96-108); Glomerular Filtration Rate 97; Glucose 88 mg/dL (70-105)
[2022-05-19] MEDS: PANTOPRAZOLE 40 MG TABLET PO SCH (07:14)
--- NOTE | 2022-05-19 08:39 | Internal Med Progress Note ---
SUBJECTIVE Subjective Patient information: Note initiated : 05/19/22 at 8:37 am Service Date, if different from initiated Date: [] Patient: Jewell Campoverde 71 y/o F admitted on 05/07/22 for Removal of Drain under Conscious Sedation, . Chief Complaint: [] Principal diagnosis: Colonic perforation Interval history: Interval history: Jewell Campoverde is a 71-year-old female with a history of hypertension, anxiety, GERD, tobacco use disorder, chronic pain on oxycodone, peripheral vascular disease, iatrogenic colonic perforation during colonoscopy in August 2021 requiring a emergent laparotomy for resection of the sigmoid colon, washout and end colostomy. The patient has been following with a general surgery since the colostomy placement and it was decided to perform a colostomy reversal. On 05/07/2022 the patient underwent surgery for colostomy reversal however intraoperatively the patient was found to have moderate adhesions, severe stricture of the remaining sigmoid colon and rectum in the surgery was complicated by a traumatic perforation of the rectal stricture. The patient had resection of the distal sigmoid colon, reestablishment of the end colostomy. Postoperatively, the patient was kept NPO. She did experience significant mount of abdominal pain that did not respond well to intermittent IV opioids there fore a Dilaudid [employer] was started and the patient experienced better pain control. The patient had a nasogastric tube to suction and was kept n.p.o. pending recovery of bowel function. Hospital medicine was consulted to evaluate management the patient's chronic medical comorbidities. 05/10 Overnight the patient's blood pressure was moderately elevated, heart rate elevated as well. Started scheduled metoprolol IV every 6 hours as the patient remains n.p.o. Replaced low phosphorus with an IV rider. Patient is having some gas in her ostomy. She says her pain is adequately controlled. 05/11 Blood pressure elevated overnight, otherwise vitals are stable. Patient says her pain is well controlled. Electrolytes okay today. Surgery ordered NT tube removal. 05/12 No changes overnight. Pain well controlled. Gas in Colostomy bag, no BM yet. 05/13 No significant events overnight, high-grade temperatures but no fevers overnight. Blood pressure satisfactory. Labs stable this morning. 05/15 Clinically stable. No active complaints or concerns. 05/17 Clinically stable, was hypotensive during the night after she was given her lose lisinopril 2.5mg. Afebrile, WBC 6.8. Discussed with Dr. Bill this morning. 05/18 No overnight event or new complaints. Blood pressure better overnight than pre vious night. Liquid stools noted in nursing charts. C. difficile ordered. 05/19 Able to finally get stool sample for C. difficile evaluation. Patient sitting up in bed eating breakfast. Appears to be a little more energetic. Review of Systems: denies headache/fever/chills/nausea/vomiting/chest or abdominal pain/cough/dyspnea. Otherwise see above. PHYSICAL EXAM General: Alert, Awake, No acute Distress Eyes/N/T: EOMI, no scleral icterus, Head/Neck: neck supple, full ROM, CV: RRR, No murmurs, Pulm: Clear b/l, no wheezing/rhonchi/rales, no respiratory distress Abd: soft, nontender, +BS x4, ostomy in place Ext: no clubbing/cyanosis/edema, nontender Neuro: Alert, no focal deficits, moves all extremities, sensations intact b/l upper/lower Psychiatric: Skin: warm/dry, normal color Constitutional Vitals: Vital Signs Temp Pulse Resp BP Pulse Ox O2 Del Method O2 Flow Rate 98.0 F 72 16 148/93 97 Room Air 0 05/19/22 07:19 05/19/22 07:19 05/19/22 07:19 05/19/22 07:19 05/19/22 07:19 05/19/22 07:19 05/17/22 06:08 Period Temp Pulse Resp BP Sys/Stiles Pulse Ox O2 Del Method O2 Flow Rate Last 24 Hr 97.5 F-98.3 F 72-87 12-18 93-148/56-93 95-97 Room Air-Room Air Intake and Output 05/18/22 05/19/22 05/19/22 19:59 03:59 11:59 Intake Total 50 948 290 Output Total 1270 512 Balance -1220 948 -222 Weight 69.309 kg Intake & Output: Intake & Output 05/18/22 05/19/22 05/19/22 19:59 03:59 11:59 Intake Total 50 948 290 Output Total 1270 512 Balance -1220 948 -222 Weight 69.309 kg Intake: IV 50 948 50 Dextrose 5%-Lactated Ringers 1, 898 000 ml @ 100 mls/hr IV .Q10H [facility] Rx#:[id number] Merrem 1 gm In Sodium Chloride 50 50 50 0.9% 50 ml @ 100 mls/hr IV Q8H [facility] Rx#:[id number] Oral 240 Output: Drainage 20 12 LLQ CHRISTINE C 10 3 RLQ CHRISTINE B 10 9 Void Amount 1250 250 Stool 250 Other: Meal Lunch Percent of Meal Consumed 100% 75% Feeding Ability Independent Independent Urine Appearance Clear Urine Color Dark Yellow Urine Odor Normal Stool Size Small Stool Color Brown Stool Consistency Soft # Bowel Movements 1 OBJ DATA Labs 05/19/22 05:54 05/19/22 05:53 Labs: Abnormal Lab Results 05/19/22 05/19/22 05/18/22 05:54 05:53 05:30 RBC 3.36 L Hgb 10.4 L Hct 33.2 L MPV Immature Gran % (Auto) Eos % (Auto) Immature Gran # Anion Gap 7.0 L Creatinine 0.5 L 0.5 L Glucose 161 H Calcium 8.5 L 8.2 L 05/18/22 05/17/22 05/17/22 05:30 05:37 05:37 RBC 3.50 L 3.42 L Hgb 10.8 L 10.7 L Hct 33.2 L 33.7 L MPV 8.7 L 8.7 L Immature Gran % (Auto) 0.9 H Eos % (Auto) 7.2 H Immature Gran # 0.06 H Anion Gap 7.0 L Creatinine Glucose 128 H Calcium 8.4 L Meds: Medications Hydrocodone Bitart/Acetaminophen (Hydrocodone/Apap 5/325mg Tablet) 1 - 2 tab PO Q4-6HP PRN; Protocol PRN Reason: Per Pain Protocol Last Admin: 05/18/22 20:44 Dose: 1 tab Albuterol Sulfate (Albuterol Sulfate 2.5 Mg/3 Ml Nebulizer) 2.5 mg NEB Q2HP PRN PRN Reason: Shortness Of Breath Alprazolam (Alprazolam 0.5 Mg Tablet) 2 mg PO HSP PRN PRN Reason: Insomnia Last Admin: 05/18/22 20:44 Dose: 2 mg Diphenhydramine HCl (Diphenhydramine 25 Mg Capsule) 25 mg PO Q8HP PRN PRN Reason: Allergic Symptoms Last Admin: 05/18/22 20:44 Dose: 25 mg Fluticasone Propionate (Fluticasone Propionate [place].Alfred) 1 spray NS BID [facility] Last Admin: 05/18/22 20:44 Dose: Not Given Heparin Sodium (Porcine) (Heparin 5,000 Unit/Ml Vial) 5,000 unit SQ Q12 [facility] Last Admin: 05/18/22 20:45 Dose: 5,000 unit Hydromorphone HCl (Hydromorphone 0.5 Mg/0.5 Ml Syringe) 0.5 - 1 mg IM Q1HP PRN; Protocol PRN Reason: Per Pain Protocol Meropenem 1 gm/ Sodium (Chloride) 50 mls @ 100 mls/hr IV Q8H [facility]; Protocol Last Infusion: 05/19/22 05:54 Dose: Infused Dextrose/Lactated Ringer's (Dextrose 5%-Lactated Ringers) 1,000 mls @ 100 mls/hr IV .Q10H [facility] Last Admin: 05/18/22 20:45 Dose: 100 mls/hr Lactulose (Lactulose 20 Gm/30 Ml Oral.[place]) 20 gm PO DAILY [facility] Metoclopramide HCl (Metoclopramide 10 Mg/2 Ml Vial) 10 mg IV Q8HP PRN PRN Reason: Nausea And Vomiting Last Admin: 05/15/22 06:00 Dose: 10 mg Nicotine Polacrilex (Nicotine Polacrilex 2 Mg Gum) 2 mg CHEW/PARK Q4HP PRN PRN Reason: nicotine withdrawal Last Admin: 05/09/22 20:13 Dose: 2 mg Pantoprazole Sodium ([facility]antoprazole 40 Mg Tablet) [facility] Last Admin: 05/19/22 07:14 Dose: 40 mg Phenol (Phenol/Sodium Phenolate 5 [place] Bottle 180ml) 5 spray SSP Q2HP PRN PRN Reason: Sore Throat Last Admin: 05/09/22 20:14 Dose: 5 spray Throat Lozenges (Benzocaine/Menthol 1 Lozenge) 1 lozenge PO PRN PRN PRN Reason: Sore Throat Vancomycin HCl (Vancomycin 125 Mg Capsule) 125 mg PO QID [facility]; Protocol Last Admin: 05/18/22 20:44 Dose: 125 mg A/P Narrative A/P Narrative: A: #s/p Ex-Lap & reestablishment of end colostomy (05/07/2022): #Iatrogenic traumatic perforation of rectal stricture during attempted colostomy reversal 05/07/2022: #Hypertension: #Anxiety disorder: #GERD: #Chronic pain: #Peripheral vascular disease: #Tobacco use disorder: #Diarrhea: Plan -Postoperative management, antibiotics, analgesics, diet per general surgery. -CHRISTINE drained removed (05/17) -c.diff pending -Ativan IV as needed for anxiety. -Albuterol nebs as needed for SOB or wheezing. -home lisinopril held for soft BP, restart as needed -Monitor and replace electrolytes as needed. -PT and OT. -Nicotine replacement as needed. -DVT prophylaxis: Heparin SQ / ppi Time Spent With Patient Time: Total time spent is greater than 50% in coordination of care (as documented) at patient's floor/unit and/or counseling patient: QUALITY VTE Deep Vein Thrombosis/Pulmonary Embolism Present on Admission: No
[2022-05-19] MEDS: FLUTICASONE PROPIONATE SPRAY.NAS NS SCH ×2 (09:11→21:32)
[2022-05-19] MEDS: LACTULOSE 20 GM/30 ML ORAL.SOL PO SCH (09:11)
[2022-05-19] MEDS: HEPARIN 5,000 UNIT/ML VIAL SQ SCH ×2 (09:12→21:31)
[2022-05-19] MEDS: DEXTROSE 5%-LR 1,000 ML IV SCH (09:12)
[2022-05-19] MEDS: VANCOMYCIN 125 MG CAPSULE PO SCH ×3 (09:12→18:35)
--- NOTE | 2022-05-19 13:58 | General Surgery Progress Note ---
SUBJECTIVE Subjective Patient information: Note initiated : 05/19/22 at 1:57 pm Service Date, if different from initiated Date: [] Patient: Jewell Campoverde 71 y/o F admitted on 05/07/22 for Removal of Drain under Conscious Sedation, . Chief Complaint: [] Principal diagnosis: Colonic perforation Interval history: Patient is doing well. She has no complaints. Her stoma is functioning normally. She is tolerating diet.. Her incision looks good. CHRISTINE drainage is serous. Constitutional Vitals: Vital Signs Temp Pulse Resp BP Pulse Ox O2 Del Method O2 Flow Rate 98.0 F 72 16 148/93 97 Room Air 0 05/19/22 07:19 05/19/22 07:19 05/19/22 07:19 05/19/22 07:19 05/19/22 07:19 05/19/22 07:19 05/17/22 06:08 Period Temp Pulse Resp BP Sys/Stiles Pulse Ox O2 Del Method O2 Flow Rate Last 24 Hr 97.5 F-98.0 F 72-87 14-18 93-148/56-93 95-97 Room Air-Room Air Intake and Output 05/19/22 05/19/22 05/19/22 03:59 11:59 19:59 Intake Total 948 1690 Output Total 962 Balance 948 728 Intake & Output: Intake & Output 05/19/22 05/19/22 05/19/22 03:59 11:59 19:59 Intake Total 948 1690 Output Total 962 Balance 948 728 Intake: IV 948 1050 Dextrose 5%-Lactated Ringers 1, 898 1000 000 ml @ 100 mls/hr IV .Q10H [facility] Rx#:[id number] Merrem 1 gm In Sodium Chloride 50 50 0.9% 50 ml @ 100 mls/hr IV Q8H [facility] Rx#:[id number] Oral 640 Output: Drainage 12 LLQ CHRISTINE C 3 RLQ CHRISTINE B 9 Void Amount 700 Stool 250 Other: Meal Breakfast Percent of Meal Consumed 75% 100% Feeding Ability Independent Independent Urine Appearance Clear Urine Color Dark Yellow Urine Odor Normal Stool Size Small Stool Color Brown Stool Consistency Soft # Bowel Movements 1 Respiratory Respiratory exam: Present CTAB; Absent rales, rhonchi or wheezes Cardiovascular Cardiovascular exam: Present normal rate and rhythm, RRR, +S1 and +S2; Absent gallop or JVD GI/Abdominal GI/Abdominal exam: Present normal bowel sounds and soft; Absent distended or tenderness Additional comments: Incision looks good; drains have serous drainage patient; stoma is healthy Extremities Exam Extremities exam: Present full ROM, normal inspection and neurovascular intact Neurological Exam Neurological exam: Present alert and oriented X3; Absent motor sensory deficit A/P Assessment and plan (1) Colostomy status: Status: Acute (2) Chronic obstructive pulmonary disease: Status: Chronic Qualifiers: COPD type: unspecified COPD Qualified Code(s): J44.9 - Chronic obstructive pulmonary disease, unspecified (3) Perforation of colon as colonoscopy complication: Status: Acute Plan Saline lock IV Discharge pending for Saturday Time Spent With Patient Time: Total time spent is greater than 50% in coordination of care (as documented) at patient's floor/unit and/or counseling patient:
[2022-05-19] MEDS: ALPRAZolam 0.5 MG TABLET PO PRN (21:30)
[2022-05-19] MEDS: diphenhydrAMINE 25 MG CAPSULE PO PRN (21:30)
[2022-05-19] MEDS: HYDROcodone/APAP 5/325MG TABLET PO PRN (21:30)
[2022-05-20] MEDS: 0.9 % SODIUM CHLORIDE 10 ML SYRINGE IV SCH ×2 (05:19→14:58)
[2022-05-20] MEDS: MEROPENEM 1 GM in 0.9 % SODIUM CHLORIDE 50 ML IV SCH ×3 (05:19→22:54)
[2022-05-20] MEDS: PANTOPRAZOLE 40 MG TABLET PO SCH (08:04)
--- NOTE | 2022-05-20 08:44 | Internal Med Progress Note ---
SUBJECTIVE Subjective Patient information: Note initiated : 05/20/22 at 8:41 am Service Date, if different from initiated Date: [] Patient: Jewell Campoverde 71 y/o F admitted on 05/07/22 for Removal of Drain under Conscious Sedation, . Chief Complaint: [] Principal diagnosis: Colonic perforation Interval history: Interval history: Jewell Campoverde is a 71-year-old female with a history of hypertension, anxiety, GERD, tobacco use disorder, chronic pain on oxycodone, peripheral vascular disease, iatrogenic colonic perforation during colonoscopy in August 2021 requiring a emergent laparotomy for resection of the sigmoid colon, washout and end colostomy. The patient has been following with a general surgery since the colostomy placement and it was decided to perform a colostomy reversal. On 05/07/2022 the patient underwent surgery for colostomy reversal however intraoperatively the patient was found to have moderate adhesions, severe stricture of the remaining sigmoid colon and rectum in the surgery was complicated by a traumatic perforation of the rectal stricture. The patient had resection of the distal sigmoid colon, reestablishment of the end colostomy. Postoperatively, the patient was kept NPO. She did experience significant mount of abdominal pain that did not respond well to intermittent IV opioids there fore a Dilaudid PASSENGER SOLICITOR was started and the patient experienced better pain control. The patient had a nasogastric tube to suction and was kept n.p.o. pending recovery of bowel function. Hospital medicine was consulted to evaluate management the patient's chronic medical comorbidities. 05/10 Overnight the patient's blood pressure was moderately elevated, heart rate elevated as well. Started scheduled metoprolol IV every 6 hours as the patient remains n.p.o. Replaced low phosphorus with an IV rider. Patient is having some gas in her ostomy. She says her pain is adequately controlled. 05/11 Blood pressure elevated overnight, otherwise vitals are stable. Patient says her pain is well controlled. Electrolytes okay today. Surgery ordered NT tube removal. 05/12 No changes overnight. Pain well controlled. Gas in Colostomy bag, no BM yet. 05/13 No significant events overnight, high-grade temperatures but no fevers overnight. Blood pressure satisfactory. Labs stable this morning. 05/15 Clinically stable. No active complaints or concerns. 05/17 Clinically stable, was hypotensive during the night after she was given her lose lisinopril 2.5mg. Afebrile, WBC 6.8. Discussed with Dr. Bill this morning. 05/18 No overnight event or new complaints. Blood pressure better overnight than pre vious night. Liquid stools noted in nursing charts. C. difficile ordered. 05/19 Able to finally get stool sample for C. difficile evaluation. Patient sitting up in bed eating breakfast. Appears to be a little more energetic. 05/20 Patient states she is feeling little better. C. difficile negative. BM seem to be thickening up. Blood pressure trending up and will restart lisinopril. Review of Systems: denies headache/fever/chills/nausea/vomiting/chest or abdominal pain/cough/dyspnea. Otherwise see above. PHYSICAL EXAM General: Alert, Awake, No acute Distress Eyes/N/T: EOMI, no scleral icterus, Head/Neck: neck supple, full ROM, CV: RRR, No murmurs, Pulm: Clear b/l, no wheezing/rhonchi/rales, no respiratory distress Abd: soft, nontender, +BS x4, ostomy in place Ext: no clubbing/cyanosis/edema, nontender Neuro: Alert, no focal deficits, moves all extremities, sensations intact b/l upper/lower Psychiatric: Skin: warm/dry, normal color Constitutional Vitals: Vital Signs Temp Pulse Resp BP Pulse Ox O2 Del Method O2 Flow Rate 98.2 F 83 16 142/86 96 Room Air 0 05/20/22 03:52 05/20/22 03:52 05/20/22 03:52 05/20/22 03:52 05/20/22 03:52 05/20/22 03:52 05/17/22 06:08 Period Temp Pulse Resp BP Sys/Stiles Pulse Ox O2 Del Method O2 Flow Rate Last 24 Hr 98.0 F-98.6 F 83-87 16-17 142-152/73-86 94-99 Room Air-Room Air Intake and Output 05/19/22 05/20/22 05/20/22 19:59 03:59 11:59 Intake Total 450 1650 50 Output Total 1330 2492 500 Balance -880 -842 -450 Weight 67.812 kg Intake & Output: Intake & Output 05/19/22 05/20/22 05/20/22 19:59 03:59 11:59 Intake Total 450 1650 50 Output Total 1330 2492 500 Balance -880 -842 -450 Weight 67.812 kg Intake: IV 50 850 50 Dextrose 5%-Lactated Ringers 1, 800 000 ml @ 100 mls/hr IV .Q10H [facility] Rx#:[id number] Merrem 1 gm In Sodium Chloride 50 50 50 0.9% 50 ml @ 100 mls/hr IV Q8H [facility] Rx#:[id number] Oral 400 800 Output: Drainage 17 LLQ CHRISTINE C 10 RLQ CHRISTINE B 7 Drainage 30 LLQ CHRISTINE C 10 RLQ CHRISTINE B 20 Urine Catheter Amount 375 Void Amount 1150 2100 500 Stool 150 Other: Meal Lunch Percent of Meal Consumed 100% Feeding Ability Independent Urine Appearance Clear Urine Color Bright Yellow Bright Yellow Urine Odor Normal Normal Stool Color Brown Stool Consistency Soft OBJ DATA Labs 05/19/22 05:54 05/19/22 05:53 Labs: Abnormal Lab Results 05/19/22 05/19/22 05/18/22 05:54 05:53 05:30 RBC 3.36 L Hgb 10.4 L Hct 33.2 L MPV Anion Gap 7.0 L Creatinine 0.5 L 0.5 L Glucose 161 H Calcium 8.5 L 8.2 L 05/18/22 05:30 RBC 3.50 L Hgb 10.8 L Hct 33.2 L MPV 8.7 L Anion Gap Creatinine Glucose Calcium Meds: Medications Hydrocodone Bitart/Acetaminophen (Hydrocodone/Apap 5/325mg Tablet) 1 - 2 tab PO Q4-6HP PRN; Protocol PRN Reason: Per Pain Protocol Last Admin: 05/19/22 21:30 Dose: 1 tab Albuterol Sulfate (Albuterol Sulfate 2.5 Mg/3 Ml Nebulizer) 2.5 mg NEB Q2HP PRN PRN Reason: Shortness Of Breath Alprazolam (Alprazolam 0.5 Mg Tablet) 2 mg PO HSP PRN PRN Reason: Insomnia Last Admin: 05/19/22 21:30 Dose: 2 mg Diphenhydramine HCl (Diphenhydramine 25 Mg Capsule) 25 mg PO Q8HP PRN PRN Reason: Allergic Symptoms Last Admin: 05/19/22 21:30 Dose: 25 mg Fluticasone Propionate (Fluticasone Propionate [place].Alfred) 1 spray NS BID [facility] Last Admin: 05/19/22 21:32 Dose: Not Given Heparin Sodium (Porcine) (Heparin 5,000 Unit/Ml Vial) 5,000 unit SQ Q12 [facility] Last Admin: 05/19/22 21:31 Dose: 5,000 unit Hydromorphone HCl (Hydromorphone 0.5 Mg/0.5 Ml Syringe) 0.5 - 1 mg IM Q1HP PRN; Protocol PRN Reason: Per Pain Protocol Meropenem 1 gm/ Sodium (Chloride) 50 mls @ 100 mls/hr IV Q8H [facility]; Protocol Last Infusion: 05/20/22 05:49 Dose: Infused Lactulose (Lactulose 20 Gm/30 Ml Oral.Lesley) 20 gm PO DAILY [facility] Last Admin: 05/19/22 09:11 Dose: Not Given Metoclopramide HCl (Metoclopramide 10 Mg/2 Ml Vial) 10 mg IV Q8HP PRN PRN Reason: Nausea And Vomiting Last Admin: 05/15/22 06:00 Dose: 10 mg Nicotine Polacrilex (Nicotine Polacrilex 2 Mg Gum) 2 mg CHEW/PARK Q4HP PRN PRN Reason: nicotine withdrawal Last Admin: 05/09/22 20:13 Dose: 2 mg Pantoprazole Sodium (Pantoprazole 40 Mg Tablet) 40 mg PO QAMAC [facility] Last Admin: 05/20/22 08:04 Dose: 40 mg Phenol (Phenol/Sodium Phenolate 5 [place] Bottle 180ml) 5 spray SSP Q2HP PRN PRN Reason: Sore Throat Last Admin: 05/09/22 20:14 Dose: 5 spray Sodium Chloride (0.9 % Sodium Chloride 10 Ml Syringe) 10 ml IV Q8 [facility] Last Admin: 05/20/22 05:19 Dose: 10 ml Throat Lozenges (Benzocaine/Menthol 1 Lozenge) 1 lozenge PO PRN PRN PRN Reason: Sore Throat A/P Narrative A/P Narrative: A: #s/p Ex-Lap & reestablishment of end colostomy (05/07/2022): #Iatrogenic traumatic perforation of rectal stricture during attempted colostomy reversal 05/07/2022: #Hypertension: #Anxiety disorder: #GERD: #Chronic pain: #Peripheral vascular disease: #Tobacco use disorder: #Diarrhea: c. diff neg Plan -Postoperative management, antibiotics, analgesics, diet per general surgery. -CHRISTINE drained removed (05/17) -Ativan IV as needed for anxiety. -Albuterol nebs as needed for SOB or wheezing. -home lisinopril held for soft BP initially, restart -Monitor and replace electrolytes as needed. -PT and OT. -Nicotine replacement as needed. -DVT prophylaxis: Heparin SQ / ppi Time Spent With Patient Time: Total time spent is greater than 50% in coordination of care (as documented) at patient's floor/unit and/or counseling patient: Subsequent: Total time with patient: 35 - 49 minutes QUALITY VTE Deep Vein Thrombosis/Pulmonary Embolism Present on Admission: No
[2022-05-20] MEDS: HEPARIN 5,000 UNIT/ML VIAL SQ SCH ×2 (10:20→20:15)
[2022-05-20] MEDS: LISINOPRIL 2.5 MG TABLET PO SCH (10:20)
[2022-05-20] MEDS: LACTULOSE 20 GM/30 ML ORAL.SOL PO SCH (10:21)
[2022-05-20] MEDS: FLUTICASONE PROPIONATE SPRAY.NAS NS SCH ×2 (10:21→20:41)
--- NOTE | 2022-05-20 12:22 | General Surgery Progress Note ---
SUBJECTIVE Subjective Patient information: Note initiated : 05/20/22 at 12:16 pm Service Date, if different from initiated Date: [] Patient: Jewell Campoverde 71 y/o F admitted on 05/07/22 for Removal of Drain under Conscious Sedation, . Chief Complaint: [] Principal diagnosis: Colonic perforation Interval history: Patient is doing well. She has no complaints. She is tolerating diet without difficulty. No very small amount of serous drainage. Incision looks good. Stoma is functioning nicely Constitutional Vitals: Vital Signs Temp Pulse Resp BP Pulse Ox O2 Del Method O2 Flow Rate 98.0 F 80 16 159/70 99 Room Air 0 05/20/22 08:00 05/20/22 08:00 05/20/22 08:00 05/20/22 08:00 05/20/22 08:00 05/20/22 08:00 05/17/22 06:08 Period Temp Pulse Resp BP Sys/Stiles Pulse Ox O2 Del Method O2 Flow Rate Last 24 Hr 98.0 F-98.6 F 80-87 16-17 142-159/70-86 94-99 Room Air-Room Air Intake and Output 05/20/22 05/20/22 05/20/22 03:59 11:59 19:59 Intake Total 1650 50 Output Total 2492 500 Balance -842 -450 Weight 149 lb 8 oz Intake & Output: Intake & Output 05/20/22 05/20/22 05/20/22 03:59 11:59 19:59 Intake Total 1650 50 Output Total 2492 500 Balance -842 -450 Weight 149 lb 8 oz Intake: IV 850 50 Dextrose 5%-Lactated Ringers 1, 800 000 ml @ 100 mls/hr IV .Q10H [facility] Rx#:[id number] Merrem 1 gm In Sodium Chloride 50 50 0.9% 50 ml @ 100 mls/hr IV Q8H [facility] Rx#:[id number] Oral 800 Output: Drainage 17 LLQ CHRISTINE C 10 RLQ CHRISTINE B 7 Urine Catheter Amount 375 Void Amount 2100 500 Other: Urine Appearance Clear Urine Color Bright Yellow Bright Yellow Urine Odor Normal Normal Respiratory Respiratory exam: Present CTAB; Absent rales, rhonchi or wheezes Cardiovascular Cardiovascular exam: Present normal rate and rhythm, RRR, +S1 and +S2; Absent gallop or JVD GI/Abdominal GI/Abdominal exam: Present normal bowel sounds and soft; Absent distended or tenderness Additional comments: Incision looks good; drains have serous drainage patient; stoma is healthy Extremities Exam Extremities exam: Present full ROM, normal inspection and neurovascular intact Neurological Exam Neurological exam: Present alert and oriented X3; Absent motor sensory deficit A/P Assessment and plan (1) Colostomy status: Status: Acute (2) Chronic obstructive pulmonary disease: Status: Chronic Qualifiers: COPD type: unspecified COPD Qualified Code(s): J44.9 - Chronic obstructive pulmonary disease, unspecified (3) Perforation of colon as colonoscopy complication: Status: Acute Plan Saline lock IV Discharge pending for Saturday Time Spent With Patient Time: Total time spent is greater than 50% in coordination of care (as documented) at patient's floor/unit and/or counseling patient:
[2022-05-20] MEDS: ALPRAZolam 0.5 MG TABLET PO PRN (20:15)
[2022-05-20] MEDS: diphenhydrAMINE 25 MG CAPSULE PO PRN (20:16)
[2022-05-20] MEDS: HYDROcodone/APAP 5/325MG TABLET PO PRN (20:16)
[2022-05-21] MEDS: 0.9 % SODIUM CHLORIDE 10 ML SYRINGE IV SCH ×3 (04:08→15:01)
[2022-05-21] MEDS: MEROPENEM 1 GM in 0.9 % SODIUM CHLORIDE 50 ML IV SCH ×2 (05:25→15:00)
[2022-05-21 06:53] LABS: Basophils # (Auto) 0.08 K/mcL (0.00-0.30); Basophils % (Auto) 1.3 % (0.0-2.0); Eosinophils # (Auto) 0.38 K/mcL (0.00-0.70); Hematocrit 41.1 % (34.1-44.9); Lymphocytes # (Auto) 3.07 K/mcL (1.50-4.80); Lymphocytes % (Auto) 48.1 % (15.5-49.0); Mean Cell Volume 96.5 fL (80.0-100.0); Mean Corpuscular HGB Conc 31.6 g/dL (31.0-36.0); Mean Platelet Volume 8.9 fL (8.8-12.5); Monocytes # (Auto) 0.55 K/mcL (0.10-0.90); Monocytes % (Auto) 8.6 % (1.0-12.0); Neutrophils % (Auto) 35.4 % (38.0-78.0); Platelet Count 432 K/mcL (140-440); RBC 4.26 M/mcL (3.59-5.38); Red Cell Distribution Width 13.8 % (11.5-14.5); WBC 6.4 K/mcL (4.5-11.0)
[2022-05-21 07:37] LABS: ALT/SGPT 29 U/L (<40); AST/SGOT 24 U/L (<32); Albumin 3.1 gm/dL (3.2-5.2); Albumin/Globulin Ratio 1.1 (1.0-2.3); Alkaline Phosphatase 115 U/L (39-117); Bilirubin,Direct < 0.2 mg/dL (0-0.3); Bilirubin,Total 0.3 mg/dL (0.1-1.0); Blood Urea Nitrogen 18 mg/dL (8-23); Carbon Dioxide 30 mmol/L (22-30); Chloride 97 mmol/L (96-108); Globulin 2.7 gm/dL (2.2-3.7); Glomerular Filtration Rate 97; Glucose 108 mg/dL (70-105); Lactate Dehydrogenase 165 U/L (135-225); Phosphorous 3.2 mg/dL (2.5-4.5); Triglycerides 299 mg/dL (<150); Uric Acid 2.7 mg/dL (2.5-8.0)
--- NOTE | 2022-05-21 07:55 | Internal Med Progress Note ---
SUBJECTIVE Subjective Patient information: Note initiated : 05/21/22 at 7:55 am Service Date, if different from initiated Date: [] Patient: Jewell Campoverde 71 y/o F admitted on 05/07/22 for Removal of Drain under Conscious Sedation, . Chief Complaint: [] Principal diagnosis: Colonic perforation Interval history: Interval history: Jewell Campoverde is a 71-year-old female with a history of hypertension, anxiety, GERD, tobacco use disorder, chronic pain on oxycodone, peripheral vascular disease, iatrogenic colonic perforation during colonoscopy in August 2021 requiring a emergent laparotomy for resection of the sigmoid colon, washout and end colostomy. The patient has been following with a general surgery since the colostomy placement and it was decided to perform a colostomy reversal. On 05/07/2022 the patient underwent surgery for colostomy reversal however intraoperatively the patient was found to have moderate adhesions, severe stricture of the remaining sigmoid colon and rectum in the surgery was complicated by a traumatic perforation of the rectal stricture. The patient had resection of the distal sigmoid colon, reestablishment of the end colostomy. Postoperatively, the patient was kept NPO. She did experience significant mount of abdominal pain that did not respond well to intermittent IV opioids there fore a Dilaudid RETAIL AREA MANAGER was started and the patient experienced better pain control. The patient had a nasogastric tube to suction and was kept n.p.o. pending recovery of bowel function. Hospital medicine was consulted to evaluate management the patient's chronic medical comorbidities. 05/10 Overnight the patient's blood pressure was moderately elevated, heart rate elevated as well. Started scheduled metoprolol IV every 6 hours as the patient remains n.p.o. Replaced low phosphorus with an IV rider. Patient is having some gas in her ostomy. She says her pain is adequately controlled. 05/11 Blood pressure elevated overnight, otherwise vitals are stable. Patient says her pain is well controlled. Electrolytes okay today. Surgery ordered NT tube removal. 05/12 No changes overnight. Pain well controlled. Gas in Colostomy bag, no BM yet. 05/13 No significant events overnight, high-grade temperatures but no fevers overnight. Blood pressure satisfactory. Labs stable this morning. 05/15 Clinically stable. No active complaints or concerns. 05/17 Clinically stable, was hypotensive during the night after she was given her lose lisinopril 2.5mg. Afebrile, WBC 6.8. Discussed with Dr. Bill this morning. 05/18 No overnight event or new complaints. Blood pressure better overnight than pre vious night. Liquid stools noted in nursing charts. C. difficile ordered. 05/19 Able to finally get stool sample for C. difficile evaluation. Patient sitting up in bed eating breakfast. Appears to be a little more energetic. 05/20 Patient states she is feeling little better. C. difficile negative. BM seem to be thickening up. Blood pressure trending up and will restart lisinopril. 05/21 Patient continues to feel better. No more diarrhea. Laboratory stable. Further recommendations per surgery. Review of Systems: denies headache/fever/chills/nausea/vomiting/chest or abdominal pain/co ugh/dyspnea. Otherwise see above. PHYSICAL EXAM General: Alert, Awake, No acute Distress Eyes/N/T: EOMI, no scleral icterus, Head/Neck: neck supple, full ROM, CV: RRR, No murmurs, Pulm: Clear b/l, no wheezing/rhonchi/rales, no respiratory distress Abd: soft, nontender, +BS x4, ostomy in place Ext: no clubbing/cyanosis/edema, nontender Neuro: Alert, no focal deficits, moves all extremities, sensations intact b/l upper/lower Psychiatric: Skin: warm/dry, normal color Constitutional Vitals: Vital Signs Temp Pulse Resp BP Pulse Ox O2 Del Method O2 Flow Rate 98.1 F 87 14 132/78 100 Room Air 0 05/21/22 07:25 05/21/22 07:25 05/21/22 07:25 05/21/22 07:25 05/21/22 07:25 05/21/22 07:25 05/17/22 06:08 Period Temp Pulse Resp BP Sys/Stiles Pulse Ox O2 Del Method O2 Flow Rate Last 24 Hr 97.9 F-98.2 F 70-99 14-17 84-159/51-78 94-100 Room Air-Room Air Intake and Output 05/20/22 05/21/22 05/21/22 19:59 03:59 11:59 Intake Total 1450 55 Output Total 1500 15 Balance -50 40 Intake & Output: Intake & Output 05/20/22 05/21/22 05/21/22 19:59 03:59 11:59 Intake Total 1450 55 Output Total 1500 15 Balance -50 40 Intake: IV 50 55 Merrem 1 gm In Sodium Chloride 50 55 0.9% 50 ml @ 100 mls/hr IV Q8H [facility] Rx#:[id number] Oral 1400 Output: Drainage 15 LLQ CHRISTINE C 5 RLQ CHRISTINE B 10 Void Amount 1000 Stool 500 Other: Meal Dinner Percent of Meal Consumed 100% Feeding Ability Independent Stool Size Large Stool Color Brown Stool Consistency Soft OBJ DATA Labs 05/21/22 05:36 05/21/22 05:36 Labs: Abnormal Lab Results 05/21/22 05/21/22 05/19/22 05:36 05:36 05:54 RBC 3.36 L Hgb 10.4 L Hct 33.2 L Immature Gran % (Auto) 0.6 H Neut % (Auto) 35.4 L Creatinine 0.5 L Glucose 108 H Calcium GGT 98 H Total Protein 5.8 L Albumin 3.1 L Triglycerides 299 H 05/19/22 05:53 RBC Hgb Hct Immature Gran % (Auto) Neut % (Auto) Creatinine 0.5 L Glucose Calcium 8.5 L GGT Total Protein Albumin Triglycerides Meds: Medications Hydrocodone Bitart/Acetaminophen (Hydrocodone/Apap 5/325mg Tablet) 1 - 2 tab PO Q4-6HP PRN; Protocol PRN Reason: Per Pain Protocol Last Admin: 05/20/22 20:16 Dose: 1 tab Albuterol Sulfate (Albuterol Sulfate 2.5 Mg/3 Ml Nebulizer) 2.5 mg NEB Q2HP PRN PRN Reason: Shortness Of Breath Alprazolam (Alprazolam 0.5 Mg Tablet) 2 mg PO HSP PRN PRN Reason: Insomnia Last Admin: 05/20/22 20:15 Dose: 2 mg Diphenhydramine HCl (Diphenhydramine 25 Mg Capsule) 25 mg PO Q8HP PRN PRN Reason: Allergic Symptoms Last Admin: 05/20/22 20:16 Dose: 25 mg Fluticasone Propionate (Fluticasone Propionate [place].Alfred) 1 spray NS BID [facility] Last Admin: 05/20/22 20:41 Dose: Not Given Heparin Sodium (Porcine) (Heparin 5,000 Unit/Ml Vial) 5,000 unit SQ Q12 [facility] Last Admin: 05/20/22 20:15 Dose: 5,000 unit Hydromorphone HCl (Hydromorphone 0.5 Mg/0.5 Ml Syringe) 0.5 - 1 mg IM Q1HP PRN; Protocol PRN Reason: Per Pain Protocol Meropenem 1 gm/ Sodium (Chloride) 50 mls @ 100 mls/hr IV Q8H [facility]; Protocol Last Infusion: 05/21/22 05:53 Dose: Infused Lactulose (Lactulose 20 Gm/30 Ml Oral.Lesley) 20 gm PO DAILY [facility] Last Admin: 05/20/22 10:21 Dose: Not Given Lisinopril (Lisinopril 2.5 Mg Tablet) 2.5 mg PO DAILY [facility] Last Admin: 05/20/22 10:20 Dose: 2.5 mg Metoclopramide HCl (Metoclopramide 10 Mg/2 Ml Vial) 10 mg IV Q8HP PRN PRN Reason: Nausea And Vomiting Last Admin: 05/15/22 06:00 Dose: 10 mg Nicotine Polacrilex (Nicotine Polacrilex 2 Mg Gum) 2 mg CHEW/PARK Q4HP PRN PRN Reason: nicotine withdrawal Last Admin: 05/09/22 20:13 Dose: 2 mg Pantoprazole Sodium (Pantoprazole 40 Mg Tablet) 40 mg PO QAMAC [facility] Last Admin: 05/20/22 08:04 Dose: 40 mg Phenol (Phenol/Sodium Phenolate 5 [place] Bottle 180ml) 5 spray SSP Q2HP PRN PRN Reason: Sore Throat Last Admin: 05/09/22 20:14 Dose: 5 spray Sodium Chloride (0.9 % Sodium Chloride 10 Ml Syringe) 10 ml IV Q8 [facility] Last Admin: 05/21/22 05:25 Dose: Not Given Throat Lozenges (Benzocaine/Menthol 1 Lozenge) 1 lozenge PO PRN PRN PRN Reason: Sore Throat A/P Narrative A/P Narrative: A: #s/p Ex-Lap & reestablishment of end colostomy (05/07/2022): #Iatrogenic traumatic perforation of rectal stricture during attempted colostomy reversal 05/07/2022: #Hypertension: #Anxiety disorder: #GERD: #Chronic pain: #Peripheral vascular disease: #Tobacco use disorder: #Diarrhea: c. diff neg Plan -Postoperative management, antibiotics, analgesics, diet per general surgery. -CHRISTINE drained removed (05/17), 2 remaining -Ativan IV as needed for anxiety. -Albuterol nebs as needed for SOB or wheezing. -home lisinopril held for soft BP initially, but restarted now -Monitor and replace electrolytes as needed. -PT and OT. -Nicotine replacement as needed. -DVT prophylaxis: Heparin SQ / ppi Time Spent With Patient Time: Total time spent is greater than 50% in coordination of care (as documented) at patient's floor/unit and/or counseling patient: QUALITY VTE Deep Vein Thrombosis/Pulmonary Embolism Present on Admission: No
[2022-05-21] MEDS: PANTOPRAZOLE 40 MG TABLET PO SCH (08:09)
[2022-05-21] MEDS: LISINOPRIL 2.5 MG TABLET PO SCH (09:29)
[2022-05-21] MEDS: HEPARIN 5,000 UNIT/ML VIAL SQ SCH ×2 (09:32→20:38)
[2022-05-21] MEDS: FLUTICASONE PROPIONATE SPRAY.NAS NS SCH ×2 (09:32→20:42)
[2022-05-21] MEDS: LACTULOSE 20 GM/30 ML ORAL.SOL PO SCH (09:33)
--- NOTE | 2022-05-21 17:27 | General Surgery Progress Note ---
SUBJECTIVE Subjective Patient information: Note initiated : 05/21/22 at 5:20 pm Service Date, if different from initiated Date: [] Patient: Jewell Campoverde 71 y/o F admitted on 05/07/22 for Removal of Drain under Conscious Sedation, . Chief Complaint: [] Continues to feel better and improved overall. Feels stomal function has been good and eating well per patient. Principal diagnosis: Colonic perforation Constitutional Vitals: Vital Signs Temp Pulse Resp BP Pulse Ox O2 Del Method O2 Flow Rate 99.0 F 85 20 107/70 95 Room Air 0 05/21/22 15:43 05/21/22 15:43 05/21/22 15:43 05/21/22 15:43 05/21/22 15:43 05/21/22 15:43 05/17/22 06:08 Period Temp Pulse Resp BP Sys/Stiles Pulse Ox O2 Del Method O2 Flow Rate Last 24 Hr 97.9 F-99.0 F 83-99 14-20 84-132/51-78 94-100 Room Air-Room Air Intake and Output 05/21/22 05/21/22 05/21/22 03:59 11:59 19:59 Intake Total 295 360 Output Total 1040 800 Balance -745 -440 Intake & Output: Intake & Output 05/21/22 05/21/22 05/21/22 03:59 11:59 19:59 Intake Total 295 360 Output Total 1040 800 Balance -745 -440 Intake: IV 55 Merrem 1 gm In Sodium Chloride 55 0.9% 50 ml @ 100 mls/hr IV Q8H [facility] Rx#:[id number] Oral 240 GI Tube Flush 360 Output: Drainage 15 LLQ CHRISTINE C 5 RLQ CHRISTINE B 10 Void Amount 1025 800 Other: Meal Breakfast Lunch Percent of Meal Consumed 100% 100% Feeding Ability Independent Independent Urine Appearance Clear Clear Urine Color Yellow Dark Yellow Urine Odor Normal Normal Stool Size Small Small Stool Color Brown Brown Stool Consistency Formed Soft Exam: looks well, nontoxic, NAD, conversant Respiratory Additional comments: normal effort without distress Cardiovascular Cardiovascular exam: Present RRR GI/Abdominal Additional comments: soft and non tender, non distended, ostomy functioning well stoma pink and viable benign appearing Right and Left LQ drains removed at bedside without issue Extremities Exam Additional comments: well perfused A/P Assessment and plan (1) Colostomy present: Assessment and plan: POD #14 Doing well and feels well enough for discharge per patient No current IV Access Re eval in AM, if doing well will discharge Check labs in AM Status: Acute Time Spent With Patient Time: Total time spent is greater than 50% in coordination of care (as documented) at patient's floor/unit and/or counseling patient:
[2022-05-21] MEDS: diphenhydrAMINE 25 MG CAPSULE PO PRN (19:32)
[2022-05-21] MEDS: HYDROcodone/APAP 5/325MG TABLET PO PRN (19:32)
[2022-05-21] MEDS: AMOXICILLIN/POTASSIUM CLAV 875 MG TABLET PO SCH (20:34)
[2022-05-21] MEDS: ALPRAZolam 0.5 MG TABLET PO PRN (20:39)
[2022-05-21] MEDS: CIPROFLOXACIN 500 MG TABLET PO SCH (20:39)
[2022-05-22] MEDS: MEROPENEM 1 GM in 0.9 % SODIUM CHLORIDE 50 ML IV SCH ×2 (00:26→06:00)
[2022-05-22] MEDS: 0.9 % SODIUM CHLORIDE 10 ML SYRINGE IV SCH ×2 (00:27→06:01)
[2022-05-22 07:07] LABS: Hematocrit 37.2 % (34.1-44.9); Hemoglobin 11.8 g/dL (11.2-15.7); Mean Cell Volume 96.9 fL (80.0-100.0); Mean Corpuscular HGB Conc 31.7 g/dL (31.0-36.0); Platelet Count 390 K/mcL (140-440); RBC 3.84 M/mcL (3.59-5.38); WBC 5.8 K/mcL (4.5-11.0)
[2022-05-22 08:13] LABS: Blood Urea Nitrogen 27 mg/dL (8-23); Calcium 8.8 mg/dL (8.6-10.4); Carbon Dioxide 25 mmol/L (22-30); Chloride 99 mmol/L (96-108); Glomerular Filtration Rate 92; Glucose 98 mg/dL (70-105)
[2022-05-22] MEDS: CIPROFLOXACIN 500 MG TABLET PO SCH (08:15)
[2022-05-22] MEDS: FLUTICASONE PROPIONATE SPRAY.NAS NS SCH (08:15)
[2022-05-22] MEDS: HEPARIN 5,000 UNIT/ML VIAL SQ SCH (08:15)
[2022-05-22] MEDS: PANTOPRAZOLE 40 MG TABLET PO SCH (08:15)
[2022-05-22] MEDS: AMOXICILLIN/POTASSIUM CLAV 875 MG TABLET PO SCH (08:15)
[2022-05-22] MEDS: LACTULOSE 20 GM/30 ML ORAL.SOL PO SCH (08:18)
--- NOTE | 2022-05-22 08:28 | Internal Med Progress Note ---
SUBJECTIVE Subjective Patient information: Note initiated : 05/22/22 at 8:28 am Service Date, if different from initiated Date: [] Patient: Jewell Campoverde 71 y/o F admitted on 05/07/22 for Removal of Drain under Conscious Sedation, . Chief Complaint: [] Principal diagnosis: Colonic perforation Interval history: Interval history: Jewell Campoverde is a 71-year-old female with a history of hypertension, anxiety, GERD, tobacco use disorder, chronic pain on oxycodone, peripheral vascular disease, iatrogenic colonic perforation during colonoscopy in August 2021 requiring a emergent laparotomy for resection of the sigmoid colon, washout and end colostomy. The patient has been following with a general surgery since the colostomy placement and it was decided to perform a colostomy reversal. On 05/07/2022 the patient underwent surgery for colostomy reversal however intraoperatively the patient was found to have moderate adhesions, severe stricture of the remaining sigmoid colon and rectum in the surgery was complicated by a traumatic perforation of the rectal stricture. The patient had resection of the distal sigmoid colon, reestablishment of the end colostomy. Postoperatively, the patient was kept NPO. She did experience significant mount of abdominal pain that did not respond well to intermittent IV opioids there fore a Dilaudid [employer] was started and the patient experienced better pain control. The patient had a nasogastric tube to suction and was kept n.p.o. pending recovery of bowel function. Hospital medicine was consulted to evaluate management the patient's chronic medical comorbidities. 05/10 Overnight the patient's blood pressure was moderately elevated, heart rate elevated as well. Started scheduled metoprolol IV every 6 hours as the patient remains n.p.o. Replaced low phosphorus with an IV rider. Patient is having some gas in her ostomy. She says her pain is adequately controlled. 05/11 Blood pressure elevated overnight, otherwise vitals are stable. Patient says her pain is well controlled. Electrolytes okay today. Surgery ordered NT tube removal. 05/12 No changes overnight. Pain well controlled. Gas in Colostomy bag, no BM yet. 05/13 No significant events overnight, high-grade temperatures but no fevers overnight. Blood pressure satisfactory. Labs stable this morning. 05/15 Clinically stable. No active complaints or concerns. 05/17 Clinically stable, was hypotensive during the night after she was given her lose lisinopril 2.5mg. Afebrile, WBC 6.8. Discussed with Dr. Bill this morning. 05/18 No overnight event or new complaints. Blood pressure better overnight than pre vious night. Liquid stools noted in nursing charts. C. difficile ordered. 05/19 Able to finally get stool sample for C. difficile evaluation. Patient sitting up in bed eating breakfast. Appears to be a little more energetic. 05/20 Patient states she is feeling little better. C. difficile negative. BM seem to be thickening up. Blood pressure trending up and will restart lisinopril. 05/21 Patient continues to feel better. No more diarrhea. Laboratory stable. Further recommendations per surgery. 05/22 Patient seems to be doing well. Open to get out here today. Labs stable. No new complaints overnight events. Review of Systems: denies headache/fever/chills/nausea/vomiting/chest or abdominal pain/cough/dyspnea. Otherwise see above. PHYSICAL EXAM General: Alert, Awake, No acute Distress Eyes/N/T: EOMI, no scleral icterus, Head/Neck: neck supple, full ROM, CV: RRR, No murmurs, Pulm: Clear b/l, no wheezing/rhonchi/rales, no respiratory distress Abd: soft, nontender, +BS x4, ostomy in place Ext: no clubbing/cyanosis/edema, nontender Neuro: Alert, no focal deficits, moves all extremities, sensations intact b/l upper/lower Psychiatric: Skin: warm/dry, normal color Constitutional Vitals: Vital Signs Temp Pulse Resp BP Pulse Ox O2 Del Method O2 Flow Rate 97.5 F 63 14 100/62 99 Room Air 0 05/22/22 08:00 05/22/22 08:00 05/22/22 08:00 05/22/22 08:00 05/22/22 08:00 05/22/22 08:00 05/17/22 06:08 Period Temp Pulse Resp BP Sys/Stiles Pulse Ox O2 Del Method O2 Flow Rate Last 24 Hr 97.5 F-99.0 F 62-92 14-20 92-141/52-78 93-99 Room Air-Room Air Intake and Output 05/21/22 05/22/22 05/22/22 19:59 03:59 11:59 Intake Total 360 320 Output Total 1060 425 Balance -700 -105 Weight 68.629 kg Intake & Output: Intake & Output 05/21/22 05/22/22 05/22/22 19:59 03:59 11:59 Intake Total 360 320 Output Total 1060 425 Balance -700 -105 Weight 68.629 kg Intake: Oral 320 GI Tube Flush 360 Output: Drainage 10 LLQ CHRISTINE C 5 RLQ CHRISTINE B 5 Void Amount 1050 425 # of times incontinent of urine 0 Stool 0 Other: Meal Lunch Percent of Meal Consumed 100% Feeding Ability Independent Urine Appearance Clear Clear Urine Color Bright Yellow Yellow Urine Odor Normal Stool Size Small Stool Color Brown Stool Consistency Soft # Voids 0 OBJ DATA Labs 05/22/22 05:14 05/22/22 05:14 Labs: Abnormal Lab Results 05/22/22 05/21/22 05/21/22 05:14 05:36 05:36 Immature Gran % (Auto) 0.6 H Neut % (Auto) 35.4 L BUN 27 H Creatinine 0.5 L Glucose 108 H GGT 98 H Total Protein 5.8 L Albumin 3.1 L Triglycerides 299 H Meds: Medications Hydrocodone Bitart/Acetaminophen (Hydrocodone/Apap 5/325mg Tablet) 1 - 2 tab PO Q4-6HP PRN; Protocol PRN Reason: Per Pain Protocol Last Admin: 05/21/22 19:32 Dose: 1 tab Albuterol Sulfate (Albuterol Sulfate 2.5 Mg/3 Ml Nebulizer) 2.5 mg NEB Q2HP PRN PRN Reason: Shortness Of Breath Alprazolam (Alprazolam 0.5 Mg Tablet) 2 mg PO HSP PRN PRN Reason: Insomnia Last Admin: 05/21/22 20:39 Dose: 2 mg Amoxicillin/Clavulanate Potassium (Amoxicillin/Potassium Clav 875 Mg Tablet) 875 mg PO BID [place]; Protocol Last Admin: 05/22/22 08:15 Dose: 875 mg Ciprofloxacin (Ciprofloxacin 500 Mg Tablet) 500 mg PO BID [place]; Protocol Last Admin: 05/22/22 08:15 Dose: 500 mg Diphenhydramine HCl (Diphenhydramine 25 Mg Capsule) 25 mg PO Q8HP PRN PRN Reason: Allergic Symptoms Last Admin: 05/21/22 19:32 Dose: 25 mg Fluticasone Propionate (Fluticasone Propionate Franklin.Alfred) 1 spray NS BID [place] Last Admin: 03/21/23 08:15 Dose: Not Given Heparin Sodium (Porcine) (Heparin 5,000 Unit/Ml Vial) 5,000 unit SQ Q12 [facility] Last Admin: 05/22/22 08:15 Dose: 5,000 unit Hydromorphone HCl (Hydromorphone 0.5 Mg/0.5 Ml Syringe) 0.5 - 1 mg IM Q1HP PRN; Protocol PRN Reason: Per Pain Protocol Meropenem 1 gm/ Sodium (Chloride) 50 mls @ 100 mls/hr IV Q8H [facility]; Protocol Last Admin: 05/22/22 06:00 Dose: Not Given Lactulose (Lactulose 20 Gm/30 Ml Oral.Lesley) 20 gm PO DAILY [facility] Last Admin: 05/22/22 08:18 Dose: Not Given Metoclopramide HCl (Metoclopramide 10 Mg/2 Ml Vial) 10 mg IV Q8HP PRN PRN Reason: Nausea And Vomiting Last Admin: 05/15/22 06:00 Dose: 10 mg Nicotine Polacrilex (Nicotine Polacrilex 2 Mg Gum) 2 mg CHEW/PARK Q4HP PRN PRN Reason: nicotine withdrawal Last Admin: 05/09/22 20:13 Dose: 2 mg Pantoprazole Sodium (Pantoprazole 40 Mg Tablet) 40 mg PO QAMAC [facility] Last Admin: 05/22/22 08:15 Dose: 40 mg Phenol (Phenol/Sodium Phenolate 5 Franklin Bottle 180ml) 5 spray SSP Q2HP PRN PRN Reason: Sore Throat Last Admin: 05/09/22 20:14 Dose: 5 spray Sodium Chloride (0.9 % Sodium Chloride 10 Ml Syringe) 10 ml IV Q8 [facility] Last Admin: 05/22/22 06:01 Dose: Not Given Throat Lozenges (Benzocaine/Menthol 1 Lozenge) 1 lozenge PO PRN PRN PRN Reason: Sore Throat A/P Narrative A/P Narrative: A: #s/p Ex-Lap & reestablishment of end colostomy (05/07/2022): #Iatrogenic traumatic perforation of rectal stricture during attempted colostomy reversal 05/07/2022: #Hypertension: #Anxiety disorder: #GERD: #Chronic pain: #Peripheral vascular disease: #Tobacco use disorder: #Diarrhea: c. diff neg Plan -Postoperative management, antibiotics, analgesics, diet per general surgery. -Ativan IV as needed for anxiety. -Albuterol nebs as needed for SOB or wheezing. -home lisinopril held for soft BP initially, but restarted now -Monitor and replace electrolytes as needed. -PT and OT. -Nicotine replacement as needed. -DVT prophylaxis: Heparin SQ / ppi Time Spent With Patient Time: Total time spent is greater than 50% in coordination of care (as documented) at patient's floor/unit and/or counseling patient: QUALITY VTE Deep Vein Thrombosis/Pulmonary Embolism Present on Admission: No
--- NOTE | 2022-05-22 10:50 | XRay Report ---
CLINICAL INFORMATION: eval bowel gas pattern, rule out ileus COMPARISON: 05/16/2022. FINDINGS: Moderate stool seen within the colon. The stomach small and large bowel are normal caliber. Ostomy again seen in the left upper quadrant again noted.. All drains have been removed. There is no free air, soft tissue mass, organomegaly. IMPRESSION: Moderate colonic stool. Interpreted and Authenticated by: Steve Reynoso 05/22/22
--- NOTE | 2022-05-23 10:23 | General Surgery Progress Note ---
SUBJECTIVE Subjective Patient information: Note initiated : 05/22/22 at 10:15am Service Date, if different from initiated Date: [] Patient: Jewell Campoverde 71 y/o F admitted on 05/07/22 for Removal of Drain under Conscious Sedation, . Chief Complaint: [] Feels well this am, wanting to go home later today, tolerating a diet, drains removced yesterday and Abdominal X ray this am loosk good without evidence of obstruction or ileus. Principal diagnosis: Colonic perforation Constitutional Vitals: Vital Signs Temp Pulse Resp BP Pulse Ox O2 Del Method O2 Flow Rate 98.0 F 84 18 101/55 99 Room Air 0 05/22/22 13:00 05/22/22 13:00 05/22/22 13:00 05/22/22 13:00 05/22/22 13:00 05/22/22 13:00 05/17/22 06:08 Period Temp Pulse Resp BP Sys/Stiles Pulse Ox O2 Del Method O2 Flow Rate Last 24 Hr 98.0 F-98.0 F 84-86 16-18 99-101/55-65 99-100 Room Air-Room Air Intake and Output 05/22/22 05/23/22 05/23/22 19:59 03:59 11:59 Intake Total 240 Balance 240 Intake & Output: Intake & Output 05/22/22 05/23/22 05/23/22 19:59 03:59 11:59 Intake Total 240 Balance 240 Intake: Oral 240 Other: Meal Lunch Percent of Meal Consumed 100% Exam: looks well, non toxic, pleasantly conversant Respiratory Respiratory exam: Present normal respiratory exam Cardiovascular Cardiovascular exam: Present normal rate and rhythm and RRR GI/Abdominal Additional comments: soft and non tender, non distended, no mass, midline incision looks good, ostomy functional Extremities Exam Additional comments: well perfused A/P Assessment and plan (1) Colostomy status: Assessment and plan: POD #15 Doing Well Home Today Clinic follow up in the coming weeks Leave [place] for now Status: Acute Time Spent With Patient Time: Total time spent is greater than 50% in coordination of care (as documented) at patient's floor/unit and/or counseling patient:
--- NOTE | 2022-05-24 08:51 | Operative Note ---
DATE OF OPERATION: 05/17/2022 DATE OF PROCEDURE: 05/17/2022 PREOPERATIVE DIAGNOSIS: Retained abdominal wall drain. POSTOPERATIVE DIAGNOSIS: Retained abdominal wall drain. PROCEDURE: Removal of drain, under conscious sedation. SURGEON: Han Bill M.D. ANESTHESIA: Conscious sedation. INDICATIONS: The patient is a 71-year-old female who is 9-10 days out from an abdominal operation, in which several drains were left. An attempt was made by nursing staff to remove one of the drains that was being discontinued on the floor and felt it could not be removed at the bedside. The patient had a tremendous amount of pain and discomfort and they felt that the drain would not necessarily come out with her efforts to pull it at the bedside. The patient requested sedation to have it removed following that. We discussed at length the risks, benefits, potential complications, and alternative treatment options if our planned procedure. The reason for the difficulty of the removal was unknown, there was some possibility that it was internally retained in some way that might require operative intervention so we decided to proceed to the operating room for conscious sedation to remove it; in the event that it could be removed and we could proceed with surgical intervention if need be. DESCRIPTION OF PROCEDURE: The patient was taken to the OR suite and placed on the OR table, positioned comfortably by the entire OR team. She was placed under IV sedation and without issue or difficulty the drain was removed utilizing standard methodology at the patient's side without any operative intervention be necessary. The drain appeared to be removed intact and was discarded. A dry dressing was applied. The patient was awakened and transferred back to the recovery area without issue or concern. COMPLICATIONS: None apparent. FINDINGS: As discussed. The drain was removed without incident at the patient's bedside in the operating room under conscious sedation. [email or web address] Job ID: [id number] Doc ID: [id number] Han Bill M.D.
--- NOTE | 2022-05-31 07:33 | Discharge Summary ---
DATE OF ADMISSION: 05/07/2022 DATE OF DISCHARGE: 05/22/2022 DATE OF ADMISSION: 05/07/2022 DATE OF DISCHARGE: 05/22/2022 ADMITTING PHYSICIAN: Han Bill MD ADMITTING DIAGNOSES: 1. Need for colostomy reversal. 2. Sigmoid diverticulitis. DISCHARGE DIAGNOSES: 1. Need for colostomy reversal. 2. Sigmoid diverticulitis. INDICATIONS FOR ADMISSION/HOSPITAL COURSE: The patient is a 71-year-old female who underwent a colonoscopy roughly 9-10 months ago and suffered perforation at that time. We were asked to see her in consultation and proceed with emergency surgery. She required resection of the perforation mid left colon as well as a colostomy. She did well and recovered nicely from that over the past 8-9 months and presented multiple times requesting colostomy reversal and takedown. Preoperative studies were done, demonstrating no active evidence of abscess, purulence, or other issue, and clinically she was well enough that we felt it was reasonable for her to undergo this procedure. Risks, benefits, potential complications, and alternative treatment options were all discussed at length and she elected to proceed with surgery. I discussed this in detail, which can be found in a separately dictated operative report from 05/07/2022, in the electronic medical record. Her procedure was done; unfortunately, we were not able to reverse her colostomy for technical reasons and she underwent lysis of adhesions, sigmoid resection, and reestablishment of her colostomy. Following this, she recovered slowly, but steadily in the hospital and gradually improved for an expected period of time. On 05/17/2022, we felt she was ready to have her right upper quadrant drain removed. The nurses attempted to pull that, but were unsuccessful due to the patient's pain, and at that point, the patient had so much discomfort that she requested drain be removed under conscious sedation, which we performed in the operating room--that, too, in a separately dictated operative report. The patient subsequently continued to improve and had no other major issues in the hospital, and by the morning of 05/22/2022 was felt ready for discharge. At this time, both drains had been removed, her ostomy was viable and functioning, and her midline incision was nicely healed. George were left intact for removal in clinic. DISPOSITION: Discharged to home, with follow up in clinic. IN-HOSPITAL PROCEDURE: 05/07/2022 1. Exploratory laparotomy, lysis of adhesions, sigmoid resection, colostomy reversal with reestablishment of the colostomy 2. Removal of right upper quadrant intraabdominal drain under conscious sedation on 05/17/2022. [email or web address] Job ID: [id number] Doc ID: [id number] Han Bill M.D.
== END 2022-05-22 13:10 | disposition home or self-care (01) | DRG 330 ==
LOC: MEDSUR 05-07 08:42
PROVIDERS: ADMIT Surgery Surgical Critical Care; ATTEND Surgery Surgical Critical Care